=== PATIENT | female | born 1950 | race Caucasian/White ===

== ENCOUNTER 2022-05-21 11:57 | Outpatient (REF) | payer MEDICARE, SELFPAY | END 2022-05-21 11:58 | disposition home or self-care (01) | LOC: HO.LNP 11:57 | PROVIDERS: Visit Provider Internal Medicine | DX: S71.102A Unspecified open wound, left thigh, initial encounter (principal) | CPT/HCPCS: 87255 ==

== ENCOUNTER 2022-10-08 08:26 | Emergency (ER) | payer MEDICARE, SELFPAY ==
--- NOTE | ~2022-10-08 | XR_ITS ---
EXAMINATION: XR CHEST CLINICAL INFORMATION: Cough, shortness of breath. COMPARISON: None TECHNIQUE: 2 views of the chest were obtained. FINDINGS: No significant abnormality is noted involving the heart, lungs, mediastinum, bony thorax or soft tissues. XR/XR chest 2V IMPRESSION: No acute cardiopulmonary process.
[2022-10-08 08:30] VITALS: BP 146/82; PULSE 113; RESP 20; TEMP 37.3; O2SAT 93; BMI 29.5
[2022-10-08 09:15] LABS: MANUAL DIFF FLAG NO
[2022-10-08 09:16] LABS: Basophils Percent Auto 0.2 % (0-2); Eosinophils Percent Auto 0.1 % (0-4); Hematocrit 37.6 % (37.0-47.0); Hemoglobin 12.1 g/dl (12.0-16.0); Imm Gran Abs Auto 0.05 X10*3/uL (0.00-0.03); Imm Gran Pct Auto 0.4 % (0.0-0.4); Lymphocytes Absolute Auto 0.8 X10*3/uL (1.2-4.9); Lymphocytes Percent Auto 6.2 % (20-40); Mean Corpuscular HGB Conc 32.2 g/dl (31.0-35.0); Mean Corpuscular Hemoglobin 24.7 pg (27.0-33.0); Mean Corpuscular Volume 76.9 fL (80.0-98.0); Mean Platelet Volume 10.6 fL (9.4-12.3); Monocytes Percent Auto 8.3 % (2-11); Neutrophils Absolute Auto 10.3 x10*3/uL (2.0-8.3); Neutrophils Percent Auto 84.8 % (45-73); Platelet Count 267 X10*3/uL (160-400); Red Blood Count 4.89 X10*6/uL (4.20-5.50); Red Cell Distribution Width 14.6 % (11.0-16.0); White Blood Count 12.1 X10*3/uL (4.8-10.8)
--- NOTE | 2022-10-08 09:24 | ED_ITS ---
HPI - URI/Sore Throat General Chief Complaint: Upper Respiratory Symptoms Stated Complaint: Diff Breathing Cold Symptoms Time Seen by Provider: 10/08/22 08:57 Source: patient Mode of arrival: ambulatory Limitations: no limitations History of Present Illness HPI Narrative: 72-year-old female with a history of GERD and hypothyroidism presents to the ER for evaluation of 5 days of not feeling well. She states that started 5 days ago with a runny nose. It progressed dry cough, headaches, body aches and nasal congestion. She states the cough has caused her to have some chest wall pains. She has difficulty sleeping due to the cough. She is not bringing up any phlegm. She states when she has a coughing fit she gets short of breath. She denies any fevers but has some chills. She states she has had a pounding headache with no relief by taking Excedrin. She states she has a history of migraines. The headache has been causing her to have nausea and a couple episodes of vomiting. She denies any neck pain. No vision changes. Her daughter and grandchildren were sick last week with a upper respiratory infection. MD elicited complaint: cough, nasal congestion and other (Headache) Onset (ago): day(s) (5) Severity: severe Description of mucous: clear Able to tolerate fluids by mouth: Yes Exacerbating factors: supine positioning Relieving factors: rest Context: sick contacts Associated symptoms: chills, myalgias, headache, nasal congestion, cough, chest pain, shortness of breath, nausea and vomiting Treatments prior to arrival: none Related Data Home Medications Medication Instructions Recorded Confirmed levothyroxine 88 mcg tablet 88 mcg PO DAILY 02/19/22 omeprazole 20 mg capsule,delayed 20 mg PO DAILY 02/19/22 release Previous Rx's Medication Instructions Recorded diazepam 5 mg tablet (Valium) 5 mg PO BEDTIME PRN sleep #7 tabs 07/25/21 erythromycin 5 mg/gram (0.5 %) eye 0.5 inch ophthalmic (eye) BID #50 02/25/22 ointment grams prednisolone acetate 1 % eye 1 drp ophthalmic (eye) TID PRN 02/25/22 drops,suspension burning #10 mL sulfamethoxazole 800 1 tab PO BID 7 days #14 tabs 05/21/22 mg-trimethoprim 160 mg tablet (Bactrim DS) benzonatate 100 mg capsule 100 mg PO TID PRN cough #30 caps 10/08/22 cxgncechss-yqcfclumtgaaf-mnfgdnnt 1 cap PO Q8H PRN headache #14 caps 10/08/22 50 mg-300 mg-40 mg capsule (Fioricet) Allergies Allergy/AdvReac Type Severity Reaction Status Date / Time Penicillins Allergy Intermediate Unknown Verified 05/21/22 09:53 oxycodone [OXYCODONE] Allergy Unknown ALLERGIC Verified 05/21/22 09:53 TO CODIENE - FEARFUL TO TRY OXYCODONE codeine [CODEINE] AdvReac Unknown NAUSEA & Verified 05/21/22 09:53 VOMITING Review of Systems Review of Systems: Constitutional: No Fever, + Chills ENT/Mouth: No sore throat, No Rhinorrhea, No Swallowing Difficulty Eyes: No Eye Pain, No Swelling, No Redness Cardiovascular: + Chest Pain, + SOB, No Orthopnea, No Edema Respiratory: + Cough, No Sputum, No Wheezing, + dyspnea Gastrointestinal: No Nausea, No Vomiting, No Diarrhea, No abdominal Pain, No Hematochezia, No Melena Musculoskeletal: No joint pain, +Myalgias Skin: No Skin Lesions, No rash Neuro: No Weakness, No Dizziness, +Headache Heme/Lymph: No Bruising, No Lymphadenopathy PMFSH Social History Social History Patient Tobacco Use Status: Never used Tobacco Advance Directives: Yes Advance Directives Information Provided: Yes Advance Directives on File: No Physical Exam Vital Signs: Vital Signs: Last Vital Signs Temp 97.7 F 10/08/22 10:01 Pulse 93 10/08/22 10:01 Resp 14 10/08/22 10:01 BP 126/59 L 10/08/22 10:01 Pulse Ox 93 10/08/22 10:01 O2 Del Method 10/08/22 10:01 BMI result Body Mass Index 29.5 Appearance: Alert. Oriented X3. No acute distress. Eyes: Pupils equal, round and reactive to light. ENT: Pharynx normal. Clear nasal discharge bilaterally. Neck: Normal inspection. Neck supple. CVS: Normal heart rate and rhythm. Pulses normal. Respiratory: No respiratory distress. Breath sounds normal. Dry cough noted Abdomen: Soft and nontender. +BS x4 Skin: Skin warm and dry. Normal skin color. Normal skin turgor. No rashes. Extremities: No lower extremity edema. No calf swelling or tenderness Neuro: Oriented X 3. No motor deficit. No sensory deficit. Grossly normal, nonfocal Course Course Course Narrative: 72-year-old female with history of GERD, hypothyroidism, migraines presents to the ER for evaluation of cough associated with chest pains, nasal congestion, headaches associated with nausea and vomiting. She has had sick contacts from her family members who had similar symptoms but to a lesser degree last week. On arrival to the ER she is tachycardic to 113 with a low-grade fever. Saturating 93% on room air, no respiratory distress. On examination her lungs are clear. Signs and symptoms are most likely due to a viral URI with cough. Will plan to check chest x-ray, viral PCR and lab workup. Doubt cardiac etiology of her chest pain given is reproducible and occurs with coughing. Reevaluation(s) Reevaluation #1: Labs showed WBC 12.1. Chest x-ray without any evidence of bacterial pneumonia. Symptoms are most likely viral in etiology. She did not tolerate IV placement for IV fluids and is tolerating p.o. fluids at this time. Reevaluation #2: Patient tolerating PO. Headache improved w/ tylenol. Found to be positive for RSV. Sats remain stable 93-94%. Speaking in complete sentences and in no respiratory distress. Comfortable with d/c home w/ antitussive and fiorcet for headache. Return precautions were discussed. Medications Administered Discontinued Medications Generic Name Dose Route Start Last Admin Trade Name Freq PRN Reason Stop Dose Admin Acetaminophen 975 mg 10/08/22 09:17 10/08/22 09:34 Acetaminophen 325 Mg Tablet PO 10/08/22 09:18 975 mg ONCE ONE Administration Medical Decision Making Medical Decision Making Independent interpretation of EKG, rhythm strip, radiology study: Independent interp EKG,rhythm strip, radiology study I performed an independent interpretation of the: EKG and Plain X-Ray My interpretation is normal sinus rhythm, ventricular rate 96 beats per minute, normal MI interval, normal QRS, nonspecific ST and T-wave abnormality, no ST segment elevations or depressions. Reviewed chest x-ray, no infiltrate appreciated. Independent historian (e.g., spouse, EMS, friend): Independent historian (e.g., spouse, EMS, friend) Clinical information obtained from an independent histo jana. History obtained from or confirmed by: Other Additional Comments: Patient's daughter helps to provide history Discharge Plan Discharge Clinical Impression: Respiratory syncytial virus (RSV) Patient Disposition: Home, Self-Care Instructions: Respiratory Syncytial Virus (ED) Additional Instructions: Your labs today were unremarkable. Your chest x-ray was normal. You were found to be positive for RSV. This is a common and contageous respiratory virus. Treatment is supportive care. Rest, drink plenty of fluids. Take over the counter cold/flu medications as needed for your symptoms. Recommend mucinex DM 1200 mg every 12 hours Take the prescribed medications as directed for cough and headaches. Follow up with your doctor. If you develop new or worsening symptoms call 911 or come back to the ER for further evaluation. Prescriptions: New benzonatate 100 mg capsule 100 mg PO TID PRN (Reason: cough) Qty: 30 0RF qeamyiozmx-hxijuzwyvorux-vfyw [Fioricet] 50-300-40 mg capsule 1 cap PO Q8H PRN (Reason: headache) Qty: 14 0RF No Action diazepam [Valium] 5 mg tablet 5 mg PO BEDTIME PRN (Reason: sleep) Qty: 7 0RF omeprazole 20 mg capsule,delayed release(DR/EC) 20 mg PO DAILY levothyroxine 88 mcg tablet 88 mcg PO DAILY erythromycin 5 mg/gram (0.5 %) ointment 0.5 inch ophthalmic (eye) BID Qty: 50 0RF prednisolone acetate 1 % drops,suspension 1 drp ophthalmic (eye) TID PRN (Reason: burning ) Qty: 10 0RF sulfamethoxazole-trimethoprim [Bactrim DS] 800-160 mg tablet 1 tab PO BID 7 Days Qty: 14 0RF Referrals: Caitlin Hernandez MD [Primary Care Provider] -
[2022-10-08 09:30] LABS: Appearance Urine Clear; Color Urine Yellow; Glucose Urine UA Negative (Negative); Leukocyte Esterase Urine Negative (Negative); Nitrite Urine Negative (Negative); PH 5.5 (5.0-9.0); Specific Gravity - Urine 1.025 (1.005-1.025); UMIC TRIGGER UACC YES; Urine Blood Negative (Negative); Urine Ketones 15 mg/dL (Negative); Urine Protein 30 (1+) mg/dL (Neg-Trace)
[2022-10-08 09:33] LABS: Anion Gap 15 (12-20); Blood Urea Nitrogen 12 mg/dL (9-16); Calcium 9.1 mg/dL (8.4-10.2); Carbon Dioxide 23 mmol/L (22-29); Chloride 102 mmol/L (96-108); Creatinine Clr Calc Pharmacy 48.9; Estimated Glomerular Filt Rate > 60; Glucose Random 135 mg/dL (60-115); Potassium 3.5 mmol/L (3.3-5.1); Sodium 136 mmol/L (135-145)
[2022-10-08 09:34] LABS: Bacteria Urine None Seen (None Seen); Hyaline Casts Urine 0-2 /LPF (0-2); RBC Urine 0-2 /HPF (0-2); Squamous Epithelial Cell Urine 0-2 /HPF (0-2); WBC Urine 0-5 /HPF (0-5)
[2022-10-08] MEDS: Acetaminophen 325 MG TABLET 975 MG PO (09:34)
[2022-10-08 09:41] LABS: Troponin-I High Sensitivity 4.3 ng/L (<3.5-17.0)
[2022-10-08 10:01] VITALS: BP 126/59; PULSE 93; RESP 14; TEMP 36.5; O2SAT 93
[2022-10-08 10:05] LABS: Influenza A PCR NEGATIVE (Negative); Influenza B PCR NEGATIVE (Negative); Resp Syncy Virus RNA Qual PCR POSITIVE (Negative); SARS COV2 PCR INHOUSE NEGATIVE (Negative)
== END 2022-10-08 10:59 | disposition home or self-care (01) ==
PROVIDERS: Physician Assistant; Emergency Provider Emergency Medicine Emergency Medical Services; PCP Internal Medicine
DX: J06.9 Acute upper respiratory infection, unspecified (principal); B97.4 Respiratory syncytial virus as the cause of diseases classified elsewhere; R06.02 Shortness of breath; M79.10 Myalgia, unspecified site; R07.89 Other chest pain; Z20.822 Contact with and (suspected) exposure to COVID-19; Z79.899 Other long term (current) drug therapy
CPT/HCPCS: 0241U; 36415; 71046; 80048; 81001; 84484; 85025; 99283; 99284

== ENCOUNTER 2023-10-27 12:49 | Outpatient (AMB) | payer MEDICARE, SELFPAY ==
[2023-10-27 15:59] VITALS: BP 134/82; PULSE 78; O2SAT 98
--- NOTE | 2023-10-27 15:59 | MHC.OFFWIV ---
Intake Vital Signs 10/27/23 15:59 Height 4 ft 8 in BP 134/82 Blood Pressure Location Rt brachial Position Sitting Pulse 78 Pulse Source Pulse Oximeter Pulse Oximetry (%) 98 Oxygen Delivery Method Room Air Intake Visit Reasons: EP RT Knee Injury Intake Note: pt is here for c.o right knee pain Patient Tobacco Use Status: Never used Tobacco Allergies Penicillins Allergy (Intermediate, Verified 11/08/23 08:51) Unknown oxycodone [OXYCODONE] Allergy (Unknown, Verified 11/08/23 08:51) ALLERGIC TO CODIENE - FEARFUL TO TRY OXYCODONE codeine [CODEINE] Adverse Reaction (Unknown, Verified 11/08/23 08:51) NAUSEA & VOMITING HPI EP RT Knee Injury HPI Details [age] year old female presents to the office for a sick visit. Patient is complaining of pain in the right knee for the past 2 weeks. Does not recall any fall or injury prior to the onset of symptoms. Patient is experiencing difficulty climbing and coming down stairs. PFS Social History Patient Tobacco Use Status: Never used Tobacco Physical Exam Vital Signs: Last Vital Signs Pulse 78 10/27/23 15:59 BP 134/82 10/27/23 15:59 Pulse Ox 98 10/27/23 15:59 Oxygen Delivery Method Room Air 10/27/23 15:59 Extrem Other: Right knee: Joint line tenderness present. Pain on flexion of the knee. Complete range of motion possible with discomfort. Assessment & Plan Assessment & Plan (1) Right knee sprain: Code(s): S83.91XA - Sprain of unspecified site of right knee, initial encounter Plan: X-ray images were personally reviewed by me. Anti-inflammatory started. Knee splint provided. If symptoms do not improve to follow-up here. Medications: New meloxicam 15 mg PO DAILY 14 tabs 0RF Coding Level of Care Code Est Pt Level 4 (13856) Diagnoses Right knee sprain S83.91XA
== END 2023-10-27 16:31 | disposition home or self-care (01) ==
PROVIDERS: PCP Internal Medicine; Visit Provider Internal Medicine
DX: S83.91XA Sprain of unspecified site of right knee, initial encounter (principal)
CPT/HCPCS: 99214

== ENCOUNTER 2023-10-27 16:19 | Outpatient (REF) | payer MEDICARE, SELFPAY ==
--- NOTE | ~2023-10-27 | XR_ITS ---
EXAMINATION: XR KNEE, RIGHT CLINICAL INFORMATION: Sprain of unspecified site of right knee, initial encounter COMPARISON: None available. TECHNIQUE: Four views of the right knee. FINDINGS: No fracture. Small joint effusion. Alignment is anatomic. Question narrowing of the patellofemoral joint compartment in the absence of the sunrise view. Chondrocalcinosis is seen in the medial and lateral joint compartments. There is decreased density of the medial aspect of the femoral condyle without well-defined margins. Small ossific or calcific density seen adjacent to the medial femoral condyle could be related just Celia-Stieda disease. XR/XR knee RT 4V IMPRESSION: 1. No acute bony abnormality. 2. Chondrocalcinosis. 3. Decreased density of the medial aspect of the femoral condyle without well-defined margins. 4. Question of Celia-Stieda disease.
== END 2023-10-27 16:20 | disposition home or self-care (01) ==
LOC: HO.HMGCX 16:19
PROVIDERS: Visit Provider Internal Medicine
DX: S83.91XA Sprain of unspecified site of right knee, initial encounter (principal)
CPT/HCPCS: 73564

== ENCOUNTER 2023-12-20 10:00 | Emergency (ER) | payer MEDICARE, SELFPAY ==
--- NOTE | ~2023-12-20 | CT_ITS ---
EXAMINATION: CT ANGIOGRAM OF THE CHEST WITH AND WITHOUT CONTRAST (CT PULMONARY ANGIOGRAM FOR PE) CLINICAL INFORMATION: Reason for Exam abd pain COMPARISON: None available. TECHNIQUE: Prior to contrast administration, noncontrast localization images were obtained. Subsequently, multidetector volumetric imaging was performed from the thoracic inlet to below the diaphragms following the administration of 80 mL Omnipaque 350 intravenous contrast. No contrast reaction reported Sagittal, coronal, and MIP oblique sagittal reformatted images were obtained on the CT workstation, uploaded to PACS, and reviewed. This CT examination was performed using dose optimization techniques as appropriate, variously including the following: *Automated exposure control *Adjustment of mA and/or kV according to patient size (this includes techniques or standardized protocols for targeted exams where dose is matched to indication/reason for exam; i.e. extremities or head) *Use of iterative reconstruction technique Total exam dose-length product 99 mGy-cm FINDINGS: QUALITY OF STUDY/CONTRAST BOLUS: Satisfactory. PULMONARY ARTERIES: No pulmonary emboli. THORACIC AORTA: No aneurysm. LUNG: No focal consolidation, nodules or masses. Underlying moderate emphysema noted. PLEURA: No pleural effusion or pneumothorax. MEDIASTINUM: Normal heart size. No pericardial effusion. No hilar or mediastinal lymphadenopathy. No evidence of septal bowing or right heart strain. CORONARY ARTERY CALCIFICATION: Present CHEST WALL/AXILLA: No axillary or internal mammary lymphadenopathy. OSSEOUS STRUCTURES: No acute or suspicious osseous abnormality. CT/CT abdomen pelvis w IV con IMPRESSION: No evidence for acute or chronic pulmonary embolism. Emphysema. VTE: negative EXAMINATION: CT ABDOMEN AND PELVIS WITH CONTRAST CLINICAL INFORMATION: Reason for Exam abd pain COMPARISON: None. TECHNIQUE: Multidetector volumetric imaging was performed from the superior aspect of the liver through the pubic symphysis following administration of 100 mL Omnipaque 300 intravenous contrast. Sagittal and coronal reformatted images were obtained on the technologist workstation.. This CT examination was performed using dose optimization techniques as appropriate, variously including the following: *Automated exposure control *Adjustment of mA and/or kV according to patient size (this includes techniques or standardized protocols for targeted exams where dose is matched to indication/reason for exam; i.e. extremities or head) *Use of iterative reconstruction technique DLP: 386 mGy-cm FINDINGS: LUNG BASES: The visualized lung bases are unremarkable. LIVER, GALLBLADDER, AND BILIARY TREE: The liver is normal in size, shape, and attenuation. No focal hepatic lesion or biliary ductal dilatation is present. The gallbladder is unremarkable with no evidence of radiopaque gallstones, gallbladder wall thickening, or obvious pericholecystic inflammatory changes. PANCREAS: Unremarkable. SPLEEN: Unremarkable. ADRENAL GLANDS: Unremarkable. KIDNEYS AND URETERS: The kidneys are normal in size, shape, and attenuation. No hydronephrosis, hydroureter, or calculi seen. No perinephric stranding. Left renal cortical cyst lower pole exophytic Bosniak 1. No follow-up indicated. BLADDER: Unremarkable. GASTROINTESTINAL TRACT: Relatively pronounced diverticulosis especially sigmoid colon. No acute inflammatory changes. No small bowel pathology. Moderate size axial type hiatus hernia. ABDOMINAL WALL: No significant hernia is appreciated. LYMPHOVASCULAR STRUCTURES: No lymphadenopathy. The aorta is unremarkable. PELVIC VISCERA: Unremarkable. OSSEOUS STRUCTURES: Unremarkable. IMPRESSION: Severe diverticulosis without acute inflammatory changes. No discrete abnormality to explain patient's symptoms.
--- NOTE | 2023-12-20 10:04 | ECG_ITS ---
Test Reason : CP Blood Pressure : / mmHG Vent. Rate : 074 BPM Atrial Rate : 074 BPM P-R Int : 152 ms QRS Dur : 090 ms QT Int : 416 ms P-R-T Axes : 068 035 -21 degrees QTc Int : 461 ms Normal sinus rhythm Nonspecific ST and T wave abnormality Abnormal ECG When compared with ECG of 08-OCT-2022 08:51, Inverted T waves have replaced nonspecific T wave abnormality in Lateral leads Referred By: Anamaria Duque Electronically Signed By:KENYATTA BOUDREAUX MD
[2023-12-20 10:06] VITALS: BP 123/65; PULSE 78; RESP 24; TEMP 36.8; O2SAT 97; BMI 23.5
--- NOTE | 2023-12-20 10:15 | ED.ABDPAIN ---
HPI - Abdominal Pain General Chief Complaint: Abdominal Pain Stated Complaint: Abd pain, vomiting Time Seen by Provider: 12/20/23 10:04 Source: patient and other (Best friend at bedside) Mode of arrival: ambulatory Limitations: no limitations History of Present Illness HPI narrative: 73-year-old female history of IBD, constipation, GERD, hypothyroidism presenting with sudden onset severe abdominal and chest pain since last night. Patient tells me she has had multiple episodes of nausea and vomiting as well as diarrhea home since last night in today in the department she is vomited once. She tells me she does not feel well at all. Tells me chest discomfort is in the substernal region described as pressure and severe pain in her upper abdomen. She has not had pain like this in the past. It does not feel like her typical flare of IBD. Reports surgical history of tubal ligation. No recent antibiotic use. No associated fevers, chills, shortness of breath headache, vision changes, dizziness, weakness. Related Data Home Medications Medication Instructions Recorded Confirmed levothyroxine 88 mcg tablet 88 mcg PO DAILY 02/19/22 sertraline 25 mg tablet 25 mg PO DAILY 10/27/23 Previous Rx's Medication Instructions Recorded meloxicam 15 mg tablet 15 mg PO DAILY #14 tabs 10/27/23 Allergies Allergy/AdvReac Type Severity Reaction Status Date / Time Penicillins Allergy Intermediate Unknown Verified 11/08/23 08:51 oxycodone [OXYCODONE] Allergy Unknown ALLERGIC Verified 11/08/23 08:51 TO CODIENE - FEARFUL TO TRY OXYCODONE codeine [CODEINE] AdvReac Unknown NAUSEA & Verified 11/08/23 08:51 VOMITING Review of Systems Review of Systems Yes all other systems are reviewed and are negative [facility] Past Medical History Attestation statement: The following information was validated with the patient. Source: old records reviewed and nursing notes reviewed Social History Social History Alcohol intake: current Alcohol intake frequency: holidays/special occasions only Patient Tobacco Use Status: Never used Tobacco Smoked in Last 30 Days: No Use of substances other than those prescribed or required for medical reasons: No Advance Directives: Yes Advance Directives Information Provided: No Advance Directives on File: No Physical Exam ED Vital Signs: Vital Signs - 24 hr 12/20/23 10:06 12/20/23 12:45 12/20/23 12:55 Temperature 98.3 F Pulse Rate 78 87 88 Respiratory Rate 24 H 14 12 Blood Pressure 123/65 120/48 L 123/55 L Pulse Oximetry 97 96 94 Oxygen Delivery Method Room Air Nasal Cannula Room Air Oxygen Flow Rate 2 12/20/23 14:30 Temperature 97.7 F Pulse Rate 86 Respiratory Rate 12 Blood Pressure Pulse Oximetry 93 Oxygen Delivery Method Room Air Oxygen Flow Rate BMI result Body Mass Index 23.5 Patient tachypneic and anxious. Appearance: Alert.? Oriented X3.? Patient appears moderately uncomfortable. Head: Normocephalic, atraumatic, no step-offs or deformities Eyes: Pupils equal, round and reactive to light.? ENT: Pharynx normal.? Neck: Normal inspection.? Neck supple.? CVS: Normal heart rate and rhythm.? Pulses normal.? Respiratory: No respiratory distress.? Breath sounds normal.? Abdomen: Soft and diffuse abdominal discomfort with normoactive bowel sounds throughout.? Skin: Skin warm and dry.? Normal skin color.? Normal skin turgor.? Extremities: No lower extremity edema.? No calf ttp. 5/5 strength to bilateral upper and lower extremities Neuro: Oriented X 3.? No motor deficit.? No sensory deficit. CN 2-12 intact Course Reevaluation(s) Reevaluation #1: Patient's CBC pending. Chemistry with an elevated lactic acid 3.0. BNP slightly elevated 147 no complaints of shortness of breath at this time. COVID, influenza negative. UA, CBC, imaging pending. At this time sepsis alert paged overhead. Time: 11:10 Reevaluation #2: CBC did reveal leukocytosis with shift. CT abdomen pelvis severe diverticulosis without acute inflammatory changes. No discrete abnormality to explain patient's symptoms. CTA VT negative. No evidence of acute or chronic PE. Emphysema noted. UA, 2nd troponin pending. Sign out to Rony PAC Time: 16:05 Medical Decision Making Medical Decision Making [facility] Narrative: 1015 73-year-old female presents with abdominal pain and chest pain that started last night with associated nausea, vomiting, diarrhea. Physical exam significant for : Soft and diffuse abdominal discomfort with normoactive bowel sounds throughout.? Regular rate and rhythm. Breath sounds clear throughout Concerns for possible viral illness versus diverticulitis versus electrolyte abnormalities versus obstruction. Unlikely ACS, PE, dissection, acute respiratory distress. Will rule out acute abdomen. Plan labs, imaging, urine will give morphine for pain control with Zofran. Prior to giving these medications I did confirm that when patient gets codeine she just gets some nausea and sometimes she vomits however they have medicated her in the past with an anti emetic and given her medication has worked. Differential Diagnosis Differential Diagnoses: The differential diagnosis associated with the presentation includes Concerns for possible viral illness versus diverticulitis versus electrolyte abnormalities versus obstruction. Unlikely ACS, PE, dissection, acute respiratory distress. Will rule out acute abdomen. Admission/Observation Consideration of admission/observation: Escalation of care including admission/observation considered Likely Lab Data MDM Lab Attestation statement: I reviewed the patient's lab results. 12/20/23 10:42 12/20/23 10:42 Labs: Lab Results 12/20/23 12/20/23 12/20/23 Range/Units 10:27 10:42 14:53 WBC 14.3 H (4.8-10.8) X10*3/uL RBC 5.32 (4.20-5.50) X10*6/uL Hgb 13.5 (12.0-16.0) g/dl Hct 41.8 (37.0-47.0) % MCV 78.6 L (80.0-98.0) fL MCH 25.4 L (27.0-33.0) pg MCHC 32.3 (31.0-35.0) g/dl RDW 14.0 (11.0-16.0) % Plt Count 267 (160-400) X10*3/uL MPV 11.1 (9.4-12.3) fL Immature Gran % (Auto) 0.5 H (0.0-0.4) % Neut % (Auto) 94.6 H (45-73) % Lymph % (Auto) 2.0 L (20-40) % Scurry % (Auto) 2.7 (2-11) % Eos % (Auto) 0.0 (0-4) % Baso % (Auto) 0.2 (0-2) % Lymph # (Auto) 0.3 L (1.2-4.9) X10*3/uL Scurry # (Auto) 0.4 (0.1-1.2) X10*3/uL Eos # (Auto) 0.0 (0.0-0.4) X10*3/uL Baso # (Auto) 0.0 (0.0-0.2) X10*3/uL Abs Immat Gran (auto) 0.07 H (0.00-0.03) X10*3/uL Absolute Neuts (auto) 13.5 H (2.0-8.3) x10*3/uL Absolute Nucleated RBC 0.000 (0.0-0.012) X10*3/uL Nucleated RBC % (auto) 0.0 (0.0-0.2) /100WBC Smear Tech's Comments VERIFIED Sodium 139 (135-145) mmol/L Potassium 3.4 (3.3-5.1) mmol/L Chloride 104 (96-108) mmol/L Carbon Dioxide 19 L (22-29) mmol/L Anion Gap 19 (12-20) BUN 16 (9-16) mg/dL Creatinine 0.78 (0.5-1.4) mg/dL Estim Creat Clear Calc 46.1 Estimated GFR > 60 Random Glucose 164 H (60-115) mg/dL Lactic Acid 3.0 H* (0.5-2.0) mmol/L Lactic Acid F/U @ 2Hr 1.7 (0.5-2.0) mmol/L Calcium 9.9 D (8.4-10.2) mg/dL Magnesium 1.8 (1.6-2.6) mg/dL Total Bilirubin 0.6 (0.0-1.0) mg/dL AST 19 (5-31) U/L ALT 12 (0-31) U/L Alkaline Phosphatase 88 (39-117) U/L Troponin I High Sens < 2.7 (<3.5-17.0) ng/L B-Natriuretic Peptide 147 H (<100) pg/mL Total Protein 7.8 (6.5-8.0) g/dL Albumin 4.8 (3.5-5.0) g/dL Lipase 7 L (8-78) U/L COVID-19 (PINO) Negative (Negative) COVID-19 Clin Com See Note Influenza Type A (JAMEY) Negative (Negative) Influenza Type B (JAMEY) Negative (Negative) Influenza A & B Note See Note Medications Administered Discontinued Medications Generic Name Dose Route Start Last Admin Trade Name Vanessa PRN Reason Stop Dose Admin Sodium Chloride 1,638 mls @ 1,638 mls/hr 12/20/23 11:09 12/20/23 12:40 Ns 30 ml/kg infuse over 1 hr (1638 ml) 12/20/23 12:08 Infused IV Infusion .Q1H STA Ceftriaxone Sodium 1 gm/ 50 mls @ 100 mls/hr 12/20/23 11:09 12/20/23 11:59 Sodium Chloride IV 12/20/23 11:38 Infused ONCE ONE Infusion Iohexol 65 ml 12/20/23 13:20 12/20/23 13:21 Iohexol 350 Mg/Ml 100 Ml Infus..Btl IV 12/20/23 13:21 65 ml ONCE ONE Administration Morphine Sulfate 4 mg 12/20/23 10:05 12/20/23 10:58 Morphine Sulfate 4 Mg/Ml Cartridge IVPUSH 12/20/23 10:06 4 mg ONCE ONE Administration Protocol Ondansetron HCl 4 mg 12/20/23 10:04 12/20/23 10:58 Ondansetron Hcl 4 Mg/2 Ml Vial IVPUSH 12/20/23 10:05 4 mg ONCE ONE Administration Discharge Plan Discharge Clinical Impression: Abdominal pain Patient Disposition: Home, Self-Care Instructions: Abdominal Pain (ED) Additional Instructions: Take your medications as prescribed. If you were prescribed antibiotics today, it is important that you take your medication to their entirety, do not skip any doses, do not finish them early. Follow-up with your primary care provider this week. Return to the emergency department with new or worsening symptoms. Such as fevers, chills, chest pain, shortness of breath, nausea, vomiting, dizziness, headache, vision changes, lethargy In case of emergency call [address] ABDOMEN AND PELVIS WITH CONTRAST IMPRESSION: Severe diverticulosis without acute inflammatory changes. No discrete abnormality to explain patient's symptoms. Prescriptions: No Action sertraline 25 mg tablet 25 mg PO DAILY meloxicam 15 mg tablet 15 mg PO DAILY Qty: 14 0RF levothyroxine 88 mcg tablet 88 mcg PO DAILY Referrals: [facility] [Provider Group] - 1 day Caitlin Hernandez MD [Primary Care Provider] - 2 days Stand Alone Forms: Work/School Release
[2023-12-20 10:52] LABS: Basophils Percent Auto 0.2 % (0-2); Hematocrit 41.8 % (37.0-47.0); Hemoglobin 13.5 g/dl (12.0-16.0); Imm Gran Abs Auto 0.07 X10*3/uL (0.00-0.03); Imm Gran Pct Auto 0.5 % (0.0-0.4); Lymphocytes Absolute Auto 0.3 X10*3/uL (1.2-4.9); MANUAL DIFF FLAG SCAN; Mean Corpuscular HGB Conc 32.3 g/dl (31.0-35.0); Mean Corpuscular Hemoglobin 25.4 pg (27.0-33.0); Mean Corpuscular Volume 78.6 fL (80.0-98.0); Mean Platelet Volume 11.1 fL (9.4-12.3); Monocytes Absolute Auto 0.4 X10*3/uL (0.1-1.2); Monocytes Percent Auto 2.7 % (2-11); Neutrophils Absolute Auto 13.5 x10*3/uL (2.0-8.3); Neutrophils Percent Auto 94.6 % (45-73); Platelet Count 267 X10*3/uL (160-400); Red Blood Count 5.32 X10*6/uL (4.20-5.50); SCAN SMEAR FLAG 1; White Blood Count 14.3 X10*3/uL (4.8-10.8)
[2023-12-20 10:58] LABS: COVID-19 Test Negative (Negative); IDNOW Serial# 08D9AD1C
[2023-12-20] MEDS: ondansetron HCL 4 MG/2 ML VIAL IVPUSH (10:58)
[2023-12-20] MEDS: Morphine Sulfate 4 MG/ML CARTRIDGE IVPUSH (10:58)
[2023-12-20 10:59] LABS: IDNOW Serial# 152EDE1D; Influenza A Negative (Negative); Influenza B2 Negative (Negative)
[2023-12-20 11:06] LABS: Alanine Aminotransferase 12 U/L (0-31); Albumin Level 4.8 g/dL (3.5-5.0); Alkaline Phosphatase 88 U/L (39-117); Anion Gap 19 (12-20); Aspartate Amino Transferase 19 U/L (5-31); Bilirubin Total 0.6 mg/dL (0.0-1.0); Blood Urea Nitrogen 16 mg/dL (9-16); Calcium 9.9 mg/dL (8.4-10.2); Carbon Dioxide 19 mmol/L (22-29); Chloride 104 mmol/L (96-108); Creatinine Clr Calc Pharmacy 46.1; Estimated Glomerular Filt Rate > 60; Glucose Random 164 mg/dL (60-115); Lipase 7 U/L (8-78); Magnesium 1.8 mg/dL (1.6-2.6); Potassium 3.4 mmol/L (3.3-5.1); Sodium 139 mmol/L (135-145); Total Protein 7.8 g/dL (6.5-8.0)
[2023-12-20 11:09] LABS: B Type Natriuretic Peptide 147 pg/mL (<100)
[2023-12-20 11:14] LABS: Troponin-I High Sensitivity < 2.7 ng/L (<3.5-17.0)
[2023-12-20 11:15] LABS: SLIDE REVIEW VERIFIED
[2023-12-20] MEDS: cefTRIAXone sodium 1 GM in 0.9 % Sodium Chloride 50 ML IV (11:23)
[2023-12-20 12:45] VITALS: BP 120/48; PULSE 87; RESP 14; O2SAT 96
[2023-12-20 12:46] LABS: Reflex Lactate? Lactic Acid Added
[2023-12-20 12:55] VITALS: BP 123/55; PULSE 88; RESP 12; O2SAT 94
[2023-12-20] MEDS: iohexoL 350 MG/ML 100 ML INFUS..BTL 65 ML IV (13:21)
[2023-12-20 14:30] VITALS: PULSE 86; RESP 12; TEMP 36.5; O2SAT 93
[2023-12-20 15:18] LABS: ~Lactic Acid-LAB USE ONLY 1.7 mmol/L (0.5-2.0)
[2023-12-20 16:02] LABS: Troponin-I High Sensitivity < 2.7 ng/L (<3.5-17.0)
[2023-12-20] MEDS: Acetaminophen 325 MG TABLET 650 MG PO (16:26)
[2023-12-20 16:31] LABS: Appearance Urine Clear; Color Urine Yellow; Glucose Urine UA Negative (Negative); Leukocyte Esterase Urine Negative (Negative); Nitrite Urine Negative (Negative); Specific Gravity - Urine >= 1.030 (1.005-1.025); Urine Blood Negative (Negative); Urine Ketones 15 mg/dL (Negative); Urine Protein Negative (Neg-Trace)
[2023-12-20 17:03] VITALS: BP 139/59; PULSE 78; RESP 11; TEMP 36.7; O2SAT 94
== END 2023-12-20 17:05 | disposition home or self-care (01) ==
PROVIDERS: Physician Assistant; Emergency Provider Emergency Medicine; PCP Internal Medicine
DX: R10.9 Unspecified abdominal pain (principal); K57.30 Diverticulosis of large intestine without perforation or abscess without bleeding; F41.9 Anxiety disorder, unspecified; Z11.52 Encounter for screening for COVID-19; R06.02 Shortness of breath; Z79.899 Other long term (current) drug therapy
CPT/HCPCS: 36415; 71275; 74177; 80053; 81003; 83605; 83690; 83735; 83880; 84484; 85025; 87040; 87502; 87635; 93005; 96361; 96374; 96375; 99284; 99285; J0696; J2270; J2405; Q9967

== ENCOUNTER → 2023-12-20 10:04 | Outpatient (BNV) | payer MEDICARE, SELFPAY | PROVIDERS: Emergency Provider Emergency Medicine; PCP Internal Medicine; Visit Provider Internal Medicine Cardiovascular Disease | DX: R07.9 Chest pain, unspecified (principal) | CPT/HCPCS: 93010 ==

== ENCOUNTER 2024-03-31 10:04 | Outpatient (AMB) | payer MEDICARE, SELFPAY ==
[2024-03-31 10:08] VITALS: BP 140/78; PULSE 70; TEMP 36.2; O2SAT 96; BMI 27.0
--- NOTE | 2024-03-31 10:08 | MHC.OFFWIV ---
Intake Vital Signs 03/31/24 10:08 Height 4 ft 10 in Weight 129 lb BMI 27.0 BP 140/78 H Blood Pressure Location Lt brachial Position Sitting Pulse 70 Pulse Source Pulse Oximeter Temp 97.1 F Temp Source Temporal Artery Scan Pulse Oximetry (%) 96 Oxygen Delivery Method Room Air Intake Visit Reasons: EST/ blocked ears(lobby) Intake Note: pt is here today for blocked ears started 5 days Patient Tobacco Use Status: Never used Tobacco Allergies Penicillins Allergy (Intermediate, Verified 03/31/24 10:12) Unknown oxycodone [OXYCODONE] Allergy (Unknown, Verified 03/31/24 10:12) ALLERGIC TO CODIENE - FEARFUL TO TRY OXYCODONE codeine [CODEINE] Adverse Reaction (Unknown, Verified 03/31/24 10:12) NAUSEA & VOMITING Do you need a note to return to daycare/school/sports/work: No HPI HPI Comments History of Present Illness Details This is a 74-year-old female presenting for evaluation of decreased hearing in her right ear. Patient states she feels the ear is blocked. She denies having any pain, fevers, chills, discomfort in her left ear or sore throat. Patient used hydrogen peroxide yesterday without any relief. [facility] Social History Alcohol intake: current Alcohol intake frequency: holidays/special occasions only Patient Tobacco Use Status: Never used Tobacco Review of Systems Const All systems reviewed & are unremarkable except as noted in HPI and below Denies chills and Denies fever(s) Eyes Reports no additional complaints ENT Denies ear discharge, Denies otalgia, Denies facial pain, Reports hearing loss (right ear) and Denies sore throat Card Reports no additional complaints Resp Reports no additional complaints Skin/Breast Reports system reviewed and no additional complaints, except as documented Physical Exam Vital Signs: Last Vital Signs Temp 97.1 F 03/31/24 10:08 Pulse 70 03/31/24 10:08 BP 140/78 H 03/31/24 10:08 Pulse Ox 96 03/31/24 10:08 Oxygen Delivery Method Room Air 03/31/24 10:08 BMI result Body Mass Index 27.0 Const General: cooperative, healthy appearing, comfortable and no acute distress Nutritional Appearance: average body habitus Orientation/consciousness: patient oriented x3 Limitations: no limitations HEENT Head: Yes normal to inspection Ears: right TM abnormal (cerumen impaction; no evidence of a retained foreign body, TM notvisualized) and TM normal on the left General nose exam: Normal external nose present Face and sinus: Yes normal facial exam and Yes sinuses nontender Neuro General: patient oriented x3 Psych Appearance: grossly normal Mental Status: mental status grossly normal Insight: Good insight present (Psych) Judgement: Good judgement present (Psych) Assessment & Plan Assessment & Plan (1) Impacted cerumen of right ear: Comment: Unable to remove cerumen with curette in office. Code(s): H61.21 - Impacted cerumen, right ear Plan: OTC ear wax softening drops x 5-7 days. Patient to return for further evaluation as needed. Coding Level of Care Code Est Pt Level 3 (73469) Diagnoses Impacted cerumen of right ear H61.21 Time Spent (min) 20
== END 2024-03-31 11:03 | disposition home or self-care (01) ==
PROVIDERS: PCP Internal Medicine; Visit Provider Physician Assistant
DX: H61.21 Impacted cerumen, right ear (principal)
CPT/HCPCS: 99213

== ENCOUNTER 2024-04-08 09:58 | Outpatient (AMB) | payer MEDICARE, SELFPAY ==
[2024-04-08 10:28] VITALS: BP 110/72; PULSE 66; TEMP 36.2; O2SAT 97; BMI 26.5
--- NOTE | 2024-04-08 10:28 | AM.OFFWIN_ITS ---
Intake Vital Signs 04/08/24 10:28 Height 4 ft 10 in Weight 127 lb BMI 26.5 BP 110/72 Blood Pressure Location Lt brachial Position Sitting Pulse 66 Pulse Source Pulse Oximeter Temp 97.1 F Temp Source Temporal Artery Scan Pulse Oximetry (%) 97 Oxygen Delivery Method Room Air Intake Visit Reasons: EP Rt ear blockage Intake Note: pt is here today for rt ear blockage started 1 week ago Patient Tobacco Use Status: Never used Tobacco Allergies Penicillins Allergy (Intermediate, Verified 04/08/24 11:09) Unknown oxycodone [OXYCODONE] Allergy (Unknown, Verified 04/08/24 11:09) ALLERGIC TO CODIENE - FEARFUL TO TRY OXYCODONE codeine [CODEINE] Adverse Reaction (Unknown, Verified 04/08/24 11:09) NAUSEA & VOMITING Medication List - Last Reconciled 04/08/24 by Rand Goodwin CNP levothyroxine 88 mcg PO DAILY meloxicam 15 mg PO DAILY sertraline 25 mg PO DAILY Do you need a note to return to daycare/school/sports/work: No HPI HPI Comments History of Present Illness Details This is a 74-year-old female presenting for evaluation of decreased hearing in her right ear x 3 days. Patient states she feels the ear is blocked. She denies having any pain, fevers, chills, discomfort in her left ear or sore throat. Patient used hydrogen peroxide yesterday without any relief. [facility] Social History Alcohol intake: current Alcohol intake frequency: holidays/special occasions only Patient Tobacco Use Status: Never used Tobacco Review of Systems Const All systems reviewed & are unremarkable except as noted in HPI and below Physical Exam Vital Signs: Last Vital Signs Temp 97.1 F 04/08/24 10:28 Pulse 66 04/08/24 10:28 BP 110/72 04/08/24 10:28 Pulse Ox 97 04/08/24 10:28 Oxygen Delivery Method Room Air 04/08/24 10:28 BMI result Body Mass Index 26.5 Const General: cooperative, healthy appearing, comfortable and no acute distress Nutritional Appearance: average body habitus Orientation/consciousness: patient oriented x3 Limitations: no limitations HEENT Head: Yes normal to inspection Ears: right TM abnormal (cerumen impaction; no evidence of a retained foreign body, TM notvisualized) and TM normal on the left General nose exam: Normal external nose present Face and sinus: Yes normal facial exam and Yes sinuses nontender Neuro General: patient oriented x3 Psych Appearance: grossly normal Mental Status: mental status grossly normal Insight: Good insight present (Psych) Judgement: Good judgement present (Psych) Assessment & Plan Assessment & Plan (1) Impacted cerumen of right ear: Comment: Large Cerumen removed with curette and irrigation Code(s): H61.21 - Impacted cerumen, right ear Plan: Liang VARELA was able to remove 2 Large Cerumen with curette and irrigation from right ear. After cerumen removed by BRIQUETTING MACHINE OPERATOR, provider verified right ear canal clear, no further cerumen remains. Patient is very pleased she can hear again. Coding Level of Care Code Est Pt Level 2 (09468) Diagnoses Impacted cerumen of right ear H61.21
== END 2024-04-08 11:41 | disposition home or self-care (01) ==
PROVIDERS: PCP Internal Medicine; Visit Provider Nurse Practitioner Acute Care
DX: H61.21 Impacted cerumen, right ear (principal)
CPT/HCPCS: 99212

== ENCOUNTER 2024-07-25 10:39 | Outpatient (AMB) | payer MEDICARE, SELFPAY ==
--- NOTE | 2024-07-25 11:11 | AM.OFFWIN_ITS ---
Intake Vital Signs 07/25/24 11:12 Height 4 ft 10 in Weight 123 lb BMI 25.7 BP 134/90 H Blood Pressure Location Lt brachial Position Sitting Pulse 70 Pulse Source Pulse Oximeter Temp 98.2 F Temp Source Oral Pulse Oximetry (%) 95 Oxygen Delivery Method Room Air Intake Visit Reasons: EP Rt wrist pain Intake Note: pt c/o RT wrist/shoulder pain. Ongoing for a couple months. Primary did Shoulder Xray a couple months ago and normal Xray. Saw primary again last week. Normal Shoulder Xray. RT wrist pain is extreme and no Xray done thus far of wrist. Has wrist brace at home, some relief when wearing overnight. Patient Tobacco Use Status: Former Tobacco user Allergies Penicillins Allergy (Intermediate, Verified 07/25/24 11:17) Unknown oxycodone [OXYCODONE] Allergy (Unknown, Verified 07/25/24 11:17) ALLERGIC TO CODIENE - FEARFUL TO TRY OXYCODONE codeine [CODEINE] Adverse Reaction (Unknown, Verified 07/25/24 11:17) NAUSEA & VOMITING Do you need a note to return to daycare/school/sports/work: No HPI HPI Comments History of Present Illness Details Patient is a right-handed 74-year-old female complaining of right wrist pain. She denies any trauma or injury but states she has been using it repetitively a little bit more than normal lately as she is packing up her apartment to move to assisted living, she has also been helping her daughter fold her kids laundry. She has been using ibuprofen and ice and a wrist wrap without much relief. She states she is a and lives alone and it is difficult for her to rest it. She denies any previous injury to the wrist but states she has had multiple injuries on her right shoulder as well as a remote history of a broken humerus. She states the pain is like a sharp shooting pain that goes up her arm but also exquisitely throbbing and painful. She denies any fevers, bug bites or rashes on/around the area. [facility] Social History Alcohol intake: current Alcohol intake frequency: holidays/special occasions only Patient Tobacco Use Status: Former Tobacco user Review of Systems Const All systems reviewed & are unremarkable except as noted in HPI and below Physical Exam Vital Signs: Last Vital Signs Temp 98.2 F 07/25/24 11:12 Pulse 70 07/25/24 11:12 BP 134/90 H 07/25/24 11:12 Pulse Ox 95 07/25/24 11:12 Oxygen Delivery Method Room Air 07/25/24 11:12 BMI result Body Mass Index 25.7 Const General: cooperative, healthy appearing, comfortable, no acute distress and well developed Orientation/consciousness: patient oriented x3 Limitations: no limitations HEENT Head: Yes normal to inspection Ears: hearing grossly normal bilaterally General nose exam: Normal external nose present Face and sinus: Yes normal facial exam Eyes General: appearance normal, both eyes and all related structures Neck Neck: Yes normal visual inspection and Yes full ROM Resp Effort & Inspection: normal respiratory effort and able to speak in complete sentences Skin General skin exam: no rashes or lesions noted Neuro General: patient oriented x3 Extrem Right upper extremity: elbow/forearm Details: normal to inspection, normal ROM and distal pulses intact; no tenderness, no swelling, no unusual warmth, no abrasions, no lacerations, no ecchymosis and no deformity, wrist Details: tenderness Location: of the dorsal wrist and of the volar wrist; not of the anatomic snuffbox, swelling Location: of the dorsal wrist and of the volar wrist, normal ROM, normal vascular exam, radial pulse present, ulnar pulse present and Tinel's negative; no unusual warmth, no abrasions, no lacerations, no ecchymosis, no deformity and Phalen's positive (Patient unable to perform) and Extremity exam: right hand (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 Advised she can use ibuprofen around the clock as well as the prednisone, sent the remainder of the burst to her pharmacy, gave patient a wrist brace in the office which immediately brought her relief. Recommended using it as much as she can over the next 7-10 days. If no improvement in her pain, she should follow up with her PCP. Plan See above Orders: Orders AMB Prednisone Adult Dose Today M25.431 - Effusion, right wrist Medications: New prednisone 20 mg PO DAILY 4 tabs 0RF prednisone 20 mg PO ONCE 1 tab 0RF swelling M25.431 - Effusion, right wrist Coding Level of Care Code New Pt Level 4 (86722) Diagnoses Swelling of joint, wrist, right M25.431
[2024-07-25 11:12] VITALS: BP 134/90; PULSE 70; TEMP 36.8; O2SAT 95; BMI 25.7
== END 2024-07-25 11:59 | disposition home or self-care (01) ==
PROVIDERS: PCP Internal Medicine; Visit Provider Physician Assistant
DX: M25.431 Effusion, right wrist (principal)

== ENCOUNTER → 2024-07-25 10:39 | Outpatient (BNVA) | payer MEDICARE, SELFPAY | PROVIDERS: PCP Internal Medicine | DX: S63.501A Unspecified sprain of right wrist, initial encounter (principal); M25.431 Effusion, right wrist | CPT/HCPCS: 99202 ==

== ENCOUNTER → 2024-11-07 10:20 | Outpatient (BNV) | payer MEDICARE, SELFPAY | PROVIDERS: Emergency Provider Emergency Medicine Emergency Medical Services; PCP Internal Medicine; Visit Provider Radiology Diagnostic Radiology | DX: M54.50 Low back pain, unspecified (principal) | CPT/HCPCS: 72100; 72131 ==

== ENCOUNTER → 2024-11-07 11:17 | Outpatient (BNV) | payer MEDICARE, SELFPAY | PROVIDERS: Emergency Provider Emergency Medicine Emergency Medical Services; PCP Internal Medicine; Visit Provider Internal Medicine | DX: M54.50 Low back pain, unspecified (principal) | CPT/HCPCS: 93010 ==

== ENCOUNTER 2024-11-14 10:49 | Outpatient (AMB) | payer MEDICARE, SELFPAY ==
--- NOTE | 2024-11-14 10:00 | HO.SPINEOV ---
Intake Visit Reasons: ED f/u Intake Note: Ms. Parks is her today to F/u after being seen at the ED for back pain. Supervisor Files Required: No Allergies Penicillins Allergy (Intermediate, Verified 11/07/24 10:10) Unknown oxycodone [OXYCODONE] Allergy (Unknown, Verified 11/07/24 10:10) ALLERGIC TO CODIENE - FEARFUL TO TRY OXYCODONE codeine [CODEINE] Adverse Reaction (Unknown, Verified 11/07/24 10:10) NAUSEA & VOMITING Assessment & Plan Assessment & Plan (1) Degenerative scoliosis: Code(s): M41.50 - Other secondary scoliosis, site unspecified Category: Medical Plan Dear HUMBERTO Pardo, Thank you for referring Sadia to our office today. She is a pleasant 74 year old female who comes in today with a primary complaint of right-sided low back pain. She reports this has been ongoing for years, and was previously successfully treated by Dr. Jacobson at [facility] with L4-5 epidural laminar injections. She used to be able to get an injection and get about 3 months of complete relief from this pain that she presents with today. She has had 4 total of these injections, and brought her paperwork from their office for us to review. Her last injection was about 2 years ago per her report. She reports that her pain used to be largely dependent on positional changes and weight-bearing, but it is now fairly constant. She reports a exacerbating incident of being forced to move out of her home, which has taken her many weeks to accomplish. She states she has essentially been packing and moving boxes for months on end. As a result of this she has severe right lower back pain with no shooting radicular pain that is nearly constant throughout the day. She is only able to obtain relief if she lays down in a certain position on her left side. She denies any numbness or tingling associated with the pain. She has been to physical therapy for this pain did not find helpful. She has been attempting to use Tylenol, Excedrin, and meloxicam in an effort to mitigate the pain with only modest relief. She was most recently seen in the emergency department for the severity of her pain. PMH: Hypothyroidism, GERD, migraines, osteoarthritis. Hyperlipidemia, anxiety. History of tubal ligation in 1980. Social hx: The patient does not smoke, reports no substance use. Medications: Levothyroxine, omeprazole, vitamin-C, vitamin D3, multivitamin, prednisone Dosepak, sertraline, atorvastatin. Allergies: Codeine, penicillin. Physical exam: The patient has 5/5 strength in her upper and lower extremities. She ambulates well and rises from a seated position without much difficulty. Her left patellar reflexes 1+ hypoactive. The rest of her reflexes are 2+ intact. She has no significant sensational deficits on exam. (-) bilateral straight leg raise, (-) Yecenia's, (-) clonus, (-) Marquis's. Imaging review: CT scan of the lumbar spine shows degenerative levoscoliosis with the apex at L2-3. There is no auto fusion shown but there is severe disc degeneration seen diffusely throughout the lumbar spine. Difficult to assess for any nerve impingement with this imaging. Impression: Sadia is a pleasant 74-year-old female who comes in today with a chief complaint of right-sided low back pain that is very well localized to the right side of her low back. She denies any shooting pains down the hip or into the buttocks. She does identify an exacerbating incident of moving homes recently. She has suffered from this right-sided low back pain for multiple years, and had it successfully treated via injections in the past. Unfortunately the pain is now very severe and constant. I believe she is likely symptomatic from severe degenerative disc disease and her degenerative scoliosis, causing impingement of the central canal at L4-5 alongside the exiting nerve roots. I would like to obtain an MRI of the lumbar spine to evaluate for nerve root compression. I will review this with the attending neurosurgeon Dr. Rosales once it is complete. I think that this overall sounds a bit different than a classic SI joint dysfunction or sacroiliitis, and is much more likely being caused by her degenerative scoliosis and severe degenerative disc disease as previously mentioned. Thank you for allowing us to care for your patient. The total time spent with this visit with this patient was 45 minutes reviewing history, physical exam, MRI imaging review, and implementation of treatment plan or further diagnostic testing Eagle Rosales MD,PhD [facility] Orders: Orders MR lumbar spine wo con Today M41.50 - Other secondary scoliosis, site unspecified Medications: New gabapentin 100 mg PO TID PRN 30 caps 0RF NERVE PAIN Coding Level of Care Code New Pt Level 4 (60910) Diagnoses Degenerative scoliosis M41.50
== END 2024-11-14 11:57 | disposition home or self-care (01) ==
PROVIDERS: PCP Internal Medicine; Visit Provider Physician Assistant
DX: M54.50 Low back pain, unspecified (principal)
CPT/HCPCS: 99204

== ENCOUNTER → 2024-11-14 10:49 | Outpatient (BNVA) | payer MEDICARE, SELFPAY | PROVIDERS: PCP Internal Medicine; Visit Provider Physician Assistant | DX: M54.50 Low back pain, unspecified (principal); M41.50 Other secondary scoliosis, site unspecified | CPT/HCPCS: 99202 ==

== ENCOUNTER → 2024-11-27 08:54 | Outpatient (BNV) | payer MEDICARE, SELFPAY | PROVIDERS: PCP Internal Medicine; Visit Provider Radiology Diagnostic Radiology | DX: M41.86 Other forms of scoliosis, lumbar region (principal); M48.061 Spinal stenosis, lumbar region without neurogenic claudication | CPT/HCPCS: 72148 ==

== ENCOUNTER 2024-11-27 08:56 | Outpatient (REF) | payer MEDICARE, SELFPAY ==
--- NOTE | ~2024-11-27 | MR_ITS ---
EXAMINATION: MR LUMBAR SPINE WITHOUT CONTRAST CLINICAL INFORMATION: Severe low back pain. COMPARISON: CT lumbar spine 11/07/2024 TECHNIQUE: MRI of the lumbar spine was obtained using routine sequences without contrast. FINDINGS: There is maintained lumbar lordosis with S-shaped scoliosis. There is loss of disc height at every disc level with disc desiccation changes. The vertebral heights are normal. There is grade 1 retrolisthesis L2-L3 and L3 over L4. At L1-2 disc level there is posterior spondylosis/bulge complex with a superimposed left lateral disc herniation resulting in severe narrowing of left neural foramina. There is moderate to severe narrowing of right neural foramina as well. At L2-3 disc level there is a broad-based disc bulge/osteophyte complex without spinal canal stenosis. The neural foramina are moderately narrowed bilaterally slightly worse on the right. At L3-4 disc level there is a broad-based diffuse bulge/osteophyte complex without spinal canal stenosis. The neural foramina are moderately narrowed bilaterally. There is bilateral mild facet joint and ligament flavum hypertrophy. At L4-5 disc level there is a broad-based diffuse bulge with transverse spinal canal stenosis.. There is bilateral moderate narrowing of neural foramina secondary to underlying moderate bilateral facet joint and ligament flavum hypertrophy.. At L5-S1 disc level. A broad-based diffuse bulge without spinal canal stenosis. The neural foramina are moderately narrowed bilaterally. There are endplate changes at L2-3, L3-4 and L4-5 disc levels. Conus medullaris terminates at T12-L1 disc level and appears normal in morphology. The paravertebral soft tissues are normal. Incidental finding of an exophytic left renal cyst is noted MR/MR lumbar spine wo con IMPRESSION: Levoscoliosis with multilevel degenerative disc bulge/osteophyte complex. There is transverse spinal canal stenosis at the L4-5 disc level secondary to facet joint and ligament flavum hypertrophy. Eccentric left lateral disc herniation at L1-2 disc level resulting in severe left neural from narrowing. There is bilateral moderate narrowing of neural foramina from the L1-2 through L5-S1 disc levels Electronically signed by: Ernesto Garduno MD 11/28/2024 09:46 AM EST
--- OUTSIDE RECORDS SUMMARY | 2024-11-27 09:00 | XMS_ITS | Clinical Summary ---
Author Organization [address] Address [address] [place] [phone] Phone Care Team Providers Care Potato Picker Name Role Phone Caitlin Hernandez MD Primary Care Provider [phone] Allergies Active Allergy Reactions Criticality Noted Date Comments Codeine 07/22/2006 Penicillins Diarrhea Low 01/10/2019 Medications Medication Sig Dispensed Refills Start Date End Date Status calcium carbonate-vitami n D3 500 mg-3.125 mcg (125 unit) tablet per tabelt Take 2 Tabs by mouth daily. 11/18/2019 Active MULTIVITAMIN ORAL Take by mouth daily. Active Bifidobacterium infantis (ALIGN ORAL) Probiotic Product (Align) Chew Tab Sig - Route: Take ??by mouth daily. Active sertraline (ZOLOFT) 100 mg tablet Take 1 Tablet by mouth daily. 03/14/2024 Active WHEAT DEXTRIN ORAL 11/18/2019 Active triamcinolone (KENALOG) 0.1 % ointment APPLY A THIN LAYER DAILY 30 g 09/11/2024 Active meclizine (ANTIVERT) 12.5 mg tablet Take 1 tablet (12.5 mg total) by mouth 3 (three) times a day if needed for dizziness. 90 tablet 09/14/2024 Active Additional Information Patient not taking.Reported on 10/11/2024 meloxicam (MOBIC) 15 mg tablet Take 1 tablet (15 mg total) by mouth 1 (one) time each day. 10/27/2023 Active omeprazole (PriLOSEC) [address] capsule Take 1 capsule (20 mg total) by mouth 1 (one) time each day. 90 capsule 1 11/18/2024 Active levothyroxine (SYNTHROID, LEVOTHROID) 88 mcg tablet TAKE 1 TABLET BY MOUTH DAILY. ON SATURDAYS AND SUNDAYS TAKE A HALF TABLET DAILY. 84 tablet 1 11/24/2024 Active levothyroxine (SYNTHROID, LEVOTHROID) 88 mcg tablet TAKE 1 TABLET BY MOUTH DAILY. ON SATURDAYS AND SUNDAYS TAKE A HALF TABLET DAILY. 06/06/2024 5 Discontinued omeprazole (PriLOSEC) [address] capsule TAKE 1 CAPSULE BY MOUTH EVERY DAY 05/17/2024 5 Discontinued Active Problems Problem Noted Date Diagnosed Date Vertigo, benign paroxysmal, unspecified laterali ty 09/23/2024 Chronic right shoulder pain 09/07/2024 Hiatal hernia 12/28/2023 Overview (09/05/2024): Incidental finding on ER visit for gastroenteritis 12/26 Pre-hypertension 10/19/2019 Hypercholesterolemia 05/16/2019 Other chest pain 05/12/2019 Overview (09/05/2024): Last Assessment & Plan: No evidence of breast abnormality on exam. Could be chest wall, could be anxiety. Recommended she see adult medicine today to be evaluated for cardiovascular causes. She has historically refused mammography, but agrees to do this in light of her pain. 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 Situational depression 01/10/2019 Overview (09/05/2024): Last Assessment & Plan: I encouraged her to get established with a new therapist and she is open to doing this. Grieving 10/13/2018 Overview (09/05/2024): Last Assessment & Plan: Reviewed with Sadia that while grieving is normal following sudden loss of a loved one, she may very much benefit from counseling. She declines currently, but was ok with me putting community resources in her AVS. I also recommended walking or light exercise, or meditation/prayer in whatever way she feels comfortable. She notes she will consider these things. She will contact myself or Dr. Akbar if she needs further assistance with referral to mental health services. I will forward a message to Dr. Akbar. Lichen sclerosus 06/21/2018 Overview (09/05/2024): Last Assessment & Plan: Reviewed findings with patient. Well controllrf. Continue current regimen. I reviewed the importance of regular maintenance topical steroid use to prevent symptoms, further scarring, and squamous cell cancer of the vulva. I also explained the importance of at least yearly follow up to ensure she has no evidence of precancerous or cancerous changes and that she is not having side effects from her medication. I reviewed areas of application and amount of medication to use. Assessment & Plan (10/17/2024 12:20 PM EST): Reviewed findings with patient. Well controlled. I reviewed the importance of regular maintenance topical steroid use to prevent symptoms, further scarring, and squamous cell cancer of the vulva. I also explained the importance of regular follow up to ensure she has no evidence of precancerous or cancerous changes and that she is not having side effects from her medication. I reviewed areas of application and amount of medication to use. Continue triamcinolone ointment nightly. Obesity (BMI 30-39.9) 01/25/2018 Gastroesophageal reflux disease 10/19/2017 Osteopenia 04/21/2017 Overview (09/05/2024): 04/18 T score spine -0.9 hip -2.1 FRAX score 17% 10 year fracture risk Stable 11/2018 Last Assessment & Plan: Encouraged weight bearing exercise 3 times per week, continue Ca and Vit D. Irritable bowel syndrome with diarrhea 6 Lactose intolerance 12/17/2015 Depression 02/23/2014 Overview (09/05/2024): Last Assessment & Plan: I strongly counseled Sadia, as at other visits, to resume her counseling. I encouraged her to call the department and see if she can get a visit. She has not yet processed this. She denies SI, HI. 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 2010 MRI Scoliosis with advanced asymmetric multilevel degenerative changes, as described. Encounters Date Type Department Care Team Description 11/22/2024 Telephone Adult Medicine [address] [phone] Tova Rdz, CLERICAL ADJUDICATOR follow up 10/17/2024 10:30 AM EST Office Visit Obstetrics and Gynecology [address] [phone] Collette Morin MD Lichen sclerosus (Primary Dx) 10/11/2024 9:30 AM EST Office Visit Adult Medicine [address] [phone] Caitlin Hernandez MD Grieving (Primary Dx); Pre-hypertension; Depression, unspecified depression type; Hypothyroidism, unspecified type; Hypercholesterolem ia; Right shoulder pain, unspecified chronicity 10/07/2024 10:00 AM EST Treatment Outpatient Rehabilitation [address] [phone] Allen Huffman, PT Chronic right shoulder pain (Primary Dx) 09/30/2024 10:30 AM EST Treatment Outpatient [address] [phone] Allen Huffman, PT Chronic right shoulder pain (Primary Dx); Vertigo, benign paroxysmal, unspecified laterality 09/27/2024 10:00 AM EST Treatment Outpatient [address] [phone] Anne Marie Quiroz, SALES ASSISTANT Chronic right shoulder pain (Primary Dx) 09/23/2024 1:30 PM EST Treatment Outpatient Rehabilitation [address] [phone] Allen Huffman, PT Vertigo, benign paroxysmal, unspecified laterality (Primary Dx); Chronic right shoulder pain 09/19/2024 10:00 AM EST Treatment Outpatient Rehabilitation [address] [phone] Anne Marie Quiroz, SALES ASSISTANT 09/15/2024 10:00 AM EST Treatment Outpatient Rehabilitation [address] [phone] Anne Marie Quiroz, SALES ASSISTANT 09/14/2024 9:15 AM EST Office Visit Adult Medicine [address] [phone] Christiano Flor PA Dizziness (Primary Dx); Vertigo 09/12/2024 11:00 AM EST Treatment Outpatient [address] [phone] Allen Huffman, PT Chronic right shoulder pain (Primary Dx); Shoulder pain 09/07/2024 11:00 AM EST Evaluation Outpatient [address] [phone] Allen Huffman, PT Chronic right shoulder pain (Primary Dx) 09/07/2024 Plan of Care Documentation Outpatient [address] [phone] from Last 3 Months Immunizations Name Administration Dates Next Due Influenza trivalent, 0.5mL ( Fluad) 65yo and older 07/25/2024,07/05/2023,08/13/2022,08/08,08/23/2020,07/25/2019,07/28/2018 ,10/19/2017,08/20/2016 Influenza, Unspecified 08/01/2023,08/23/2020 Pneumococcal conjugate 13 va lent (Prevnar 13, PCV13) 2mo and older 04/13/2017 Pneumococcal conjugate 20 va lent (Prevnar 20, PCV 20) 2mo and older 10/03/2024 Pneumococcal polysaccharide 23 valent (Pneumovax 23) 2yo and older 10/03/2024 Respiratory syncytial virus (RSV), unspecified 02/16/2024 Tdap Tetanus diptheria acell ular pertussis (Boostrix; Adacel) 7yo and older 03/29/2009 Zoster Live 06/02/2021 Zoster recombinant (Shingrix ) 19yo and older 10/23/2021,06/02/2021 Surgical History Surgery Date Site/Laterality Comments OTHER SURGICAL HISTORY PROCEDURE: MI LIG/TRNSXJ FLP TUBE ABDL/VAG APPR UNI/BI COLONOSCOPY 08/04/11 PROCEDURE: HISTORICAL COLONOSCOPY; COMMENT: tics; repeat in ten yrs BREAST BIOPSY 2012ish Left PROCEDURE: BX BREAST; PERC NEEDLE CORE W/IMAG GUID; COMMENT: calcs Medical History Medical History Date Comments Hypothyroidism 06/30/2013 DX:Hypothyroidis m Lactose intolerance 12/17/2015 DX:Lactose i ntolerance Irritable bowel syndrome with diarrhea 04/16/2016 DX:Irritable bowel syndrome with diarrhea Gastroesophageal reflux disease 10/19/2017 DX:Gastroesophageal reflux disease History of migraine headaches 11/26/2017 DX :History of migraine headaches Depression 02/23/2014 DX:Depression DJD (degenerative joint dise ase) of thoracic spine 05/21/2011 DX:DJD (degenerative joint disease) of thoracic spine; COMMENT: Injury 1994. 2010 MRI Scoliosis with advanced asymmetric multilevel degenerative changes, as described. Former tobacco use 01/25/2018 DX:Former tob acco use; COMMENT: Quit 2008 Obesity (BMI 30-39.9) 01/25/2018 DX:Obesity (BMI 30-39.9) Mammogram declined 01/25/2018 DX:Mammogram declined; COMMENT: Patient refused mammogram see office note from 01/25/2018 Lichen sclerosus 06/2018 DX:Lichen scler osus; COMMENT: clinical diagnosis Osteopenia 04/21/2017 DX:Osteopenia; C OMMENT: 04/18 T score spine -0.9 hip -2.1 FRAX score 17% 10 year fracture risk Stable 11/2018 Hypercholesterolemia 05/16/2019 DX:Hypercho lesterolemia Elevated BP without diagnosi s of hypertension 07/12/2019 DX:Elevated BP without diagn osis of hypertension Family History Medical History Relation Name Comments Hypertension Brother Hypertension Father Hypertension Mother [place], dialysis Hypertension Sister Other cancer Sister Breast cancer Neg Hx Colon cancer Neg Hx Ovarian cancer Neg Hx Pancreatic cancer Neg Hx Prostate cancer Neg Hx Uterine cancer Neg Hx Relation Name Status Comments Brother Alive 2,one has cerbr al palsy Father Alive Mother arthritis,on di alysis Sister Alive 3, multiple mye mary Social History Tobacco Use Types Packs/Day Years Used Date Smoking Tobacco: Former Cigarettes Q uit: 02/14/2009 Smokeless Tobacco: Former Tobacco Cessation:Counseling Given: Not Answered Alcohol Use Standard Drinks/Week Comments Yes 0 (1 standard drink = 0.6 oz pur e alcohol) Sex and Gender Information Value Date Recorded Sex Assigned at Not on file Gender Identity Not on file Sexual Orientation Not on file Job Start Date Occupation Industry Not on file Not on file Not on file Obstetrics History Para Term AB IAB SAB Ectopic Multiple Livin g Live Births 3 2 2 1 1 Date Outcome GA Total Labor Labor/2nd/3rd Weight Sex Type Anes PTL Nahomy A1 A5 Name Clin Term Term IAB Last Filed Vital Signs Vital Sign Reading Time Taken Comments Blood Pressure 130/74 10/17/2024 10:36 AM EST Pulse 68 10/17/2024 10:36 AM EST Temperature 36.1 ??C (96.9 ??F) 10/11/2024 10:[address] Respiratory Rate 16 10/17/2024 10:36 AM EST Oxygen Saturation 95% 09/14/2024 9:03 AM EST Inhaled Oxygen Concentration - - Weight 57.2 kg (126 lb) 10/17/2024 10:36 AM EST Height 144.8 cm (4' 9 ) 10/17/2024 10:36 AM EST Body Mass Index 27.27 10/17/2024 10:36 AM EST Plan of Treatment Upcoming Encounters Date Type Department Care Team (Late st Contact Info) Description 12/16/2024 11:30 AM EST Consult Orthopedics - [place] [address] [place] [phone] Silvio Mccoy PA [address] [place] [address] 01/03/2025 11:20 AM EST Office Visit Gastroenterology - [place] [address] [facility] [address] [place] [phone] April Andersen PA [address] [facility] [address] [place] [address] 03/22/2025 11:00 AM EDT Office Visit Adult Medicine [facility] [address] [place] [phone] Caitlin Hernandez MD [address] [place] [address] Health Maintenance Due Date Last Done Comments DTaP,Tdap,and Td Vaccines (2 - Td or Tdap) 03/29/2019 03/29/2009 Cervical Cancer Screening: HPV 05/19/2019 05/19/2014 Falls Risk Assessment 10/11/2022 Social Influencers of Health Screening 10/11/2022 Breast Cancer Screening 05/13/2023 05/13/2021, 05/20 COVID-19 Vaccine ( season) 2024 10/25/2021, 02/18/2021, 01/28/2021 RSV Immunization Patients 60+ Years Old (1 - 1-dose 75+ series) 2025 02/16/2024 Depression Screening 03/14/2025 03/14/2024 Medicare Annual Wellness Visit 03/14/2025 03/14/2024 Colorectal Cancer Screening: Stool Based Tests (FOBT/FIT) 03/15/2025 03/15/2024 Cholesterol Screening (Lipid Panel) 07/18/2029 07/18/2024, 07/18/2024, 03/15/2024, Additional history exists Osteoporosis Screening (Bone Density Screening) 11/15/2031 11/15/2021, 11/11/2018, 04/21/2017 Hepatitis C Screening Completed 06/28/2013 Zoster Vaccines Completed 10/23/2021, 08/0 11/2020, 06/02/2021 RSV Immunization Patients Under 20 months Aged Out 02/16/2024 No longer eligible based on patient's age to complete this topic Colorectal Cancer Screening: Colonoscopy Discontinued 03/15/2024 Influenza Vaccine Completed 07/25/2024, , 07/05/2023, Additional history exists Pneumococcal Vaccine: 65+ Years Completed 10/03/2024, 10/03/2024, 04/13/2017 HIB Vaccines Aged Out No longer eligi ble based on patient's age to complete this topic HPV Vaccines Aged Out No longer eligi ble based on patient's age to complete this topic Hepatitis A Vaccines Aged Out No long er eligible based on patient's age to complete this topic Hepatitis B Vaccines Aged Out No long er eligible based on patient's age to complete this topic IPV Vaccines Aged Out No longer eligi ble based on patient's age to complete this topic MMR Vaccines Aged Out No longer eligi ble based on patient's age to complete this topic Meningococcal ACWY Vaccine Aged Out N o longer eligible based on patient's age to complete this topic Varicella Vaccines Aged Out No longer eligible based on patient's age to complete this topic Goals Goal Patient Goal Type Associated Problems Recent Progress Patient-Stated? Author STG's 6 visits General Yes Allen Huffman, PT Note: Pt will report a 50% or better decrease in R shoulder pain during ADL's and IADL's. Pt will demonstrate Apley's R shoulder IR to L3 or better for dressing/scratching low back. Pt will demonstrate active R shoulder flexion to 130 degrees or better for overhead IADL's. Pt will be I with initial HEP of shoulder stretching. Added 09/23/2024: Up to 4 visits Pt will report a 90% decrease in BPPV sx's during functional mobility. Pt will be independent in Self-Yanet maneuver to manage dizziness at home. LTG's 12 visits General Yes Allen Huffman, PT Note: Pt will report a 75% or better decrease in R shoulder pain during ADL's and IADL's. Pt will demonstrate Apley's R shoulder IR to L1 or better for dressing/scratching low back. Pt will demonstrate active R shoulder flexion to 145 degrees or better for overhead IADL's. Pt will be I with initial HEP of RTC strengthening and scap stab program.. Procedures Procedure Name Priority Date/Time Associated Diagnosis Comments LIPID PANEL Routine 07/18/2024 COLONOSCOPY Routine 03/15/2024 DEPRESSION SCREENING Routine 03/14/2024 DXA BONE DENSITY STUDY 1+ SITS AXIAL SKEL Routine 11/15/2021 11:37 AM EST Other specified disorders of bone density and structure, unspecified site SCREENING MAMMOGRAPHY BI 2-VIEW BREAST INC CAD Routine 05/13/2021 9:02 AM EDT Encounter for screening mammogram for malignant neoplasm of breast HPV Routine 05/19/2014 HEPATITIS C SCREENING Routine 06/28/2013 from Last 3 Months or Most Recently Relevant to Health Maintenance Results * Lipid panel (07/18/2024) LDL/HDL Ratio 3 0 - 4 Triglycerides 123 0 - 150 mg/dL Cholesterol 163 0 - 200 mg/dL HDL 56 40 mg/dL LDL Cholesterol 83 0 - 100 mg/dL Blood Venous blood specimen / Unknown Historical Provider LAB BLOOD ORDERAB LES * Colonoscopy (03/15/2024) Colonoscopy no interpretation , abstracted Anatomical Region Laterality Modality Other [facility] * Depression Screening (03/14/2024) Depression Screening abstracted Historical [facility] * DXA BONE DENSITY STUDY 1+ SITS AXIAL SKEL (11/15/2021 11:37 AM EST) Anatomical Region Laterality Modality Bone Densitometr y 06/17/2021 9:52 AM EDT Narrative 11/15/2021 4:03 PM EST BONE DENSITY ? Lumbar Spine T-score is -0.5 ?? (SD relative to 20-29 y/o adult) Z-score is +1.6 ??(SD relative to age matched peers) This is normal by criteria defined by the WHO. Left Hip T-score is -2.3 Z-score is -0.4 This is consistent with osteopenia by criteria defined by the WHO. Comparison exam(s): significant decrease in bone density of ??hip when compared to most recent bone density examination ?? Confidence level is +/-95%. Impression: Based on the World Health Organization criteria, Sadia Parks should be classified as having osteopenia. This patient has a 20% risk of major osteoporotic fracture and a 4.5% risk of hip fracture over the next 10 years. (World Health Organization Fracture Risk Assessment) [facility] Department of Internal Medicine recommends using National Osteoporosis Foundation (NOF) guidelines in treatment decisions related to osteoporosis. NOF guidelines suggest considering treatment for postmenopausal women and men aged 50 or older presenting with the following: History of hip or vertebral fracture. T-score less than or equal to -2.5 (DXA) at the femoral neck, total hip, or spine, after appropriate evaluation to exclude secondary causes. Low bone mass (T-score between -1.0 and -2.5 at the femoral neck or spine) AND a 10-year probability of a hip fracture greater than or equal to 3% OR a 10-year probability of a major osteoporosis-related fracture greater than or equal to 20% based on the [place]-adapted WHO algorithm Please note that all treatment decisions require clinical judgment and consideration of individual patient factors, including patient preferences, co-morbidities, previous drug use, risk factors not captured in the FRAX model (e.g., frailty, falls, vitamin D deficiency, increased bone turnover, interval significant decline in bone density) and possible under- or over-estimation of fracture risk by FRAX. Procedure Note Dominik Cobian MD - 10/21/2022 BONE DENSITY Lumbar Spine T-score is -0.5 (SD relative to 20-29 y/o adult) Z-score is +1.6 (SD relative to age matched peers) This is normal by criteria defined by the WHO. Left Hip T-score is -2.3 Z-score is -0.4 This is consistent with osteopenia by criteria defined by the WHO. Comparison exam(s): significant decrease in bone density of hip whencompared to most recent bone density examination Confidence level is +/-95%. Impression: Based on the World Health Organization criteria, Sadia Parks should beclassified as having osteopenia. This patient has a 20% risk of majorosteoporotic fracture and a 4.5% risk of hip fracture over the next 10years. (World Health Organization Fracture Risk Assessment) [facility] Department of Internal Medicine recommendsusing National Osteoporosis Foundation (NOF) guidelines in treatmentdecisions related to osteoporosis. NOF guidelines suggest consideringtreatment for postmenopausal women and men aged 50 or older presentingwith the following: History of hip or vertebral fracture. T-score less than or equal to -2.5 (DXA) at the femoral neck, total hip,or spine, after appropriate evaluation to exclude secondary causes. Low bone mass (T-score between -1.0 and -2.5 at the femoral neck or spine)AND a 10-year probability of a hip fracture greater than or equal to 3% ORa 10-year probability of a major osteoporosis-related fracture greaterthan or equal to 20% based on the [place]-adapted WHO algorithm Please note that all treatment decisions require clinical judgment andconsideration of individual patient factors, including patientpreferences, co-morbidities, previous drug use, risk factors not capturedin the FRAX model (e.g., frailty, falls, vitamin D deficiency, increasedbone turnover, interval significant decline in bone density) and possibleunder- or over-estimation of fracture risk by FRAX. Sia Fitzgerald MD IMG DXA PROCEDURES * SCREENING MAMMOGRAPHY BI 2-VIEW BREAST INC CAD (05/13/2021 9:02 AM EDT) Anatomical Region Laterality Modality Radiographic Tia ging 05/20/2019 9:08 AM EDT Narrative 05/13/2021 4:57 PM EDT This is a summary report. The complete report is available in the patient's medical record. If you cannot access the medical record, please contact the sending organization for a detailed fax or copy. Exam: Screening mammogram Findings: Digital bilateral full-field screening mammography is performed with tomosynthesis and interpreted with the aid of computer-aided detection. ??Comparison is made with 05/20/2019. Breast parenchyma is composed of scattered fibroglandular densities. ??Stable biopsy markers in the retroareolar left breast from previous benign biopsies, the more anterior marker is associated with a stable subcentimeter circumscribed lesion. No new suspicious mass, architectural distortion, or suspicious calcifications. Impression: No mammographic evidence of malignancy. BI-RADS 2-benign Procedure Note Kandis Arce MD - 10/21/2022 This is a summary report. The complete report is available in thepatient's medical record. If you cannot access the medical record, pleasecontact the sending organization for a detailed fax or copy. Exam: Screening mammogram Findings: Digital bilateral full-field screening mammography is performedwith tomosynthesis and interpreted with the aid of computer-aideddetection. Comparison is made with 05/20/2019. Breast parenchyma is composed of scattered fibroglandular densities.Stable biopsy markers in the retroareolar left breast from previous benignbiopsies, the more anterior marker is associated with a stablesubcentimeter circumscribed lesion. No new suspicious mass, architecturaldistortion, or suspicious calcifications. Impression: No mammographic evidence of malignancy. BI-RADS 2-benign Collette Morin MD IMG XR PROCEDURES * Cervical Cancer Screening: HPV (05/19/2014) [facility] Cervical Cancer Screening: HPV normal, abstracted Historical Provider MD VONDA Banks * Hepatitis C Screening (06/28/2013) [facility] Hepatitis C Screening abstracted Historical Provider MD VONDA Banks from Last 3 Months or Most Recently Relevant to Health Maintenance Care Teams Potato Picker Relationship Specialty Start Date End Date Caitlin Hernandez MD [address] [place] [address] PCP - General Internal Medicine 09/03/21
--- OUTSIDE RECORDS SUMMARY | 2024-11-27 09:01 | XMS_ITS | Encounter Summary ---
Author Organization [facility] Address [address] [place] [address] Care Team Providers Care Senior Drupal Developer Name Role Phone Caitlin Hernandez MD Primary Care Provider [phone] Reason for Visit * Reason Onset Date Comments ER follow up 11/22/2024 Encounter Details Date Type Department Care Team (Late Contact Info) Description 11/22/2024 Telephone Adult Medicine [address] [phone] Tova Rdz RN ER follow up Social History Tobacco Use Types Packs/Day Years Used Date Smoking Tobacco: Former Cigarettes Q uit: 02/14/2009 Smokeless Tobacco: Former Alcohol Use Standard Drinks/Week Comments Yes 0 (1 standard drink = 0.6 oz pur e alcohol) Sex and Gender Information Value Date Recorded Sex Assigned at Not on file Gender Identity Not on file Sexual Orientation Not on file Job Start Date Occupation Industry Not on file Not on file Not on file documented as of this encounter Progress Notes * Tova Rdz RN - 11/22/2024 8:09 AM EST Seen 11/07 at [facility] for back pain Left vm for pt to return my call. documented in this encounter Plan of Treatment Upcoming Encounters Date Type Department Care Team (Late Contact Info) Description 12/16/2024 11:30 AM EST Consult Orthopedics [address] [phone] Silvio Mccoy PA [address] [place], [place] 01/03/2025 11:20 AM EST Office Visit Gastroenterology - [place] [address] [place] [phone] April Andersen PA [address] [place] [address] 03/22/2025 11:00 AM EDT Office Visit Adult Medicine [facility] [address] [place], [place] [phone] Caitlin Hernandez MD [address] [place], [place] documented as of this encounter Goals Goal Patient Goal Type Associated Problems [...] of RTC strengthening and scap stab program.. documented as of this encounter Visit Diagnoses Not on filedocumented in this encounter Care Teams Senior Drupal Developer Relationship Specialty Start Date End Date Caitlin Hernandez MD [address] [place] [address] PCP - General Internal Medicine 09/03/21 documented as of this encounter
--- OUTSIDE RECORDS SUMMARY | 2024-11-27 09:01 | XMS_ITS ---
Author Organization [address] Address [address] [place] [phone] Phone Care Team Providers Care Hot Dog Vender Name Role Phone Caitlin Hernandez MD Primary Care Provider [phone] Journeyman Machinist Care Management Status:Ongoing (Active) Start date:10/06/2024 Enrollment date:10/13/2024 Enrollment reason:Identified using claims or encounter data Overview Assignment - BH depression Case Team Name Relationship Phone Phyllis Blount [facility] Detonator Maker(Responsible St aff) [phone] Continued Care and Services Coordination
== END 2024-11-27 08:57 | disposition home or self-care (01) ==
LOC: HO.MRI 08:56
PROVIDERS: PCP Internal Medicine; Visit Provider Physician Assistant
DX: M51.369 Other intervertebral disc degeneration, lumbar region without mention of lumbar back pain or lower extremity pain (principal); M41.50 Other secondary scoliosis, site unspecified
CPT/HCPCS: 72148

== ENCOUNTER 2024-12-22 09:56 | Outpatient (AMB) | payer MEDICARE, SELFPAY ==
--- NOTE | 2024-12-22 09:55 | HO.SPINEOV ---
Intake Visit Reasons: f/up discuss MRI Intake Note: Ms. Parks is here today to F/u on the MRI Results. Auto Tech Required: No Allergies Penicillins Allergy (Intermediate, Verified 12/22/24 10:09) Unknown oxycodone [OXYCODONE] Allergy (Unknown, Verified 12/22/24 10:09) ALLERGIC TO CODIENE - FEARFUL TO TRY OXYCODONE codeine [CODEINE] Adverse Reaction (Unknown, Verified 12/22/24 10:09) NAUSEA & VOMITING Assessment & Plan Assessment & Plan (1) Degenerative scoliosis: Code(s): M41.50 - Other secondary scoliosis, site unspecified Category: Medical Plan HPI: Sadia comes in today for a follow up visit to discuss her MRI results. To recap she was initially evaluated in clinic for severe axial low back pain, primarily right sided. She denied any radicular component to her pain. Today, we reviewed her symptoms which continued to plague her daily. She continues to report axial low back pain, but is today stating in his more her mid back versus her right side. She states that the pain worsens with activity, and is only partially mitigated with naproxen. She also discussed how she has some issues with her right shoulder, and had a very poor experience with the orthopedic team at [facility]. We discussed her MRI results, which do show some foraminal nerve compression, however her scan is largely devoid of central canal stenosis. We discussed the potential treatment options, including conservative measures such as spinal cord stimulator or nerve ablation. Medications: No changes per patient report. Imaging review: MRI of the lumbar spine completed at [facility] [place] shows previously discussed levoscoliosis. She has a lateral disc herniation at L1-2 causing severe left sided formainal stenosis. There is a disc bulge at L2-3 causing moderate - severe foraminal stenosis at this level. There is moderate bilateral foraminal stenosis at L3-4. There is facet hypertrophy and moderate right sided foraminal stenosis at L4-5. No singificant central canal stenosis seen throughout the lumbar spine. Plan: Her CT imaging was previously reviewed by Dr. Rosales who believes the patient would need degenerative scoliosis correction via lumbar fusion in order to treat her back pain. Unfortunately she is not a candidate for lumbar fusion given her poor bone quality, as assessed by Dr. Rosales when reviewing her CT scan. There is nothing on the Lumbar MRI that appears treatable that would (with any degree of certainty) address her back pain, as she has minimal central canal stenosis, and no radicular leg pain. Thus, I encouraged the patient to 1) Follow up with Dr. Jacobson to discuss other therapies such as possible consideration of SCS, 2) begin addressing her bone quality with her PCP via medication or injection treatment such as Prolia, 3) I will order her a DEXA scan to be done here per the patients request. I initially encouraged her to see her PCP for this, but she would like it done here. I will place the order and encouraged her to follow up with Dr. Hernandez as soon as possible with the results to discuss treatment options. She reports that she has an upcoming appointment in March, but we will be attempting to contact the office to have an earlier appointment made after her DEXA scan. Lastly I will also refer her to our colleague Dr. Barragan to discuss her right shoulder concerns, per the patients request. Eagle Rosales MD,PhD [facility] Orders: Orders XR DEXA axial skeleton Today M41.50 - Other secondary scoliosis, site unspecified Referrals Orthopedics Referral M25.511 - Pain in right shoulder Coding Level of Care Code Est Pt Level 3 (67840) Diagnoses Degenerative scoliosis M41.50
--- OUTSIDE RECORDS SUMMARY | 2024-12-22 10:50 | XMS_ITS | Encounter Summary ---
Author Organization [email or web address] [facility] Address [address] [place] [address] Care Team Providers Care Oil Refiner Name Role Phone Caitlin Hernandez MD Primary Care Provider [phone] Encounter Details Date Type Department Care Team Description 02/16/2023 Candy Roller Report Medical Records [address] [place] [address] Ion Jacobson DO Social History Tobacco Use Types Packs/Day Years Used Date Smoking Tobacco: Former Cigarettes 0.5 40 Q uit: 02/14/2009 Smokeless Tobacco: Former Alcohol Use Standard Drinks/Week Comments Yes 0 (1 standard drink = 0.6 oz pur e alcohol) 2-3/year Sex Assigned at Date Recorded Not on file Job Start Date Occupation Industry Not on file Not on file Not on file COVID-19 Exposure Response Date Recorded In the last 10 days, have yo u been in contact with someone who was confirmed or suspected to have Coronavirus/COVID-19? No / Unsure 02/10/2023 10:22 AM EDT documented as of this encounter Plan of Treatment Not on file documented as of this encounter Visit Diagnoses Not on filedocumented in this encounter Care Teams Oil Refiner Relationship Specialty Start Date End Date Caitlin Hernandez MD [address] [place] [address] PCP - General Internal Medicine 09/03/21 documented as of this encounter
--- OUTSIDE RECORDS SUMMARY | 2024-12-22 10:50 | XMS_ITS | Encounter Summary ---
Author Organization [facility] Address [address] [place] [address] Care Team Providers Care District Customs Director Name Role Phone Sia Fitzgerald MD Primary Care Provider Unavail able Caitlin Hernandez MD Primary Care Provider [phone] Encounter Details Date Type Department Care Team Description 06/21/2019 Orders Only Medical Records [address] [place] [address] Sia Fitzgerald MD Social History Tobacco Use Types Packs/Day Years [...] on file documented as of this encounter Plan of Treatment Not on file documented as of this encounter Procedures Procedure Name Priority Date/Time Associated Diagnosis Comments OUTSIDE STRESS TEST Routine 06/16/2019 documented in this encounter Results * OUTSIDE STRESS TEST (06/16/2019) Sia Fitzgerald MD CARDIOLOGY documented in this encounter Visit Diagnoses Not on filedocumented in this encounter Care Teams District Customs Director Relationship Specialty Start Date End Date Sia Fitzgerald MD PCP - General Internal Medicine 11/13/17 09/02/21 Caitlin Hernandez MD [address] [place] [address] PCP - General Internal Medicine 09/03/21 documented as of this encounter
--- OUTSIDE RECORDS SUMMARY | 2024-12-22 10:50 | XMS_ITS | Encounter Summary ---
Author Organization [facility] Address [address] [place] [address] Care Team Providers Care Machine Tool Builder Name Role Phone Caitlin Hernandez MD Primary Care Provider [phone] Reason for Visit * Reason Comments E-prescribe Rx Request sertraline (ZOLOF T) 25 MG tablet Encounter Details Date Type Department Care Team Description 12/12/2022 Refill Adult Medicine [address] [address] Christiano Flor, PAMicheletC [address] [place] [address] E-prescribe Rx Request (sertraline (ZOLOFT) 25 MG tablet) Social History Tobacco Use Types Packs/Day Years [...] suspected to have Coronavirus/COVID-19? No / Unsure 12/04/2022 10:07 AM EST documented as of this encounter Miscellaneous Notes * Telephone Encounter - Cortney Mcclendon M.A. - 12/12/2022 11:18 AM EST Last office visit 12/04/22 Next office visit 02/02/23 Lab Results Component Value Date ALB 4.7 12/18/2014 SGOT 17 12/18/2014 SGPT 12 12/18/2014 TBILI 0.2 12/18/2014 ALKPHOS 91 12/18/2014 TP 7.1 12/18/2014 * Telephone Encounter - Guerita Veloz - 12/12/2022 11:10 AM EST Patient would like script to be: E-PRESCRIBED/FAXED TO PHARMACY WHEN WAS THE PATIENT'S LAST APPOINTMENT IN ADULT MEDICINE? 12-04-22 WHEN WAS THE LAST TIME THE PATIENT SAW THEIR PCP? 03-11-22 Does patient have an upcoming appointment? Yes 02-02-23 (THE MEDICATION REQUESTED IS ON THE MED LIST ABOVE) All of the medications requested were on the CURRENT MEDS list Did you check the Pharmacy information above?: YES Patient wants: 90 -day supply with 1 refill Is this a mail order prescription request ? NO If the refill is from a FAXED refill request what is the RX # listed on the fax? N/A Patients current insurance [place] is: [place] / [place] / Product Type: [place]ICARE [id number] documented in this encounter Plan of Treatment Not on file documented as of this encounter Visit Diagnoses Not on filedocumented in this encounter Care Teams Machine Tool Builder Relationship Specialty Start Date End Date Caitlin Hernandez MD [address] [place] [address] [phone] PCP - General Internal Medicine 09/03/21 documented as of this encounter
--- OUTSIDE RECORDS SUMMARY | 2024-12-22 10:50 | XMS_ITS | Encounter Summary ---
Author Organization [facility] Address [address] [place] [address] Care Team Providers Care An/Ssn 2 4 Operator Name Role Phone Caitlin Hernandez MD Primary Care Provider Reason for Visit * Reason Onset Date Comments Pre-op Needed 05/28/2023 Encounter Details Date Type Department Care Team Description 05/28/2023 Telephone Adult Medicine [facility] [place] [address] [place] [address] [phone] Caitlin Hernandez MD [address] [place] [address] [phone] Pre-op Needed Social History Tobacco Use Types Packs/Day Years [...] on file documented as of this encounter Miscellaneous Notes * Telephone Encounter - DeboraFabiovy Michael - 05/28/2023 2:43 PM EDT Date of surgery:08/11/23 What surgery is patient having (gall bladder, cataract, appendix, etc...)?: Cataract Surgeon's name: Dr. Mallory Office phone number of surgeon: [phone] Fax # for surgeons office: n/a (Required) Where is surgery being performed? [address] [facility] [address] Diagnosis/problem for surgery: Cataract in both eyes Is an EKG required for the pre-op workup? YES PCP: Caitlin Hernandez Did you verify that the insurance below is correct? YES Patients insurance: [place] / [place] / Product Type: [place]ARE [id number] documented in this encounter Plan of Treatment Not on file documented as of this encounter Visit Diagnoses Not on filedocumented in this encounter Care Teams An/Ssn 2 4 Operator Relationship Specialty Start Date End Date Caitlin Hernandez MD [address] [place] [address] PCP - General Internal Medicine 09/03/21 documented as of this encounter
--- OUTSIDE RECORDS SUMMARY | 2024-12-22 10:50 | XMS_ITS | Encounter Summary ---
Author Organization [facility] [employer] Address [address] [place] [address] Care Team Providers Care Professor Of Floriculture Name Role Phone Caitlin Hernandez MD Primary Care Provider [phone] Encounter Details Date Type Department Care Team Description 11/05/2022 Telephone Gastroenterology - [address] [place] [address] April Andersen, Coral Social History Tobacco Use Types Packs/Day Years [...] suspected to have Coronavirus/COVID-19? No / Unsure 11/05/2022 9:10 AM EST documented as of this encounter Plan of Treatment Not on file documented as of this encounter Visit Diagnoses Not on filedocumented in this encounter Care Teams Professor Of Floriculture Relationship Specialty Start Date End Date Caitlin Hernandez MD [address] [place] [address] PCP - General Internal Medicine 09/03/21 documented as of this encounter
--- OUTSIDE RECORDS SUMMARY | 2024-12-22 10:50 | XMS_ITS | Encounter Summary ---
Author Organization [facility] Address [address] [place] [address] Care Team Providers Care Cold Roll Operator Name Role Phone Love Ford MD Primary Care Provider Unavail able Jes Chapman MD Primary Care Provider Sia Fitzgerald MD Primary Care Provider Unavail able Caitlin Hernandez MD Primary Care Provider [phone] Encounter Details Date Type Department Care Team Description 11/24/2011 Lead Python Developer Report Medical Records [address] [place] [address] Agatha Mark [address] [facility] [address] [place] [address] Social History Tobacco Use Types Packs/Day Years Used Date Smoking Tobacco: Former Cigarettes 0.5 40 Q uit: 02/14/2009 Smokeless Tobacco: Never Alcohol Use Standard Drinks/Week Comments Yes 0 [...] on filedocumented in this encounter Care Teams Cold Roll Operator Relationship Specialty Start Date End Date Love Ford MD PCP - General 03/16/01 10/03/15 Jes Chapman MD [address] [place] [address] [phone] PCP - General Internal Medicine 10/04/15 11/12/17 Sia Fitzgerald MD [address] [place] [address] PCP - General Internal Medicine 11/13/17 09/02/21 Caitlin Hernandez MD [address] [place] [address] PCP - General Internal Medicine 09/03/21 documented as of this encounter
--- OUTSIDE RECORDS SUMMARY | 2024-12-22 10:50 | XMS_ITS | Encounter Summary ---
Author Organization [facility] Address [address] [place] [address] Care Team Providers Care Mice Raiser Name Role Phone Love Ford MD Primary Care Provider Unavail able Jes Chapman MD Primary Care Provider [phone] Sia Fitzgerald MD Primary Care Provider Unavail able Caitlin Hernandez MD Primary Care Provider [phone] Encounter Details Date Type Department Care Team Description 11/14/2011 [facility] Medical Records [address] [place] [address] Marlee Douglas Social History Tobacco Use Types Packs/Day Years [...] on filedocumented in this encounter Care Teams Mice Raiser Relationship Specialty Start Date End Date Love Ford MD PCP - General 03/16/01 10/03/15 Jes Chapman MD [address] [place] [address] [phone] PCP - General Internal Medicine 10/04/15 11/12/17 Sia Fitzgerald MD [address] [place] [address] PCP - General Internal Medicine 11/13/17 09/02/21 Caitlin Hernandez MD [address] [place] [phone] PCP - General Internal Medicine 09/03/21 documented as of this encounter
--- OUTSIDE RECORDS SUMMARY | 2024-12-22 10:50 | XMS_ITS | Encounter Summary ---
Author Organization [facility] Address [address] [place] [address] Care Team Providers Care Law Writer Name Role Phone Caitlin Hernandez MD Primary Care Provider [phone] Reason for Visit * Reason Comments E-prescribe Rx Request Encounter Details Date Type Department Care Team Description 06/08/2023 Refill Adult Medicine [address] [phone] Caitlin Hernandez MD [address] [place] [address] [phone] E-prescribe Rx Request Social History Tobacco Use Types Packs/Day Years [...] Telephone Encounter - Cortney Mcclendon M.A. - 06/08/2023 12:38 PM EDT Last office visit 03/26/23 Next office visit 09/10/23 Requesting this be for 90 days Lab Results Component Value Date ALB 4.7 12/18/2014 SGOT 17 12/18/2014 SGPT 12 12/18/2014 TBILI 0.2 12/18/2014 ALKPHOS 91 12/18/2014 TP 7.1 12/18/2014 * Telephone Encounter - Yanni Ndiaye - 06/08/2023 10:53 AM EDT Patient would like script to be: E-PRESCRIBED/FAXED TO PHARMACY WHEN WAS THE PATIENT'S LAST APPOINTMENT IN ADULT MEDICINE? 03/26/23 WHEN WAS THE LAST TIME THE PATIENT SAW THEIR PCP? Same as above Does patient have an upcoming appointment? Yes 09/10/23 (THE MEDICATION REQUESTED IS ON THE MED LIST ABOVE) All of the medications requested were on the CURRENT MEDS list Did you check the Pharmacy information above?: YES Patient wants: 90 -day supply Is this a mail order prescription request ? NO If the refill is from a FAXED refill request what is the RX # listed on the fax? N/A Patients current insurance carrier is: [place] / Product Type: MEDICARE [id number] documented in this encounter Plan of Treatment Not on file documented as of this encounter Visit Diagnoses Not on filedocumented in this encounter Care Teams Law Writer Relationship Specialty Start Date End Date Caitlin Hernandez MD [address] [place] [address] PCP - General Internal Medicine 09/03/21 documented as of this encounter
--- OUTSIDE RECORDS SUMMARY | 2024-12-22 10:50 | XMS_ITS | Encounter Summary ---
Author Organization [employer] Address [address] [place] [address] Care Team Providers Care Doll Wig Hackler Name Role Phone Sia Fitzgerald MD Primary Care Provider Unavail able Caitlin Hernandez MD Primary Care Provider [phone] Encounter Details Date Type Department Care Team Description 06/14/2019 Orders Only Medical Records [address] [place] [address] Sia Fitzgerald MD Social History Tobacco Use [...] Name Priority Date/Time Associated Diagnosis Comments OUTSIDE ECHO Routine 06/08/2019 documented in this encounter Results * OUTSIDE ECHO (06/08/2019) Sia Fitzgerald MD CARDIOLOGY documented in this encounter Visit Diagnoses Not on filedocumented in this encounter Care Teams Doll Wig Hackler Relationship Specialty Start Date End Date Sia Fitzgerald MD PCP - General Internal Medicine 11/13/17 09/02/21 Caitlin Hernandez MD [address] [place] [address] PCP - General Internal Medicine 09/03/21 documented as of this encounter
--- OUTSIDE RECORDS SUMMARY | 2024-12-22 10:50 | XMS_ITS | Encounter Summary ---
Author Organization [facility] Address [address] [place] [address] Care Team Providers Care Ultrasound Coordinator Name Role Phone Love Ford MD Primary Care Provider Unavail able Jes Chapman MD Primary Care Provider [phone] Sia Fitzgerald MD Primary Care Provider Unavail able Caitlin Hernandez MD Primary Care Provider [phone] Encounter Details Date Type Department Care Team Description 11/17/2011 [facility] Medical Records [address] [place] [address] You Hand MD Social History Tobacco Use Types Packs/Day [...] on filedocumented in this encounter Care Teams Ultrasound Coordinator Relationship Specialty Start Date End Date Love Ford MD PCP - General 03/16/01 10/03/15 Jes Chapman MD [address] [place] [address] PCP - General Internal Medicine 10/04/15 11/12/17 Sia Fitzgerald MD [address] [place] [address] PCP - General Internal Medicine 11/13/17 09/02/21 Caitlin Hernandez MD [address] [place] [address] PCP - General Internal Medicine 09/03/21 documented as of this encounter
--- OUTSIDE RECORDS SUMMARY | 2024-12-22 10:50 | XMS_ITS | Encounter Summary ---
Author Organization [facility] [place] [address] Care Team Providers Care Bowling Floor Manager Name Role Phone Caitlin Hernandez MD Primary Care Provider [phone] Reason for Visit * Reason Onset Date Comments ER follow up 11/22/2024 Encounter Details Date Type Department Care Team (Late Contact Info) Description 11/22/2024 Telephone Adult Medicine [address] [phone] Tova Rdz RN ER follow up Social History Tobacco Use Types Packs/Day Years Used Date Smoking Tobacco: Former Cigarettes Q uit: 02/14/2009 Smokeless Tobacco: Former Alcohol Use Standard Drinks/Week Comments Yes 0 (1 standard drink = 0.6 oz pur e alcohol) Comments No Sex and Gender Information Value Date Recorded Sex Assigned at Not on file Legal Sex Female 5:55 PM EST Gender Identity Not on file Sexual Orientation Not on file documented as of this encounter Progress Notes * Tova Rdz RN - 11/22/2024 8:09 AM EST Seen 11/07 at [facility] ER for back pain Left vm for pt to return my call. documented in this encounter Plan of Treatment Upcoming Encounters Date Type Department Care Team (Late Contact Info) Description 01/03/2025 11:30 AM EST Office Visit Gastroenterology - [place] [address] [place] [address] April Andersen PA [address] [place] [address] 03/22/2025 11:00 AM EDT Office [place] [facility] [place] [address] [place] [address] Caitlin Hernandez MD [address] [place] [address] documented as of this encounter Goals Goal [...] on filedocumented in this encounter Care Teams Bowling Floor Manager Relationship Specialty Start Date End Date Caitlin Hernandez MD [address] [place] [id number] PCP - General Internal Medicine 09/03/21 documented as of this encounter
--- OUTSIDE RECORDS SUMMARY | 2024-12-22 10:50 | XMS_ITS | Encounter Summary ---
Author Organization [facility] Address [address] [place] [address] Care Team Providers Care Lumite Injector Name Role Phone Sia Fitzgerald MD Primary Care Provider Unavail Caitlin Guaman MD Primary Care Provider [phone] Encounter Details Date Type Department Care Team Description 08/16/2021 Telephone Adult Medicine [address] [address] Sia Fitzgerald MD Social History Tobacco Use [...] Exposure Response Date Recorded In the last month, have you been in contact with someone who was confirmed or suspected to have Coronavirus / COVID-19? No / Unsure 08/08/2021 9:13 AM EDT documented as of this encounter Miscellaneous Notes * Telephone Encounter - Sia Fitzgerald MD - 08/16/2021 1:41 PM EDT Patient's blood pressure was elevated down in physical therapy she upstairs to the triage unit repeat blood pressure was 150/98. She admits she was very nervous and she always gets nervous for appointments she is also dealing with cervical myofascial pain. Blood pressure readings on previous office visits were within normal range encouraged her to stop at the front to schedule a follow-up in approximately 8 weeks for blood pressure as well as the cervical pain. Patient has been having headaches on and off since the cervical myofascial pain started. She has normal neurologic examination today no numbness tingling or weakness. documented in this encounter Plan of Treatment Not on file documented as of this encounter Visit Diagnoses Not on filedocumented in this encounter Care Teams Lumite Injector Relationship Specialty Start Date End Date Sia Fitzgerald MD PCP - General Internal Medicine 11/13/17 09/02/21 Caitlin Hernandez MD [address] [place] [address] PCP - General Internal Medicine 09/03/21 documented as of this encounter
--- OUTSIDE RECORDS SUMMARY | 2024-12-22 10:50 | XMS_ITS | Clinical Summary ---
Author Organization [facility] Address [address] [place] [address] Care Team Providers Care Buttermaker Name Role Phone Caitlin Hernandez MD Primary Care Provider [phone] Allergies Active Allergy Reactions Severity Noted Date Comments Codeine 07/22/2006 Penicillins Diarrhea Low 01/10/2019 Medications Medication Sig Dispensed Refills Start Date End Date Status Calcium 500-125 MG-UNIT Tab Take 2 Tabs by mouth daily. 120 Tab 1 11/18/2019 Active Wheat Dextrin (BENEFIBER) Tab Take 3 Tabs by mouth daily. 120 Tab 2 11/18/2019 Active Probiotic Product (Align) Chew Tab Take by mouth daily. 0 Active triamcinolone (KENALOG) 0.1 % ointment APPLY A THIN LAYER DAILY 30 g 1 04/20/2023 Active Multiple Vitamins-Minerals (MULTIVITAMIN OR) Take by mouth daily. 0 Active sertraline (ZOLOFT) 100 MG tablet Take 1 Tablet by mouth daily. 90 Tablet 1 03/14/2024 Active atorvastatin (LIPITOR) 10 MG tablet Take 1 Tablet by mouth daily for 360 days. 30 Tablet 11 03/14/2024 03/09/2025 Active omeprazole (PRILOSEC) 20 MG capsule TAKE 1 CAPSULE BY MOUTH EVERY DAY 90 Capsule 1 05/17/2024 Active levothyroxine (SYNTHROID, LEVOTHROID) 88 MCG tablet TAKE 1 TABLET BY MOUTH DAILY. ON SATURDAYS AND SUNDAYS TAKE A HALF TABLET DAILY. 84 Tablet 1 06/06/2024 Active Active Problems Problem Noted Date Hiatal hernia 12/28/2023 Overview: Incidental finding on ER visit for gastroenteritis 12/26 Pre-hypertension 10/19/2019 Hypercholesterolemia 05/16/2019 Other chest pain 05/12/2019 Last Assessment & Plan: No evidence of breast abnormality on exam. Could be chest wall, could be anxiety. Recommended she see adult medicine today to be evaluated for cardiovascular causes. She has historically refused mammography, but agrees to do this in light of her pain. Vaginal atrophy 03/09/2019 Vulvar atrophy 03/09/2019 Last Assessment & Plan: Asymptomatic, no treatment. Situational depression 01/10/2019 Last Assessment & Plan: I encouraged her to get established with a new therapist and she is open to doing this. Grieving 10/13/2018 Last Assessment & Plan: Reviewed with Joon that while grieving is normal following sudden [...] message to Dr. Akbar. Lichen sclerosus 06/21/2018 Last Assessment & Plan: Reviewed findings with [...] application and amount of medication to use. Former tobacco use 01/25/2018 Overview: Quit 2009 Obesity (BMI 30-39.9) 01/25/2018 History of migraine headaches 11/26/2017 Gastroesophageal reflux disease 10/19/20 Osteopenia 04/21/2017 Overview: 04/18 T score spine -0.9 hip -2.1 FRAX score 17% 10 year fracture risk Stable 11/2018 Last Assessment & Plan: Encouraged weight bearing exercise 3 times per week, continue Ca and Vit D. Irritable bowel syndrome 04/16/2016 Lactose intolerance 12/17/2015 Depression 02/23/2014 Last Assessment & Plan: I strongly counseled Joon, as at other visits, to resume her counseling. I encouraged her to call the department and see if she can get a visit. She has not yet processed this. She denies SI, HI. 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 2010 MRI Scoliosis with advanced asymmetric multilevel degenerative changes, as described. Resolved Problems Problem Noted Date Resolved Date Elevated BP without diagnosis of hypertension 10/19/2019 Last Assessment & Plan: Referred to PCP. Mammogram declined 01/25/2018 03/01/2021 Overview: Patient refused mammogram see office note from 01/25/2018 Last Assessment & Plan: Pt was in agreement to have mammogram, but will do so on her own time. Order placed. She was encouraged to do so TOMASZ. She will likely desire referral to [facility] if any follow up is needed such as a biopsy. Heartburn 12/17/2015 11/26/2017 Abnormal mammogram 09/22/2011 04/13/2017 CLASSICAL MIGRAINE 07/22/2006 11/26/2017 Overview: IMO update HERPES SIMPLEX 07/22/2006 11/26/2017 Overview: On thigh for years Immunizations Name Administration Dates Next Due Arexvy (RSV) PT reported 02/16/2024 COVID-19 (Pfizer) 10/25/2021,02/18/2021,01/29/20 21 COVID-19 (Pfizer) Pt Reported 02/18/2021, 021 Influenza Flu (PT Reported) 08/01/2023, 0 Influenza vaccine high dose age 65 and over 07/25/2024,07/05/2023,08/13/2022,2020,08/23/2020,07/25/2019,07/28/2018,1 12/20/2016,08/20/2016 Pneumococcal Conjugate PCV-13 04/13/2017 Shingrix (Patient reported) 10/23/2021, 1 Tdap 03/29/2009 Zostavax (Patient Reported) 06/02/2021 Family History Medical History Relation Name Comments Hypertension Brother Hypertension Father Hypertension Mother [place], dialysis Cancer, Other Sister Hypertension Sister CA Breast Negative Hx CA Colon Negative Hx CA Ovarian Negative Hx Cancer of the Pancreas Negative Hx Cancer of the Prostate Negative Hx Uterine Cancer Negative Hx Relation Name Status Comments Brother Alive 2,one has cerbr al palsy Father Alive Mother arthritis,on di alysis Sister Alive 3, multiple mye mary Social History Tobacco Use Types Packs/Day Years Used Date Smoking Tobacco: Former Cigarettes 0.5 40 Q uit: 02/14/2009 Smokeless Tobacco: Former Tobacco Cessation:Counseling Given: Not Answered Alcohol Use Standard Drinks/Week Comments Yes 0 (1 standard drink = 0.6 oz pur e alcohol) 2-3/year Sex Assigned at Date Recorded Not on file Job Start Date Occupation Industry Not on file Not on file Not on file Last Filed Vital Signs Vital Sign Reading Time Taken Comments Blood Pressure 130/62 07/21/2024 2:57 PM EDT Pulse 68 07/21/2024 2:57 PM EDT Temperature 36.3 ??C (97.4 ??F) 07/21/2024 2:57 PM ED T Respiratory Rate 16 07/21/2024 2:57 PM EDT Oxygen Saturation 95% 07/21/2024 2:57 PM EDT Inhaled Oxygen Concentration - - Weight 55.8 kg (123 lb) 07/21/2024 2:57 PM EDT Height 144.8 cm (4' 9 ) 07/21/2024 2:57 PM EDT Body Mass Index 26.62 07/21/2024 2:57 PM EDT Plan of Treatment Health Maintenance Due Date Last Done Comments DTAP/TDAP/TD (2 - Td or Tdap) 03/29/2019 03/29/2009 MAMMOGRAM 05/13/2022 05/13/2021, 05/02, 01/25/2018 (Refused), Additional history exists BONE DENSITY SCREENING 11/15/2023 , 11/11/2018, 04/21/2017, Additional history exists FALL RISK ASSESSMENT 03/26/2024 03/26/2023, 03/26/2023, 03/11/2022, Additional history exists Covid-19 Vaccine ( season) 2024 10/25/2021, 02/18/2021, 02/18/2021, Additional history exists BMI CHECK/ADVISE 11/02/2024 02/18/2024, , 12/24/2023, Additional history exists DEPRESSION SCREEN 03/14/2025 03/14/2024, , 03/11/2022, Additional history exists COLON CANCER SCREEN WITH STOOL CARD 03/15/2025 03/15/2024, 07/29/2013, 08/04/2011 CHOLESTEROL SCREENING 07/18/2029 07/18/2024 , 03/15/2024, 03/07/2024, Additional history exists HEPATITIS C SCREENING Completed 06/28/2013 PNEUMOCOCCAL VACCINE Addressed 04/13/2017, 10/04/2015 (Refused) Overridden with the intention of not completing the topic SHINGLES VACCINE Completed 10/23/2021, 11/2020, 06/02/2021 (External Completion) INFLUENZA Completed 07/25/2024, 07/05, 07/05/2023, Additional history exists Care Teams Buttermaker Relationship Specialty Start Date End Date Caitlin Hernandez MD [address] [place] [id number] PCP - General Internal Medicine 09/03/21
--- OUTSIDE RECORDS SUMMARY | 2024-12-22 10:50 | XMS_ITS | Encounter Summary ---
Author Organization [facility] Address [address] [place] [address] Care Team Providers Care Dovetailer Name Role Phone Love Ford MD Primary Care Provider Unavail able Jes Chapman MD Primary Care Provider [phone] Sia Fitzgerald MD Primary Care Provider Unavail able Caitlin Hernandez MD Primary Care Provider [phone] Reason for Referral * Specialist (Routine) - Authorized/Booked Specialty Diagnoses / Procedures Referred By Sixto waggoner Referred To Contact General Surgery Diagnoses Abnormal mammogram with microcalcification Abnormal mammogram Procedures REFERRAL TO GENERAL SURGERY Love Ford MD [address] [place] [address] Jamarcus Nicholas MD [address] [place] [id number] Referral ID Status Reason Start Date Expiration Date V isits Requested Visits Authorized NOT REQUIRED Authorized/ Booked 08/27/2011 08/26/2012 1 1 Encounter Details Date Type Department Care Team Description 08/27/2011 Orders Only Adult Medicine - [place] [address] [place] [address] Love Ford MD Abnormal mammogram with microcalcification; Abnormal mammogram Social History Tobacco Use Types Packs/Day Years [...] documented as of this encounter Visit Diagnoses Diagnosis Abnormal mammogram with microcalcification Mammographic microcalcification Abnormal mammogram Abnormal mammogram, unspecified documented in this encounter Care Teams Dovetailer Relationship Specialty Start Date End Date Love Ford MD PCP - General 03/16/01 10/03/15 Jes Chapman MD [address] [place] [id number] PCP - General Internal Medicine 10/04/15 11/12/17 Sia Fitzgerald MD [address] [place] [phone] PCP - General Internal Medicine 11/13/17 09/02/21 Caitlin Hernandez MD [address] [place] [phone] PCP - General Internal Medicine 09/03/21 documented as of this encounter
--- OUTSIDE RECORDS SUMMARY | 2024-12-22 10:50 | XMS_ITS | Encounter Summary ---
Author Organization [facility] Address [address] [place] [address] Care Team Providers Care Quality Assurance Advisor Name Role Phone Caitlin Hernandez MD Primary Care Provider [phone] Reason for Visit * Reason Comments Pain Consult * Consultation (Routine) - Closed Specialty Diagnoses / Procedures Referred By Contac t Referred To Contact Orthopaedics / Orthopaedic Surgery Diagnoses Right shoulder pain, unspecified chronicity Caitlin Hernandez MD [address] [place] [address] Phone: tel: fax: Silvio Mccoy PA [address] [place] [address] Phone: tel: fax: Referral ID Status Reason Start Date Expiration Date V isits Requested Visits Authorized [id number] Closed Specialty Services Required 10/11/2024 10/11/2025 1 1 Encounter Details Date Type Department Care Team (Late st Contact Info) Description 12/16/2024 11:30 AM EST Consult Orthopedics - [address] [address] Silvio Mccoy PA [address] [place] [address] Right shoulder pain, unspecified chronicity (Primary Dx) Social History Tobacco Use Types Packs/Day Years [...] on file documented as of this encounter Last Filed Vital Signs Vital Sign Reading Time Taken Comments Blood Pressure - - Pulse - - Temperature - - Respiratory Rate 14 12/16/2024 11:08 AM EST Oxygen Saturation - - Inhaled Oxygen Concentration - - Weight 57.2 kg (126 lb) 12/16/2024 11:08 AM EST Height 144.8 cm (4' 9 ) 12/16/2024 11:08 AM EST Body Mass Index 27.27 12/16/2024 11:08 AM EST documented in this encounter Progress Notes * HUMBERTO Myers - 12/16/2024 11:30 AM EST CHIEF COMPLAINT: Pain and Consult of the Right Shoulder had concerns including Pain and Consult of the Right Shoulder. IDENTIFIER: Sadia Parks is a 74 y.o. old female. HPI: Sadia Parks is here for evaluation of right shoulder pain. This has become prominent over the last few months. Patient describes a history about 10 or so years ago of a humeral fracture. I do nothave notes from that. Current symptoms are isolated to the shoulder raising the arm lying on that side etc. She has been through a few rounds of therapy without improvement. ROS: GENERAL: No malaise, significant weight loss or fever HEENT: No changes in hearing or vision, nose bleeds or other nasal problems NECK: No lumps, goiter, pain or significant neck swelling RESPIRATORY: No cough, wheezing or shortness of breath CARDIOVASCULAR: No chest pain, leg swelling or palpitations GI: No abdominal discomfort, blood in stools or black stools : No dysuria, frequency or incontinence MUSCULOSKELETAL: See HPI. SKIN: No lesions, rash or itching NEURO: No persistent headache, syncope, seizures, weakness or numbness Remainder of systems noncontributory. PHYSICAL EXAM: Vitals: 12/16/24 1108 Resp: 14 Weight: 57.2 kg (126 lb) Height: 1.448 m (57 ) Shoulder Right shoulder AROM: Comfortable flexion to about 120 degrees. Abduction to about 100 degrees. Internal rotation to the lumbar RROM 5/5 abduction, external, internal rotation. Pain with abduction and external rotation Palpation notable posterior tenderness Positive Piotr, LABS/IMAGING: Xrays reviewed: X-rays of the right shoulder performed today. Reading is pending. There is some slight deformity of the proximal humeral shaft possible site of fracture but unclear based on lack of prior films. Some very mild degenerative changes. Otherwise unremarkable appearing x-rays IMPRESSION: 1. Right shoulder pain, unspecified chronicity PLAN: 1. Right shoulder pain, unspecified chronicity (Primary) She is already participating physical therapy. I think I would avoid chronic use of NSAIDs at this point. I discussed the cortisone injection with her. She is hesitant because of a fear of injectionsas well as negative experience with prior lumbar injections. This is understandable. I explained toher the role of cortisone as well as walked her through shoulder injection. She would like to thinkabout this and can call if she would like to pursue this. - Ambulatory referral to Orthopedic No orders of the defined types were placed in this encounter. The details of the visit were reviewed with the patient. Pertinent history, and objective findings were reviewed, along with the diagnoses: Sadia Parks acknowledges understanding of the above plan and agrees to follow recommendations and/or take medications as prescribed. No follow-ups on file. 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 Situational depression 01/10/2019 Grieving 10/13/2018 Lichen sclerosus 06/21/2018 Obesity (BMI 30-39.9) 01/25/2018 Gastroesophageal reflux disease 10/19/2017 Osteopenia 04/21/2017 Irritable bowel syndrome with diarrhea 04/16/2016 Lactose intolerance 12/17/2015 Depression 02/23/2014 Hypothyroidism 06/30/2013 DJD (degenerative joint disease) of thoracic spine 05/21/2011 Past Surgical History: Procedure Laterality Date BREAST BIOPSY Left 2011ish PROCEDURE: BX BREAST; PERC NEEDLE CORE W/IMAG GUID; COMMENT: calcs COLONOSCOPY 08/04/11 PROCEDURE: HISTORICAL COLONOSCOPY; COMMENT: tics; repeat in ten yrs OTHER SURGICAL HISTORY PROCEDURE: VA LIG/TRNSXJ FLP TUBE ABDL/VAG APPR UNI/BI SOCIAL HISTORY: Social History Tobacco Use Smoking status: Former Current packs/day: 0.00 Types: Cigarettes Quit date: 02/14/2009 Years since quittin.8 Smokeless tobacco: Former Substance Use Topics Alcohol use: Yes FAMILY HISTORY: Family History Problem Relation Name Age of Onset Hypertension Father Hypertension Mother [place], dialysis Hypertension Brother Hypertension Sister Other cancer Sister Ovarian cancer Neg Hx Breast cancer Neg Hx Uterine cancer Neg Hx Pancreatic cancer Neg Hx Prostate cancer Neg Hx Colon cancer Neg Hx MEDICATIONS DISCONTINUED/REORDERED: There are no discontinued medications. ACTIVE MEDICATIONS: Outpatient Medications Marked as Taking for the 12/16/24 encounter (Consult) with HUMBERTO Myers Medication Sig Dispense Refill Bifidobacterium infantis (ALIGN ORAL) Probiotic Product (Align) Chew Tab Sig - Route: Take by mouth daily. calcium carbonate-vitamin D3 500 mg-3.125 mcg (125 unit) tablet per tabelt Take 2 Tabs by mouth daily. levothyroxine (SYNTHROID, LEVOTHROID) 88 mcg tablet TAKE 1 TABLET BY MOUTH DAILY. ON SATURDAYS AND SUNDAYS TAKE A HALF TABLET DAILY. 84 tablet 1 meclizine (ANTIVERT) 12.5 mg tablet Take 1 tablet (12.5 mg total) by mouth 3 (three) times a day ifneeded for dizziness. 90 tablet 0 meloxicam (MOBIC) 15 mg tablet Take 1 tablet (15 mg total) by mouth 1 (one) time each day. (Patienttaking differently: Take 1 tablet (15 mg total) by mouth if needed for mild pain.) MULTIVITAMIN ORAL Take by mouth daily. omeprazole (PriLOSEC) [address] capsule Take 1 capsule (20 mg total) by mouth 1 (one) time each day.90 capsule 1 sertraline (ZOLOFT) 100 mg tablet Take 1 Tablet by mouth daily. triamcinolone (KENALOG) 0.1 % ointment APPLY A THIN LAYER DAILY 30 g 0 WHEAT DEXTRIN ORAL ALLERGIES: Allergies Allergen Reactions Codeine Penicillins Diarrhea HUMBERTO Myers Cosigned by Tigre Briseno MD at 12/18/2024 5:32 PM EST documented in this encounter Plan of Treatment Upcoming Encounters Date Type Department Care Team (Late st Contact Info) Description 01/03/2025 11:30 AM EST Office Visit Gastroenterology - [place] [address] [place] [address] April Andersen PA [address] [place] [address] 03/22/2025 11:00 AM EDT Office Visit [place] [facility] [place] [address] [place] [address] Caitlin Hernandez MD [address] [place] [address] documented as of this encounter Goals Goal [...] as of this encounter Visit Diagnoses Diagnosis Right shoulder pain, unspecified chronicity- Primary documented in this encounter Historical Medications * This list may reflect changes made after this encounter. gabapentin (NEURONTIN) 100 mg capsule TAKE 1 CAPSULE ORALLY 3 TIMES A DAY NEEDED FOR NERVE PAIN 11/14/2024 atorvastatin (LIPITOR) 10 mg tablet Take 1 tablet (10 mg total) by mouth 1 (one) time each day. 12/07/2024 added in this encounter Orders Outpatient Referral Count Last Ordered Date Fir st Ordered Date AMB REFERRAL TO ORTHOPEDIC 1 12/16/2024 documented in this encounter Care Teams Quality Assurance Advisor Relationship Specialty Start Date End Date Caitlin Hernandez MD [address] [place] [address] PCP - General Internal Medicine 09/03/21 documented as of this encounter
--- OUTSIDE RECORDS SUMMARY | 2024-12-22 10:50 | XMS_ITS | Encounter Summary ---
Author Organization [facility] Address [address] [place] [address] Care Team Providers Care Wood Products Manufacturer Name Role Phone Jes Chapman MD Primary Care Provider [phone] Sia Fitzgerald MD Primary Care Provider Unavail able Caitlin Hernandez MD Primary Care Provider Reason for Visit * Reason Comments E-prescribe Rx Request Encounter Details Date Type Department Care Team Description 09/08/2017 Refill Gastroenterology [address] [address] Ilia Moody PA-C E-prescribe Rx Request Social History Tobacco Use [...] encounter Miscellaneous Notes * Telephone Encounter - Ilia Moody PA-C - 09/08/2017 5:03 PM EST Will refill but pt was due for her f/u appt with Alex lucas in April. documented in this encounter Plan of Treatment Not on file documented as of this encounter Visit Diagnoses Not on filedocumented in this encounter Care Teams Wood Products Manufacturer Relationship Specialty Start Date End Date Jes Chapman MD [address] [place] [address] PCP - General Internal Medicine 10/04/15 11/12/17 Sia Fitzgerald MD [address] [place] [address] PCP - General Internal Medicine 11/13/17 09/02/21 Caitlin Hernandez MD [address] [place] [id number] PCP - General Internal Medicine 09/03/21 documented as of this encounter
--- OUTSIDE RECORDS SUMMARY | 2024-12-22 10:50 | XMS_ITS | Encounter Summary ---
Author Organization [employer] [facility] Address [address] [place] [address] Care Team Providers Care Technology Specialist Name Role Phone Caitlin Hernandez MD Primary Care Provider [phone] Encounter Details Date Type Department Care Team Description 09/30/2021 [employer] Developer Report Medical Records [address] [place] [id number] Abstract, Provider Social History Tobacco Use Types Packs/Day Years [...] have Coronavirus / COVID-19? No / Unsure 09/03/2021 10:05 AM EDT documented as of this encounter Plan of Treatment Not on file documented as of this encounter Visit Diagnoses Not on filedocumented in this encounter Care Teams Technology Specialist Relationship Specialty Start Date End Date Caitlin Hernandez MD [address] [place] [address] PCP - General Internal Medicine 09/03/21 documented as of this encounter
--- OUTSIDE RECORDS SUMMARY | 2024-12-22 10:50 | XMS_ITS | Encounter Summary ---
Author Organization [facility] Address [address] [place] [address] Care Team Providers Care Fire Pot Operator Name Role Phone Love Ford MD Primary Care Provider Unavail able Jes Chapman MD Primary Care Provider [phone] Sia Fitzgerald MD Primary Care Provider Unavail able Caitlin Hernandez MD Primary Care Provider [phone] Encounter Details Date Type Department Care Team Description 11/14/2011 [facility] Medical Records [address] [place] [address] Ion Smith Social History Tobacco Use Types Packs/Day Years [...] on filedocumented in this encounter Care Teams Fire Pot Operator Relationship Specialty Start Date End Date Love Ford MD PCP - General 03/16/01 10/03/15 Jes Chapman MD [address] [place] [address] [id number] PCP - General Internal Medicine 10/04/15 11/12/17 Sia Fitzgerald MD [address] [place] [address] PCP - General Internal Medicine 11/13/17 09/02/21 Caitlin Hernandez MD [address] [place] [address] PCP - General Internal Medicine 09/03/21 documented as of this encounter
--- OUTSIDE RECORDS SUMMARY | 2024-12-22 10:50 | XMS_ITS | Encounter Summary ---
Author Organization [facility] Address [address] [place] [address] Care Team Providers Care Manufacturing Software Engineer Name Role Phone Jes Chapman MD Primary Care Provider [phone] Sia Fitzgerald MD Primary Care Provider Unavail able Caitlin Hernandez MD Primary Care Provider [phone] Encounter Details Date Type Department Care Team Description 04/21/2017 [facility] Medical Records [address] [place] [address] 48[address] Abstract, Provider Social History Tobacco Use Types [...] on filedocumented in this encounter Care Teams Manufacturing Software Engineer Relationship Specialty Start Date End Date Jes Chapman MD [address] [place] [address] [phone] PCP - General Internal Medicine 10/04/15 11/12/17 Sia Fitzgerald MD [address] [place] [address] PCP - General Internal Medicine 11/13/17 09/02/21 Caitlin Hernandez MD [address] [place] [address] [phone] PCP - General Internal Medicine 09/03/21 documented as of this encounter
--- OUTSIDE RECORDS SUMMARY | 2024-12-22 10:51 | XMS_ITS | Encounter Summary ---
Author Organization [employer] [facility] Address [address] [place] [address] Care Team Providers Care Arcade Technician Name Role Phone Sia Fitzgerald MD Primary Care Provider Unavail able Caitlin Hernandez MD Primary Care Provider [phone] Encounter Details Date Type Department Care Team Description 05/15/2021 [facility] Medical Records [address] [place] [address] Abstract, Provider Social History Tobacco Use Types [...] have Coronavirus / COVID-19? No / Unsure 05/13/2021 8:52 AM EDT documented as of this encounter Plan of Treatment Not on file documented as of this encounter Visit Diagnoses Not on filedocumented in this encounter Care Teams Arcade Technician Relationship Specialty Start Date End Date iSa Fitzgerald MD PCP - General Internal Medicine 11/13/17 09/02/21 Caitlin Hernandez MD [address] [place] [address] PCP - General Internal Medicine 09/03/21 documented as of this encounter
--- OUTSIDE RECORDS SUMMARY | 2024-12-22 10:51 | XMS_ITS ---
Author Organization [facility] [address] [place] [address] [place] [phone] Phone Care Team Providers Care Towel Cabinet Repairer Name Role Phone Caitlin Hernandez MD Primary Care Provider [phone] Technology Coach Care Management Status:Ongoing (Active) Start date:10/06/2024 Enrollment date:10/13/2024 Enrollment reason:Identified using claims or encounter data Overview Assignment - BH depression Case Team Name Relationship Phone Phyllis Blount [facility] Administrative Director(Responsible St aff) [phone] Continued Care and Services Coordination
--- OUTSIDE RECORDS SUMMARY | 2024-12-22 10:51 | XMS_ITS | Encounter Summary ---
Author Organization [facility] Address [address] [place] [address] Care Team Providers Care Doll Wig Maker Rooted Hair Name Role Phone Jes Chapman MD Primary Care Provider [phone] Sia Fitzgerald MD Primary Care Provider Unavail able Caitlin Hernandez MD Primary Care Provider [phone] Encounter Details Date Type Department Care Team Description 12/07/2015 [facility] Medical Records [address] [place] [address] Abstract, Provider Social History Tobacco Use Types [...] in this encounter Care Teams Doll Wig Maker Rooted Hair Relationship Specialty Start Date End Date Jes Chapman MD [address] [place] [address] [id number] PCP - General Internal Medicine 10/04/15 11/12/17 Sia Fitzgerald MD [address] [place] [id number] PCP - General Internal Medicine 11/13/17 09/02/21 Caitlin Hernandez MD [address] [place] [address] [phone] PCP - General Internal Medicine 09/03/21 documented as of this encounter
--- OUTSIDE RECORDS SUMMARY | 2024-12-22 10:51 | XMS_ITS | Encounter Summary ---
Author Organization [facility] Address [address] [place] [address] Care Team Providers Care Manager Interventional Name Role Phone Sia Fitzgerald MD Primary Care Provider Unavail able Caitlin Hernandez MD Primary Care Provider [phone] Encounter Details Date Type Department Care Team Description 01/25/2021 Orders Only Radiology - [address] [phone] Collette Morin MD [address] [place] [address] Social History Tobacco Use Types Packs/Day Years [...] on filedocumented in this encounter Care Teams Manager Interventional Relationship Specialty Start Date End Date Sia Fitzgerald MD PCP - General Internal Medicine 11/13/17 09/02/21 Caitlin Hernandez MD [address] [place] [address] [id number] PCP - General Internal Medicine 09/03/21 documented as of this encounter
--- OUTSIDE RECORDS SUMMARY | 2024-12-22 10:51 | XMS_ITS | Clinical Summary ---
Author Organization [facility] [address] [facility] Address [address] [place] [phone] Phone Care Team Providers Care Adjusto Writer Operator Name Role Phone Caitlin Hernandez MD Primary Care Provider [phone] Allergies Active Allergy Reactions Criticality Noted Date Comments Codeine 07/22/2006 Penicillins Diarrhea Low 01/10/2019 Medications calcium carbonate-venkatesh min D3 500 mg-3.125 mcg (125 unit) tablet per tabelt Take 2 Tabs by mouth daily. 11/18/19 20 Active MULTIVITAMIN ORAL Take by mouth daily. Active Bifidobacteriu m infantis (ALIGN ORAL) Probiotic Product (Align) Chew Tab Sig - Route: Take ??by mouth daily. Active sertraline (ZOLOFT) 100 mg tablet Take 1 Tablet by mouth daily. 03/14/20 24 Active WHEAT DEXTRIN ORAL 11/18/19 20 Active triamcinolone (KENALOG) 0.1 % ointment APPLY A THIN LAYER DAILY 30 g 09/11/20 24 Active meclizine (ANTIVERT) 12.5 mg tablet Take 1 tablet (12.5 mg total) by mouth 3 (three) times a day if needed for dizziness. 90 tablet 09/14/20 24 025 Active meloxicam (MOBIC) 15 mg tablet Take 1 tablet (15 mg total) by mouth 1 (one) time each day. 10/27/20 23 Active omeprazole (PriLOSEC) [address] capsule Take 1 capsule (20 mg total) by mouth 1 (one) time each day. 90 capsule 1 11/18/19 25 Active levothyroxine (SYNTHROID, LEVOTHROID) 88 mcg tablet TAKE 1 TABLET BY MOUTH DAILY. ON SATURDAYS AND SUNDAYS TAKE A HALF TABLET DAILY. 84 tablet 1 11/24/19 25 Active atorvastatin (LIPITOR) 10 mg tablet Take 1 tablet (10 mg total) by mouth 1 (one) time each day. 12/07/19 25 Active gabapentin (NEURONTIN) 100 mg capsule TAKE 1 CAPSULE ORALLY 3 TIMES A DAY NEEDED FOR NERVE PAIN 11/14/19 25 Active levothyroxine (SYNTHROID, LEVOTHROID) 88 mcg tablet TAKE 1 TABLET BY MOUTH DAILY. ON SATURDAYS AND SUNDAYS TAKE A HALF TABLET DAILY. 06/06/20 025 Discontinued Active Problems Problem Noted Date Diagnosed [...] Encounters Date Type Department Care Team Description 12/16/2024 11:30 AM EST Consult Orthopedics - [address] [phone] Silvio Mccoy PA Right shoulder pain, unspecified chronicity (Primary Dx) 12/16/2024 10:46 AM EST - 12/16/2024 11:59 PM EST Hospital Encounter XRAY - [address] [phone] Chronic right shoulder pain Discharge Disposition: Home or Self Care 11/22/2024 Telephone Adult Medicine [address] [phone] Tova Rdz, ARTIST'S MODEL follow up 10/17/2024 10:30 AM EST Office Visit Obstetrics and Gynecology [address] [phone] Collette Morin MD Lichen sclerosus (Primary Dx) 10/11/2024 9:30 AM EST Office Visit Adult Medicine [address] [phone] Caitlin Hernandez MD Grieving (Primary Dx); Pre-hypertension; Depression, unspecified depression type; Hypothyroidism, unspecified type; Hypercholesterolemi a; Right shoulder pain, unspecified chronicity 10/07/2024 10:00 AM EST Treatment Outpatient Rehabilitation - [address] [phone] Allen Huffman, PT Chronic right shoulder pain (Primary Dx) 09/30/2024 10:30 AM EST Treatment Outpatient Rehabilitation - [address] [phone] Allen Huffman, PT Chronic right shoulder pain (Primary Dx); Vertigo, benign paroxysmal, unspecified laterality 09/27/2024 10:00 AM EST Treatment Outpatient [address] [phone] Anne Marie Quiroz, GAS PIPE LAYER Chronic right shoulder pain (Primary Dx) 09/23/2024 1:30 PM EST Treatment Outpatient [address] [phone] Allen Huffman, PT Vertigo, benign paroxysmal, unspecified laterality (Primary Dx); Chronic right shoulder pain from Last 3 Months Immunizations Name Administration [...] Date Site/Laterality Comments OTHER SURGICAL HISTORY PROCEDURE: UT LIG/TRNSXJ FLP TUBE ABDL/VAG APPR UNI/BI COLONOSCOPY [...] Comments Hypertension Brother Hypertension Father Hypertension Mother CT, dialysis Hypertension Sister Other cancer Sister Breast [...] on file Sexual Orientation Not on file Obstetrics History Para Term [...] 10/11/2024 10:[address] Respiratory Rate 14 12/16/2024 11:08 AM EST Oxygen Saturation 95% 09/14/2024 9:03 AM EST Inhaled Oxygen Concentration - - Weight 57.2 kg (126 lb) 12/16/2024 11:08 AM EST Height 144.8 cm (4' 9 ) 12/16/2024 11:08 AM EST Body Mass Index 27.27 12/16/2024 11:08 AM EST Plan of Treatment Upcoming Encounters Date Type Department Care Team (Late st Contact Info) Description 01/03/2025 11:30 AM EST Office Visit Gastroenterology - [place] [facility] 175 [facility] [address] [place] [address] April Andersen PA [address] [place] [address] 03/22/2025 11:00 AM EDT Office Visit Adult Medicine [facility] [address] [place] [address] Caitlin Hernandez MD [address] [place] [address] Health Maintenance Due Date Last Done Comments [...] Screening Completed 06/28/2013 Zoster Vaccines Completed 10/23/2021, 11/2020, 06/02/2021 RSV Immunization Patients Under 20 months Aged Out 02/16/2024 No longer eligible based on patient's age to complete this topic Colorectal Cancer Screening: Colonoscopy Discontinued 03/15/2024 Influenza Vaccine Completed 07/25/2024, , 07/05/2023, Additional history exists Pneumococcal Vaccine: 50+ Years Completed 10/03/2024, 10/03/2024, 04/13/2017 HIB Vaccines [...] patient's age to complete this topic Meningococcal B Vacine Aged Out No lo nger eligible based on patient's age to complete [...] Procedure Name Priority Date/Time Associated Diagnosis Comments XR SHOULDER 2+ VIEWS RIGHT Routine 12/16/2024 11:03 AM EST Chronic right shoulder pain LIPID PANEL Routine 07/18/2024 COLONOSCOPY Routine 03/15/2024 [...] Recently Relevant to Health Maintenance Results * XR Shoulder 2+ Views Right (12/16/2024 11:03 AM EST) Anatomical Region Laterality Modality Upper Extremities, Shoulder Right Radi ographic Imaging 12/16/2024 3:31 PM EST Impressions 12/16/2024 3:33 PM EST Inferior subluxation of the humeral head which may be chronic. ??Correlate with point tenderness -------- FINAL REPORT -------- Dictated By: Silvana Hobbs Dictated Date: 12/16/2024 15:31 ET Assigned Physician: Silvana Hobbs Reviewed and Electronically Signed By: Silvana Hobbs Signed Date: 12/16/2024 15:33 ET Workstation ID: [id number] Transcribed By: Self Edit Transcribed Date: 12/16/2024 15:31 ET Narrative 12/16/2024 3:33 PM EST HISTORY: shoulder pain TECHNIQUE: 4 views of the right shoulder COMPARISON: None FINDINGS: No acute fracture is identified. ??There is inferior subluxation of the humeral head from the glenoid. ??Mild glenohumeral joint space narrowing. ??A round calcification is present superior to the humeral head. ??Deformity of the humeral neck. Procedure Note Silvana Hobbs MD - 12/16/2024 HISTORY: shoulder pain TECHNIQUE: 4 views of the right shoulder COMPARISON: None FINDINGS: No acute fracture is identified. There is inferior subluxation of thehumeral head from the glenoid. Mild glenohumeral joint space narrowing.A round calcification is present superior to the humeral head. Deformityof the humeral neck. IMPRESSION: Inferior subluxation of the humeral head which may be chronic. Correlatewith point tenderness -------- FINAL REPORT -------- Dictated By: Silvana Hobbs Dictated Date: 12/16/2024 15:31 ET Assigned Physician: Silvana Hobbs Reviewed and Electronically Signed By: Silvana Hobbs Signed Date: 12/16/2024 15:33 ET Workstation ID: [id number] Transcribed By: Self Edit Transcribed Date: 12/16/2024 15:31 ET Silvio PAUL IMG XR PROCEDURES Final Result * Lipid panel (07/18/2024) [facility] LDL/HDL Ratio 3 0 - 4 Triglycerides 123 0 - 150 mg/dL Cholesterol 163 0 - 200 mg/dL HDL 56 >=40 mg/dL LDL Cholesterol 83 0 - 100 mg/dL Blood Venous blood specimen / Unknown [facility] Provider MD LAB BLOOD ORDERABLES Tanvi l Result * Colonoscopy (03/15/2024) [facility] Colonoscopy no interpretation , abstracted Anatomical Region Laterality Modality Other [facility] Provider MD HEALTH MAINTENANCE Final Result * Depression Screening (03/14/2024) [facility] Depression Screening abstracted [facility] Provider MD HEALTH MAINTENANCE Final Result * DXA BONE DENSITY STUDY 1+ SITS [...] (World Health Organization Fracture Risk Assessment) [facility] Department of Internal Medicine recommends using National [...] (World Health Organization Fracture Risk Assessment) [facility] Department of Internal Medicine recommendsusing National Osteoporosis [...] or over-estimation of fracture risk by FRAX. us Sia Fitzgerald MD IMG DXA PROCEDURES Final Res ult * SCREENING MAMMOGRAPHY BI 2-VIEW BREAST INC [...] 2-benign Collette Morin MD IMG XR PROCEDURES Final Res ult * Cervical Cancer Screening: HPV (05/19/2014) [facility] Cervical Cancer Screening: HPV normal, abstracted Historical Provider HEALTH MAINTENANCE Final Result * Hepatitis C Screening (06/28/2013) [facility] Hepatitis C Screening abstracted Historical Provider HEALTH MAINTENANCE Final Result from Last 3 Months or Most Recently Relevant to Health Maintenance Insurance MEDICARE [facility] Care Teams Adjusto Writer Operator Relationship Specialty Start Date End Date Caitlin Hernandez MD [address] [place] [address] PCP - General Internal Medicine 09/03/21
--- OUTSIDE RECORDS SUMMARY | 2024-12-22 10:51 | XMS_ITS | Encounter Summary ---
Author Organization [facility] Address [address] [place] [address] Care Team Providers Care Home Economics Extension Worker Name Role Phone Love Ford MD Primary Care Provider Unavail able Jes Chapman MD Primary Care Provider [phone] Sia Fitzgerald MD Primary Care Provider Unavail able Caitlin Hernandez MD Primary Care Provider Encounter Details Date Type Department Care Team Description 08/08/2013 Release of Information Medical Records [address] [place] [address] Abstract, Provider Social History Tobacco Use Types [...] on filedocumented in this encounter Care Teams Home Economics Extension Worker Relationship Specialty Start Date End Date Love Ford MD PCP - General 03/16/01 10/03/15 Jes Chapman MD [address] [place] [address] PCP - General Internal Medicine 10/04/15 11/12/17 Sia Fitzgerald MD [address] [place] [address] PCP - General Internal Medicine 11/13/17 09/02/21 Caitlin Hernandez MD [address] [place] [address] PCP - General Internal Medicine 09/03/21 documented as of this encounter
--- OUTSIDE RECORDS SUMMARY | 2024-12-22 10:51 | XMS_ITS | Encounter Summary ---
Author Organization [employer] Address [address] [place] [address] Care Team Providers Care Language Specialist Name Role Phone Caitlin Hernandez MD Primary Care Provider [phone] Encounter Details Date Type Department Care Team (Latest Contact Info) Description 12/16/2024 10:46 AM EST - 12/16/2024 11:59 PM [facility] Hospital Encounter XRAY - [place] [address] [place] [address] Chronic right shoulder pain Discharge Disposition: Home or Self Care Social History Tobacco Use Types Packs/Day Years [...] on file documented as of this encounter Medications at Time of Discharge atorvastatin (LIPITOR) 10 mg tablet Take 1 tablet (10 mg total) by mouth 1 (one) time each day. 12/07/2024 Bifidobacterium infantis (ALIGN ORAL) Probiotic Product (Align) Chew Tab Sig - Route: Take ??by mouth daily. calcium carbonate-vitami n D3 500 mg-3.125 mcg (125 unit) tablet per tabelt Take 2 Tabs by mouth daily. 11/18/2019 gabapentin (NEURONTIN) 100 mg capsule TAKE 1 CAPSULE ORALLY 3 TIMES A DAY NEEDED FOR NERVE PAIN 11/14/2024 levothyroxine (SYNTHROID, LEVOTHROID) 88 mcg tablet TAKE 1 TABLET BY MOUTH DAILY. ON SATURDAYS AND SUNDAYS TAKE A HALF TABLET DAILY. 84 tablet 1 11/24/2024 meclizine (ANTIVERT) 12.5 mg tablet Take 1 tablet (12.5 mg total) by mouth 3 (three) times a day if needed for dizziness. 90 tablet 09/14/2024 meloxicam (MOBIC) 15 mg tablet Take 1 tablet (15 mg total) by mouth 1 (one) time each day. 10/27/2023 MULTIVITAMIN ORAL Take by mouth daily. omeprazole (PriLOSEC) [address] capsule Take 1 capsule (20 mg total) by mouth 1 (one) time each day. 90 capsule 1 11/18/2024 sertraline (ZOLOFT) 100 mg tablet Take 1 Tablet by mouth daily. 03/14/2024 triamcinolone (KENALOG) 0.1 % ointment APPLY A THIN LAYER DAILY 30 g 09/11/2024 WHEAT DEXTRIN ORAL 11/18/2019 documented as of this encounter Discharge Disposition Disposition Code Departure Means Destination Home or Self Care documented in this encounter Plan of Treatment Upcoming Encounters Date Type Department Care Team (Late st Contact Info) Description 01/03/2025 11:30 AM EST Office Visit Gastroenterology - [place] [facility] 175 [facility] [address] [place] [address] April Andersen PA 175 [facility] 200 [place] [address] 03/22/2025 11:00 AM EDT Office Visit Adult Medicine [address] [phone] Caitlin Hernandez MD [address] [place] [address] documented as of this encounter Goals Goal [...] stab program.. documented as of this encounter Procedures Procedure Name Priority Date/Time Associated Diagnosis Comments XR SHOULDER 2+ VIEWS RIGHT Routine 12/16/2024 11:03 AM EST Chronic right shoulder pain documented in this encounter Results * XR Shoulder 2+ Views Right [...] Signed Date: 12/16/2024 15:33 ET Workstation ID: [id number] Transcribed By: Self Edit Transcribed Date: 12/16/2024 [...] Signed Date: 12/16/2024 15:33 ET Workstation ID: [id number] Transcribed By: Self Edit Transcribed Date: 12/16/2024 15:31 ET Silvio PAUL IMG XR PROCEDURES Final Result documented in this encounter Visit Diagnoses Diagnosis Chronic right shoulder pain Pain in joint, shoulder region documented in this encounter Care Teams Language Specialist Relationship Specialty Start Date End Date Caitlin Hernandez MD [address] [place] [phone] PCP - General Internal Medicine 09/03/21 documented as of this encounter
--- OUTSIDE RECORDS SUMMARY | 2024-12-22 10:51 | XMS_ITS | Encounter Summary ---
Author Organization [facility] Address [address] [place] [address] Care Team Providers Care User Support Analyst Supervisor Name Role Phone Jes Chapman MD Primary Care Provider [phone] Sia Fitzgerald MD Primary Care Provider Unavail able Caitlin Hernandez MD Primary Care Provider [phone] Reason for Visit * Reason Onset Date Comments Medication 03/26/2017 Encounter Details Date Type Department Care Team Description 03/26/2017 Refill Gastroenterology - [address] [phone] Manny Alvarado PA-C Medication Social History Tobacco Use Types Packs/Day Years [...] encounter Miscellaneous Notes * Telephone Encounter - Arlette Walsh - 03/26/2017 10:29 AM EDT Patient needs refill. Can you sign order in Manny Alvarado's absence? documented in this encounter Plan of Treatment Not on file documented as of this encounter Visit Diagnoses Not on filedocumented in this encounter Care Teams User Support Analyst Supervisor Relationship Specialty Start Date End Date Jes Chapman MD [address] [place] [address] PCP - General Internal Medicine 10/04/15 11/12/17 Sia Fitzgerald MD [address] [place] [address] PCP - General Internal Medicine 11/13/17 09/02/21 Caitlin Hernandez MD [address] [place] [address] PCP - General Internal Medicine 09/03/21 documented as of this encounter
--- OUTSIDE RECORDS SUMMARY | 2024-12-22 10:51 | XMS_ITS | Encounter Summary ---
Author Organization [facility] Address [address] [place] [address] Care Team Providers Care Junior Systems Administrator Name Role Phone Sia Fitzgerald MD Primary Care Provider Unavail Caitlin Guaman MD Primary Care Provider Encounter Details Date Type Department Care Team Description 07/19/2020 Refill Gastroenterology - [address] [place] [address] Manny Alvarado PA-C Social History Tobacco Use Types Packs/Day Years [...] have Coronavirus / COVID-19? No / Unsure 07/17/2020 9:17 AM EDT documented as of this encounter Miscellaneous Notes * Telephone Encounter - Manny Alvarado PA-C - 07/23/2020 11:03 AM EDT Patient has follow-up visit scheduled for 07/25/20. * Telephone Encounter - Mony Urban - 07/23/2020 9:41 AM EDT Patient calling again today and requests 3 month supply for omeprazole - states she called before for her continued hearburn * Telephone Encounter - Cece Muñoz - 07/19/2020 10:19 AM EDT Patient completely is having heartburn flare Patient would like script to be: E-PRESCRIBED/FAXED TO PHARMACY WHEN WAS THE PATIENT'S LAST APPOINTMENT WITH THE PRESCRIBING PROVIDER? 07.25.2019 Does patient have an upcoming appointment? Yes 07.25.2020 (THE MEDICATION REQUESTED IS ON THE MED LIST ABOVE) All of the medications requested were on the CURRENT MEDS list Did you check the Pharmacy information above?: YES Patient wants: 30 -day supply Is this a mail order prescription request ? NO Patients current insurance carrier is: [place] / [place] / Product Type: MEDICARE [id number] documented in this encounter Plan of Treatment Not on file documented as of this encounter Visit Diagnoses Not on filedocumented in this encounter Care Teams Junior Systems Administrator Relationship Specialty Start Date End Date Sia Fitzgerald MD PCP - General Internal Medicine 11/13/17 09/02/21 Caitlin Hernandez MD [address] [place] [address] PCP - General Internal Medicine 09/03/21 documented as of this encounter
--- OUTSIDE RECORDS SUMMARY | 2024-12-22 10:51 | XMS_ITS | Encounter Summary ---
Author Organization [facility] Address [address] [place] [address] Care Team Providers Care Coat Operator Name Role Phone Sia Fitzgerald MD Primary Care Provider Unavail able Caitlin Hernandez MD Primary Care Provider Encounter Details Date Type Department Care Team Description 08/16/2019 Refill Adult Medicine [address] [phone] Sia Fitzgerald MD Social History Tobacco Use [...] on filedocumented in this encounter Care Teams Coat Operator Relationship Specialty Start Date End Date Sia Fitzgerald MD PCP - General Internal Medicine 11/13/17 09/02/21 Caitlin Hernandez MD [address] [place] [address] PCP - General Internal Medicine 09/03/21 documented as of this encounter
--- OUTSIDE RECORDS SUMMARY | 2024-12-22 10:51 | XMS_ITS | Encounter Summary ---
Author Organization [facility] Address [address] [place] [address] Care Team Providers Care Coke Worker Name Role Phone Jes [place] MD Primary Care Provider [phone] Sia Fitzgerald MD Primary Care Provider Unavail able Caitlin Hernandez MD Primary Care Provider [phone] Encounter Details Date Type Department Care Team Description 06/25/2016 Wellness Visit Medical Records [address] [place] [address] Jes [place] MD [address] [place] [address] Social History Tobacco Use Types Packs/Day Years [...] on filedocumented in this encounter Care Teams Coke Worker Relationship Specialty Start Date End Date Jes [place] MD [address] [place] [address] PCP - General Internal Medicine 10/04/15 11/12/17 Sia Fitzgerald MD [address] [place] [address] PCP - General Internal Medicine 11/13/17 09/02/21 Caitlin Hernandez MD [address] [place] [address] PCP - General Internal Medicine 09/03/21 documented as of this encounter
--- OUTSIDE RECORDS SUMMARY | 2024-12-22 10:51 | XMS_ITS | Encounter Summary ---
Author Organization [facility] Address [address] [place] [address] Care Team Providers Care Souvenir And Novelty Maker Name Role Phone Sia Fitzgerald MD Primary Care Provider Unavail able Caitlin Hernandez MD Primary Care Provider [phone] Reason for Visit * Reason Onset Date Comments Faxed Refill 01/11/2021 Encounter Details Date Type Department Care Team Description 01/11/2021 Refill Gastroenterology - [address] [place] [phone] Manny Alvarado PA-C Faxed Refill Social History Tobacco Use Types Packs/Day Years [...] encounter Miscellaneous Notes * Telephone Encounter - Marley Conley - 01/11/2021 9:34 AM EST LENNY 07/25/2020 No future appt. 30 day supply. documented in this encounter Plan of Treatment Not on file documented as of this encounter Visit Diagnoses Not on filedocumented in this encounter Care Teams Souvenir And Novelty Maker Relationship Specialty Start Date End Date Sia Fitzgerald MD PCP - General Internal Medicine 11/13/17 09/02/21 Caitlin Hernandez MD [address] [place] [address] PCP - General Internal Medicine 09/03/21 documented as of this encounter
--- OUTSIDE RECORDS SUMMARY | 2024-12-22 10:51 | XMS_ITS | Encounter Summary ---
Author Organization [facility] Address [address] [place] [address] Care Team Providers Care Emergency Dept Tech Name Role Phone Love Ford MD Primary Care Provider Unavail able Jes Chapman MD Primary Care Provider [phone] Sia Fitzgerald MD Primary Care Provider Unavail able Caitlin Hernandez MD Primary Care Provider [phone] Encounter Details Date Type Department Care Team Description 02/14/2014 Telephone Adult Medicine [facility] [address] [place] [address] Love Ford MD Social History Tobacco Use Types Packs/Day [...] on filedocumented in this encounter Care Teams Emergency Dept Tech Relationship Specialty Start Date End Date Love Ford MD PCP - General 03/16/01 10/03/15 Jes [place] MD [address] [place] [address] PCP - General Internal Medicine 10/04/15 11/12/17 Sia Fitzgerald MD [address] [place] [address] PCP - General Internal Medicine 11/13/17 09/02/21 Caitlin Hernandez MD [address] [place] [address] PCP - General Internal Medicine 09/03/21 documented as of this encounter
--- OUTSIDE RECORDS SUMMARY | 2024-12-22 10:51 | XMS_ITS | Encounter Summary ---
Author Organization [facility] Address [address] [place] [address] Care Team Providers Care Manager Heavy Duty Name Role Phone Luke Fitzgerald MD Primary Care Provider Unavail Caitlin Guaman MD Primary Care Provider Reason for Visit * Reason Onset Date Comments Orders Call 07/14/2019 Encounter Details Date Type Department Care Team Description 07/14/2019 Telephone Adult Medicine [address] [address] Luke Fitzgerald MD Orders Call Social History Tobacco Use Types Packs/Day Years [...] encounter Miscellaneous Notes * Telephone Encounter - Rosey Ogden - 07/14/2019 3:16 PM EDT PLEASE SCHEDULE A FOLLOW FOR HTN 3-4 WEEKS OUT. * Telephone Encounter - Rosey Ogden - 07/14/2019 3:15 PM EDT Patient Name: JOON MONTOYA([id number]) ?? Sex: Female ?? : 1950 ?PCP: LUKE FITZGERALD ?Center: [facility] ? Types of orders made on 07/12/2019: Procedures ? Order Date:07/12/2019 ?? Ordering User:COLLETTE LUA [[id number]] ?? Encounter Provider:Collette Lua MD [[id number]] ?? Authorizing Provider: Collette Lua MD [[id number]] ?? Department:[facility][90] ? Order Specific Information ?? Order: REFER TO PCP [CPT(R): [id number]] ??Order #: [id number]: 1 FUTURE ?Priority: Routine ?Future Order Information ?Expires on:07/11/2020 ?Expected by:07/12/2019 ?Comment:I request an evaluation in Adult Medicine ? Reason for evaluation: hypertension ? Priority: the patient should be seen within 3-4 weeks ?Associated Diagnoses ?R03.0 Elevated BP without diagnosis of hypertension ? Disposition: Return in about 6 months (around 01/10/2020) for AG . ?Priority: Routine ??Class: Normal ?Future Order Information ?Expires on:07/11/2020 ?Expected by:07/12/2019 ?Comment:I request an evaluation in Adult Medicine ? Reason for evaluation: hypertension ? Priority: the patient should be seen within 3-4 weeks ?Associated Diagnoses ?R03.0 Elevated BP without diagnosis of hypertension documented in this encounter Plan of Treatment Not on file documented as of this encounter Visit Diagnoses Not on filedocumented in this encounter Care Teams Manager Heavy Duty Relationship Specialty Start Date End Date Luke Fitzgerald MD PCP - General Internal Medicine 11/13/17 09/02/21 Caitlin Hernandez MD [address] [place] [address] PCP - General Internal Medicine 09/03/21 documented as of this encounter
== END 2024-12-22 10:47 | disposition home or self-care (01) ==
PROVIDERS: PCP Internal Medicine; Visit Provider Physician Assistant
DX: M51.26 Other intervertebral disc displacement, lumbar region (principal); M41.50 Other secondary scoliosis, site unspecified
CPT/HCPCS: 99213

== ENCOUNTER → 2024-12-22 09:56 | Outpatient (BNVA) | payer MEDICARE, SELFPAY | PROVIDERS: PCP Internal Medicine; Visit Provider Physician Assistant | DX: M51.26 Other intervertebral disc displacement, lumbar region (principal); M51.369 Other intervertebral disc degeneration, lumbar region without mention of lumbar back pain or lower extremity pain; M48.061 Spinal stenosis, lumbar region without neurogenic claudication; M41.50 Other secondary scoliosis, site unspecified; M25.511 Pain in right shoulder | CPT/HCPCS: 99212 ==

== ENCOUNTER 2025-01-16 08:18 | Outpatient (REF) | payer MEDICARE, SELFPAY ==
--- NOTE | ~2025-01-16 | XR_ITS ---
EXAMINATION: XR SHOULDER 2 OR MORE VIEWS RIGHT HISTORY: M25.519 - Pain in unspecified shoulder COMPARISON: There are no prior studies available for comparison. FINDINGS: Three views of the right shoulder are submitted. Osseous mineralization is normal. There is no fracture or dislocation. There is mild degenerative change of the glenohumeral and acromioclavicular joints with osteophyte formation. There is a soft tissue calcification adjacent to the anterior glenoid. XR/XR shoulder RT min 2V IMPRESSION: Mild degenerative changes. Electronically signed by: Srinivas Aguilar MD 01/16/2025 02:41 PM EDT
== END 2025-01-16 08:19 | disposition home or self-care (01) ==
LOC: HO.HOSX 08:18
PROVIDERS: Visit Provider Physician Assistant
DX: M25.511 Pain in right shoulder (principal); M19.011 Primary osteoarthritis, right shoulder
CPT/HCPCS: 73030; 99202

== ENCOUNTER 2025-01-16 10:25 | Outpatient (AMB) | payer MEDICARE, SELFPAY ==
--- NOTE | 2025-01-16 10:43 | MHC.OFFVIS ---
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 Hx of injury back in 2011. Patient reports ongoing pain for a couple of years. She mentions that she had PT a couple times with no relief. Patient reports she would like to differ on going to PT again. Her pain is through out her whole shoulder. She notices that her pain is worse when she is lifting her arm up and laying on her side, she also hears a popping sound in her shoulder with lifting. 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 Parks is a [id number] 74-year-old female who presents to the office today for evaluation of right shoulder pain. She has had ongoing shoulder pain for the past few years. She has attended physical therapy a few times in the past with no relief. She does not wish to attend any more rounds of physical therapy at this time. She did see an orthopedist affiliated with [facility] and was offered a cortisone injection. However, the patient reports that she did not develop a good report with the physician and wished to seek treatment elsewhere. [facility] Social History (Updated 01/16/25 @ 10:55 by Jean Paul Klein) Alcohol intake: current Alcohol intake frequency: holidays/special occasions only Patient Tobacco Use Status: Former Tobacco user Current occupational status: retired Current occupation: right hand dominant Review of Systems Const All systems reviewed & are unremarkable except as noted in HPI and below Physical Exam Const General: cooperative, healthy appearing and no acute distress Resp Effort & Inspection: normal respiratory effort and able to speak in complete sentences Cardio Rate: regular rate Peripheral pulses: Peripheral pulses 2+ throughout Skin Lesions: no lesions Rashes: no rashes Extrem Other: Right shoulder: Forward flexion to 90 degrees. Abduction to 45 degrees. Able to reach the back pocket. Pain with cross-body reach. 3/5 strength with empty can. Negative drop arm. NVI. Assessment & Plan Assessment & Plan (1) Osteoarthritis of right shoulder: Code(s): M19.011 - Primary osteoarthritis, right shoulder Category: Medical Plan Ms. Parks is a [id number] 74-year-old female who presents to the office today for evaluation of right shoulder pain. She has had ongoing shoulder pain for the past few years. She has attended physical therapy a few times in the past with no relief. She does not wish to attend any more rounds of physical therapy at this time. She did see an orthopedist affiliated with [facility] and was offered a cortisone injection. However, the patient reports that she did not develop a good report with the physician and wished to seek treatment elsewhere. While the office today, I discussed the role of cortisone injection with the patient however she is reluctant to move forward with this at this time. I did provide her with my business card should she wish to move forward with this I am happy to accommodate her. She will follow up p.r.n., sooner if needed. X-rays of the right shoulder which were obtained while in the office today and were reviewed by me, Miladys Salas PA-C, revealed degenerative changes. Orders: Orders XR shoulder RT min 2V Today M25.519 - Pain in unspecified shoulder Coding Level of Care Code New Pt Level 3 (73004) Diagnoses Osteoarthritis of right shoulder M19.011
== END 2025-01-16 11:11 | disposition home or self-care (01) ==
LOC: HO.HOS 10:25
PROVIDERS: PCP Internal Medicine; Visit Provider Physician Assistant
DX: M19.011 Primary osteoarthritis, right shoulder (principal)
CPT/HCPCS: 99203

== ENCOUNTER → 2025-01-16 10:31 | Outpatient (BNV) | payer MEDICARE, SELFPAY | PROVIDERS: Visit Provider Radiology Diagnostic Radiology | DX: M25.511 Pain in right shoulder (principal) | CPT/HCPCS: 73030 ==

== ENCOUNTER 2025-01-27 09:35 | Outpatient (REF) | payer MEDICARE, SELFPAY ==
--- NOTE | ~2025-01-27 | MM_ITS ---
EXAMINATION: DXA BONE DENSITY AXIAL HISTORY: Estrogen deficiency TECHNIQUE: [employer] Dual energy absorptiometry (DEXA) of the lumbar spine, total left hip, and femoral neck was performed. COMPARISON: There are no prior studies for comparison. FINDINGS: The bone mineral density of the lumbar spine is 1.072 with a T-score of -0.9, and a Z-score of 1.1. This is indicative of normal bone mineral density. The bone mineral density of the left total hip is 0.765 with a T-score of -1.9, and a Z-score of 0.0. This is indicative of osteopenia. The bone mineral density of the left femoral neck is 0.669 with a T-score of -2.7, and a Z-score of -0.6. This is indicative of osteoporosis. FRACTURE RISK: The FRAX index suggests a risk of major osteoporotic fracture of 26.3%, and of hip fracture 8.6%. MM/XR DEXA axial skeleton IMPRESSION: Based on bone mineral density, and according to World Health Organization (WHO) criteria, the diagnosis is consistent with osteoporosis. All bone density values are in grams per centimeter squared (g/cm2). Statistically, 68% of repeat scans fall within 1 SD (+/- 0.010 g/cm2 for AP spine L1-L4) and 1 SD (+/- 0.012 g/cm2 for femur total) FRAX is a trademark of the [employer] [facility] Metabolic Bone Disease, a World Health Organization (WHO) Collaborating Center. Electronically signed by: Srinivas Aguilar MD 01/27/2025 11:22 AM EDT
== END 2025-01-27 09:36 | disposition home or self-care (01) ==
LOC: HO.MAMMO 09:35
PROVIDERS: PCP Internal Medicine; Visit Provider Physician Assistant
DX: Z13.820 Encounter for screening for osteoporosis (principal); M85.80 Other specified disorders of bone density and structure, unspecified site; M41.50 Other secondary scoliosis, site unspecified; E28.39 Other primary ovarian failure
CPT/HCPCS: 77080

== ENCOUNTER → 2025-01-27 10:00 | Outpatient (BNV) | payer MEDICARE, SELFPAY | PROVIDERS: PCP Internal Medicine; Visit Provider Radiology Diagnostic Radiology | DX: E28.39 Other primary ovarian failure (principal) | CPT/HCPCS: 77080 ==

== ENCOUNTER 2025-02-06 09:12 | Outpatient (AMB) | payer MEDICARE, SELFPAY ==
--- NOTE | 2025-02-06 09:13 | A.SPINEOV_ITS ---
Intake Visit Reasons: follow up Intake Note: Ms. Parks is here today for a F/u. Cabinet And Trim Installer Required: No Allergies Penicillins Allergy (Intermediate, Verified 02/06/25 09:27) Unknown oxycodone [OXYCODONE] Allergy (Unknown, Verified 02/06/25 09:27) ALLERGIC TO CODIENE - FEARFUL TO TRY OXYCODONE codeine [CODEINE] Adverse Reaction (Unknown, Verified 02/06/25 09:27) NAUSEA & VOMITING Assessment & Plan Assessment & Plan (1) Degenerative scoliosis: Code(s): M41.50 - Other secondary scoliosis, site unspecified Category: Medical Plan Sadia is a pleasant 74-year-old female who comes in today for a subsequent follow-up visit to discuss her DEXA scan results. To recap she was previously evaluated in the office for severe low back pain in the setting of a degenerative scoliosis. See my previous office note for specifics regarding this. She requested a follow up appointment as her DEXA scan shows she does have osteoporosis in the femoral head and osteopenia in her hips, however it states she has normal bone quality in the lumbar spine. For this reason she wished to discuss lumbar fusion once more. After reviewing her imaging with Dr. Rosales he is willing to offer her a L2-5 OLIF with possible L1-2 transkambin lumbar fusion. We extensively discussed this procedure using the spine models in office. I answered all of her questions to the best of my ability. She understands that there is risk of pseudoarthrosis given her current bone quality, which will increase if her bone quality were to deteriorate further. She asked many questions regarding the postoperative healing course in the surgery all of which I answered to the best of my ability. She would like to book the surgery for May 10 due to some life factors that are conflicting right now. The patient was given risk and benefits of surgery including but not limited to infection, hematoma, nerve injury, durotomy, weakness, bowel/bladder injury, persistent pain, and pseudoarthosis or instrumentation failure if they are undergoing lumbar fusion. We also discussed the option to continue with conservative treatment and patient wishes to proceed with surgery. They are aware they should stop NSAIDs 7 days prior to surgery. All questions were answered to the best of our ability. If there is anything about this patients medical history that we have overlooked or concerns you have about us proceeding with surgery we would appreciate any input you can offer. Eagle Rosales MD,PhD [facility] Coding Level of Care Code Est Pt Level 3 (93221) Diagnoses Degenerative scoliosis M41.50
--- OUTSIDE RECORDS SUMMARY | 2025-02-06 10:14 | XMS_ITS | Encounter Summary ---
Author Organization [facility] Address [address] [place] [address] Care Team Providers Care Deboning Team Leader Name Role Phone Sia Fitzgerald MD Primary Care Provider Unavail Caitlin Guaman MD Primary Care Provider [phone] Encounter Details Date Type Department Care Team Description 08/16/2021 Telephone Adult Medicine [address] [address] Sia Fitzgerald MD Social History Tobacco Use [...] on filedocumented in this encounter Care Teams Deboning Team Leader Relationship Specialty Start Date End Date Sia Fitzgerald MD PCP - General Internal Medicine 11/13/17 09/02/21 Caitlin Hernandez MD [address] [place] [address] PCP - General Internal Medicine 09/03/21 documented as of this encounter
--- OUTSIDE RECORDS SUMMARY | 2025-02-06 10:14 | XMS_ITS | Encounter Summary ---
Author Organization [facility] Address [address] [place] [address] Care Team Providers Care Manager Corporate Marketing Name Role Phone Caitlin Hernandez MD Primary Care Provider [phone] Encounter Details Date Type Department Care Team Description 09/30/2021 Environmental Restoration Planner Report Medical Records [address] [place] [id number] Abstract, Provider Social History Tobacco Use Types [...] filedocumented in this encounter Care Teams Manager Corporate Marketing Relationship Specialty Start Date End Date Caitlin Hernandez MD [address] [place] [address] PCP - General Internal Medicine 09/03/21 documented as of this encounter
--- OUTSIDE RECORDS SUMMARY | 2025-02-06 10:14 | XMS_ITS | Encounter Summary ---
Author Organization [facility] Address [address] [place] [address] Care Team Providers Care Educational Technologist Name Role Phone Sia Fitzgerald MD Primary Care Provider Unavail Caitlin Guaman MD Primary Care Provider [phone] Reason for Visit * Reason Onset Date Comments refill request 06/29/2018 Omeprazole Encounter Details Date Type Department Care Team Description 06/29/2018 Refill Gastroenterology - [address] [address] Ilia Moody PA-C refill request (Omeprazole) Social History Tobacco Use Types Packs/Day Years [...] encounter Miscellaneous Notes * Telephone Encounter - Maira Meza M.A. - 06/29/2018 9:20 AM EDT Left message for pt to call script is already at the pharmacy. Will be filled/map * Telephone Encounter - Cece Lyon - 06/29/2018 8:42 AM EDT Please refill documented in this encounter Plan of Treatment Not on file documented as of this encounter Visit Diagnoses Not on filedocumented in this encounter Care Teams Educational Technologist Relationship Specialty Start Date End Date Sia Fitzgerald MD PCP - General Internal Medicine 11/13/17 09/02/21 Caitlin Hernandez MD [address] [place] [address] PCP - General Internal Medicine 09/03/21 documented as of this encounter
--- OUTSIDE RECORDS SUMMARY | 2025-02-06 10:14 | XMS_ITS | Encounter Summary ---
Author Organization [facility] Address [address] [place] [address] Care Team Providers Care Silicator Name Role Phone Sia Fitzgerald MD Primary Care Provider Unavail able Caitlin Hernandez MD Primary Care Provider [phone] Encounter Details Date Type Department Care Team Description 11/15/2018 Business Doc Medical Records [address] [place] [phone] Abstract, Provider Social History Tobacco Use Types [...] on filedocumented in this encounter Care Teams Silicator Relationship Specialty Start Date End Date Sia Fitzgerald MD PCP - General Internal Medicine 11/13/17 09/02/21 Caitlin Hernandez MD [address] [place] [address] [id number] PCP - General Internal Medicine 09/03/21 documented as of this encounter
--- OUTSIDE RECORDS SUMMARY | 2025-02-06 10:14 | XMS_ITS | Encounter Summary ---
Author Organization [facility] Address [address] [place] [address] Care Team Providers Care Small Electric Engine Technician Name Role Phone Jes Chapman MD Primary Care Provider [phone] Sia Fitzgerald MD Primary Care Provider Unavail able Caitlin Hernandez MD Primary Care Provider [phone] Encounter Details Date Type Department Care Team Description 04/21/2017 Business Doc Medical Records [address] [place] [address] Abstract, Provider Social History Tobacco Use Types [...] on filedocumented in this encounter Care Teams Small Electric Engine Technician Relationship Specialty Start Date End Date Jes [place] MD [address] [place] [address] [phone] PCP - General Internal Medicine 10/04/15 11/12/17 Sia Fitzgerald MD [address] [place] [address] PCP - General Internal Medicine 11/13/17 09/02/21 Caitlin Hernandez MD [address] [place] [address] [id number] PCP - General Internal Medicine 09/03/21 documented as of this encounter
--- OUTSIDE RECORDS SUMMARY | 2025-02-06 10:15 | XMS_ITS | Encounter Summary ---
Author Organization [facility] Address [address] [place] [address] Care Team Providers Care Mixing Tank Operator Name Role Phone Jes [place] MD Primary Care Provider [phone] Sia Fitzgerald MD Primary Care Provider Unavail able Caitlin Hernandez MD Primary Care Provider [phone] Encounter Details Date Type Department Care Team Description 06/25/2016 Wellness Visit Medical Records [address] [place] [phone] Jes [place] MD [address] [place] [address] Social History Tobacco Use Types Packs/Day [...] on filedocumented in this encounter Care Teams Mixing Tank Operator Relationship Specialty Start Date End Date Jes [place] MD [address] [place] [address] PCP - General Internal Medicine 10/04/15 11/12/17 Sia Fitzgerald MD [address] [place] [address] PCP - General Internal Medicine 11/13/17 09/02/21 Caitlin Hernandez MD [address] [place] [address] PCP - General Internal Medicine 09/03/21 documented as of this encounter
--- OUTSIDE RECORDS SUMMARY | 2025-02-06 10:15 | XMS_ITS | Clinical Summary ---
Author Organization [address] Address [address] [place] [phone] Phone Care Team Providers Care Engineering Specialist Name Role Phone Caitlin Hernandez MD Primary Care Provider [phone] Allergies Active Allergy Reactions Criticality Noted Date Comments Codeine 07/22/2006 Penicillins Diarrhea Low 01/10/2019 Medications calcium carbonate-vitam in D3 500 mg-3.125 mcg (125 unit) tablet per tabelt Take 2 Tabs by mouth daily. 0 Active MULTIVITAMIN ORAL Take by mouth daily. Active Bifidobacterium infantis (ALIGN ORAL) Probiotic Product (Align) Chew Tab Sig - Route: Take ??by mouth daily. Active sertraline (ZOLOFT) 100 mg tablet Take 1 Tablet by mouth daily. 4 Active WHEAT DEXTRIN ORAL 0 Active triamcinolone (KENALOG) 0.1 % ointment APPLY A THIN LAYER DAILY 30 g 4 Active meclizine (ANTIVERT) 12.5 mg tablet Take 1 tablet (12.5 mg total) by mouth 3 (three) times a day if needed for dizziness. 90 tablet 4 09/14/20 25 Active meloxicam (MOBIC) 15 mg tablet Take 1 tablet (15 mg total) by mouth 1 (one) time each day. 3 Active omeprazole (PriLOSEC) [address] capsule Take 1 capsule (20 mg total) by mouth 1 (one) time each day. 90 capsule 1 5 Active levothyroxine (SYNTHROID, LEVOTHROID) 88 mcg tablet TAKE 1 TABLET BY MOUTH DAILY. ON SATURDAYS AND SUNDAYS TAKE A HALF TABLET DAILY. 84 tablet 1 5 Active atorvastatin (LIPITOR) 10 mg tablet Take 1 tablet (10 mg total) by mouth 1 (one) time each day. 5 Active gabapentin (NEURONTIN) 100 mg capsule TAKE 1 CAPSULE ORALLY 3 TIMES A DAY NEEDED FOR NERVE PAIN 5 Active Active Problems Problem Noted Date Diagnosed Date [...] Encounters Date Type Department Care Team Description 01/03/2025 11:30 AM EST Office Visit Gastroenterology - [address] [place] [address] April Andersen PA Irritable bowel syndrome with diarrhea (Primary Dx) 12/16/2024 11:30 AM EST Consult Orthopedics - [address] [address] Silvio Mccoy PA Right shoulder pain, unspecified chronicity (Primary Dx) 12/16/2024 10:46 AM EST - 12/16/2024 11:59 PM EST Hospital Encounter XRAY - [address] [address] Chronic right shoulder pain Discharge Disposition: Home or Self Care 11/22/2024 Telephone Adult Medicine East - [address] [address] Tova Rdz, HAND EDGE BANDER follow up from Last 3 Months Immunizations Name Administration [...] Date Site/Laterality Comments OTHER SURGICAL HISTORY PROCEDURE: [place] LIG/TRNSXJ FLP TUBE ABDL/VAG APPR UNI/BI COLONOSCOPY [...] Comments Hypertension Brother Hypertension Father Hypertension Mother [place], dialysis Hypertension Sister Other cancer Sister Breast [...] drink = 0.6 oz pur e alcohol) 1-2 yearly Comments No Sex and Gender Information Value [...] Sign Reading Time Taken Comments Blood Pressure 132/80 01/03/2025 11:23 AM EST Pulse 68 10/17/2024 10:36 AM EST Temperature 36.1 ??C (96.9 ??F) 10/11/2024 10:[address] Respiratory Rate 14 12/16/2024 11:08 AM EST Oxygen Saturation 95% 09/14/2024 9:03 AM EST Inhaled Oxygen Concentration - - Weight 57.7 kg (127 lb 3.2 oz) 01/03/2025 11:23 AM EST Height 144.8 cm (4' 9 ) 01/03/2025 11:23 AM EST Body Mass Index 27.53 01/03/2025 11:23 AM EST Plan of Treatment Upcoming Encounters Date Type Department Care Team (Late st Contact Info) Description 03/22/2025 11:00 AM EDT Office Visit Adult Medicine [facility] [address] [place] [phone] Caitlin Hernandez MD [address] [place] [address] Health Maintenance Due Date Last Done Comments DTaP,Tdap,and Td Vaccines (2 - Td or Tdap) 03/29/2019 03/29/2009 Cervical Cancer Screening: HPV 05/19/2019 05/19/2014 Falls Risk Assessment 10/11/2022 Social Influencers of Health Screening 10/11/2022 Breast Cancer Screening 05/13/2023 05/13/2021, 05/20 COVID-19 Vaccine ( season) 2024 10/25/2021, 02/18/2021, 01/28/2021 RSV Immunization Adult Patients (1 - 1-dose 75+ series) 2025 02/16/2024 Depression Screening 03/14/2025 03/14/2024 Medicare Annual Wellness Visit 03/14/2025 03/14/2024 Colorectal Cancer Screening: Stool Based Tests (FOBT/FIT) 03/15/2025 03/15/2024 Cholesterol Screening (Lipid Panel) 07/18/2029 07/18/2024, 07/18/2024, 03/15/2024, Additional history exists Osteoporosis Screening (Bone Density Screening) 01/27/2035 01/27/2025, 01/27/2025, 11/15/2021, Additional history exists Hepatitis C Screening Completed 06/28/2013 Zoster Vaccines [...] Procedure Name Priority Date/Time Associated Diagnosis Comments EXTERNAL DEXA REPORT 01/27/2025 EXTERNAL DEXA REPORT 01/27/2025 XR SHOULDER 2+ VIEWS RIGHT Routine 12/16/2024 11:03 AM EST Chronic right shoulder pain LIPID PANEL Routine 07/18/2024 COLONOSCOPY Routine 03/15/2024 DEPRESSION SCREENING Routine 03/14/2024 SCREENING MAMMOGRAPHY BI 2-VIEW BREAST INC CAD Routine 05/13/2021 9:02 AM EDT Encounter for screening mammogram for malignant neoplasm of breast HPV Routine 05/19/2014 HEPATITIS C SCREENING Routine 06/28/2013 from Last 3 Months or Most Recently Relevant to Health Maintenance Results * External Dexa Report (01/27/2025) Only the most recent of2 resultswithin the time period is included. Anatomical Region Laterality Modality Bone Densitometr y Provider [facility] DXA PROCEDURES Final Result * XR Shoulder 2+ Views Right (12/16/2024 11:03 AM EST) Anatomical Region Laterality Modality Upper Extremities, Shoulder Right Radi ographic Imaging 12/16/2024 3:3 1 PM EST Impressions 12/16/2024 3:33 PM EST Inferior subluxation of the humeral head which may be chronic. ??Correlate with point tenderness -------- FINAL REPORT -------- Dictated By: Silvana Hobbs Dictated Date: 12/16/2024 15:31 ET Assigned Physician: Silvana Hobbs Reviewed and Electronically Signed By: Silvana Hobbs Signed Date: 12/16/2024 15:33 ET Workstation ID: [id number] Transcribed By: Self Edit Transcribed Date: 12/16/2024 [...] Signed Date: 12/16/2024 15:33 ET Workstation ID: [id number] Transcribed By: Self Edit Transcribed Date: 12/16/2024 15:31 ET Silvio PAUL IMG XR PROCEDURES Final Result * Lipid panel (07/18/2024) LDL/HDL Ratio 3 0 - 4 Triglycerides 123 0 - 150 mg/dL Cholesterol 163 0 - 200 mg/dL HDL 56 >=40 mg/dL LDL Cholesterol 83 0 - 100 mg/dL Blood Venous blood specimen / Unknown Result [facility] Historical Provider LAB BLOOD ORDERABLES Tanvi l Result * Colonoscopy (03/15/2024) Colonoscopy no interpretation , abstracted Anatomical Region Laterality Modality Other Historical Provider MD HEALTH MAINTENANCE Final Result * Depression Screening (03/14/2024) Depression Screening abstracted Historical Provider MD HEALTH MAINTENANCE Final Result * SCREENING MAMMOGRAPHY BI 2-VIEW BREAST INC [...] ult * Cervical Cancer Screening: HPV (05/19/2014) Pathologist [facility] Cervical Cancer Screening: HPV normal, abstracted Historical Provider HEALTH MAINTENANCE Final Result * Hepatitis C Screening (06/28/2013) [facility] Hepatitis C Screening abstracted Historical Provider HEALTH MAINTENANCE Final Result from Last 3 Months or Most Recently Relevant to Health Maintenance Insurance MEDICARE BLUE CROSS - [place] Care Teams Engineering Specialist Relationship Specialty Start Date End Date Caitlin Hernandez MD [address] [place] [address] PCP - General Internal Medicine 09/03/21
--- OUTSIDE RECORDS SUMMARY | 2025-02-06 10:15 | XMS_ITS | Encounter Summary ---
Author Organization [facility] Address [address] [place] [address] Care Team Providers Care Automobile Assembler Name Role Phone Sia Fitzgerald MD Primary Care Provider Unavail Caitlin Guaman MD Primary Care Provider [phone] Encounter Details Date Type Department Care Team Description 07/19/2020 Refill Gastroenterology - [address] [place] [address] Manny Alvarado PA-C Social History [...] / Plan[place] / Product Type: MEDICARE [id number] documented in this encounter Plan of Treatment Not on file documented as of this encounter Visit Diagnoses Not on filedocumented in this encounter Care Teams Automobile Assembler Relationship Specialty Start Date End Date Sia Fitzgerald MD PCP - General Internal Medicine 11/13/17 09/02/21 Caitlin Hernandez MD [address] [place] [address] PCP - General Internal Medicine 09/03/21 documented as of this encounter
--- OUTSIDE RECORDS SUMMARY | 2025-02-06 10:15 | XMS_ITS | Encounter Summary ---
Author Organization [facility] Address [address] [place] [address] Care Team Providers Care Facilities Planner Name Role Phone Love Ford MD Primary Care Provider Unavail able Jes Chapman MD Primary Care Provider [phone] Sia Fitzgerald MD Primary Care Provider Unavail able Caitlin Hernandez MD Primary Care Provider [phone] Encounter Details Date Type Department Care Team Description 11/14/2011 [facility] Medical Records [address] [place] [phone] Ion Smith Social History Tobacco Use Types [...] on filedocumented in this encounter Care Teams Facilities Planner Relationship Specialty Start Date End Date Love Ford MD PCP - General 03/16/01 10/03/15 Jes Chapman MD [address] [place] [address] [phone] PCP - General Internal Medicine 10/04/15 11/12/17 Sia Fitzgerald MD [address] [place] [address] PCP - General Internal Medicine 11/13/17 09/02/21 Caitlin Hernandez MD [address] [place] [phone] PCP - General Internal Medicine 09/03/21 documented as of this encounter
--- OUTSIDE RECORDS SUMMARY | 2025-02-06 10:15 | XMS_ITS | Encounter Summary ---
Author Organization [facility] Address [address] [place] [address] Care Team Providers Care Globe Cleaner Name Role Phone Caitlin Hernandez MD Primary Care Provider [phone] Reason for Visit * Reason Onset Date Comments Pre-op Needed 05/28/2023 Encounter Details Date Type Department Care Team Description 05/28/2023 Telephone Adult Medicine [facility] [address] [place] [phone] Caitlin Hernandez MD [address] [place] [address] [phone] Pre-op Needed Social History Tobacco Use Types [...] Dr. Mallory Office phone number of surgeon: [phone] Fax # for surgeons office: n/a (Required) Where is surgery being performed? [address] [facility] [address] Diagnosis/problem for surgery: Cataract in both eyes Is an EKG required for the pre-op workup? YES PCP: Caitlin Hernandez Did you verify that the insurance below is correct? YES Patients insurance: [place] / Plan[place] / Product Type: MEDICARE [id number] documented in this encounter Plan of Treatment Not on file documented as of this encounter Visit Diagnoses Not on filedocumented in this encounter Care Teams Globe Cleaner Relationship Specialty Start Date End Date Caitlin Hernandez MD [address] [place] [phone] PCP - General Internal Medicine 09/03/21 documented as of this encounter
--- OUTSIDE RECORDS SUMMARY | 2025-02-06 10:15 | XMS_ITS | Encounter Summary ---
Author Organization [facility] Address [address] [place] [address] Care Team Providers Care Receiving Checker Name Role Phone Caitlin Hernandez MD Primary Care Provider [phone] Reason for Visit * Reason Comments E-prescribe Rx Request Encounter Details Date Type Department Care Team Description 06/08/2023 Refill Adult Medicine [address] [phone] Caitlin Hernandez MD [address] [place] [address] [phone] E-prescribe Rx Request Social History Tobacco Use [...] / Plan: [place] / Product Type: MEDICARE [id number] documented in this encounter Plan of Treatment Not on file documented as of this encounter Visit Diagnoses Not on filedocumented in this encounter Care Teams Receiving Checker Relationship Specialty Start Date End Date Caitlin Hernandez MD [address] [place] [address] PCP - General Internal Medicine 09/03/21 documented as of this encounter
--- OUTSIDE RECORDS SUMMARY | 2025-02-06 10:15 | XMS_ITS | Encounter Summary ---
Author Organization [facility] Address [address] [place] [address] Care Team Providers Care Counselor Education Professor Name Role Phone Caitlin Hernandez MD Primary Care Provider [phone] Encounter Details Date Type Department Care Team Description 04/07/2023 Auto Body Repairer Fiberglass Report Medical Records [address] [place] [address] Ion Jacobson DO Social History Tobacco Use [...] suspected to have Coronavirus/COVID-19? No / Unsure 03/26/2023 11:00 AM EDT documented as of this encounter Plan of Treatment Not on file documented as of this encounter Visit Diagnoses Not on filedocumented in this encounter Care Teams Counselor Education Professor Relationship Specialty Start Date End Date Caitlin Hernandez MD [address] [place] [address] PCP - General Internal Medicine 09/03/21 documented as of this encounter
--- OUTSIDE RECORDS SUMMARY | 2025-02-06 10:15 | XMS_ITS | Encounter Summary ---
Author Organization [facility] Address [address] [place] [address] Care Team Providers Care Tourist Cabin Keeper Name Role Phone Caitlin Hernandez MD Primary Care Provider [phone] Reason for Visit * Reason Comments E-prescribe Rx Request sertraline (ZOLOF T) 25 MG tablet Encounter Details Date Type Department Care Team Description 12/12/2022 Refill Adult Medicine [address] [address] Christiano Flor, PAMicheletC [address] [place] [address] E-prescribe Rx Request (sertraline (ZOLOFT) 25 MG [...] / Plan[place] / Product Type: MEDICARE [id number] documented in this encounter Plan of Treatment Not on file documented as of this encounter Visit Diagnoses Not on filedocumented in this encounter Care Teams Tourist Cabin Keeper Relationship Specialty Start Date End Date Caitlin Hernandez MD [address] [place] [address] [phone] PCP - General Internal Medicine 09/03/21 documented as of this encounter
--- OUTSIDE RECORDS SUMMARY | 2025-02-06 10:15 | XMS_ITS | Encounter Summary ---
Author Organization [facility] Address [address] [place] [address] Care Team Providers Care Tie Man Name Role Phone Sia Fitzgerald MD Primary Care Provider Unavail able Caitlin Hernandez MD Primary Care Provider [phone] Reason for Visit * Reason Onset Date Comments Faxed Refill 01/11/2021 Encounter Details Date Type Department Care Team Description 01/11/2021 Refill Gastroenterology - [address] [place] [phone] Manny Alvarado PA-C Faxed Refill Social [...] on filedocumented in this encounter Care Teams Tie Man Relationship Specialty Start Date End Date Sia Fitzgerald MD PCP - General Internal Medicine 11/13/17 09/02/21 Caitlin Hernandez MD [address] [place] [phone] PCP - General Internal Medicine 09/03/21 documented as of this encounter
--- OUTSIDE RECORDS SUMMARY | 2025-02-06 10:15 | XMS_ITS | Encounter Summary ---
Author Organization [facility] Address [address] [place] [address] Care Team Providers Care Artillery Maintenance Supervisor Name Role Phone Jes Chapman MD Primary Care Provider [phone] Sia Fitzgerald MD Primary Care Provider Unavail able Caitlin Hernandez MD Primary Care Provider [phone] Reason for Visit * Reason Onset Date Comments medication problems 12/03/2015 Encounter Details Date Type Department Care Team Description 12/03/2015 Telephone Adult Medicine [address] [phone] Jes Chapman MD [address] [place] [address] [phone] medication problems Social History Tobacco Use Types Packs/Day Years [...] encounter Miscellaneous Notes * Telephone Encounter - Lupe Zavaleta L.P.N. - 12/03/2015 1:56 PM EST Script was sent in October for 11 refills. Left message for the patient to call [phone] Thanks * Telephone Encounter - Ashley Reyes - 12/03/2015 10:18 AM EST Who is calling? The patient Name of the medication Levothyroxine 75 mcg What is the specific problem or interaction? Patient just got this filled @ [facility], threw away wrong pills needs new script sent to [facility] If the patient is having a problem with taking the med - how long has the problem been going on? N/A documented in this encounter Plan of Treatment Not on file documented as of this encounter Visit Diagnoses Not on filedocumented in this encounter Care Teams Artillery Maintenance Supervisor Relationship Specialty Start Date End Date Jes Chapman MD [address] [place] [phone] PCP - General Internal Medicine 10/04/15 11/12/17 Sia Fitzgerald MD [address] [place] [phone] PCP - General Internal Medicine 11/13/17 09/02/21 Caitlin Hernandez MD [address] [place] [phone] PCP - General Internal Medicine 09/03/21 documented as of this encounter
--- OUTSIDE RECORDS SUMMARY | 2025-02-06 10:15 | XMS_ITS | Encounter Summary ---
Author Organization [facility] Address [address] [place] [address] Care Team Providers Care Manager Film Name Role Phone Sia Fitzgerald MD Primary Care Provider Unavail able Caitlin Hernandez MD Primary Care Provider [phone] Encounter Details Date Type Department Care Team Description 06/14/2019 Orders Only Medical Records [address] [place] [address] Sia Fitzgerald MD Social History Tobacco Use [...] filedocumented in this encounter Care Teams Manager Film Relationship Specialty Start Date End Date Sia Fitzgerald MD PCP - General Internal Medicine 11/13/17 09/02/21 Caitlin Hernandez MD [address] [place] [phone] PCP - General Internal Medicine 09/03/21 documented as of this encounter
--- OUTSIDE RECORDS SUMMARY | 2025-02-06 10:15 | XMS_ITS | Encounter Summary ---
Author Organization [facility] Address [address] [place] [address] Care Team Providers Care Electronic Publications Specialist Name Role Phone Jes Chapman MD Primary Care Provider [phone] Sia Fitzgerald MD Primary Care Provider Unavail able Caitlin Hernandez MD Primary Care Provider [phone] Reason for Visit * Reason Onset Date Comments Medication 03/26/2017 Encounter Details Date Type Department Care Team Description 03/26/2017 Refill Gastroenterology - [address] [phone] Manny Alvarado PA-C Medication Social History Tobacco [...] on filedocumented in this encounter Care Teams Electronic Publications Specialist Relationship Specialty Start Date End Date Jes Chapman MD [address] [place] [phone] PCP - General Internal Medicine 10/04/15 11/12/17 Sia Fitzgerald MD [address] [place] [address] PCP - General Internal Medicine 11/13/17 09/02/21 Caitlin Hernandez MD [address] [place] [phone] PCP - General Internal Medicine 09/03/21 documented as of this encounter
--- OUTSIDE RECORDS SUMMARY | 2025-02-06 10:15 | XMS_ITS | Encounter Summary ---
Author Organization [facility] Address [address] [place] [address] Care Team Providers Care Etcher Enameling Name Role Phone Sia Fitzgerald MD Primary Care Provider Unavail able Caitlin Hernandez MD Primary Care Provider [phone] Encounter Details Date Type Department Care Team Description 05/24/2019 Business Doc Medical Records [address] [place] [address] Abstract, Provider Social History Tobacco Use Types [...] on filedocumented in this encounter Care Teams Etcher Enameling Relationship Specialty Start Date End Date Sia Fitzgerald MD PCP - General Internal Medicine 11/13/17 09/02/21 Caitlin Hernandez MD [address] [place] [address] [phone] PCP - General Internal Medicine 09/03/21 documented as of this encounter
--- OUTSIDE RECORDS SUMMARY | 2025-02-06 10:15 | XMS_ITS | Encounter Summary ---
Author Organization [facility] Address [address] [place] [address] Care Team Providers Care Student Affairs Vice President Name Role Phone Caitlin Hernandez MD Primary Care Provider [phone] Encounter Details Date Type Department Care Team Description 02/23/2023 Cad Design Engineer Report Medical Records [address] [place] [address] Abstract, Provider Social History Tobacco Use Types [...] on filedocumented in this encounter Care Teams Student Affairs Vice President Relationship Specialty Start Date End Date Caitlin Hernandez MD [address] [place] [address] PCP - General Internal Medicine 09/03/21 documented as of this encounter
--- OUTSIDE RECORDS SUMMARY | 2025-02-06 10:15 | XMS_ITS | Encounter Summary ---
Author Organization [facility] Address [address] [place] [address] Care Team Providers Care Quick Mixer Operator Name Role Phone Love Ford MD Primary Care Provider Unavail able Jes Chapman MD Primary Care Provider [phone] Sia Fitzgerald MD Primary Care Provider Unavail able Caitlin Hernandez MD Primary Care Provider [phone] Reason for Visit * Reason Comments E-prescribe Rx Request Encounter Details Date Type Department Care Team Description 04/25/2014 Refill Adult Medicine [facility] [address] [place] [address] Love Ford MD E-prescribe Rx Request Social History Tobacco Use [...] on filedocumented in this encounter Care Teams Quick Mixer Operator Relationship Specialty Start Date End Date Love Ford MD PCP - General 03/16/01 10/03/15 Jes Chapman MD [address] [place] [address] [phone] PCP - General Internal Medicine 10/04/15 11/12/17 Sia Fitzgerald MD [address] [place] [address] PCP - General Internal Medicine 11/13/17 09/02/21 Caitlin Hernandez MD [address] [place] [phone] PCP - General Internal Medicine 09/03/21 documented as of this encounter
--- OUTSIDE RECORDS SUMMARY | 2025-02-06 10:15 | XMS_ITS | Encounter Summary ---
Author Organization [facility] Address [address] [place] [address] Care Team Providers Care Brown Stock Washer Name Role Phone Sia Fitzgerald MD Primary Care Provider Unavail Caitlin Guaman MD Primary Care Provider [phone] Reason for Visit * Reason Comments E-prescribe Rx Request OMEPRAZOLE DR 20 MG CAPSULE Encounter Details Date Type Department Care Team Description 12/21/2018 Refill Gastroenterology - [address] [address] Ilia Moody PA-C E-prescribe Rx Request (OMEPRAZOLE DR 20 MG CAPSULE) Social History Tobacco Use Types Packs/Day Years [...] Telephone Encounter - Maira Meza M.A. - 12/21/2018 7:37 AM EST Last refill 05/2018, last seen 07/2018/map documented in this encounter Plan of Treatment Not on file documented as of this encounter Visit Diagnoses Not on filedocumented in this encounter Care Teams Brown Stock Washer Relationship Specialty Start Date End Date Sia Fitzgerald MD PCP - General Internal Medicine 11/13/17 09/02/21 Caitlin Hernandez MD [address] [place] [address] PCP - General Internal Medicine 09/03/21 documented as of this encounter
--- OUTSIDE RECORDS SUMMARY | 2025-02-06 10:15 | XMS_ITS | Encounter Summary ---
Author Organization [facility] Address [address] [place] [address] Care Team Providers Care School Cafeteria Cook Head Name Role Phone Love Ford MD Primary Care Provider Unavail able Jes Chapman MD Primary Care Provider [phone] Sia Fitzgerald MD Primary Care Provider Unavail able Caitlin Hernandez MD Primary Care Provider [phone] Encounter Details Date Type Department Care Team Description 08/08/2013 Release of Information Medical Records [address] [place] [id number] Abstract, Provider Social History Tobacco Use Types [...] on filedocumented in this encounter Care Teams School Cafeteria Cook Head Relationship Specialty Start Date End Date Love Ford MD PCP - General 03/16/01 10/03/15 Jes Chapman MD [address] [place] [phone] PCP - General Internal Medicine 10/04/15 11/12/17 Sia Fitzgerald MD [address] [place] [phone] PCP - General Internal Medicine 11/13/17 09/02/21 Caitlin Hernandez MD [address] [place] [phone] PCP - General Internal Medicine 09/03/21 documented as of this encounter
--- OUTSIDE RECORDS SUMMARY | 2025-02-06 10:15 | XMS_ITS | Encounter Summary ---
Author Organization [facility] Address [address] [place] [address] Care Team Providers Care Marine Meteorologist Name Role Phone Sia Fitzgerald MD Primary Care Provider Unavail Caitlin Guaman MD Primary Care Provider [phone] Reason for Visit * Reason Comments E-prescribe Rx Request Encounter Details Date Type Department Care Team Description 01/04/2020 Refill Adult Medicine [address] [address] Vinita Cyr PA-C E-prescribe Rx Request Social History Tobacco [...] encounter Miscellaneous Notes * Telephone Encounter - Sixto Myles C.M.A. - 01/04/2020 11:35 AM EST LENNY 11/18/19 * Telephone Encounter - Sarah Orozco - 01/04/2020 8:17 AM EST Patient would like script to be: E-PRESCRIBED/FAXED TO PHARMACY WHEN WAS THE PATIENT'S LAST APPOINTMENT IN ADULT MEDICINE? WHEN WAS THE LAST TIME THE PATIENT SAW THEIR PCP? Same as above Does patient have an upcoming appointment? No-no answer, no voicemail documented x2 (Please verify telephone contact #'s at next phone call) (THE MEDICATION REQUESTED IS ON THE MED [...] insurance carrier is: [place] / Plan: MEDICARE-[employer]API / Product Type: MEDICARE [id number] documented in this encounter Plan of Treatment Not on file documented as of this encounter Visit Diagnoses Not on filedocumented in this encounter Care Teams Marine Meteorologist Relationship Specialty Start Date End Date Sia Fitzgerald MD PCP - General Internal Medicine 11/13/17 09/02/21 Caitlin Hernandez MD [address] [place] [address] [phone] PCP - General Internal Medicine 09/03/21 documented as of this encounter
== END 2025-02-06 10:17 | disposition home or self-care (01) ==
LOC: HO.HNS 09:12
PROVIDERS: PCP Internal Medicine; Visit Provider Physician Assistant
DX: M85.80 Other specified disorders of bone density and structure, unspecified site (principal); M41.50 Other secondary scoliosis, site unspecified
CPT/HCPCS: 99213

== ENCOUNTER → 2025-02-06 09:12 | Outpatient (BNVA) | payer MEDICARE, SELFPAY | PROVIDERS: PCP Internal Medicine; Visit Provider Physician Assistant | DX: M54.50 Low back pain, unspecified (principal); M41.50 Other secondary scoliosis, site unspecified | CPT/HCPCS: 99212 ==

== ENCOUNTER 2025-04-18 14:15 | Outpatient (AMB) | payer MEDICARE, SELFPAY ==
--- NOTE | 2025-04-18 14:43 | A.SPINEOV_ITS ---
Intake Visit Reasons: Surgical questions Intake Note: Ms. Parks is here today to discuss surgical questions. Fitter And Turner Required: No Allergies Penicillins Allergy (Intermediate, Verified 02/06/25 09:27) Unknown oxycodone [OXYCODONE] Allergy (Unknown, Verified 02/06/25 09:27) ALLERGIC TO CODIENE - FEARFUL TO TRY OXYCODONE codeine [CODEINE] Adverse Reaction (Unknown, Verified 02/06/25 09:27) NAUSEA & VOMITING Assessment & Plan Assessment & Plan (1) Degenerative scoliosis: Code(s): M41.50 - Other secondary scoliosis, site unspecified Category: Medical Plan Sadia is a pleasant 75 year old female who comes in today for follow up to ask some questions regarding her surgery and discuss her continued pain. She states that her low back pain has severely intensified in the last few weeks. She is now to the point where she has essentially been lying flat in bed (this provides relief of symptoms) and only getting up to ambulate when she absolutely has to. She has been trying to take alleve for the pain but finds this is only modestly helpful. She denies any new shooting pains down her legs. We again discussed her surgical procedure. She consents to have the L1-2 segment done via [facility] if Dr. Rosales does feel that this should be addressed as well, but is tentatively scheduled for L2-5 OLIF. I encouraged her to make one more follow up appointment to meet Dr. Rosales prior to her surgery. I will send in an Rx for Gabapentin 300mg to take before bed as she reports she is essentially not sleeping at night due to the pain. Eagle Rosales MD,PhD [facility] Medications: New gabapentin 300 mg PO BEDTIME 30 caps 0RF Discontinued gabapentin Discontinued Reason: Doctor's Order 100 mg PO TID PRN 30 caps 0RF NERVE PAIN Coding Level of Care Code Est Pt Level 2 (94913) Diagnoses Degenerative scoliosis M41.50
--- OUTSIDE RECORDS SUMMARY | 2025-04-18 16:27 | XMS_ITS | Clinical Summary ---
Author Organization [facility] [address] [place] [address] [place] [phone] Phone Care Team Providers Care Pipe Organ Mechanic Name Role Phone Caitlin Hernandez MD Primary Care Provider Allergies Active Allergy Reactions Criticality Noted Date Comments Codeine 07/22/2006 Penicillins Diarrhea Low 01/10/2019 Medications calcium carbonate-venkatesh min D3 500 mg-3.125 mcg (125 unit) tablet per tabelt Take 2 Tabs by mouth daily. 11/18/19 Active MULTIVITAMIN ORAL Take by mouth daily. Active Bifidobacteriu m infantis (ALIGN ORAL) Probiotic Product (Align) Chew Tab Sig - Route: Take ??by mouth daily. Active triamcinolone (KENALOG) 0.1 % ointment APPLY A THIN LAYER DAILY 30 g 09/11/20 24 Active meclizine (ANTIVERT) 12.5 mg tablet Take 1 tablet (12.5 mg total) by mouth 3 (three) times a day if needed for dizziness. 90 tablet 09/14/20 24 025 Active omeprazole (PriLOSEC) [address] capsule Take 1 capsule (20 mg total) by mouth 1 (one) time each day. 90 capsule 1 11/18/19 25 Active levothyroxine (SYNTHROID, LEVOTHROID) 88 mcg tablet TAKE 1 TABLET BY MOUTH DAILY. ON SATURDAYS AND SUNDAYS TAKE A HALF TABLET DAILY. 84 tablet 1 11/24/19 25 Active WHEAT DEXTRIN ORAL 11/18/19 20 025 Discontinued meloxicam (MOBIC) 15 mg tablet Take 1 tablet (15 mg total) by mouth 1 (one) time each day. 10/27/20 23 025 Discontinued gabapentin (NEURONTIN) 100 mg capsule TAKE 1 CAPSULE ORALLY 3 TIMES A DAY NEEDED FOR NERVE PAIN 11/14/19 25 025 Discontinued atorvastatin (LIPITOR) 10 mg tablet TAKE 1 TABLET BY MOUTH EVERY DAY 90 tablet 1 03/06/20 025 Discontinued sertraline (ZOLOFT) 100 mg tablet TAKE 1 TABLET BY MOUTH EVERY DAY 90 tablet 1 03/06/20 025 Discontinued Active Problems Problem Noted Date Diagnosed Date Other osteoporosis without current pathological fracture 02/06/2025 Overview (02/06/2025): Per outside bone density scan December 2024 Vertigo, benign paroxysmal, unspecified laterali ty 09/23/2024 [...] (09/05/2024): Last Assessment & Plan: Reviewed with Joon [...] Encounters Date Type Department Care Team Description 03/22/2025 11:00 AM EDT Office Visit Adult Medicine [address] [phone] Caitlin Hernandez MD Menjivar angioma (Primary Dx); Anxiety; Chronic pain of toe of right foot; Hypercholesterolemia; Hypothyroidism, unspecified type; Depression, unspecified depression type 03/20/2025 1:00 PM EDT Office Visit [address] [phone] Christiano Flor PA Other specified hypothyroidism (Primary Dx); Other osteoporosis without current pathological fracture; Chronic low back pain with sciatica, sciatica laterality unspecified, unspecified back pain laterality 03/07/2025 Telephone Adult [address] [phone] Dorene Luciano MA Forms/questionnaires from Last 3 Months Immunizations Name Administration [...] Date Site/Laterality Comments OTHER SURGICAL HISTORY PROCEDURE: VA LIG/TRNSXJ FLP TUBE ABDL/VAG APPR UNI/BI COLONOSCOPY [...] Comments Hypertension Brother Hypertension Father Hypertension Mother [place], dialysis Hypertension Sister Other cancer Sister Breast [...] Sign Reading Time Taken Comments Blood Pressure 110/80 03/22/2025 10:41 AM EDT Pulse 68 03/22/2025 10:41 AM EDT Temperature 36.1 ??C (96.9 ??F) 03/22/2025 10:41 AM E DT Respiratory Rate 16 03/22/2025 10:41 AM EDT Oxygen Saturation 98% 03/20/2025 1:05 PM EDT Inhaled Oxygen Concentration - - Weight 56.7 kg (125 lb) 03/22/2025 10:41 AM EDT Height 144.8 cm (4' 9 ) 03/22/2025 10:41 AM EDT Body Mass Index 27.05 03/22/2025 10:41 AM EDT Plan of Treatment Upcoming Encounters Date Type Department Care Team (Late st Contact Info) Description 06/14/2025 9:45 AM EDT Consult Orthopedic Surgery - [place] [phone] [phone] [place] DPM [address] [address] 06/22/2025 9:30 AM EDT Office Visit Adult Medicine [address] [phone] Tammi Tejeda NP [address] [place] [phone] Health Maintenance Due Date Last Done Comments DTaP,Tdap,and Td Vaccines (2 - Td or Tdap) 03/29/2019 03/29/2009 Cervical Cancer Screening: HPV 05/19/2019 05/19/2014 Falls Risk Assessment 10/11/2022 Social Influencers of Health Screening 10/11/2022 COVID-19 Vaccine ( season) 2024 10/25/2021, 02/18/2021, 01/28/2021 RSV Immunization Adult Patients (1 - 1-dose 75+ series) 2025 02/16/2024 Depression Screening 03/14/2025 03/14/2024 Medicare Annual Wellness Visit 03/14/2025 03/14/2024 Colorectal Cancer Screening: Stool Based Tests (FOBT/FIT) 03/15/2025 03/15/2024 Cholesterol Screening (Lipid Panel) 03/20/2030 03/20/2025, 07/18/2024, 07/18/2024, Additional history exists Osteoporosis Screening (Bone Density Screening) 01/27/2035 01/27/2025, 01/27/2025, 11/15/2021, Additional history exists Hepatitis C Screening Completed 06/28/2013 Breast Cancer Screening Discontinued 05/13/2021, 05/20 Zoster Vaccines Completed 10/23/2021, 08/0 11/2020, 06/02/2021 [...] age to complete this topic Meningococcal B Vaccine Aged Out No l onger eligible based on patient's age to complete [...] Procedure Name Priority Date/Time Associated Diagnosis Comments CBC WITH AUTO DIFFERENTIAL Routine 03/20/2025 1:56 PM EDT Other specified hypothyroidism Other osteoporosis without current pathological fracture Chronic low back pain with sciatica, sciatica laterality unspecified, unspecified back pain laterality CBC AND DIFFERENTIAL Routine 03/20/2025 1:56 PM EDT Other specified hypothyroidism Other osteoporosis without current pathological fracture Chronic low back pain with sciatica, sciatica laterality unspecified, unspecified back pain laterality COMPREHENSIVE METABOLIC PANEL Routine 03/20/2025 1:56 PM EDT Other specified hypothyroidism Other osteoporosis without current pathological fracture Chronic low back pain with sciatica, sciatica laterality unspecified, unspecified back pain laterality THYROID STIMULATING HORMONE Routine 03/20/2025 1:56 PM EDT Other specified hypothyroidism Other osteoporosis without current pathological fracture Chronic low back pain with sciatica, sciatica laterality unspecified, unspecified back pain laterality LIPID PANEL WITH REFLEX TO DIRECT LDL Routine 03/20/2025 1:56 PM EDT Other specified hypothyroidism Other osteoporosis without current pathological fracture Chronic low back pain with sciatica, sciatica laterality unspecified, unspecified back pain laterality VITAMIN D 25 HYDROXY Routine 03/20/2025 1:56 PM EDT Other specified hypothyroidism Other osteoporosis without current pathological fracture Chronic low back pain with sciatica, sciatica laterality unspecified, unspecified back pain laterality EXTERNAL DEXA REPORT 01/27/2025 EXTERNAL DEXA REPORT 01/27/2025 COLONOSCOPY Routine 03/15/2024 DEPRESSION SCREENING Routine 03/14/2024 SCREENING MAMMOGRAPHY BI 2-VIEW BREAST INC CAD Routine 05/13/2021 9:02 AM EDT Encounter for screening mammogram for malignant neoplasm of breast HPV Routine 05/19/2014 HEPATITIS C SCREENING Routine 06/28/2013 from Last 3 Months or Most Recently Relevant to Health Maintenance Results * (ABNORMAL) Lipid panel with reflex to direct LDL (03/20/2025 1:56 PM EDT) Cholesterol 244(H) 0 - 200 mg/dL LAB CHEMISTRY METHOD 03/20/2025 5:39 PM EDT [facility] Triglycerides 185(H) 0 - 150 mg/dL LAB CHEMISTRY METHOD 03/20/2025 5:39 PM EDT [facility] HDL 54 >=40 mg/dL LAB CHEMISTRY METHOD 03/20/2025 5:39 PM EDT [facility] LDL Calculated 153(H) 0 - 100 mg/dL LAB CHEMISTRY METHOD 03/20/2025 5:39 PM EDT [facility] VLDL Cholesterol Aly 37 mg/dL LAB CHEMISTRY METHOD 03/20/2025 5:39 PM EDT [facility] Non HDL Chol. (LDL+VLDL) 190(H) <145 mg/dL LAB CHEMISTRY METHOD 03/20/2025 5:39 PM EDT [facility] Chol/HDL Ratio 4.5(H) 0.0 - 4.4 LAB CHEMISTRY METHOD 03/20/2025 5:39 PM EDT [facility] Blood Venous blood specimen / Unknown Venipuncture / Unknown 03/20/2025 1:56 PM EDT 03/20/2025 1:56 PM EDT us Christiano PAUL LAB BLOOD ORDERABLES Fin al Result [facility] [address] [place] [address], * (ABNORMAL) CBC auto differential (03/20/2025 1:56 PM EDT) WBC 7.8 4.8 - 10.8 K/[facility] LAB HEMETOLOGY METHOD 03/20/2025 5:01 PM EDT [facility] RBC 5.10(H) 3.80 - 4.80 M/mcL LAB HEMETOLOGY METHOD 03/20/2025 5:01 PM EDT [facility] Hemoglobin 13.1 11.5 - 16.0 g/dL LAB HEMETOLOGY METHOD 03/20/2025 5:01 PM EDT [facility] Hematocrit 41.4 35.0 - 47.0 % LAB HEMETOLOGY METHOD 03/20/2025 5:01 PM EDT [facility] MCV 81.5 79.0 - 98.0 FL LAB HEMETOLOGY METHOD 03/20/2025 5:[facility] MCH 25.8(L) 27.0 - 32.0 pcg LAB HEMETOLOGY METHOD 03/20/2025 5:01 [facility] MCHC 31.6(L) 32.0 - 37.0 g/dL LAB HEMETOLOGY METHOD 03/20/2025 5:01 PM [facility] RDW 13.2 11.0 - 15.0 % LAB HEMETOLOGY METHOD 03/20/2025 5:01 PM [facility] Platelets 304 130 - 400 K/mcL LAB HEMETOLOGY METHOD 03/20/2025 5:01 PM [facility] MPV 11.8(H) 7.0 - 11.0 FL LAB HEMETOLOGY METHOD 03/20/2025 5:01 PM [facility] NRBC 0.0 <1.0 % LAB HEMETOLOGY METHOD 03/20/2025 5:01 PM [facility] NRBC Absolute 0.00 <0.10 K/mcL LAB HEMETOLOGY METHOD 03/20/2025 5:01 PM [facility] Neutrophils Relative 56.3 % LAB HEMETOLOGY METHOD 03/20/2025 5:01 PM [facility] Lymphocytes Relative 30.2 % LAB HEMETOLOGY METHOD 03/20/2025 5:01 PM [facility] Monocytes Relative 9.8 % LAB HEMETOLOGY METHOD 03/20/2025 5:01 PM [facility] Eosinophils Relative 2.9 % LAB HEMETOLOGY METHOD 03/20/2025 5:01 PM [facility] Basophils Relative 0.5 % LAB HEMETOLOGY METHOD 03/20/2025 5:01 PM EDT [facility] Immature Granulocytes Relative 0.3 % LAB HEMETOLOGY METHOD 03/20/2025 5:01 PM EDT [facility] Neutrophils Absolute 4.40 1.50 - 7.00 K/mcL LAB HEMETOLOGY METHOD 03/20/2025 5:01 PM EDT [facility] Lymphocytes Absolute 2.36 1.00 - 5.00 K/mcL LAB HEMETOLOGY METHOD 03/20/2025 5:01 PM EDT [facility] Monocytes Absolute 0.77 0.20 - 1.00 K/mcL LAB HEMETOLOGY METHOD 03/20/2025 5:01 PM EDT [facility] Eosinophils Absolute 0.23 0.00 - 0.50 K/mcL LAB HEMETOLOGY METHOD 03/20/2025 5:01 PM EDT [facility] Basophils Absolute 0.04 0.00 - 0.20 K/mcL LAB HEMETOLOGY METHOD 03/20/2025 5:01 PM EDT [facility] Immature Granulocytes Absolute 0.02 0.00 - 0.03 K/mcL LAB HEMETOLOGY METHOD 03/20/2025 5:01 PM EDT [facility] Blood Venous blood specimen / Unknown Venipuncture / Unknown 03/20/2025 1:56 PM EDT 03/20/2025 1:56 PM EDT us Christiano PAUL LAB BLOOD ORDERABLES Fin al Result [facility] [address] [place] [address], * Vitamin D 25 hydroxy (03/20/2025 1:56 PM EDT) Vit D, 25-Hydroxy 73.3 30.0 - 80.0 ng/mL LAB CHEMISTRY METHOD 03/20/2025 6:17 PM EDT [facility] Blood Venous blood specimen / Unknown Venipuncture / Unknown 03/20/2025 1:56 PM EDT 03/20/2025 1:56 PM EDT Christiano PAUL LAB BLOOD ORDERABLES Fin al Result Performing Organization Address [facility]/ZIP Co de Phone Number [facility] [address] [place] [address], [place] [phone] * Thyroid stimulating hormone (03/20/2025 1:56 PM EDT) [facility] TSH 0.67 0.40 - 4.00 mcIU/mL LAB CHEMISTRY METHOD 03/20/2025 6:17 PM EDT [facility] Blood Venous blood specimen / Unknown Venipuncture / Unknown 03/20/2025 1:56 PM EDT 03/20/2025 1:56 PM EDT Christiano PAUL LAB BLOOD ORDERABLES Fin al Result Performing Organization Address [facility] Co de Phone Number [facility] [address] [place] [address], [place] [phone] * Comprehensive metabolic panel (03/20/2025 1:56 PM EDT) [facility] Sodium 145 133 - 145 mmol/L LAB CHEMISTRY METHOD 03/20/2025 5:39 PM EDT [facility] Potassium 3.8 3.5 - 5.5 mmol/L LAB CHEMISTRY METHOD 03/20/2025 5:39 PM EDT [facility] Chloride 109 96 - 110 mmol/L LAB CHEMISTRY METHOD 03/20/2025 5:39 PM EDT [facility] CO2 25 21 - 32 mmol/L LAB CHEMISTRY METHOD 03/20/2025 5:39 PM EDT [facility] Anion Gap 11 3 - 11 LAB CHEMISTRY METHOD 03/20/2025 5:39 PM [facility] Glucose 95 70 - 100 mg/dL LAB CHEMISTRY METHOD 03/20/2025 5:39 PM [facility] BUN 12 5 - 25 mg/dL LAB CHEMISTRY METHOD 03/20/2025 5:39 PM [facility] Creatinine 0.81 0.50 - 1.10 mg/dL LAB CHEMISTRY METHOD 03/20/2025 5:39 PM [facility] eGFR 76 >=60 mL/min/1. 73m2 LAB CHEMISTRY METHOD 03/20/2025 5:39 PM [facility] Comment:Calculation based on the Chronic Kidney Disease Epidemiology Collaboration (CKD-EPI) equation refit without adjustment for race. BUN/Creatinine Ratio 14.8 LAB CHEMISTRY METHOD 03/20/2025 5:39 PM [facility] Calcium 9.5 8.5 - 10.5 mg/dL LAB CHEMISTRY METHOD 03/20/2025 5:39 PM [facility] AST (SGOT) 17 10 - 42 unit/L LAB CHEMISTRY METHOD 03/20/2025 5:39 PM [facility] ALT (SGPT) 19 10 - 60 unit/L LAB CHEMISTRY METHOD 03/20/2025 5:39 PM [facility] Alkaline Phosphatase 87 42 - 121 unit/L LAB CHEMISTRY METHOD 03/20/2025 5:39 PM [facility] Total Protein 7.4 6.0 - 8.0 g/dL LAB CHEMISTRY METHOD 03/20/2025 5:39 PM [facility] Albumin 4.3 3.2 - 5.0 g/dL LAB CHEMISTRY METHOD 03/20/2025 5:39 PM [facility] Total Bilirubin 0.3 0.0 - 1.4 mg/dL LAB CHEMISTRY METHOD 03/20/2025 5:39 PM EDT [facility] Blood Venous blood specimen / Unknown Venipuncture / Unknown 03/20/2025 1:56 PM EDT 03/20/2025 1:56 PM EDT Christiano PAUL LAB BLOOD ORDERABLES Fin al Result [facility] [address] [place] [address], [place] [phone] * External Dexa Report (01/27/2025) Only the most recent of2 resultswithin the time period is included. Anatomical Region Laterality Modality Bone Densitometr y Provider [facility] DXA PROCEDURES Final Result * Colonoscopy (03/15/2024) Colonoscopy no interpretation [...] * Cervical Cancer Screening: HPV (05/19/2014) Pathologist [facility] Cervical Cancer Screening: HPV normal, abstracted Historical Provider HEALTH MAINTENANCE Final Result * Hepatitis C Screening (06/28/2013) [facility] Hepatitis C Screening abstracted Historical Provider HEALTH MAINTENANCE Final Result from Last 3 Months or Most Recently Relevant to Health Maintenance Insurance MEDICARE [facility] Care Teams Pipe Organ Mechanic Relationship Specialty Start Date End Date Caitlin Hernandez MD [address] [place] [address] PCP - General Internal Medicine 09/03/21
== END 2025-04-18 15:19 | disposition home or self-care (01) ==
LOC: HO.HNS 14:16
PROVIDERS: PCP Internal Medicine; Visit Provider Physician Assistant
DX: M54.50 Low back pain, unspecified (principal); M41.50 Other secondary scoliosis, site unspecified
CPT/HCPCS: 99213

== ENCOUNTER → 2025-04-18 14:15 | Outpatient (BNVA) | payer MEDICARE, SELFPAY | PROVIDERS: PCP Internal Medicine; Visit Provider Physician Assistant | DX: M54.50 Low back pain, unspecified (principal); M41.50 Other secondary scoliosis, site unspecified | CPT/HCPCS: 99212 ==

== ENCOUNTER 2025-05-03 15:19 | Outpatient (AMB) | payer MEDICARE, SELFPAY ==
--- OUTSIDE RECORDS SUMMARY | 2025-05-03 15:35 | XMS_ITS | Clinical Summary ---
Author Organization [facility] Address [address] [place] [address] Care Team Providers Care Records Analysis Manager Name Role Phone Caitlin Hernandez MD Primary Care Provider [phone] Allergies Active Allergy Reactions Severity Noted Date [...] for 360 days. 30 Tablet 11 03/14/2024 Active omeprazole (PRILOSEC) 20 MG capsule TAKE [...] migraine headaches 11/26/2017 Gastroesophageal reflux disease 10/19/20 17 Osteopenia 04/21/2017 Overview: 04/18 T score spine [...] Hypothyroidism 06/30/2013 DJD (degenerative joint disease) of [facility] spine 05/21/2011 Overview: Injury 1994. 2010 MRI [...] TOMASZ. She will likely desire referral to [place] if any follow up is needed such [...] Comments Hypertension Brother Hypertension Father Hypertension Mother [place], dialysis Cancer, Other Sister Hypertension Sister CA [...] 68 07/21/2024 2:57 PM EDT Temperature 36.3 C (97.4 F) 07/21/2024 2:57 PM EDT Respiratory Rate 16 07/21/2024 2:57 PM EDT [...] WITH STOOL CARD 03/15/2025 03/15/2024, 07/29/2013, 08/04/2011 INFLUENZA (#1) 2025 07/25/2024, 07/05, 07/05/2023, Additional history exists CHOLESTEROL SCREENING 07/18/2029 07/18/2024 , 03/15/2024, 03/07/2024, Additional history exists HEPATITIS C SCREENING Completed 06/28/2013 PNEUMOCOCCAL VACCINE Addressed 04/13/2017, 10/04/2015 (Refused) Overridden with the intention of not completing the topic SHINGLES VACCINE Completed 10/23/2021, 11/2020, 06/02/2021 (External Completion) Care Teams Records Analysis Manager Relationship Specialty Start Date End Date Caitlin Hernandez MD [address] [place] [address] [phone] PCP - General Internal Medicine 09/03/21
--- OUTSIDE RECORDS SUMMARY | 2025-05-03 15:36 | XMS_ITS | Clinical Summary ---
Author Organization [facility] [address] [place] [address] [place] [phone] Phone Care Team Providers Care Accounts Receivable Collector Name Role Phone Caitlin Hernandez MD Primary Care Provider [phone] Allergies Active Allergy Reactions Criticality Noted Date Comments Codeine 07/22/2006 Penicillins Diarrhea Low 01/10/2019 Medications calcium carbonate-vitam in D3 500 mg-3.125 mcg (125 unit) tablet per tabelt Take 2 Tabs by mouth daily. 0 Active MULTIVITAMIN ORAL Take by mouth daily. Active Bifidobacterium infantis (ALIGN ORAL) Probiotic Product (Align) Chew Tab Sig - Route: Take by mouth daily. Active triamcinolone (KENALOG) 0.1 % ointment APPLY A THIN LAYER DAILY 30 g 4 Active meclizine (ANTIVERT) 12.5 mg tablet Take 1 tablet (12.5 mg total) by mouth 3 (three) times a day if needed for dizziness. 90 tablet 4 09/14/20 25 Active omeprazole (PriLOSEC) [address] capsule Take 1 capsule (20 mg total) by mouth 1 (one) time each day. 90 capsule 1 5 Active levothyroxine (SYNTHROID, LEVOTHROID) 88 mcg tablet TAKE 1 TABLET BY MOUTH DAILY. ON SATURDAYS AND SUNDAYS TAKE A HALF TABLET DAILY. 84 tablet 1 5 Active Active Problems Problem Noted Date [...] 03/22/2025 11:00 AM EDT Office Visit Adult [address] [phone] Caitlin Hernandez MD Menjivar angioma (Primary Dx); Anxiety; Chronic pain of toe of right foot; Hypercholesterolemia; Hypothyroidism, unspecified type; Depression, unspecified depression type 03/20/2025 1:00 PM EDT Office Visit Adult [address] [phone] Christiano Flor PA Other specified hypothyroidism (Primary Dx); Other osteoporosis without current pathological fracture; Chronic low back pain with sciatica, sciatica laterality unspecified, unspecified back pain laterality 03/07/2025 Telephone Adult [address] [phone] Dorene Luciano MA Forms/questionnaires from Last 3 [...] Date Site/Laterality Comments OTHER SURGICAL HISTORY PROCEDURE: IN LIG/TRNSXJ FLP TUBE ABDL/VAG APPR UNI/BI COLONOSCOPY [...] joint disease) of thoracic spine; COMMENT: Injury 2010 MRI Scoliosis with advanced asymmetric multilevel [...] Comments Hypertension Brother Hypertension Father Hypertension Mother MS, dialysis Hypertension Sister Other cancer Sister Breast [...] 68 03/22/2025 10:41 AM EDT Temperature 36.1 C (96.9 F) 03/22/2025 10:41 AM EDT Respiratory Rate 16 03/22/2025 10:41 AM EDT [...] 9:45 AM EDT Consult Orthopedic Surgery - [place] [id number] [phone] [place], DPM [address] [address] 06/22/2025 9:30 AM EDT Office Visit Adult Medicine [facility] [address] [place], [place] [phone] Tammi Tejeda, ANNIE [address] [place], [place] Health Maintenance Due Date Last Done Comments [...] Discontinued 05/13/2021, 05/20 Zoster Vaccines Completed 10/23/2021, 11/2020, 06/02/2021 RSV [...] back pain laterality EXTERNAL DEXA REPORT 01/27/2025 COLONOSCOPY Routine 03/15/2024 [...] LAB CHEMISTRY METHOD 03/20/2025 5:39 PM EDT [facility] Triglycerides 185(H) 0 - 150 mg/dL LAB CHEMISTRY METHOD 03/20/2025 5:39 PM EDT [facility] HDL 54 >=40 mg/dL LAB CHEMISTRY METHOD 03/20/2025 5:39 PM EDT [facility] LDL Calculated 153(H) 0 - 100 mg/dL LAB CHEMISTRY METHOD 03/20/2025 5:39 PM EDT [facility] VLDL Cholesterol Aly 37 mg/dL LAB CHE[facility]STR[facility] Non HDL Chol. (LDL+VLDL) 190(H) <145 mg/dL LAB CHEMISTRY METHOD 03/20/2025 5:39 PM EDT [facility] Chol/HDL Ratio 4.5(H) 0.0 - 4.4 LAB CHEMISTRY METHOD 03/20/2025 5:39 PM EDT [facility] Blood Venous blood specimen / Unknown Venipuncture / Unknown 03/20/2025 1:56 PM EDT 03/20/2025 1:56 PM EDT us Christiano PAUL LAB BLOOD ORDERABLES Fin al Result [facility] [address] [place] [address], [place] [phone] * (ABNORMAL) CBC auto differential (03/20/2025 1:56 PM EDT) WBC 7.8 4.8 - 10.8 K/mcL LAB HEMETOLOGY METHOD 03/20/2025 5:01 PM EDT [facility] RBC 5.10(H) 3.80 - 4.80 M/mcL LAB HEMETOLOGY METHOD 03/20/2025 5:01 PM EDT [facility] Hemoglobin 13.1 11.5 - 16.0 g/dL LAB HEMETOLOGY METHOD 03/20/2025 5:01 PM EDT [facility] Hematocrit 41.4 35.0 - 47.0 % LAB HEMETOLOGY METHOD 03/20/2025 5:[facility] MCV 81.5 79.0 - 98.0 FL LAB HEMETOLOGY METHOD 03/20/2025 5:01 PM EDT [facility] MCH 25.8(L) 27.0 - 32.0 pcg LAB HEMETOLOGY METHOD 03/20/2025 5:01 [facility] MCHC 31.6(L) 32.0 - 37.0 g/dL LAB HEMETOLOGY METHOD 03/20/2025 5:01 [facility] RDW 13.2 11.0 - 15.0 % LAB HEMETOLOGY METHOD 03/20/2025 5:01 PM [facility] Platelets 304 130 - 400 K/mcL LAB HEMETOLOGY METHOD 03/20/2025 5:01 PM [facility] MPV 11.8(H) 7.0 - 11.0 FL LAB HEMETOLOGY METHOD 03/20/2025 5:01 PM [facility] NRBC 0.0 <1.0 % LAB HEMETOLOGY METHOD 03/20/2025 5:01 PM [facility] NRBC Absolute 0.00 <0.10 K/mcL LAB HEMETOLOGY METHOD 03/20/2025 5:01 PM [facility] Neutrophils Relative 56.3 % LAB HEMETOLOGY METHOD 03/20/2025 5:01 PM [facility] Lymphocytes Relative 30.2 % LAB HEMETOLOGY METHOD 03/20/2025 5:01 PM [facility] Monocytes Relative 9.8 % LAB HEMETOLOGY METHOD 03/20/2025 5:01 PM [facility] Eosinophils Relative 2.9 % LAB HEMETOLOGY METHOD 03/20/2025 5:01 PM [facility] Basophils Relative 0.5 % LAB HEMETOLOGY METHOD 03/20/2025 5:01 PM [facility] Immature Granulocytes Relative 0.3 % LAB HEMETOLOGY METHOD 03/20/2025 5:01 PM [facility] Neutrophils Absolute 4.40 1.50 - 7.00 K/mcL LAB HEMETOLOGY METHOD 03/20/2025 5:01 PM [facility] Lymphocytes Absolute 2.36 1.00 - 5.00 K/mcL LAB HEMETOLOGY METHOD 03/20/2025 5:01 PM [facility] Monocytes Absolute 0.77 0.20 - 1.00 K/mcL LAB HEMETOLOGY METHOD 03/20/2025 5:01 PM EDT [facility] Eosinophils Absolute 0.23 0.00 - 0.50 K/mcL LAB HEMETOLOGY METHOD 03/20/2025 5:01 PM EDT [facility] Basophils Absolute 0.04 0.00 - 0.20 K/mcL LAB HEMETOLOGY METHOD 03/20/2025 5:01 PM EDT [facility] Immature Granulocytes Absolute 0.02 0.00 - 0.03 K/[facility] LAB HEMETOLOGY METHOD 03/20/2025 5:01 PM EDT [facility] Blood Venous blood specimen / Unknown Venipuncture / Unknown 03/20/2025 1:56 PM EDT 03/20/2025 1:56 PM EDT Christiano PAUL LAB BLOOD ORDERABLES Fin al Result Performing Organization Address City/[facility]/ZIP Co de Phone Number [facility] [address] [place] [address], [place] [phone] * Vitamin D 25 hydroxy (03/20/2025 1:56 PM EDT) [facility] Vit D, 25-Hydroxy 73.3 30.0 - 80.0 ng/mL LAB CHEMISTRY METHOD 03/20/2025 6:17 PM EDT [facility] Blood Venous blood specimen / Unknown Venipuncture / Unknown 03/20/2025 1:56 PM EDT 03/20/2025 1:56 PM EDT Christiano PAUL LAB BLOOD ORDERABLES Fin al Result Performing Organization Address City/[facility]/ZIP Co de Phone Number [facility] [address] [place] [address], [place] [phone] * Thyroid stimulating hormone (03/20/2025 1:56 PM EDT) [facility] TSH 0.67 0.40 - 4.00 mcIU/mL LAB CHEMISTRY METHOD 03/20/2025 6:17 PM EDT [facility] Blood Venous blood specimen / Unknown Venipuncture / Unknown 03/20/2025 1:56 PM EDT 03/20/2025 1:56 PM EDT us Christiano PAUL LAB BLOOD ORDERABLES Fin al Result [facility] [address] [place] [address], * Comprehensive metabolic panel (03/20/2025 1:56 PM EDT) [facility] Sodium 145 133 - 145 mmol/L LAB CHEMISTRY METHOD 03/20/2025 5:39 PM [facility] Potassium 3.8 3.5 - 5.5 mmol/L LAB CHEMISTRY METHOD 03/20/2025 5:39 PM [facility] Chloride 109 96 - 110 mmol/L LAB CHEMISTRY METHOD 03/20/2025 5:39 PM [facility] CO2 25 21 - 32 mmol/L LAB CHEMISTRY METHOD 03/20/2025 5:39 PM [facility] Anion Gap 11 3 - 11 LAB CHEMISTRY METHOD 03/20/2025 5:39 PM [facility] Glucose 95 70 - 100 mg/dL LAB CHEMISTRY METHOD 03/20/2025 5:39 PM [facility] BUN 12 5 - 25 mg/dL LAB CHEMISTRY METHOD 03/20/2025 5:39 PM [facility] Creatinine 0.81 0.50 - 1.10 mg/dL LAB CHEMISTRY METHOD 03/20/2025 5:39 PM [facility] eGFR 76 >=60 mL/min/1. 73m2 LAB CHEMISTRY METHOD 03/20/2025 5:39 PM [facility] Comment:Calculation based on the Chronic Kidney Disease Epidemiology Collaboration (CKD-EPI) equation refit without adjustment for race. BUN/Creatinine Ratio 14.8 LAB CHEMISTRY METHOD 03/20/2025 5:39 PM EDT [facility] Calcium 9.5 8.5 - 10.5 mg/dL LAB CHEMISTRY METHOD 03/20/2025 5:39 PM EDT [facility] AST (SGOT) 17 10 - 42 unit/L LAB CHEMISTRY METHOD 03/20/2025 5:39 PM EDT [facility] ALT (SGPT) 19 10 - 60 unit/L LAB CHEMISTRY METHOD 03/20/2025 5:39 PM EDT [facility] Alkaline Phosphatase 87 42 - 121 unit/L LAB CHEMISTRY METHOD 03/20/2025 5:39 PM [facility] Total Protein 7.4 6.0 - 8.0 g/dL LAB CHEMISTRY METHOD 03/20/2025 5:39 PM EDT [facility] Albumin 4.3 3.2 - 5.0 g/dL LAB CHEMISTRY METHOD 03/20/2025 5:39 PM T [facility] Total Bilirubin 0.3 0.0 - 1.4 mg/dL LAB CHEMISTRY METHOD 03/20/2025 5:39 PM EDT [facility] Blood Venous blood specimen / Unknown Venipuncture / Unknown 03/20/2025 1:56 PM EDT 03/20/2025 1:56 PM EDT us Christiano PAUL LAB BLOOD ORDERABLES Fin al Result [facility] [address] [place] [address], * External Dexa Report (01/27/2025) Anatomical Region Laterality Modality Bone Densitometr y us Provider [facility] IMG DXA PROCEDURES Final Result * Hm Colonoscopy (03/15/2024) Colonoscopy no interpretation , abstracted Anatomical Region Laterality Modality Other us Historical Provider HEALTH MAINTENANCE Final Result * Depression Screening (03/14/2024) Depression Screening abstracted us Historical Provider HEALTH MAINTENANCE Final Result * SCREENING MAMMOGRAPHY [...] interpreted with the aid of computer-aided detection. Comparison is made with 05/20/2019. Breast parenchyma is composed of scattered fibroglandular densities. Stable biopsy markers in the retroareolar left breast [...] * Cervical Cancer Screening: HPV (05/19/2014) Pathologist [facility] Cervical Cancer Screening: HPV normal, abstracted Historical Provider HEALTH MAINTENANCE Final Result * Hepatitis C Screening (06/28/2013) Pathologist [facility] Hepatitis C Screening abstracted Historical Provider HEALTH MAINTENANCE Final Result from Last 3 Months or Most Recently Relevant to Health Maintenance Insurance MEDICARE [facility] Care Teams Accounts Receivable Collector Relationship Specialty Start Date End Date Caitlin Hernandez MD [address] [place] [id number] PCP - General Internal Medicine 09/03/21
--- OUTSIDE RECORDS SUMMARY | 2025-05-03 15:36 | XMS_ITS | Patient Health Record ---
Author Organization [facility] Fidelina reema CalderonMarquez Address [address] [place] [address] Care Team Providers Care Fishing Vessel Mate Name Role Phone Love Ford MD Primary Care Provider Omid Perrin Unavailable [phone] Allergies Allergen (clinical drug ingredient) Drug/Non Drug Allergy documented on EMR Reaction Allergy Type Onset Date Status codeine Codeine vomiting Drug Allergy Active adhesive tape rash Drug Allergy Act musa Reason For Referral No Information Medications Medication SIG (Take, Route, Frequency, Duration) Notes Start Date End Date Status Levothyroxine Sodium 50 MCG TAKE 1 TABLET BY MOUTH DAILY THURSDAY THROUGH THURSDAY THEN 1 AND 1/2 TABLETS ON THURSDAY AND THURSDAY Oral; Duration: 30 Active Physical Therapy . 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 2-3x/week; Duration: 3-4 weeks 05/15/2014 Active Acyclovir 5 % APPLY TOPICALLY 5 TI MES DAILY OR APPROXIMATELY EVERY 3 HOURS WHILE AWAKE. External; Duration: 30 Active Sertraline HCl 25 MG TAKE 1 TABLET BY MO UT EVERY DAY Oral; Duration: 30 Active Social History Tobacco Use: Social History Observation Description Date Details (start date - stop date) Former Smoker NA - NA Tobacco Use/Smoking Question Answer Notes Are you a: former smoker Additional Findings: Tobacco Non-User Ex-cigaret te smoker Alcohol Screen Question Answer Notes Did you have a drink containing alcohol in the p ast year? Yes Points 0 Interpretation Negative Tobacco use other than smoking: Question Answer Notes Are you an other tobacco user? No Problems Problem Type SNOMED Code ICD Code Onset Dates Problem Status W/U Status Risk Notes Problem Onychomycosis (746918547) Onychomycosis (110.1) Active confirmed Problem Disorder of joint of ankle and/or foot (582965576) Arthritis - Degenerative (719.97) Active confirmed Problem Pain in limb (76265341) Pain in Limb (729.5) Active confirmed Problem Plantar fasciitis (542199056) Plantar Fasciitis (728.71) Active confirmed Problem Congenital pes planus (63100519) Flat Foot, 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 Problem Tinea pedis (8706669) Tinea Pedis (110.4) Active confirmed Problem Ingrowing nail (685494614) Ingrowing Nail (703.0) Active confirmed Problem Exostosis (17231700) Exostosis (726.91) Active confirmed Plan Of Treatment Pending Test Test Name Order Date X ray : Foot, right 3V 10/06/2011 X ray : Foot, right 3V 05/15/2014 Insurance Providers Payer Name Payer Address Payer Phone Subscriber Number Group Number Insured Name Patient Relationship to Insured Coverage Start Date Coverage End Date [facility] [address] [facility] [place] [id number] Sadia Parks Self - patient is the insured Medical (General) History Medical History History ICD Code Arthritis back, hip, knee pain poor circulation measles chicken pox Thyroid disorder Surgical History Surgery Date(Month/Year) tubal ligation 03/1981
--- NOTE | 2025-05-03 16:03 | HO.SPINEOV ---
Intake Visit Reasons: meet Dr.P mathews on 05/10/25 Intake Note: Ms. Parks is here today to meet Dr. rosales her surgery is on 05/10/2025. Medical Accounting Clerk Required: No Allergies Penicillins Allergy (Intermediate, Verified 02/06/25 09:27) Unknown oxycodone (OXYCODONE) Allergy (Unknown, Verified 02/06/25 09:27) ALLERGIC TO CODIENE - FEARFUL TO TRY OXYCODONE gabapentin Allergy (Verified 04/26/25 10:42) Headache codeine (CODEINE) Adverse Reaction (Unknown, Verified 02/06/25 09:27) NAUSEA & VOMITING Assessment & Plan Assessment & Plan (1) Scoliosis of lumbar region due to degenerative disease of spine in adult: Code(s): M41.56 - Other secondary scoliosis, lumbar region Category: Medical Plan On 05/03/2025, I saw for preoperative visit Sadia Parks. She is 75-year-old female scheduled for correction of the lumbar degenerative scoliosis through an oblique lumbar interbody fusion L2-3, L3-4 and L4-5 and a possible trans Kambin approach for L1-L2 on 05/10/2025. She states that she is suffering from intractable low back pain. Minor stuff will set off severe back pain. It is affecting her quality of life. I made sure to to press the patient on her back pain to make sure that surgery is indicated. We went over the procedure, expected hospital stay and expected postoperative course. She lives with a friend which will take care of her. I spent in his consult describing the procedure and answering questions. Daniel Rosales MD, PhD Spine Fellowship Trained Neurosurgeon Director, [facility] Coding Level of Care Code Est Pt Level 5 (54502) Diagnoses Scoliosis of lumbar region due to degenerative disease of spine in adult M41.56
== END 2025-05-03 16:57 | disposition home or self-care (01) ==
LOC: HO.HNS 15:20
PROVIDERS: PCP Internal Medicine; Visit Provider Neurological Surgery
DX: M41.56 Other secondary scoliosis, lumbar region (principal)
CPT/HCPCS: 99215

== ENCOUNTER → 2025-05-03 15:19 | Outpatient (BNVA) | payer MEDICARE, SELFPAY | PROVIDERS: PCP Internal Medicine; Visit Provider Neurological Surgery | DX: Z01.818 Encounter for other preprocedural examination (principal); M41.56 Other secondary scoliosis, lumbar region; M54.59 Other low back pain | CPT/HCPCS: 99212 ==

== ENCOUNTER 2025-05-10 07:18 | Inpatient (IN) | payer MEDICARE, SELFPAY ==
[2025-04-26 10:47] VITALS: BP 130/63; PULSE 57; RESP 17; O2SAT 95; BMI 27.0
--- NOTE | 2025-04-26 10:56 | HO.ANESPROP2 ---
Documented by User: Keshia Jeff NP 05/09/25 09:39 HPI - Anesthesia Eval Consult details Narrative: 75yo F for L2-3,L3-4,L4-4 Oblique Lumbar Interbody Fusion with possible L1-2 TKLIF, 05/10/25 No recent illness No CP/SOB with stairs multiple times daily GERD: ppi controls Vertigo: Meclizine prn - rarely needs PMFSH Active Problems Active Problems: All Active Problems Osteoarthritis of right shoulder (Acute) Osteopenia determined by x-ray (Acute) Right shoulder pain (Acute) Degenerative scoliosis (Acute) Swelling of joint, wrist, right (Acute) Right wrist sprain (Acute) Impacted cerumen of right ear (Acute) Open wound of left thigh (Acute) Blepharitis of both eyes (Acute) Conjunctivitis (Acute) Blepharitis, left eye (Acute) Dizziness (Acute) Somatic dysfunction of right sacroiliac joint (Acute) Past Medical History Medical History (Updated 05/10/25 @ 06:24 by Michelle Sutton RN) Bilateral cataracts History of headache Arthritis Back pain DJD (degenerative joint disease) Thyroid disease Lactose intolerance IBS (irritable bowel syndrome) Osteopenia GERD (gastroesophageal reflux disease) Lichen sclerosus Grieving Depression Vulvar atrophy Vaginal atrophy Chest pain Pre-hypertension Hypercholesteremia Hiatal hernia Chronic right shoulder pain Vertigo Family History Family history of problems with anesthesia: No Surgical History Surgical History (Updated 04/26/25 @ 10:41 by Yajaira King RN) Hx of tonsillectomy H/O colonoscopy History of tubal ligation History of Problems with Anesthesia: No Social History Social History (Updated 01/16/25 @ 10:55 by Jean Paul Klein) Are you a primary child caregiver private home to a significant other at home: No Do you presently have visiting nurse or other home services: No Alcohol intake: current Alcohol intake frequency: holidays/special occasions only Patient Tobacco Use Status: Former Tobacco user Use of substances other than those prescribed or required for medical reasons: No Have you been hit, kicked, punched, or otherwise hurt by someone within the past year? If so, by whom?: No Are you DNR?: No Advance Directives: No Advance Directives Information Provided: No Advance Directives on File: No Patient : No : No Poor oral hygiene: Yes Current occupational status: retired Current occupation: right hand dominant Meds Allergies Allergy/AdvReac Type Severity Reaction Status Date / Time Penicillins Allergy Intermediate Unknown Verified 02/06/25 09:27 gabapentin Allergy Headache Verified 04/26/25 10:42 codeine (CODEINE) AdvReac Unknown NAUSEA & Verified 02/06/25 09:27 VOMITING oxycodone (OXYCODONE) AdvReac Unknown ALLERGIC Verified 05/10/25 06:25 TO CODIENE - FEARFUL TO TRY OXYCODONE Home Medications ?Medication ?Instructions ?Recorded ?Confirmed ?Last Taken ?Type levothyroxine 88 mcg tablet 88 mcg PO DAILY 02/19/22 04/25/25 05/10/25 History atorvastatin 10 mg tablet 10 mg PO DAILY 07/25/24 04/26/25 05/10/25 History omeprazole 20 mg capsule,delayed 20 mg PO DAILY 07/25/24 04/25/25 Unknown History release sertraline 100 mg tablet 100 mg PO DAILY 07/25/24 04/26/25 Unknown History Bifidobacterium infantis 4 mg 4 mg PO DAILY 04/25/25 04/25/25 Unknown History capsule (Align (B.infantis)) calcium 500 mg (as 2 tab PO DAILY 04/25/25 04/25/25 Unknown History carbonate)-vitamin D3 3.125 mcg (125 unit) tablet multivitamin 1 tab PO DAILY 04/25/25 04/25/25 Unknown History meclizine 12.5 mg tablet 12.5 mg PO TID PRN dizziness 04/26/25 04/26/25 Unknown History Exam Height,Weight and Vital Signs: Height 4 ft 9 in Weight 56.699 kg Last Vital Signs Pulse 57 04/26/25 10:47 Resp 17 04/26/25 10:47 BP 130/63 04/26/25 10:47 Pulse Ox 95 04/26/25 10:47 O2 Del Method Room Air 04/26/25 10:47 Pertinent Lab Results Pertinent Lab Results: Lab Results 04/26/25 04/26/25 Range/Units 11:25 11:40 WBC 7.8 (4.8-10.8) X10*3/uL RBC 5.04 (4.20-5.50) X10*6/uL Hgb 12.7 (12.0-16.0) g/dl Hct 39.2 (37.0-47.0) % MCV 77.8 L (80.0-98.0) fL MCH 25.2 L (27.0-33.0) pg MCHC 32.4 (31.0-35.0) g/dl RDW 13.6 (11.0-16.0) % Plt Count 279 (160-400) X10*3/uL MPV 11.1 (9.4-12.3) fL Absolute Nucleated RBC 0.000 (0.0-0.012) X10*3/uL Nucleated RBC % (auto) 0.0 (0.0-0.2) /100WBC Sodium 143 (135-145) mmol/L Potassium 3.8 (3.3-5.1) mmol/L Chloride 110 H (96-108) mmol/L Carbon Dioxide 23 (22-29) mmol/L Anion Gap 14 (12-20) BUN 19 H (9-16) mg/dL Creatinine 0.69 (0.5-1.4) mg/dL Estim Creat Clear Calc 50.9 Estimated GFR > 60 Random Glucose 88 (60-115) mg/dL Calcium 9.5 (8.4-10.2) mg/dL Blood Type O Positive Antibody Screen NEGATIVE Narrative Narrative: EKG 11/2024 Vent. Rate : 062 BPM Atrial Rate : 062 BPM P-R Int : 172 ms QRS Dur : 090 ms QT Int : 418 ms P-R-T Axes : 075 036 041 degrees QTc Int : 424 ms Normal sinus rhythm Normal ECG When compared with ECG of 20-DEC-2023 10:11, Nonspecific T wave abnormality, improved in Inferior leads T wave inversion no longer evident in Lateral leads Airway Mallampati Class: II TM Dist: >3cm Neck ROM: Full Loose/Missing/Broken Teeth: Yes (missing molars, cracked right side molar) Heart: RRR Lungs: CTAB Assessment and Plan Assessment Anesthesia Assessment: Anesthesia Plan Discussed and PAT Visit Final Anesthetic Review Family History of Problems with Anesthesia: No History of Problems with Anesthesia: No Documented by User: Radha Wright MD 05/10/25 07:04 [facility] Past Medical History Medical History (Updated 05/10/25 @ 06:24 by Michelle Sutton RN) Bilateral cataracts History of headache Arthritis Back pain DJD (degenerative joint disease) Thyroid disease Lactose intolerance IBS (irritable bowel syndrome) Osteopenia GERD (gastroesophageal reflux disease) Lichen sclerosus Grieving Depression Vulvar atrophy Vaginal atrophy Chest pain Pre-hypertension Hypercholesteremia Hiatal hernia Chronic right shoulder pain Vertigo Surgical History Surgical History (Updated 04/26/25 @ 10:41 by Yajaira King RN) Hx of tonsillectomy H/O colonoscopy History of tubal ligation Social History Social History (Updated 01/16/25 @ 10:55 by Jean Paul Klein) Are you a primary child caregiver private home to a significant other at home: No Do you presently have visiting nurse or other home services: No Alcohol intake: current Alcohol intake frequency: holidays/special occasions only Patient Tobacco Use Status: Former Tobacco user Use of substances other than those prescribed or required for medical reasons: No Have you been hit, kicked, punched, or otherwise hurt by someone within the past year? If so, by whom?: No Are you DNR?: No Advance Directives: No Advance Directives Information Provided: No Advance Directives on File: No Patient : No : No Poor oral hygiene: Yes Current occupational status: retired Current occupation: right hand dominant Meds Allergies Allergy/AdvReac Type Severity Reaction Status Date / Time Penicillins Allergy Intermediate Unknown Verified 02/06/25 09:27 gabapentin Allergy Headache Verified 04/26/25 10:42 codeine (CODEINE) AdvReac Unknown NAUSEA & Verified 02/06/25 09:27 VOMITING oxycodone (OXYCODONE) AdvReac Unknown ALLERGIC Verified 05/10/25 06:25 TO CODIENE - FEARFUL TO TRY OXYCODONE Home Medications ?Medication ?Instructions ?Recorded ?Confirmed ?Last Taken ?Type levothyroxine 88 mcg tablet 88 mcg PO DAILY 02/19/22 04/25/25 05/10/25 History atorvastatin 10 mg tablet 10 mg PO DAILY 07/25/24 04/26/25 05/10/25 History omeprazole 20 mg capsule,delayed 20 mg PO DAILY 07/25/24 04/25/25 Unknown History release sertraline 100 mg tablet 100 mg PO DAILY 07/25/24 04/26/25 Unknown History Bifidobacterium infantis 4 mg 4 mg PO DAILY 04/25/25 04/25/25 Unknown History capsule (Align (B.infantis)) calcium 500 mg (as 2 tab PO DAILY 04/25/25 04/25/25 Unknown History carbonate)-vitamin D3 3.125 mcg (125 unit) tablet multivitamin 1 tab PO DAILY 04/25/25 04/25/25 Unknown History meclizine 12.5 mg tablet 12.5 mg PO TID PRN dizziness 04/26/25 04/26/25 Unknown History Exam Airway Mallampati Class: II ( issing a. oupke teeth, denies [place] loose) Assessment and Plan Final Anesthetic Review NPO: Yes ASA Class: III Final Preanesthetic Review: No Changes in Pt Med Stat, Meds/Allgs Chart Reviewed and Consent Obtained/Reviewed Patient Risk: Intermediate Procedure Risk: Intermediate Anesthetic Plan Anesthetic Plan: GA Disposition: Standard PACU
[2025-04-26 11:48] LABS: Hematocrit 39.2 % (37.0-47.0); Hemoglobin 12.7 g/dl (12.0-16.0); Mean Corpuscular HGB Conc 32.4 g/dl (31.0-35.0); Mean Corpuscular Hemoglobin 25.2 pg (27.0-33.0); Mean Corpuscular Volume 77.8 fL (80.0-98.0); NRBC Abs Auto 0.000 X10*3/uL (0.0-0.012); NRBC Pct Auto 0.0 /100WBC (0.0-0.2); Platelet Count 279 X10*3/uL (160-400); Red Blood Count 5.04 X10*6/uL (4.20-5.50); White Blood Count 7.8 X10*3/uL (4.8-10.8)
[2025-04-26 12:19] LABS: Anion Gap 14 (12-20); Blood Urea Nitrogen 19 mg/dL (9-16); Calcium 9.5 mg/dL (8.4-10.2); Carbon Dioxide 23 mmol/L (22-29); Chloride 110 mmol/L (96-108); Creatinine Clr Calc Pharmacy 50.9; Estimated Glomerular Filt Rate > 60; Potassium 3.8 mmol/L (3.3-5.1); Sodium 143 mmol/L (135-145)
[2025-05-10] VITALS (13 sets, daily range): BP systolic 91–160; BP diastolic 32–63; PULSE 63–89; RESP 12–20; TEMP 36.2–37.2; O2SAT 84–100; BMI 28.0
--- NOTE | ~2025-05-10 | FL_ITS ---
EXAMINATION: FL GUIDANCE ONLY HISTORY: L2-5 OLIF COMPARISON: Correlation is made to plain films of the lumbar spine dated 11/07/2024. TECHNIQUE: Fluoroscopy time: 3 minutes, 6 seconds. Cumulative Dose: 101.5 mGy. DAP: 69.42 mGym2 Images: 4. FINDINGS: Images demonstrate posterior fusion of L2-L5 with pedicle screws, spinal stabilization rods, and intervertebral spacers. FL/FL guidance in OR IMPRESSION: Fluoroscopy during procedure. Please see procedure report for additional information. Electronically signed by: Srinivas Aguilar MD 05/10/2025 12:27 PM EDT
--- OUTSIDE RECORDS SUMMARY | 2025-05-10 06:23 | XMS_ITS | Clinical Summary ---
Author Organization [facility] Address [address] [place] [address] Care Team Providers Care Steam Train Driver Name Role Phone Caitlin Hernandez MD Primary Care Provider [phone] Allergies Active Allergy Reactions Severity Noted Date [...] Hypothyroidism 06/30/2013 [facility] (degenerative [facility] disease[facility] spine 05/21/2011 Overview: Injury 1994. 2010 [...] TOMASZ. She will likely desire referral to [place] if any follow up is needed such [...] Brother Hypertension Father Hypertension Mother CT, dialysis Cancer, Other Sister Hypertension Sister CA [...] 10/23/2021, 11/2020, 06/02/2021 (External Completion) Care Teams Steam Train Driver Relationship Specialty Start Date End Date Caitlin Hernandez MD [address] [place] [address] [phone] PCP - General Internal Medicine 09/03/21
--- OUTSIDE RECORDS SUMMARY | 2025-05-10 06:23 | XMS_ITS | Clinical Summary ---
Author Organization [facility] [address] [place] [address] [place] [phone] Phone Care Team Providers Care Manager Council Name Role Phone Caitlin Hernandez MD Primary Care Provider [phone] Allergies Active Allergy Reactions Criticality Noted Date [...] 03/22/2025 11:00 AM EDT Office Visit Adult [address] [phone] Caitlin Hernandez MD Menjivar angioma (Primary Dx); Anxiety; Chronic pain of toe of right foot; Hypercholesterolemia; Hypothyroidism, unspecified type; Depression, unspecified depression type 03/20/2025 1:00 PM EDT Office Visit Adult [address] [phone] Christiano Flor PA Other specified hypothyroidism (Primary Dx); Other osteoporosis without current pathological fracture; Chronic low back pain with sciatica, sciatica laterality unspecified, unspecified back pain laterality 03/07/2025 Telephone Adult [address] [phone] Dorene Luciano [place] Forms/questionnaires from Last 3 [...] Date Site/Laterality Comments OTHER SURGICAL HISTORY PROCEDURE: NC LIG/TRNSXJ FLP TUBE ABDL/VAG APPR UNI/BI COLONOSCOPY [...] Comments Hypertension Brother Hypertension Father Hypertension Mother [place], dialysis Hypertension Sister Other cancer Sister Breast [...] 9:45 AM EDT Consult Orthopedic Surgery - [place] [address] [phone] [place], DPM [address] [address] 06/22/2025 9:30 AM EDT Office Visit Adult Medicine [facility] [address], [place] [phone] Tammi Tejeda, ANNIE [address], [place] Health Maintenance Due Date Last Done [...] Screening: Stool Based Tests (FOBT/FIT) 03/15/2025 03/15/2024 Influenza Vaccine (#1) 2025 , 08/01/2023, 07/05/2023, Additional history exists Cholesterol Screening (Lipid Panel) 03/20/2030 03/20/2025, 07/18/2024, [...] topic Colorectal Cancer Screening: Colonoscopy Discontinued 03/15/2024 Pneumococcal Vaccine: 50+ Years Completed 10/03/2024, 10/03/2024, [...] mg/dL LAB CHEMISTR[facility] 5[facility] Triglycerides 185(H) 0 - 150 mg/dL LAB CHEMISTRY METHOD 03/20/2025 5:39 PM [facility] HDL 54 >=40 mg/dL LAB CHEMISTRY METHOD 03/20/2025 5:39 PM EDT [facility] LDL Calculated 153(H) 0 - 100 mg/dL LAB CHEMISTRY METHOD 03/20/2025 5:39 PM [facility] VLDL Cholesterol Aly 37 mg/dL LAB CHEMISTRY METHOD 03/20/2025 5:39 PM [facility] Non HDL Chol. (LDL+VLDL) 190(H) <145 mg/dL LAB CHEMISTRY METHOD 03/20/2025 5:39 PM EDT [facility] Chol/HDL Ratio 4.5(H) 0.0 - 4.4 LAB CHEMISTRY METHOD 03/20/2025 5:39 PM EDT [facility] Blood Venous blood specimen / Unknown Venipuncture / Unknown 03/20/2025 1:56 PM EDT 03/20/2025 1:56 PM EDT us Christiano PAUL LAB BLOOD ORDERABLES Fin al Result [facility] [address] [place] [address], * (ABNORMAL) CBC auto differential (03/20/2025 1:56 PM EDT) WBC 7.8 4.8 - 10.8 K/mcL LAB HEMETOLOGY METHOD 03/20/2025 5:01 PM [facility] RBC 5.10(H) 3.80 - 4.80 M/mcL LAB HEMETOLOGY METHOD 03/20/2025 5:01 PM [facility] Hemoglobin 13.1 11.5 - 16.0 g/dL LAB HEMETOLOGY METHOD 03/20/2025 5:01 PM EDT [facility] Hematocrit 41.4 35.0 - 47.0 % LAB HEMETOLOGY METHOD 03/20/2025 5:01 PM [facility] MCV 81.5 79.0 - 98.0 FL LAB HEMETOLOGY METHOD 03/20/2025 5:01 PM [facility] MCH 25.8(L) 27.0 - 32.0 pcg LAB HEMETOLOGY METHOD 03/20/2025 5:01 PM [facility] MCHC 31.6(L) 32.0 - 37.0 g/dL LAB HEMETOLOGY METHOD 03/20/2025 5:01 PM [facility] RDW 13.2 11.0 - 15.0 % LAB HEMETOLOGY METHOD 03/20/2025 5:01 PM [facility] Platelets 304 130 - 400 K/mcL LAB HEMETOLOGY METHOD 03/20/2025 5:01 PM [facility] MPV 11.8(H) 7.0 - 11.0 FL LAB HEMETOLOGY METHOD 03/20/2025 5:01 PM [facility] NRBC 0.0 <1.0 % LAB HEMETOLOGY METHOD 03/20/2025 5:01 PM [facility] NRBC Absolute 0.00 <0.10 K/mcL LAB HEMETOLOGY METHOD 03/20/2025 5:01 PM [facility] Neutrophils Relative 56.3 % LAB HEMETOLOGY METHOD 03/20/2025 5:01 PM [facility] Lymphocytes Relative 30.2 % LAB HEMETOLOGY METHOD 03/20/2025 5:01 PM [facility] Monocytes Relative 9.8 % LAB HEMETOLOGY METHOD 03/20/2025 5:01 PM [facility] Eosinophils Relative 2.9 % LAB HEMETOLOGY METHOD 03/20/2025 5:01 PM [facility] Basophils Relative 0.5 % LAB HEMETOLOGY METHOD 03/20/2025 5:01 PM [facility] Immature Granulocytes Relative 0.3 % LAB HEMETOLOGY METHOD 03/20/2025 5:01 PM [facility] Neutrophils Absolute 4.40 1.50 - 7.00 K/mcL LAB HEMETOLOGY METHOD 03/20/2025 5:01 PM [facility] Lymphocytes Absolute 2.36 1.00 - 5.00 K/mcL LAB HEMETOLOGY METHOD 03/20/2025 5:01 PM [facility] Monocytes Absolute 0.77 0.20 - 1.00 K/mcL LAB HEMETOLOGY METHOD 03/20/2025 5:01 PM EDT [facility] Eosinophils Absolute 0.23 0.00 - 0.50 K/[facility] LAB HEMETOLOGY METHOD 03/20/2025 5:01 PM EDT [facility] Basophils Absolute 0.04 0.00 - 0.20 K/[facility] LAB HEMETOLOGY METHOD 03/20/2025 5:01 PM EDT [facility] Immature Granulocytes Absolute 0.02 0.00 - 0.03 K/[facility] LAB HEMETOLOGY METHOD 03/20/2025 5:01 PM EDT [facility] Blood Venous blood specimen / Unknown Venipuncture / Unknown 03/20/2025 1:56 PM EDT 03/20/2025 1:56 PM EDT Christiano PAUL LAB BLOOD ORDERABLES Fin al Result Performing Organization Address City/[facility] [address]/ZIP Co de Phone Number [facility] [address] [place] [address], [place] [phone] * Vitamin D 25 hydroxy (03/20/2025 1:56 PM EDT) Vit D, 25-Hydroxy 73.3 30.0 - 80.0 ng/mL LAB CHEMISTRY METHOD 03/20/2025 6:17 PM EDT [facility] Blood Venous blood specimen / Unknown Venipuncture / Unknown 03/20/2025 1:56 PM EDT 03/20/2025 1:56 PM EDT us Christiano PAUL LAB BLOOD ORDERABLES Fin al Result [facility] [address] [place] [address], [place] [phone] * Thyroid stimulating hormone (03/20/2025 1:56 PM EDT) [facility] TSH 0.67 0.40 - 4.00 mcIU/mL LAB CHEMISTRY METHOD 03/20/2025 6:17 PM EDT [facility] Blood Venous blood specimen / Unknown Venipuncture / Unknown 03/20/2025 1:56 PM EDT 03/20/2025 1:56 PM EDT us Christiano PAUL LAB BLOOD ORDERABLES Fin al Result [facility] [address] [place] [address], * Comprehensive metabolic panel (03/20/2025 1:56 PM EDT) [facility] Sodium 145 133 - 145 mmol/L LAB CHEMISTRY METHOD 03/20/2025 5:39 PM [facility] Potassium 3.8 3.5 - 5.5 mmol/L LAB CHEMISTRY METHOD 03/20/2025 5:39 PM [facility] Chloride 109 96 - 110 mmol/L LAB CHEMISTRY METHOD 03/20/2025 5:39 PM [facility] CO2 25 21 - 32 mmol/L LAB CHEMISTRY METHOD 03/20/2025 5:39 PM [facility] Anion Gap 11 3 - 11 LAB CHEMISTRY METHOD 03/20/2025 5:39 PM [facility] Glucose 95 70 - 100 mg/dL LAB CHEMISTRY METHOD 03/20/2025 5:39 PM [facility] BUN 12 5 - 25 mg/dL LAB CHEMISTRY METHOD 03/20/2025 5:39 PM [facility] Creatinine 0.81 0.50 - 1.10 mg/dL LAB CHEMISTRY METHOD 03/20/2025 5:39 PM [facility] eGFR 76 >=60 mL/min/1. 73m2 LAB CHEMISTRY METHOD 03/20/2025 5:39 PM EDT [facility] Comment:Calculation based on the Chronic Kidney Disease Epidemiology Collaboration (CKD-EPI) equation refit without adjustment for race. BUN/Creatinine Ratio 14.8 LAB CHEMISTRY METHOD 03/20/2025 5:39 PM [facility] Calcium 9.5 8.5 - 10.5 mg/dL LAB CHEMISTRY METHOD 03/20/2025 5:39 PM [facility] AST (SGOT) 17 10 - 42 unit/L LAB CHEMISTRY METHOD 03/20/2025 5:39 PM [facility] ALT (SGPT) 19 10 - 60 unit/L LAB CHEMISTRY METHOD 03/20/2025 5:39 PM [facility] Alkaline Phosphatase 87 42 - 121 unit/L LAB CHEMISTRY METHOD 03/20/2025 5:39 PM [facility] Total Protein 7.4 6.0 - 8.0 g/dL LAB CHEMISTRY METHOD 03/20/2025 5:39 PM [facility] Albumin 4.3 3.2 - 5.0 g/dL LAB CHEMISTRY METHOD 03/20/2025 5:39 PM [facility] Total Bilirubin 0.3 0.0 - 1.4 mg/dL LAB CHEMISTRY METHOD 03/20/2025 5:39 PM [facility] Blood Venous blood specimen / Unknown Venipuncture / Unknown 03/20/2025 1:56 PM EDT 03/20/2025 1:56 PM EDT us Christiano PAUL LAB BLOOD ORDERABLES Fin al Result [facility] [address] [place] [address], [place] [phone] * External Dexa Report (01/27/2025) Anatomical Region Laterality Modality Bone Densitometr y us Provider [facility] IMG DXA PROCEDURES Final Result * Colonoscopy (03/15/2024) Colonoscopy no interpretation , abstracted Anatomical Region Laterality Modality Other Historical Provider HEALTH MAINTENANCE Final Result * Depression Screening (03/14/2024) Depression Screening abstracted Historical Provider HEALTH MAINTENANCE Final [...] Cervical Cancer Screening: HPV (05/19/2014) Pathologist [facility] Cervical Cancer Screening: HPV normal, abstracted Historical Provider HEALTH MAINTENANCE Final Result * Hepatitis C Screening (06/28/2013) Pathologist [facility] Hepatitis C Screening abstracted Historical Provider HEALTH MAINTENANCE Final Result from Last 3 Months or Most Recently Relevant to Health Maintenance Insurance MEDICARE [facility] Care Teams Manager Council Relationship Specialty Start Date End Date Caitlin Hernandez MD [address] [place] [phone] PCP - General Internal Medicine 09/03/21
--- OUTSIDE RECORDS SUMMARY | 2025-05-10 06:23 | XMS_ITS | Patient Health Record ---
Author Organization [facility] Fidelina reema CalderonMarquez Address [address] [place] [address] Care Team Providers Care Director Digital Analytics Name Role Phone Love Ford MD Primary Care Provider Omid Perrin Unavailable [phone] Allergies Allergen (clinical drug ingredient) Drug/Non Drug [...] Status W/U Status Risk Notes Problem Onychomycosis (085501450) Onychomycosis (110.1) Active confirmed Problem Disorder of joint of ankle and/or foot (104806711) Arthritis - Degenerative (719.97) Active confirmed Problem Pain in limb (67539837) Pain in Limb (729.5) Active confirmed Problem Plantar fasciitis (750280255) Plantar Fasciitis (728.71) Active confirmed Problem Congenital pes planus (30383682) Flat Foot, 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 Problem Tinea pedis (1460560) Tinea Pedis (110.4) Active confirmed Problem Ingrowing nail (054326878) Ingrowing Nail (703.0) Active confirmed Problem Exostosis (92678803) Exostosis (726.91) Active confirmed Plan Of Treatment Pending Test Test Name Order Date X ray : Foot, right 3V 10/06/2011 X ray : Foot, right 3V 05/15/2014 Insurance Providers Payer Name Payer Address Payer Phone Subscriber Number Group Number Insured Name Patient Relationship to Insured Coverage Start Date Coverage End Date [facility] [address] [facility] [place] [phone] [id number] Sadia Parks Self - patient is the insured Medical (General) History Medical History History ICD Code Arthritis back, hip, knee pain poor circulation measles chicken pox Thyroid disorder Surgical History Surgery Date(Month/Year) tubal ligation 03/1981
--- NOTE | 2025-05-10 07:06 | MHC.SHP ---
Pre-Procedural Eval Section A - 24 Hr Update-Section A only Date of Service: 05/10/25 Section B - Complete if H&P > 30 days Chief Complaint: s/p L2-5 OLIF Allergies: Allergies Allergy/AdvReac Type Severity Reaction Status Date / Time Penicillins Allergy Intermediate Unknown Verified 02/06/25 09:27 gabapentin Allergy Headache Verified 04/26/25 10:42 codeine (CODEINE) AdvReac Unknown NAUSEA & Verified 02/06/25 09:27 VOMITING oxycodone (OXYCODONE) AdvReac Unknown ALLERGIC Verified 05/10/25 06:25 TO CODIENE - FEARFUL TO TRY OXYCODONE Review of Systems Sugical H&P ROS: Negative: Constitution, Cardiovascular, Respiratory, Neurological, Psychiatric, Hem-Onc, Allergic/Immunologic, Gastrointestinal, Genitourinary, Musculoskeletal, Integumentary, Endocrine and Eyes/Ears/Nose/Throat Exam Surgical H&P Exam: Not Evaluated: HEENT, Not Evaluated: Heart, Not Evaluated: Lungs, Not Evaluated: Extremities, Not Evaluated: Abdomen, Not Evaluated: Skin and Not Evaluated: Neurological Exam Comment: The patient is awake, alert, no acute distress. Proposed surgical incision site is clean, dry, with no signs of recent trauma. Plan Diagnosis/Plan: Unchanged I have reviewed the history and physical and performed a pertinent physical examination on my patient. No changes have occurred unless specified. Plan remains the same, L2-5 OLIF with possible L1-2 TKLIF. Time Spent With Patient Time: Total time managing care of this patient today __12__ minutes.
[2025-05-10] MEDS: Lactated Ringers 1,000 ML 100 ML IVCONT (07:21)
--- NOTE | 2025-05-10 07:32 | PC.NURSE ---
IV INFILTRATED. REMOVED IV TO LEFT FOREARM, NEW IV INSERTION.
--- NOTE | 2025-05-10 08:10 | PC.NURSE ---
MD KATHLEEN WAS IN A TRAFFIC JAM
--- NOTE | 2025-05-10 11:42 | P.OP_ITS ---
Operative Note Operative Note Date of Service: 05/10/25 Narrative: Preop Diagnosis: 1.) Degenerative scoliosis 2.) Back pain Procedure: 1) L2-3, L3-4 and L4-5 discectomy, arthrodesis and implantation cage through an anterolateral, retroperitoneal approach 2) L2-L5 posterior instrumented fusion 3) Allograft 4) Injection of 10 cc of Exparel at the transverse process for a muscular erector spinae block and additional Exparel in paravertebral tissue for postop management Consent Informed Consent was obtained for this operation. I have explained the nature, purpose and benefits of the operation. I have discussed the risks and benefit of the operation including possible complications or adverse events with patient/family. Alternative(s) were discussed with the patient with their relative benefits and risks as well as the consequences of not accepting the operation were included in obtaining consent. Surgeon: MEGAN KATHLEEN MD, PHD Procedure Assisted By: HUMBERTO Steen Description of Procedure This 75-year-old female is suffering from intractable low back pain. Imaging shows a lumbar degenerative scoliosis. The patient was offered an oblique lumbar interbody fusion L2-3, L 3 4 and L4-5. The procedure and complications were explained. The patient was consented. The patient was brought to the operating room and endotracheally intubated. The patient was turned in a lateral position with the left side up. Prep and drape was done followed by timeout. A small inc ision was made in the left lower abdominal quadrant. The muscle fascia was opened after which the 3 muscle layer was split to enter the retroperitoneal space. Dilators were docked in the anterior one third of the L4-5 disc space followed by a retractor. The retractor was opened. The L4-5 disc space was exposed. An annulotomy was done after which an elevator Pearl was used to release the disc material from its endplates and to perforate the contralateral side. A partial discectomy was done. An 8 mm height trial implant was inserted. The discectomy was completed. The endplates were prepared. An 8 mm x 45 mm with 0 degree lordosis 4 web cage filled with allograft was inserted into the disc space under fluoroscopic guidance. Then attention was turned to the L3-4 disc space. Again a collapsed disc space was encountered. Similar steps were repeated. An 8 mm trial implant was inserted after diskectomy was done. Then again an 8 mm x 45 mm with 0 degree lordosis 4 web cage filled with allograft was inserted into the disc space. Finally we addressed the L2-3 level by placing the retractor over the L2-3 disc level. An annulotomy was done. Partial diskectomy was done. An 8 mm high trial was inserted. Maybe a small compression fracture occurred maybe a small endplate fracture during placement of the trial. The diskectomy was completed. The endplates were prepared after which an 8 mm x 45 mm with 0 degree lordosis 4 web cage was inserted under fluoroscopic guidance. This resulted in correction of the degenerative scoliosis. The retractor was removed. Hemostasis was done. The incision was closed in 2 layers. Steri-Strips used to approximate incision. An OpSite with Tegaderm was used to cover the incision. This marked first part of the procedure. The patient was turned prone on the Denzel spine table. 2C arms were installed for fluoroscopy. Prep and drape was done followed by a second timeout. Injection of 10 cc of Exparel at the bilateral L3 transverse processi for a muscular erector spinae block. Paramedian incisions were made lateral from the L2, L3, L4 and L5 pedicles. The muscle fascia was opened after which the muscle layer was split bluntly to expose the posterolateral gutter. The following steps were taken. A pediguard tap was used to create a transpedicular trajectory into the vertebral body. A K wire was placed. A specially designed instrument was a dvanced over the K wire to decorticate the posterolateral gutter in preparation for the posterolateral fusion. A pedicle screw was advanced over the K wire and the K wire was removed. The steps were done for the bilateral L2-L5 pedicles. A total of 8 screws were placed with a diameter of 6.5 x 45 mm. Pedicle screws were connected with 90 mm alejandra bilaterally and locked down with locking caps. The extension towers were removed. The posterolateral gutter was filled with allograft to complete the posterolateral L2-L5 fusion Hemostasis was done and the incision was closed in 2 layers. Steri-Strips were used to approximate the incision. An OpSite with tegaderm was used to cover the incision. All sponge and needle counts were correct. Patient was extubated and transferred in stable is to recovery room. Overall, the bone quality in his patient was for despite the DEXA scan stating that she has normal bone quality. Anesthesia: General Estimated Blood Loss (ml): 50 Duration of Surgery: 3 hours Complications: None Postoperative Plan: Admit to inpatient for clinical observation
--- NOTE | 2025-05-10 12:06 | PHA.MEDREC ---
Pharmacy Consult ? Medication Reconciliation Pharmacy has completed the medication reconciliation.
[2025-05-11] VITALS (7 sets, daily range): BP systolic 109–142; BP diastolic 52–67; PULSE 75–97; RESP 18; TEMP 36.5–37.5; O2SAT 92–98
--- NOTE | 2025-05-11 07:40 | HO.POSTANES ---
Post Anesthesia Evaluation Post Anesthesia Evaluation Date of Service: 05/11/25 Vital Signs: Vital Signs Temp Pulse Resp BP Pulse Ox O2 Del Method O2 Flow Rate 05/11/25 07:34 97.8 F 77 18 114/55 L 98 Room Air 05/11/25 04:00 97.7 F 75 18 110/56 L 96 Nasal Cannula 1 05/10/25 23:19 98.2 F 80 20 132/58 L 96 Nasal Cannula 1 05/10/25 21:17 99.0 F 85 18 117/62 97 Nasal Cannula 1 Anesthesia: General Endotracheal-GETA Mental Status: Awake Pain Control: Satisfactory Nausea/Vomiting: None Hydration: Adequate Anesthesia-Related Issues: No Anes. Related Issues
[2025-05-11] MEDS: Calcium + Vitamin D 250 MG TABLET PO (09:05)
--- NOTE | 2025-05-11 09:31 | MHC.CM.PN ---
IMM delivered. Patient lives in a home w/ a friend. Ambulates independently most times, uses cane PRN for back pain. Otherwise independent. PCP Caitlin Hernandez MD Reports she has an HCP naming her daughter, Tracy, as HCA. DP: PT rec STR. Discussed recommendation and what to expect at STR. Patient declined STR at this time, prefers home w/ [facility] services. Reports her friend can assist and she will stay in a first floor bedroom while recovering. PA aware. Friend will transport. CM will continue to follow.
--- NOTE | 2025-05-11 11:27 | HO.NEURO.PN ---
Neurosurgery Operative Note Date of Service: 05/11/25 Narrative: POD: 1 Procedure: L2-5 OLIF Sadia is a pleasant 75 year old female who underwent L2-[address] Rosales. She was seen sitting upright in the bedside chair this morning on [address] [place] [address]. She reports she has been up OOB a few times since her surgery. She still reports fairly significant low back pain, with good relief with pain medication. She was evaluated by PT who are recommending STR, but the patient would prefer to return back home with health services at the time of discharge. She lives with a friend who can help her with mobility and feeding. Her prieto was discontinued this morning and nursing staff are going to be completing a voiding trial shortly. Afebrile, vital signs stable. Full strength 5/5 in bilateral LE's. Back dressings have no staining / signs of hematoma. No active sanguineous drainage. Area is dry. Plan: Pleasant 75 year old female who underwent L2-[address] Rosales. She will remain admitted to [address] [place] [address] for recovery, pain management, and further evaluation. We are tentatively planning to discharge her tomorrow morning back home. She has a ride already set up that can pick her up tomorrow AM. I will see her again in the morning to ensure she is doing well, and dischage her if appropriate. I will DC her IV NS and Tylneol and transition her to PO. Eagle Rosales MD,PhD [facility]
--- NOTE | 2025-05-11 17:20 | PC.NURSE ---
Oxycodone listed as an allergy. Patient reports having never taken oxycodone. Reports being fearful due to previous reaction to codeine. Patient educated on oxycodone, verbalized understanding. Agreeable to try oxycodone. Patient encouraged to take medication with food.
[2025-05-11] MEDS: oxyCODONE HCl Immed Release 5 MG TABLET 10 MG PO (17:42)
[2025-05-12 04:00] VITALS: BP 116/76; PULSE 90; RESP 18; TEMP 37.2; O2SAT 99
[2025-05-12] MEDS: oxyCODONE HCl Immed Release 5 MG TABLET 10 MG PO ×3 (05:47→13:55)
[2025-05-12] MEDS: Calcium + Vitamin D 250 MG TABLET PO (08:03)
[2025-05-12 08:22] VITALS: BP 135/65; PULSE 82; RESP 18; TEMP 36.8; O2SAT 93
--- NOTE | 2025-05-12 09:20 | HO.NEURO.PN ---
Neurosurgery Operative Note Date of Service: 05/12/25 Narrative: POD 2 L2-5 OLIF Patient reports getting up and walking to the bathroom today, voiding okay but is slow going. Physical therapy recommended she go to rehab, the patient did not want to do it yesterday, but is now reconsidering. She is tolerating a diet but limited by some vomiting. Her pain is reasonably well controlled on the current regimen we have her on. Afebrile, vital signs stable Physical exam: The patient is awake alert oriented lying in bed, having some pain with movement and rolling over but no acute distress. Strength is limited somewhat in the left leg by hip flexor weakness but rest of her bilateral lower extremities is full strength. Abdomen is flat nondistended nontender, left lower quadrant incision clean and dry. Outer dressing removed, Steri-Strips with some dried blood but otherwise looks okay. No rebound tenderness or guarding. Back dressings similarly were removed, shows some dried blood along stab incisions but Steri-Strips are in place. No signs of swelling or infection. Impression: 75-year-old female status post L2-5 oblique lumbar interbody fusion, she is dealing with pain and discomfort with standing and getting around. She was initially planning on just going home today, but is now reconsidering. Physical therapy wanted her to go to rehab yesterday. I spoke with the patient, we had a discussion at length about the fact that she might be better served going to a place where she can get more dedicated therapy in a more intensive way. She is agreeable. She has otherwise met criteria for discharge and we will begin looking for rehab places this morning. She can be discharged today if a bed is available. Case management suspect she needs 3 nights because of her insurance so if need be we will discharge her to rehab in the morning. I will update Dr. Rosales on the patient's status.
--- NOTE | 2025-05-12 09:25 | PM.DS ---
DS: Providers Provider Date of Service: 05/10/25 Date of admission: 05/10/25 07:18 Date of discharge: 05/13/25 Primary care physician: Caitlin Hernandez MD Admitting clinician: Daniel Rosales DS: Diagnosis Discharge Diagnosis (1) Scoliosis of lumbar region due to degenerative disease of spine in adult: Status: Acute DS: Summary Hospital Course Hospital Course: 75-year-old female admitted for elective L2-5 oblique lumbar interbody fusion by Dr. Rosales. Patient underwent a procedure without complications. She was transferred to the PACU and then subsequently up to the 3rd floor where she began her recovery. Her diet was advanced, she did have some nausea, and vomiting, this seemed to pass. Suspected due to narcotics. Pate was removed, no trouble voiding. She was slow to get up and move around, on postoperative day 1. Physical therapy was recommending rehab but the patient deferred. By the 2nd postoperative day, she was still slow just getting up to go to the bathroom so she relented and agreed to go to rehab. Her stay was otherwise unremarkable. The patient at this point is just waiting for a 3rd overnight to qualify to go out to rehab. There were no complications during her hospitalization. Physical exam she is awake alert oriented x3, she has some mild weakness of her left hip flexion which is normal after the surgical approach by the psoas muscle but otherwise distal lower extremity strength is full. Abdomen is soft nondistended nontender. She has a left lower quadrant incision which is clean and dry with Steri-Strips in place. The outer dressing was removed by me today on postoperative day 2. Her back dressings were also removed, there are Steri-Strips in place with some dried blood. There is some ecchymosis around the wound as expected his, but no signs of significant swelling or infection. The patient does not need a brace. She can be out of bed as tolerated. She can be discharged home at the discretion of the rehab. Time Attestation Discharge Coordination Time (in mins): 6 Quality: Safe Use of Opioids Does Pt have an Active Cancer Diagnosis on the Problem List?: No Quality: Stroke Does the patient have a stroke diagnosis?: No Physical Exam Vital Signs: Vital Signs: Last Vital Signs Temp 98.2 F 05/12/25 08:22 Pulse 82 05/12/25 08:22 Resp 18 05/12/25 08:22 BP 135/65 05/12/25 08:22 Pulse Ox 93 05/12/25 08:22 O2 Del Method Room Air 05/12/25 08:22 O2 Flow Rate 1 05/12/25 04:00 BMI result Body Mass Index 28.0 Discharge Plan Discharge Anticipated Discharge Date/Time: 05/13/25 09:34 Patient Disposition: Xfer Inpatient Rehab Fac Discharge Diagnosis: Lumbar scoliosis, status post L2-5 oblique lumbar interbody fusion Referrals: Caitlin Hernandez MD [Primary Care Provider, Medical] - 1 Week Discharge Medications: New oxycodone 5 mg tablet See Rx Instructions .ROUTE .COMPLEX PRN (Reason: pain) Qty: 20 0RF Rx Instructions: 1-2 tabs po q4 hours prn pain; Partial Fill upon patient request. Continued multivitamin Tablet 1 tab PO DAILY calcium carbonate-vitamin D3 500 mg-3.125 mcg (125 unit) Tablet 2 tab PO DAILY Align (B.infantis) 4 mg Capsule 4 mg PO DAILY meclizine 12.5 mg tablet 12.5 mg PO TID PRN (Reason: dizziness) levothyroxine 88 mcg tablet 88 mcg PO DAILY sertraline 100 mg tablet 100 mg PO DAILY omeprazole 20 mg capsule,delayed release(DR/EC) 20 mg PO DAILY atorvastatin 10 mg tablet 10 mg PO DAILY Discharge Orders: Discharge Order (Routine); Ordered 05/13/25 Ordered By: Manny Garcia Diet: Advance to usual diet Activity on Discharge: As tolerated Stand Alone Forms: Patient Portal Discharge page Print Language: Icelandic Activity Restrictions/Additional Instructions: After your spinal surgery we ask you to observe the following restrictions/guidelines: Activity: It is normal to feel some discomfort as you increase your activity, but that will improve with time. We ask you avoid heavy lifting or acitivities that cause pain. As a general rule, 8lbs is a safe limit for lifting right after surgery. Walk as much as you feel comfortable but not to exhaustion. You will feel extra tired the first few days after surgery. Stay well hydrated. It is OK to walk up and down stairs You may return to driving when you are off narcotics (such as vicodin, oxycodone, dilaudid, etc), and you are back to normal functional capacity. If you have any concerns please check with office before driving. Return to work is specific to each patient and each surgery, so please speak with your doctor/PA at first follow up. Please bring paperwork such as FMLA at that time if you need it filled out. Medications: For optimum pain control, it is best to start with a combination of 500 mg of Tylenol every 4 hours with 600 mg of Motrin every 8 hours, and use narcotics as needed in between for breakthrough pain. We will give you a short supply of narcotics after surgery (usually one weeks worth). If you need more please call the office but do not use more than prescribed. You will need to give our office 48 hours notice if you need narcotics refilled and we do not fill narcotics on weekends or evenings. If you are on a narcotic, it is a good idea to take a stool softener such as colace or senna to avoid constipation If you take blood thinner such as aspirin, Plavix, Coumadin, Effient, Eliquis etc for conditions such as Afib, DVT, Pulmonary embolus, coronary disease, stents etc please speak with your surgeon about specific details as to when you can resume these medications. You can resume NSAIDs on post op day 1 (eg: Motrin, Naproxen, etc). Follow up: Please call the office, , after surgery to arrange a 3 week follow up for wound check. Wound Care: You may remove your dressing on the first day after surgery. ?You may ?leave open to air. Please do not remove the steri strips underneath. they will fall off on their own in one week. IT IS NORMAL FOR THE WOUND TO OOZE OR BE BLOODY FOR A FEW DAYS AFTER SURGERY. ?IF THIS HAPPENS JUST PLACE NEW DRESSING OVER IT TO AVOID STAINING CLOTHES. You may shower on post op day # 1 We ask that you do not let the water soak the wound. If it does get wet, just towel dry lightly. Please do not scrub your incision or place any type of chemical/ointment on the wound. No tub baths, pools or jacuzzis for one month. If you have any leaking or redness from your wound, or fevers, please call office Care Plan Goals: Discharge to rehab Health Concerns: Discharge to rehab Plan of Treatment: Discharge to rehab Assessment: Stable
--- NOTE | 2025-05-12 09:47 | PC.NURSE ---
Narc Script on patients chart for tomorrow d/c, [place].
--- NOTE | 2025-05-12 11:35 | MHC.CM.PN ---
A PT evaluation is recommending STR @ Discharge. The patient is agreeable to STR at discharge. Per surgeon patient will be ready for discharge tomorrow. She has accepted a bed offered by [facility]. She will dc tomorrow to [facility] via BLS transport.
[2025-05-12 14:00] VITALS: BP 126/76; PULSE 83; RESP 16; TEMP 36.4; O2SAT 94
[2025-05-12 16:14] LABS: Glucose, Whole Blood 115 mg/dL (60-115)
[2025-05-12 17:09] VITALS: BP 148/69; PULSE 89; RESP 18; TEMP 37.4; O2SAT 93
[2025-05-12 19:47] VITALS: BP 166/70; PULSE 95; RESP 20; TEMP 36.9; O2SAT 96
[2025-05-13] MEDS: oxyCODONE HCl Immed Release 5 MG TABLET 10 MG PO ×2 (01:48→10:56)
[2025-05-13 06:00] VITALS: BP 165/71; PULSE 94; RESP 16; TEMP 36.6; O2SAT 95
[2025-05-13] MEDS: Calcium + Vitamin D 250 MG TABLET PO (08:27)
--- NOTE | 2025-05-13 08:59 | MHC.CM.PN ---
PT TO DC TO [facility] TODAY FOR STR BLS TRANSPORT BOOKED FOR 1100 HOURS VIA [facility]
[2025-05-13 11:14] VITALS: PULSE 82; RESP 20; TEMP 36.1; O2SAT 96
[2025-05-13 11:15] VITALS: BP 158/68
== END 2025-05-13 11:44 | DRG 458 ==
LOC: HO.SSSA 07:21 → HO.S3 13:40
PROVIDERS: Neurological Surgery; Nurse Practitioner; Admitting Provider Physician Assistant; PCP Internal Medicine; Visit Provider Physician Assistant
PROC: 0SG10A0 Fusion of 2 or more Lumbar Vertebral Joints with Interbody Fusion Device, Anterior Approach, Anterior Column, Open Approach (ICD-10-PCS; principal; 2025-05-10 07:30)
DX: M51.360 Other intervertebral disc degeneration, lumbar region with discogenic back pain only (principal); M41.56 Other secondary scoliosis, lumbar region; Z87.891 Personal history of nicotine dependence; Z79.890 Hormone replacement therapy; Z79.899 Other long term (current) drug therapy
CPT/HCPCS: 36415; 80048; 82947; 85027; 86850; 86900; 86901; 97116; 97161; 97162; 97530; C1713; C1889; J0131; J0665; J0666; J1100; J1171; J1630; J1885; J2003; J2250; J2405; J2704; J2765; J3010; J3374; L8699

== ENCOUNTER → 2025-05-10 07:18 | Outpatient (BNV) | payer MEDICARE, SELFPAY | PROVIDERS: Admitting Provider Physician Assistant; PCP Internal Medicine; Visit Provider Neurological Surgery | DX: M51.360 Other intervertebral disc degeneration, lumbar region with discogenic back pain only (principal); M41.56 Other secondary scoliosis, lumbar region | CPT/HCPCS: 20930; 22558; 22585; 22612; 22614; 22840; 22853; 99024 ==

== ENCOUNTER 2025-05-31 13:44 | Outpatient (AMB) | payer MEDICARE, SELFPAY ==
--- OUTSIDE RECORDS SUMMARY | 2025-05-31 14:24 | XMS_ITS | Patient Health Record ---
Author Organization [facility] Fidelina reema CalderonMarquez Address [address] [place] [address] Care Team Providers Care Instruction Librarian Name Role Phone Love oFrd MD Primary Care Provider Omid Perrin Unavailable [phone] Allergies Allergen (clinical drug ingredient) Drug/Non Drug [...] Status W/U Status Risk Notes Problem Onychomycosis (291301432) Onychomycosis (110.1) Active confirmed Problem Disorder of joint of ankle and/or foot (600562634) Arthritis - Degenerative (719.97) Active confirmed Problem Pain in limb (69488096) Pain in Limb (729.5) Active confirmed Problem Plantar fasciitis (508275216) Plantar Fasciitis (728.71) Active confirmed Problem 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) Flat Foot, 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 Problem Tinea pedis (8055009) Tinea Pedis (110.4) Active confirmed Problem Ingrowing nail (559076043) Ingrowing Nail (703.0) Active confirmed Problem Exostosis (57812885) Exostosis (726.91) Active confirmed Plan Of Treatment Pending Test Test Name Order Date X ray : Foot, right 3V 10/06/2011 X ray : Foot, right 3V 05/15/2014 Insurance Providers Payer Name Payer Address Payer Phone Subscriber Number Group Number Insured Name Patient Relationship to Insured Coverage Start Date Coverage End Date [facility] [address] [facility] [place] [phone] [id number] Sadia Parks Self - patient is the insured Medical (General) History Medical History History ICD Code Arthritis back, hip, knee pain poor circulation measles chicken pox Thyroid disorder Surgical History Surgery Date(Month/Year) tubal ligation 03/1981
--- OUTSIDE RECORDS SUMMARY | 2025-05-31 14:24 | XMS_ITS | Clinical Summary ---
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 2010 [...] TOMASZ. She will likely desire referral to [place] if any follow up is needed such [...] Comments Hypertension Brother Hypertension Father Hypertension Mother [place], dialysis Cancer, Other Sister Hypertension Sister [place] [...] 10/23/2021, 11/2020, 06/02/2021 (External Completion) Care Teams Consumer Insights Specialist Relationship Specialty Start Date End Date Caitlin Hernandez MD [address] [place] [address] [phone] PCP - General Internal Medicine 09/03/21
--- OUTSIDE RECORDS SUMMARY | 2025-05-31 14:24 | XMS_ITS | Encounter Summary ---
Author Organization [facility] Address [address] [place] [address] Care Team Providers Care Activated Sludge Operator Name Role Phone Caitlin Hernandez MD Primary Care Provider [phone] Encounter Details Date Type Department Care Team (Late st Contact Info) Description 05/29/2025 Lab Requisition [facility] [address] [facility] [place] [address] Malka Enrique MD [address] [address] Fusion of spine, lumbar region Social History Tobacco Use Types Packs/Day Years [...] as of this encounter Plan of Treatment Upcoming Encounters Date Type Department Care Team (Late st Contact Info) Description 06/08/2025 10:30 AM EDT Office Visit Adult Medicine [address] [address] Caitlin Hernandez MD [address] [place] [id number] 06/14/2025 9:45 AM EDT Consult Orthopedic Surgery - [place] [address] [facility] [address] [place] [address] [place], DPGurvinder 175 [facility] 250 [place] [address] 06/22/2025 9:30 AM EDT Office Visit Adult Medicine [facility] [address] [place], [place] [phone] Tammi Tejeda NP [address] [place], [place] documented as of this encounter Goals [...] Procedure Name Priority Date/Time Associated Diagnosis Comments COMPLETE BLOOD COUNT Routine 05/29/2025 7:52 AM EDT Fusion of spine, lumbar region BASIC METABOLIC PANEL Routine 05/29/2025 7:52 AM EDT Fusion of spine, lumbar region documented in this encounter Results * Basic metabolic panel (05/29/2025 7:52 AM EDT) Sodium 134 133 - 145 mmol/L LAB CHEMISTRY METHOD 05/29/2025 2:30 PM [facility] Potassium 4.6 3.5 - 5.5 mmol/L LAB CHEMISTRY METHOD 05/29/2025 2:30 PM [facility] Chloride 101 96 - 110 mmol/L LAB CHEMISTRY METHOD 05/29/2025 2:30 PM [facility] CO2 24 21 - 32 mmol/L LAB CHEMISTRY METHOD 05/29/2025 2:30 PM [facility] Anion Gap 9 3 - 11 LAB CHEMISTRY METHOD 05/29/2025 2:30 PM [facility] Glucose 74 70 - 100 mg/dL LAB CHEMISTRY METHOD 05/29/2025 2:30 PM [facility] BUN 9 5 - 25 mg/dL LAB CHEMISTRY METHOD 05/29/2025 2:30 PM [facility] Creatinine 0.64 0.50 - 1.10 mg/dL LAB CHEMISTRY METHOD 05/29/2025 2:30 PM [facility] eGFR 92 >=60 mL/min/1. 73m2 LAB CHEMISTRY METHOD 05/29/2025 2:30 PM [facility] Comment:Calculation based on the Chronic Kidney Disease Epidemiology Collaboration (CKD-EPI) equation refit without adjustment for race. BUN/Creatinine Ratio 14.1 LAB CHEMISTRY METHOD 05/29/2025 2:30 PM [facility] Calcium 9.6 8.5 - 10.5 mg/dL LAB CHEMISTRY METHOD 05/29/2025 2:30 PM [facility] Blood Venous blood specimen / Unknown Venipuncture / Unknown 05/29/2025 7:52 AM EDT 05/29/2025 11:42 AM EDT us Malka Enrique MD LAB BLOOD ORDERABLES Fin al Result [facility] [address] [place] [address], * (ABNORMAL) Complete blood count (05/29/2025 7:52 AM EDT) Pathologist [facility] WBC 9.3 4.8 - 10.8 K/mcL LAB HEMETOLOGY METHOD 05/29/2025 12:57 PM EDT [facility] RBC 4.50 3.80 - 4.80 M/mcL LAB HEMETOLOGY METHOD 05/29/2025 12:57 PM EDT [facility] Hemoglobin 11.7 11.5 - 16.0 g/dL LAB HEMETOLOGY METHOD 05/29/2025 12:57 PM EDT [facility] Hematocrit 36.7 35.0 - 47.0 % LAB HEMETOLOGY METHOD 05/29/2025 12:57 PM EDT [facility] MCV 81.2 79.0 - 98.0 FL LAB HEMETOLOGY METHOD 05/29/2025 12:57 PM EDT [facility] MCH 25.9(L) 27.0 - 32.0 pcg LAB HEMETOLOGY METHOD 05/29/2025 12:57 PM EDT [facility] MCHC 31.9(L) 32.0 - 37.0 g/dL LAB HEMETOLOGY METHOD 05/29/2025 12:57 PM EDT [facility] RDW 15.9(H) 11.0 - 15.0 % LAB HEMETOLOGY METHOD 05/29/2025 12:57 PM EDT [facility] Platelets 659(H) 130 - 400 K/mcL LAB HEMETOLOGY METHOD 05/29/2025 12:57 PM EDT [facility] MPV 9.7 7.0 - 11.0 FL LAB HEMETOLOGY METHOD 05/29/2025 12:57 PM EDT [facility] NRBC 0.0 <1.0 % LAB [facility] METHOD 05/29/2025 12:57 PM EDT [facility] NRBC Absolute 0.00 <0.10 K/mcL LAB HEMETOLOG METHOD 05/29/2025 12:57 PM EDT [facility] Blood Venous blood specimen / Unknown Venipuncture / Unknown 05/29/2025 7:52 AM EDT 05/29/2025 11:42 AM EDT us Malka Enrique MD LAB BLOOD ORDERABLES Fin al Result Performing Organization Address City/State/[facility] Co de Phone Number [facility] [address] [place] [address], documented in this encounter Visit Diagnoses Diagnosis Fusion of spine, lumbar region documented in this encounter Care Teams Activated Sludge Operator Relationship Specialty Start Date End Date Caitlin Hernandez MD [address] [place] [address] PCP - General Internal Medicine 09/03/21 documented as of this encounter
--- OUTSIDE RECORDS SUMMARY | 2025-05-31 14:24 | XMS_ITS ---
Author Name [facility] Organization Unknown Care Team Organization Name Specialty Phone Email Start Date End Da te [facility] Christiano Flor Primary Care 07/09/202306/20 [facility] Mary Primary Care 04/10/2023 06/20/2024 [facility] Gonsalo Pablo Primary Care 09/09/2022 024
--- NOTE | 2025-05-31 14:49 | A.SPINEOV_ITS ---
Intake Visit Reasons: 1st post op Intake Note: Ms. Parks is here today for her 1st post op. Explosive Ordnance Manager Required: No Allergies Penicillins Allergy (Intermediate, Verified 05/31/25 14:49) Unknown gabapentin Allergy (Verified 05/31/25 14:49) Headache codeine (CODEINE) Adverse Reaction (Unknown, Verified 05/31/25 14:49) NAUSEA & VOMITING oxycodone (OXYCODONE) Adverse Reaction (Unknown, Verified 05/31/25 14:49) ALLERGIC TO CODIENE - FEARFUL TO TRY OXYCODONE Assessment & Plan Assessment & Plan (1) Neck pain: Code(s): M54.2 - Cervicalgia Category: Medical (2) Scoliosis of lumbar region due to degenerative disease of spine in adult: Code(s): M41.56 - Other secondary scoliosis, lumbar region Category: Medical Plan Mrs Parks is 3 weeks out from her L2-5 fusion. She is doing well from the standpoint of her lumbar issues. She is due to get out of rehab in 2 days. Currently she is dealing with neck pain and spasms which have been giving her quite the issue. On exam she is doing well she is able to stand up out of her wheelchair on her own with some assistance she can walk around the room. Strength grossly normal. Wounds have all healed up well on the left lower quadrant in the back. I will send her for a set of x-rays of her neck just to double check on the cervical spine but it sounds like spasm. I recommended she try a leave and a heating pad. She is due to get out to rehab in 2 days. We can call her with the results of the x-rays. She can follow up with us in 6 weeks. Manny Rosales MD, PhD [facility] Orders: Orders XR lumbar spine 4V min Today M41.56 - Other secondary scoliosis, lumbar region XR cervical spine 4V Today M54.2 - Cervicalgia Coding Level of Care Code Global (75080) Diagnoses Neck pain M54.2 Scoliosis of lumbar region due to degenerative disease of spine in adult M41.56
== END 2025-05-31 15:34 | disposition home or self-care (01) ==
LOC: HO.HNS 13:45
PROVIDERS: PCP Internal Medicine; Visit Provider Physician Assistant
DX: M54.2 Cervicalgia (principal); M41.56 Other secondary scoliosis, lumbar region
CPT/HCPCS: 99024

== ENCOUNTER 2025-05-31 13:44 | Outpatient (REF) | payer MEDICARE, SELFPAY ==
--- NOTE | ~2025-05-31 | XR_ITS ---
EXAMINATION: XR LUMBAR SPINE 4 OR MORE VIEWS HISTORY: M41.56 - Other secondary scoliosis, lumbar region COMPARISON: Comparison is made with the prior examination dated 11/07/2024. FINDINGS: AP and lateral views of the lumbar spine are submitted. In the interval since the prior study, the patient is status post posterior fusion of L2-L5 with pedicle screws, spinal stabilization rods, and intervertebral spacers. The fusion hardware is intact. The vertebral bodies maintain normal height. There is been improvement in previously seen levoscoliosis of the lumbar spine. There is moderate degenerative disc disease with disc space narrowing and osteophyte formation. There is calcification of the abdominal aorta. XR/XR lumbar spine 4V min IMPRESSION: Status post posterior fusion of L2-L5. Electronically signed by: Srinivas Aguilar MD 05/31/2025 03:54 PM EDT
--- NOTE | ~2025-05-31 | XR_ITS ---
EXAMINATION: XR CERVICAL SPINE CLINICAL INFORMATION: M54.2 - Cervicalgia COMPARISON: None available. TECHNIQUE: 3 views of the cervical spine were obtained. FINDINGS: There is straightening of the cervical lordosis. There is no prevertebral soft tissue swelling. C3-4 shows mild disc space narrowing and mild facet joint space narrowing. C4-5 demonstrates mild disc space narrowing and endplate osteophytes. There is mild facet disease. C5-6 demonstrates moderate disc space narrowing with endplate irregularity and osteophytes. C6-7 demonstrates moderate disc space narrowing and osteophytes. There is mild facet arthropathy. C7-T1 is obscured by overlapping bony and soft tissues. XR/XR cervical spine 4V IMPRESSION: There is straightening of the expected cervical lordosis. This can be idiopathic, but can also be related to degenerative change, muscle spasm, or posterior soft tissue injury. Multilevel degenerative change most advanced at C4-5 through C6-7. Electronically signed by: Armando Nuno MD 05/31/2025 03:55 PM EDT
== END 2025-05-31 13:45 | disposition home or self-care (01) ==
LOC: HO.HOSX 13:44
PROVIDERS: PCP Internal Medicine; Visit Provider Physician Assistant
DX: Z47.89 Encounter for other orthopedic aftercare (principal); M54.2 Cervicalgia; M51.369 Other intervertebral disc degeneration, lumbar region without mention of lumbar back pain or lower extremity pain; M41.56 Other secondary scoliosis, lumbar region; Z98.1 Arthrodesis status
CPT/HCPCS: 72050; 72110; 99212

== ENCOUNTER → 2025-05-31 15:35 | Outpatient (BNV) | payer MEDICARE, SELFPAY | PROVIDERS: PCP Internal Medicine; Visit Provider Radiology Diagnostic Radiology | DX: M51.369 Other intervertebral disc degeneration, lumbar region without mention of lumbar back pain or lower extremity pain (principal) | CPT/HCPCS: 72110 ==

== ENCOUNTER 2025-06-12 14:51 | Outpatient (REF) | payer MEDICARE, SELFPAY | END 2025-06-12 14:52 | disposition home or self-care (01) | LOC: HO.HOSX 14:51 | PROVIDERS: PCP Internal Medicine; Visit Provider Physician Assistant | DX: Z47.89 Encounter for other orthopedic aftercare (principal); M41.56 Other secondary scoliosis, lumbar region; M51.360 Other intervertebral disc degeneration, lumbar region with discogenic back pain only; Z98.1 Arthrodesis status | CPT/HCPCS: 99212 ==

== ENCOUNTER 2025-06-12 14:51 | Outpatient (AMB) | payer MEDICARE, SELFPAY ==
--- OUTSIDE RECORDS SUMMARY | 2025-06-08 10:30 | XMS_ITS | Encounter Summary ---
Author Organization [facility] [place] [address] Care Team Providers Care Web Software Engineer Name Role Phone Caitlin Hernandez MD Primary Care Provider [phone] Reason for Visit * Reason Comments Hospital Follow-up Encounter Details Date Type Department Care Team ([facility] st Contact Info) Description 06/08/2025 10:30 AM EDT Office Visit [place] [facility] [address] [place] [phone] Caitlin Hernandez MD [address] [place] [address] Back pain, unspecified back location, unspecified back pain laterality, unspecified chronicity (Primary Dx); Situational depression; Pre-hypertension; Thrombocytosis; Hypothyroidism, unspecified type; Gastroesophageal reflux disease with esophagitis, unspecified whether hemorrhage Social History Tobacco Use Types Packs/Day Years [...] Sign Reading Time Taken Comments Blood Pressure 120/68 06/08/2025 10:28 AM EDT Pulse 80 06/08/2025 10:28 AM EDT Temperature 36.2 C (97.2 F) 06/08/2025 10:28 AM EDT Respiratory Rate 17 06/08/2025 10:28 AM EDT Oxygen Saturation - - Inhaled Oxygen Concentration - - Weight - - Height - - Body Mass Index - - documented in this encounter Progress Notes * Caitlin Hernandez MD - 06/08/2025 10:30 AM EDTAssociated Problem(s): Situational depression * Caitlin Hernandez MD - 06/08/2025 10:30 AM EDTAssociated Problem(s): Pre-hypertension * Caitlin Hernandez MD - 06/08/2025 10:30 AM EDTAssociated Problem(s): Hypothyroidism * Caitlin Hernandez MD - 06/08/2025 10:30 AM EDTAssociated Problem(s): Gastroesophageal reflux disease * Caitlin Hernandez MD - 06/08/2025 10:30 AM EDT Images from the original note were not included. TRANSITIONAL CARE MANAGEMENT NOTE Sadia Parks is a 75 y.o. (: 1950) female presents today for a transitional care appointment. Subjective History Of Present Illness: The patient was discharged with a diagnosis of: Back pain s/p back surgery Admit Date: May 13, 2025 Discharge Date: June 02, 2025 Date of Service: 06/08/2025 Facility: [facility] Date patient was contacted/or attempted to be contacted: May 05, 2025 Principal medical issues; Fusion of spine, lumbar region Other intervertebral disc degeneration, lumbar region with discogenic back pain only Other low back pain The discharge summary and/or Transitional Care Management documentation was reviewed. HPI Patient had back surgery by Dr. Rosales neurosurgeon and I obtained and reviewed hospital information from [facility], patient apparently was discharged for extensive rehab and was discharged from rehab hospital 1 week ago. Patient told me that back pain is overall better although she still feels pressure sensation on theback. She has many questions. She tells me she does not have a good experience during rehab, she has increased anxiety although it is better after discharge. She told me she will be moving to first-floor senior apartment this would be a huge help from her current house with bedroom on the second floor. Patient has many questions. She is taking medications instructed. She knew there are some blood test needs to be done. She has questions. Comprehensive Medical and Social History: Patient Active Problem List Diagnosis Depression DJD (degenerative joint disease) of thoracic spine Gastroesophageal reflux disease Grieving Hiatal hernia Hypercholesterolemia Hypothyroidism Irritable bowel syndrome with diarrhea Lactose intolerance Lichen sclerosus Obesity (BMI 30-39.9) Osteopenia Other chest pain Pre-hypertension Situational depression Vaginal atrophy Vulvar atrophy Chronic right shoulder pain Vertigo, benign paroxysmal, unspecified laterality Other osteoporosis without current pathological fracture Allergies Allergen Reactions Codeine Penicillins Diarrhea Current Outpatient Medications Medication Instructions Bifidobacterium infantis (ALIGN ORAL) Probiotic Product (Align) Chew Tab Sig - Route: Take by mouth daily. calcium carbonate-vitamin D3 500 mg-3.125 mcg (125 unit) tablet per tabelt Take 2 Tabs by mouth daily. cyclobenzaprine (FLEXERIL) 5 mg, 3 times daily PRN levothyroxine (SYNTHROID, LEVOTHROID) 88 mcg tablet TAKE 1 TABLET BY MOUTH DAILY. ON SATURDAYS AND SUNDAYS TAKE A HALF TABLET DAILY. meclizine (ANTIVERT) 12.5 mg, oral, 3 times daily PRN MULTIVITAMIN ORAL Take by mouth daily. omeprazole (PRILOSEC) 20 mg, oral, Daily triamcinolone (KENALOG) 0.1 % ointment APPLY A THIN LAYER DAILY Past Medical History: Diagnosis Date Depression 02/23/2014 DX:Depression DJD (degenerative joint disease) of thoracic spine 05/21/2011 DX:DJD (degenerative joint disease) of thoracic spine; COMMENT: Injury 1994. 2010 MRI Scoliosis with advanced asymmetric multilevel degenerative changes, as described. Elevated BP without diagnosis of hypertension 07/12/2019 DX:Elevated BP without diagnosis of hypertension Former tobacco use 01/25/2018 DX:Former tobacco use; COMMENT: Quit 2009 Gastroesophageal reflux disease 10/19/2017 DX:Gastroesophageal reflux disease History of migraine headaches 11/26/2017 DX:History of migraine headaches Hypercholesterolemia 05/16/2019 DX:Hypercholesterolemia Hypothyroidism 06/30/2013 DX:Hypothyroidism Irritable bowel syndrome with diarrhea 04/16/2016 DX:Irritable bowel syndrome with diarrhea Lactose intolerance 12/17/2015 DX:Lactose intolerance Lichen sclerosus 06/2018 DX:Lichen sclerosus; COMMENT: clinical diagnosis Mammogram declined 01/25/2018 DX:Mammogram declined; COMMENT: Patient refused mammogram see office note from 01/25/2018 Obesity (BMI 30-39.9) 01/25/2018 DX:Obesity (BMI 30-39.9) Osteopenia 04/21/2017 DX:Osteopenia; COMMENT: 04/18 T score spine -0.9 hip -2.1 FRAX score 17% 10 year fracture risk Stable 11/2018 Past Surgical History: Procedure Laterality Date BREAST BIOPSY Left 2012ish PROCEDURE: BX BREAST; PERC NEEDLE CORE W/IMAG GUID; COMMENT: calcs COLONOSCOPY 08/04/11 PROCEDURE: HISTORICAL COLONOSCOPY; COMMENT: tics; repeat in ten yrs OTHER SURGICAL HISTORY PROCEDURE: HI LIG/TRNSXJ FLP TUBE ABDL/VAG APPR UNI/BI Social History Socioeconomic History Marital status: Spouse name: None Number of children: None Years of education: None Highest education level: None Occupational History None Tobacco Use Smoking status: Former Current packs/day: 0.00 Types: Cigarettes Quit date: 02/14/2009 Years since quittin.3 Smokeless tobacco: Former Vaping Use Vaping status: None Substance and Sexual Activity Alcohol use: Yes Comment: 1-2 yearly Drug use: No Sexual activity: Not Currently Comment: passed Other Topics Concern None Social History Narrative lives with .works in [place] in [place] Family History Problem Relation Name Age of Onset Hypertension Father Hypertension Mother [place], dialysis Hypertension Brother Hypertension Sister Other cancer Sister Ovarian cancer Neg Hx Breast cancer Neg Hx Uterine cancer Neg Hx Pancreatic cancer Neg Hx Prostate cancer Neg Hx Colon cancer Neg Hx Immunization History Administered Date(s) Administered Influenza trivalent, 0.5mL (Fluad) 65yo and older 08/20/2016, 10/19/2017, 07/28/2018, 07/25/2019, 08/23/2020, 08/08/2021, 08/13/2022, 07/05/2023, 07/25/2024 Influenza, Unspecified 08/23/2020, 08/01/2023 [email or web address] SARS-CoV-2 COVID-19, mRNA, LNP-S, preservative free 01/28/2021, 02/18/2021, 10/25/2021 Pneumococcal conjugate 13 valent (Prevnar 13, PCV13) 2mo and older 04/13/2017 Pneumococcal conjugate 20 valent (Prevnar 20, PCV 20) 2mo and older 10/03/2024 Pneumococcal polysaccharide 23 valent (Pneumovax 23) 2yo and older 10/03/2024 Respiratory syncytial virus (RSV), unspecified 02/16/2024 Tdap Tetanus diptheria acellular pertussis (Boostrix; Adacel) 7yo and older 03/29/2009 Zoster Live 06/02/2021 Zoster recombinant (Shingrix) 19yo and older 06/02/2021, 10/23/2021 Health Maintenance Due Topic Date Due DTaP,Tdap,and Td Vaccines (2 - Td or Tdap) 03/29/2019 Cervical Cancer Screening: HPV 05/19/2019 Falls Risk Assessment Never done Social Influencers of Health Screening Never done COVID-19 Vaccine (2023- season) 2024 Depression Screening 11/02/2024 RSV Immunization Adult Patients (1 - 1-dose 75+ series) 2025 Medicare Annual Wellness Visit 03/14/2025 Colorectal Cancer Screening: Stool Based Tests (FOBT/FIT) 03/15/2025 Depression Screening (PHQ2/9): Social Influencer of Health (SIOH): Review of Systems: Review of Systems Objective BP 120/68 Pulse 80 Temp 36.2 ??C (97.2 ??F) Resp 17 Physical Exam Patient appears to be anxious, almost shaking, upon me entering room and a long discussion patient tells me she feels better. She actually warmly had me after completion of this evaluation. Heart is with regular rate and rhythm Lung is clear to auscultation bilaterally Back surgery site is clean, well-healed, no obvious focal tenderness/spine tenderness, no pocketing Grossly nonfocal examination other than shakiness/tremor from anxiety as above Patient ambulates with a cane Lab Results Component Value Date WBC 9.3 05/29/2025 HGB 11.7 05/29/2025 HCT 36.7 05/29/2025 MCV 81.2 05/29/2025 PLT 659 (H) 05/29/2025 Lab Results Component Value Date GLUCOSE 74 05/29/2025 CALCIUM 9.6 05/29/2025 NA 134 05/29/2025 K 4.6 05/29/2025 CO2 24 05/29/2025 CL 101 05/29/2025 BUN 9 05/29/2025 CREATININE 0.64 05/29/2025 Lab Results Component Value Date CHOL 244 (H) 03/20/2025 TRIG 185 (H) 03/20/2025 HDL 54 03/20/2025 LDLCALC 153 (H) 03/20/2025 VLDL 37 03/20/2025 NONHDLC 190 (H) 03/20/2025 CHOLHDL 4.5 (H) 03/20/2025 Lab Results Component Value Date TSH 0.67 03/20/2025 Wt Readings from Last 6 Encounters: 03/22/25 56.7 kg (125 lb) 03/20/25 56.3 kg (124 lb 3.2 oz) 01/03/25 57.7 kg (127 lb 3.2 oz) 12/16/24 57.2 kg (126 lb) 10/17/24 57.2 kg (126 lb) 10/11/24 57.6 kg (127 lb) BP Readings from Last 5 Encounters: 06/08/25 120/68 03/22/25 110/80 03/20/25 122/58 01/03/25 132/80 10/17/24 130/74 Assessment/Plan Assessment & Plan Situational depression Back pain, unspecified back location, unspecified back pain laterality, unspecified chronicity Pre-hypertension Thrombocytosis Orders: CBC and differential; Future Hypothyroidism, unspecified type Gastroesophageal reflux disease with esophagitis, unspecified whether hemorrhage The complexity of medical decision making for this patient's transitional care is moderate. As part of the TCM, I have: Reviewed discharge information, I.e.: discharge summary or [id number] documents, Reviewed the patient's need for, or follow-up on, diagnostic tests and treatments, Interacted with other health career coach who may assume or reassume care of the patient's system-specific problems, Educated the patient, family, guardian, or caregiver, Established or re-establish referrals and arrange needed community resources, and Helped schedule required community providers and services follow-up With specially discussed the patient's chronic medical condition and I reminded patient that his blood test ordered for her. I reviewed most recent blood test with thrombocytosis which hopefully is related with reactive disease with acute illness surgery, I will repeat a CBC We clarified patient's medication and I will arrange early follow-up visit. I reviewed the patient's extensive discharge information including searching patient's follow-up cards, patient has appointment to follow-up with neurosurgeon July 12.. In the future we will further address patient's anxiety issues Caitlin Hernandez MD ADULT MEDICINE [address] Dept: [phone] Dept Date of Service: 06/08/2025 documented in this encounter Plan of Treatment Upcoming Encounters Date Type Department Care Team (Late st Contact Info) Description 06/14/2025 9:45 AM EDT Consult Orthopedic Surgery - [place] [id number] [phone] [place], DPGurvinder [address] [address] 08/08/2025 10:00 AM EDT Office Visit [address] [phone] Tammi Tejeda NP [address] [place], [place] Scheduled Orders Name Type Priority Associated Diagnoses Orde r Schedule CBC and differential Lab Routine Thrombocytosis 1 Occurrences starting 06/08/2025 until 06/08/2026 documented as of this encounter Goals Goal [...] as of this encounter Visit Diagnoses Diagnosis Back pain, unspecified back location, unspecified back pain laterality, unspecified chronicity- Primary Situational depression Pre-hypertension Elevated blood pressure reading without diagnosis of hypertension Thrombocytosis Essential thrombocythemia Hypothyroidism, unspecified type Gastroesophageal reflux disease with esophagitis, unspecified whether hemorrhage documented in this encounter Historical Medications * This list may reflect changes made after this encounter. cyclobenzaprine (FLEXERIL) 5 mg tablet Take 1 tablet (5 mg total) by mouth 3 (three) times a day if needed for muscle spasms. 06/01/2025 added in this encounter Care Teams Web Software Engineer Relationship Specialty Start Date End Date Caitlin Hernandez MD [address] [place] [address] PCP - General Internal Medicine 09/03/21 documented as of this encounter
--- OUTSIDE RECORDS SUMMARY | 2025-06-12 15:15 | XMS_ITS | Clinical Summary ---
Author Organization [facility] Address [address] [place] [address] Care Team Providers Care High Risk Case Manager Name Role Phone Caitlin Hernandez MD Primary Care Provider [phone] Allergies Active Allergy Reactions Severity Noted Date [...] Hypothyroidism 06/30/2013 DJD (degenerative joint disease) of [facility] spine 05/21/2011 Overview: Injury 1994. 2010 MRI [...] TOMASZ. She will likely desire referral to [place] if any follow up is needed such [...] Comments Hypertension Brother Hypertension Father Hypertension Mother [place], dialysis Cancer, Other Sister Hypertension Sister [place] [...] 10/23/2021, 11/2020, 06/02/2021 (External Completion) Care Teams High Risk Case Manager Relationship Specialty Start Date End Date Caitlin Hernandez MD [address] [place] [phone] PCP - General Internal Medicine 09/03/21
--- NOTE | 2025-06-12 15:18 | A.SPINEOV_ITS ---
Intake Visit Reasons: questions post sx Intake Note: Ms. Parks is here today w/questions post-operatively. Go Cart Mechanic Required: No Allergies Penicillins Allergy (Intermediate, Verified 05/31/25 14:49) Unknown gabapentin Allergy (Verified 05/31/25 14:49) Headache codeine (CODEINE) Adverse Reaction (Unknown, Verified 05/31/25 14:49) NAUSEA & VOMITING oxycodone (OXYCODONE) Adverse Reaction (Unknown, Verified 05/31/25 14:49) ALLERGIC TO CODIENE - FEARFUL TO TRY OXYCODONE Assessment & Plan Assessment & Plan (1) Scoliosis of lumbar region due to degenerative disease of spine in adult: Code(s): M41.56 - Other secondary scoliosis, lumbar region Category: Medical Plan Mrs Parks came back in follow up today. She was having some questions about recovery, activity guidelines and some pain she was feeling in her back so she came in today. Everything she is describing sounds like just typical healing. She has been out getting around in her car driving herself, she is out of rehab and living with her friend. Overall she seems to be doing wonderful. She is on minimal pain medications at this point. I think overall she is ahead of schedule. We discussed activity guidelines, restrictions and expectations after lumbar fusion. She has an already scheduled appointment to see Dr. Rosales sometime in July. She will get x-rays before that visit. Manny Rosales MD, PhD [facility] [place] [facility] Coding Level of Care Code Global (18531) Diagnoses Scoliosis of lumbar region due to degenerative disease of spine in adult M41.56
== END 2025-06-12 15:41 | disposition home or self-care (01) ==
LOC: HO.HNS 14:52
PROVIDERS: PCP Internal Medicine; Visit Provider Physician Assistant
DX: M41.56 Other secondary scoliosis, lumbar region (principal)
CPT/HCPCS: 99024

== ENCOUNTER 2025-07-12 10:21 | Outpatient (REF) | payer MEDICARE, SELFPAY ==
--- NOTE | ~2025-07-12 | XR_ITS ---
EXAMINATION: XR LUMBAR SPINE 4 OR MORE VIEWS HISTORY: M41.56 - Other secondary scoliosis, lumbar region COMPARISON: Comparison is made with the prior examination dated 05/31/2025. FINDINGS: AP and lateral views of the lumbar spine are submitted. The patient is again noted to be status post posterior fusion of L2-L5 with pedicle screws, spinal stabilization rods, and intervertebral spacers. The fusion hardware is intact. Five nonrib-bearing lumbar vertebral bodies are identified, maintaining normal height and alignment without evidence of fracture or spondylolisthesis. There is moderate disc space narrowing at L1-2 and L5-S1. There is calcification of the abdominal aorta. XR/XR lumbar spine 4V min IMPRESSION: Status post posterior fusion of L2-L5 without change. Electronically signed by: Srinivas Aguilar MD 07/12/2025 01:47 PM EDT
--- OUTSIDE RECORDS SUMMARY | 2025-07-13 13:07 | XMS_ITS | Encounter Summary ---
Author Organization [facility] [address] Address [address] [place] [address] Care Team Providers Care Quebracho Tanner Name Role Phone Caitlin Hernandez MD Primary Care Provider [phone] Encounter Details Date Type Department Care Team (Late Contact Info) Description 05/15/2025 Lab Requisition [facility] - Main Lab [address] [facility] [place] [address] Malka Enrique MD [address] [address] Scoliosis, unspecified; Hypothyroidism, unspecified Social History Tobacco [...] 10:00 AM EDT Office Visit Adult Medicine [facility] [address] [place] [address] Tammi Tejeda NP [address] [place], [place] 08/16/2025 10:45 AM EDT Consult Orthopedic Surgery - [place] [address] [facility] [address] [place] [address] [place], DPM [address] [facility] [address] [place] [address] documented as of this encounter Goals Goal [...] mmol/L LAB CHEMISTRY METHOD 05/15/2025 3:04 PM [facility] Potassium 3.3(L) 3.5 - 5.5 mmol/L LAB CHEMISTRY METHOD 05/15/2025 3:04 PM [facility] Chloride 96 96 - 110 mmol/L LAB CHEMISTRY METHOD 05/15/2025 3:04 PM [facility] CO2 29 21 - 32 mmol/L LAB CHEMISTRY METHOD 05/15/2025 3:04 PM [facility] Anion Gap 8 3 - 11 LAB CHEMISTRY METHOD 05/15/2025 3:04 PM [facility] Glucose 80 70 - 100 mg/dL LAB CHEMISTRY METHOD 05/15/2025 3:04 PM [facility] BUN 15 5 - 25 mg/dL LAB CHEMISTRY METHOD 05/15/2025 3:04 PM [facility] Creatinine 0.52 0.50 - 1.10 mg/dL LAB CHEMISTRY METHOD 05/15/2025 3:04 PM [facility] eGFR 97 >=60 mL/min/1. 73m2 LAB CHEMISTRY METHOD 05/15/2025 3:04 PM [facility] Comment:Calculation based on the Chronic Kidney Disease Epidemiology Collaboration (CKD-EPI) equation refit without adjustment for race. BUN/Creatinine Ratio 28.8 LAB CHEMISTRY METHOD 05/15/2025 3:04 PM [facility] Calcium 9.7 8.5 - 10.5 mg/dL LAB CHEMISTRY METHOD 05/15/2025 3:04 PM [facility] Blood Venous blood specimen / Unknown Venipuncture / Unknown 05/15/2025 7:20 AM EDT 05/15/2025 11:06 AM EDT us Malka Enrique MD LAB BLOOD ORDERABLES Fin al Result [facility] [address] [place] [address], * (ABNORMAL) Complete blood count (05/15/2025 7:20 AM EDT) [facility] Signature WBC 11.6(H) 4.8 - 10.8 K/mcL LAB HEMETOLOGY METHOD 05/15/2025 12:43 PM EDT [facility] RBC 4.20 3.80 - 4.80 M/mcL LAB HEMETOLOGY METHOD 05/15/2025 12:43 PM EDT [facility] Hemoglobin 10.6(L) 11.5 - 16.0 g/dL LAB HEMETOLOGY METHOD 05/15/2025 12:43 [facility] Hematocrit 32.7(L) 35.0 - 47.0 % LAB HEMETOLOGY METHOD 05/15/2025 12:43 [facility] MCV 78.2(L) 79.0 - 98.0 FL LAB HEMETOLOGY METHOD 05/15/2025 12:43 PM [facility] MCH 25.4(L) 27.0 - 32.0 pcg LAB HEMETOLOGY METHOD 05/15/2025 12:43 PM [facility] MCHC 32.4 32.0 - 37.0 g/dL LAB HEMETOLOGY METHOD 05/15/2025 12:43 PM [facility] RDW 13.6 11.0 - 15.0 % LAB HEMETOLOGY METHOD 05/15/2025 12:43 PM [facility] Platelets 330 130 - 400 K/mcL LAB HEMETOLOGY METHOD 05/15/2025 12:43 PM [facility] MPV 10.9 7.0 - 11.0 FL LAB HEMETOLOGY METHOD 05/15/2025 12:43 PM [facility] NRBC 0.0 <1.0 % LAB [...] al Result [facility] [address] [place] [address], documented in this encounter Visit Diagnoses Diagnosis Scoliosis, unspecified Hypothyroidism, unspecified documented in this encounter Care Teams Quebracho Tanner Relationship Specialty Start Date End Date Caitlin Hernandez MD [address] [place] [id number] PCP - General Internal Medicine 09/03/21 documented as of this encounter
--- OUTSIDE RECORDS SUMMARY | 2025-07-13 13:07 | XMS_ITS | Encounter Summary ---
Author Organization [facility] Address [address] [place] [address] Care Team Providers Care Technical Sales Specialist Name Role Phone Caitlin Hernandez MD Primary Care Provider [phone] Encounter Details Date Type Department Care Team (Late Contact Info) Description 05/17/2025 Lab Requisition [facility] - Main Lab [address] [facility] [place] [address] Malka Enrique MD [address] [address] Hypokalemia Social History Tobacco Use Types Packs/Day [...] Adult Medicine [facility] [address] [place], [place] [phone] Tammi Tejeda NP [address] [place], [place] 08/16/2025 10:45 AM EDT Consult Orthopedic Surgery - [place] [address] 175 [facility] [address] [place] [phone] [place], DPM [address] [facility] [address] [place] [address] documented as of this encounter Goals Goal [...] LAB CHEMISTRY METHOD 05/17/2025 2:18 PM EDT [facility] ([facility] Blood Venous blood specimen / Unknown Venipuncture / Unknown 05/17/2025 6:11 AM EDT 05/17/2025 11:47 AM EDT us Malka Enrique MD LAB BLOOD ORDERABLES Fin al Result [facility] [address] [place] [address], documented in this encounter Visit Diagnoses Diagnosis Hypokalemia Hypopotassemia documented in this encounter Care Teams Technical Sales Specialist Relationship Specialty Start Date End Date Caitlin Hernandez MD [address] [place] [address] PCP - General Internal Medicine 09/03/21 documented as of this encounter
--- OUTSIDE RECORDS SUMMARY | 2025-07-13 13:07 | XMS_ITS | Encounter Summary ---
Author Organization [facility] Address [address] [place] [address] Care Team Providers Care Mixing Operator Name Role Phone Caitlin Hernandez MD Primary Care Provider [phone] Encounter Details Date Type Department Care Team (Late Contact Info) Description 05/16/[address] [facility] - Main Lab [address] [facility] [place] [address] Malka Enrique MD [address] [address] Hypokalemia Social History Tobacco Use Types Packs/Day [...] 10:00 AM EDT Office Visit Adult Medicine [facility] [address] [place], [place] [phone] Tammi Tejeda NP [address] [place], [place] 08/16/2025 10:45 AM EDT Consult Orthopedic Surgery - [place] [address] [facility] [address] [place] [phone] Urbano a[place], DPM [address] [facility] [address] [place] [address] documented as of this encounter Goals Goal [...] LAB CHEMISTRY METHOD 05/16/2025 1:[address] [facility] ([facility] Blood Venous blood specimen / Unknown Venipuncture / Unknown 05/16/2025 6:48 AM EDT 05/16/2025 11:24 AM EDT us Malka Enrique MD LAB BLOOD ORDERABLES Fin al Result [facility] ([facility]) [facility] [address] [place] [address], documented in this encounter Visit Diagnoses Diagnosis Hypokalemia Hypopotassemia documented in this encounter Care Teams Mixing Operator Relationship Specialty Start Date End Date Caitlin Hernandez MD [address] [place] [address] PCP - General Internal Medicine 09/03/21 documented as of this encounter
--- OUTSIDE RECORDS SUMMARY | 2025-07-13 13:07 | XMS_ITS | Encounter Summary ---
Author Organization [facility] Address [address] [place] [address] Care Team Providers Care Mixer Crane Operator Name Role Phone Caitlin Hernandez MD Primary Care Provider [phone] Encounter Details Date Type Department Care Team (Late Contact Info) Description 05/29/2025 Lab Requisition [facility] - Main Lab [address] [facility] [place] [address] Malka Enrique MD [address] [address] Fusion of spine, lumbar region Social History [...] 10:00 AM EDT Office Visit Adult Medicine [facility] [address] [place], [place] [phone] Tammi Tejeda NP [address] [place], [place] 08/16/2025 10:45 AM EDT Consult Orthopedic Surgery - [place] [address] [place] [phone] [place], DPGurvinder [address] [facility] [address] [place] [address] documented as of this encounter Goals Goal [...] LAB CHEMISTRY METHOD 05/29/2025 2:30 PM EDT [facility] Potassium 4.6 3.5 - 5.5 mmol/L LAB CHEMISTRY METHOD 05/29/2025 2:30 PM EDT [facility] Chloride 101 96 - 110 mmol/L LAB CHEMISTRY METHOD 05/29/2025 2:30 PM [facility] CO2 24 21 - 32 mmol/L LAB CHEMISTRY METHOD 05/29/2025 2:30 PM EDT [facility] Anion Gap 9 3 - 11 LAB CHEMISTRY METHOD 05/29/2025 2:30 PM T [facility] Glucose 74 70 - 100 mg/dL LAB CHEMISTRY METHOD 05/29/2025 2:30 PM [facility] BUN 9 5 - 25 mg/dL LAB CHEMISTRY METHOD 05/29/2025 2:30 PM [facility] Creatinine 0.64 0.50 - 1.10 mg/dL LAB CHEMISTRY METHOD 05/29/2025 2:30 PM T [facility] eGFR 92 >=60 mL/min/1. 73m2 LAB CHEMISTRY METHOD 05/29/2025 2:30 PM T [facility] Comment:Calculation based on the Chronic Kidney Disease Epidemiology Collaboration (CKD-EPI) equation refit without adjustment for race. BUN/Creatinine Ratio 14.1 LAB CHEMISTRY METHOD 05/29/2025 2:30 PM EDT [facility] Calcium 9.6 8.5 - 10.5 mg/dL LAB CHEMISTRY METHOD 05/29/2025 2:30 PM [facility] Blood Venous blood specimen / Unknown Venipuncture / Unknown 05/29/2025 7:52 AM EDT 05/29/2025 11:42 AM EDT us Malka Enrique MD LAB BLOOD ORDERABLES Fin al Result [facility] [address] [place] [address], * (ABNORMAL) Complete blood count (05/29/2025 7:52 AM EDT) [facility] WBC 9.3 4.8 - 10.8 K/mcL LAB HEMETOLOGY METHOD 05/29/2025 12:57 PM EDT [facility] RBC 4.50 3.80 - 4.80 M/mcL LAB HEMETOLOGY METHOD 05/29/2025 12:57 PM EDT [facility] Hemoglobin 11.7 11.5 - 16.0 g/dL LAB HEMETOLOGY METHOD 05/29/2025 12:57 PM EDT [facility] Hematocrit 36.7 35.0 - 47.0 % LAB HEMETOLOGY METHOD 05/29/2025 12:[facility] MCV 81.2 79.0 - 98.0 FL LAB HEMETOLOGY METHOD 05/29/2025 12:57 PM EDT [facility] MCH 25.9(L) 27.0 - 32.0 pcg LAB HEMETOLOGY METHOD 05/29/2025 12:57 PM [facility] MCHC 31.9(L) 32.0 - 37.0 g/dL LAB HEMETOLOGY METHOD 05/29/2025 12:57 PM [facility] RDW 15.9(H) 11.0 - 15.0 % LAB HEMETOLOGY METHOD 05/29/2025 12:57 PM EDT [facility] Platelets 659(H) 130 - 400 K/mcL LAB HEMETOLOGY METHOD 05/29/2025 12:57 PM EDT [facility] MPV 9.7 7.0 - 11.0 FL LAB HEMETOLOGY METHOD 05/29/2025 12:57 PM [facility] NRBC 0.0 <1.0 % LAB HEMETOLOGY METHOD 05/29/2025 12:57 PM EDT [facility] NRBC Absolute 0.00 <0.10 K/mcL LAB HEMETOLOGY METHOD 05/29/2025 12:57 PM EDT [facility] Blood Venous blood specimen / Unknown Venipuncture / Unknown 05/29/2025 7:52 AM EDT 05/29/2025 11:42 AM EDT us Malka Enrique MD LAB BLOOD ORDERABLES Fin al Result [facility] [address] [place] [address], documented in this encounter Visit Diagnoses Diagnosis Fusion of spine, lumbar region documented in this encounter Care Teams Mixer Crane Operator Relationship Specialty Start Date End Date Caitlin Hernandez MD [address] [place] [address] PCP - General Internal Medicine 09/03/21 documented as of this encounter
--- OUTSIDE RECORDS SUMMARY | 2025-07-13 13:07 | XMS_ITS | Clinical Summary ---
Author Organization [facility] [address] [place] [address] [place] [address] Phone Care Team Providers Care Pasteuriser Operator Name Role Phone Caitlin Hernandez MD Primary Care Provider [phone] Allergies Active Allergy Reactions Criticality Noted Date [...] Care Team Description 06/20/2025 Telephone Adult Medicine [address] [phone] Caitlin Hernandez MD 06/20/2025 Telephone Adult [address] [phone] Caitlin Hernandez MD 06/16/2025 Telephone Adult [address] [phone] Caitlin Hernandez MD 06/09/2025 Telephone Adult [address] [phone] Caitlin Hernandez MD 06/08/2025 10:30 AM EDT Office Visit Adult [address] [phone] Catilin Hernandez MD Back pain, unspecified back location, unspecified back pain laterality, unspecified chronicity (Primary Dx); Situational depression; Pre-hypertension; Thrombocytosis; Hypothyroidism, unspecified type; Gastroesophageal reflux disease with esophagitis, unspecified whether hemorrhage 05/30/2025 Telephone Adult Medicine [address] [phone] Caitlin Hernandez MD 05/30/2025 [place] [facility] [address] [phone] Caitlin Hernandez MD 05/29/2025 Lab Requisition [facility] - Main Lab 299 [facility] [place] [address] Malka Enrique MD Fusion of spine, lumbar region 05/24/2025 Telephone Adult [address] [phone] Caitlin Hernandez MD 05/17/2025 Lab Requisition [facility] Lab [address] [place] [phone] Malka Enrique MD Hypokalemia 05/16/2025 Lab Requisition [facility] Lab [address] [place] [phone] Malka Enrique MD Hypokalemia 05/15/2025 Lab Requisition [facility] [address] [place] [phone] Malka Enrique MD Scoliosis, unspecified; Hypothyroidism, unspecified [...] Date Site/Laterality Comments OTHER SURGICAL HISTORY PROCEDURE: SC LIG/TRNSXJ FLP TUBE ABDL/VAG APPR UNI/BI COLONOSCOPY [...] Comments Hypertension Brother Hypertension Father Hypertension Mother [place], dialysis Hypertension Sister Other cancer Sister Breast [...] Office Visit Adult Medicine [facility] [address] [place], [place] [phone] Tammi Tejeda, ANNIE [address] [place], [place] 08/16/2025 10:45 AM EDT Consult Orthopedic Surgery - [place] [address] [phone] [place], JIMBO [address] [address] Health Maintenance Due Date Last Done Comments [...] LAB HEMETOLOGY METHOD 05/29/2025 12:57 PM EDT [facility] RBC 4.50 3.80 - 4.80 M/mcL LAB HEMETOLOGY METHOD 05/29/2025 12:57 PM EDT [facility] Hemoglobin 11.7 11.5 - 16.0 g/dL LAB HEMETOLOGY METHOD 05/29/2025 12:57 PM EDT [facility] Hematocrit 36.7 35.0 - 47.0 % LAB HEMETOLOGY METHOD 05/29/2025 12:57 PM EDT [facility] MCV 81.2 79.0 - 98.0 FL LAB HEMETOLOGY METHOD 05/29/2025 12:57 PM EDT [facility] MCH 25.9(L) 27.0 - 32.0 pcg LAB HEMETOLOGY METHOD 05/29/2025 12:57 PM EDT [facility] MCHC 31.9(L) 32.0 - 37.0 g/dL LAB HEMETOLOGY METHOD 05/29/2025 12:57 PM EDT [facility] RDW 15.9(H) 11.0 - 15.0 % LAB HEMETOLOGY METHOD 05/29/2025 12:57 PM EDT [facility] Platelets 659(H) 130 - 400 K/mcL LAB HEMETOLOGY METHOD 05/29/2025 12:57 PM EDT [facility] MPV 9.7 7.0 - 11.0 FL LAB HEMETOLOGY METHOD 05/29/2025 12:57 PM EDT [facility] NRBC 0.0 <1.0 % LAB HEMETOLOGY METHOD 05/29/2025 12:57 PM EDT [facility] NRBC Absolute 0.00 <0.10 K/mcL LAB HEMETOLOGY METHOD 05/29/2025 12:57 PM EDT [facility] Blood Venous blood specimen / Unknown Venipuncture / Unknown 05/29/2025 7:52 AM EDT 05/29/2025 11:42 AM EDT us Malka Enrique MD LAB BLOOD ORDERABLES Fin al Result [facility] [address] [place] [address], [place] [phone] * Basic metabolic panel (05/29/2025 7:52 AM EDT) Only the most recent of2 resultswithin the time period is included. Sodium 134 133 - 145 mmol/L LAB CHEMISTRY METHOD 05/29/2025 2:30 PM EDT [facility] Potassium 4.6 3.5 - 5.5 mmol/L LAB CHEMISTRY METHOD 05/29/2025 2:30 PM EDT [facility] Chloride 101 96 - 110 mmol/L LAB CHEMISTRY METHOD 05/29/2025 2:30 PM [facility] CO2 24 21 - 32 mmol/L LAB CHEMISTRY METHOD 05/29/2025 2:30 PM [facility] Anion Gap 9 3 - 11 LAB CHEMISTRY METHOD 05/29/2025 2:30 PM [facility] Glucose 74 70 - 100 mg/dL LAB CHEMISTRY METHOD 05/29/2025 2:30 PM [facility] BUN 9 5 - 25 mg/dL LAB CHEMISTRY METHOD 05/29/2025 2:30 PM [facility] Creatinine 0.64 0.50 - 1.10 mg/dL LAB CHEMISTRY METHOD 05/29/2025 2:30 PM [facility] LAB eGFR 92 >=60 mL/min/1. 73m2 LAB CHEMISTRY METHOD 05/29/2025 2:30 PM [facility] Comment:Calculation based on the Chronic Kidney Disease Epidemiology Collaboration (CKD-EPI) equation refit without adjustment for race. BUN/Creatinine Ratio 14.1 LAB CHEMISTRY METHOD 05/29/2025 2:30 PM [facility] Calcium 9.6 8.5 - 10.5 mg/dL LAB CHEMISTRY METHOD 05/29/2025 2:30 PM [facility] Blood Venous blood specimen / Unknown Venipuncture / Unknown 05/29/2025 7:52 AM EDT 05/29/2025 11:42 AM EDT Malka Enrique MD LAB BLOOD ORDERABLES Fin al Result Performing Organization Address [facility]/ZIP Co de Phone Number [facility] [address] [place] [address], [place] [phone] * Potassium (05/17/2025 6:11 AM EDT) Only the most recent of2 resultswithin the time period is included. Potassium 3.5 3.5 - 5.5 mmol/L LAB CHEMISTRY METHOD 05/17/2025 2:18 PM EDT [facility] Blood Venous blood specimen / Unknown Venipuncture / Unknown 05/17/2025 6:11 AM EDT 05/17/2025 11:47 AM EDT Malka Enrique MD LAB BLOOD ORDERABLES Fin al Result Performing Organization Address [facility]/ZIP Nj de Phone Number [facility] [address] [place] [address], [place] [phone] * (ABNORMAL) Lipid panel with reflex to direct LDL (03/20/2025 1:56 PM EDT) Cholesterol 244(H) 0 - 200 mg/dL LAB CHEMISTRY METHOD 03/20/2025 5:39 PM EDT [facility] Triglycerides 185(H) 0 - 150 mg/dL LAB CHEMISTRY METHOD 03/20/2025 5:39 PM EDT [facility] HDL 54 >=40 mg/dL LAB CHEMISTRY METHOD 03/20/2025 5:39 PM EDT [facility] LDL Calculated 153(H) 0 - 100 mg/dL LAB CHEMISTRY METHOD 03/20/2025 5:39 PM EDT [facility] VLDL Cholesterol Aly 37 mg/dL LAB CHEMISTRY METHOD 03/20/2025 5:39 PM EDT [facility] Non HDL Chol. (LDL+VLDL) 190(H) <145 mg/dL LAB CHEMISTRY METHOD 03/20/2025 5:39 PM EDT [facility] Chol/HDL Ratio 4.5(H) 0.0 - 4.4 LAB CHEMISTRY METHOD 03/20/2025 5:39 PM EDT [facility] Blood Venous blood specimen / Unknown Venipuncture / Unknown 03/20/2025 1:56 PM EDT 03/20/2025 1:56 PM EDT Christiano PAUL LAB BLOOD ORDERABLES Fin al Result [facility] [address] [place] [address], [place] [phone] * External Dexa Report (01/27/2025) Anatomical Region Laterality Modality Bone Densitometr y Provider [facility] IMG DXA PROCEDURES Final Result * Colonoscopy (03/15/2024) Colonoscopy no interpretation , abstracted Anatomical Region Laterality Modality Other Historical Provider HEALTH MAINTENANCE Final Result * Depression Screening (03/14/2024) Depression Screening abstracted [facility] Provider HEALTH MAINTENANCE Final Result * SCREENING [...] ult * Cervical Cancer Screening: HPV (05/19/2014) [facility] Cervical Cancer Screening: HPV normal, abstracted Historical Provider HEALTH MAINTENANCE Final Result * Hepatitis C Screening (06/28/2013) Pathologist [facility] Hepatitis C Screening abstracted Historical Provider HEALTH MAINTENANCE Final Result from Last 3 Months or Most Recently Relevant to Health Maintenance Insurance MEDICARE [facility] Care Teams Pasteuriser Operator Relationship Specialty Start Date End Date Caitlin Hernandez MD [address] [place] [address] PCP - General Internal Medicine 09/03/21
--- OUTSIDE RECORDS SUMMARY | 2025-07-13 13:07 | XMS_ITS | Patient Health Record ---
Author Organization [facility] Fidelina reema CaldeornMarquez Address [address] [place] [address] Care Team Providers Care Circle Cutting Saw Operator Name Role Phone Love Ford MD Primary Care Provider Omid Perrin Unavailable [phone] Allergies Allergen (clinical drug ingredient) Drug/Non Drug [...] Status W/U Status Risk Notes Problem Onychomycosis (260031018) Onychomycosis (110.1) Active confirmed Problem Disorder of joint of ankle and/or foot (589065222) Arthritis - Degenerative (719.97) Active confirmed Problem Pain in limb (58003404) Pain in Limb (729.5) Active confirmed Problem Plantar fasciitis (185737888) Plantar Fasciitis (728.71) Active confirmed Problem Congenital pes planus (23600275) Flat Foot, 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 Problem Tinea pedis (7149367) Tinea Pedis (110.4) Active confirmed Problem Ingrowing nail (927841573) Ingrowing Nail (703.0) Active confirmed Problem Exostosis (55873312) Exostosis (726.91) Active confirmed Plan Of Treatment Pending Test Test Name Order Date X ray : Foot, right 3V 10/06/2011 X ray : Foot, right 3V 05/15/2014 Insurance Providers Payer Name Payer Address Payer Phone Subscriber Number Group Number Insured Name Patient Relationship to Insured Coverage Start Date Coverage End Date [facility] [address] [facility] [place] [id number] [phone] [id number] Sadia Parks Self - patient is the insured Medical (General) History Medical History History ICD Code Arthritis back, hip, knee pain poor circulation measles chicken pox Thyroid disorder Surgical History Surgery Date(Month/Year) tubal ligation 03/1981
--- OUTSIDE RECORDS SUMMARY | 2025-07-13 13:07 | XMS_ITS | Encounter Summary ---
Author Organization [facility] Address [address] [place] [address] Care Team Providers Care Well Logger Name Role Phone Caitlin Hernandez MD Primary Care Provider [phone] Reason for Visit * Reason Onset Date Comments vna 06/09/2025 Encounter Details Date Type Department Care Team ([facility] st Contact Info) Description 06/09/2025 Telephone Adult Medicine [facility] [address] [place] [address] Caitlin Hernandez MD [address] [place], [place] [phone] Social History Tobacco Use Types Packs/Day Years [...] Medicine [facility] [address] [place], [place] [phone] Tammi Tejeda NP [address] [place], [place] 08/16/2025 10:45 AM EDT Consult Orthopedic Surgery - [place] [address] [phone] [place], JIMBO [address] [address] documented as of this encounter Goals Goal [...] on filedocumented in this encounter Care Teams Well Logger Relationship Specialty Start Date End Date Caitlin Hernandez MD [address] [place] [address] PCP - General Internal Medicine 09/03/21 documented as of this encounter
== END 2025-07-12 10:22 | disposition home or self-care (01) ==
LOC: HO.HOSX 10:21
PROVIDERS: Visit Provider Neurological Surgery
DX: Z48.89 Encounter for other specified surgical aftercare (principal); M41.56 Other secondary scoliosis, lumbar region; Z98.1 Arthrodesis status
CPT/HCPCS: 72110; 99212

== ENCOUNTER 2025-07-12 13:17 | Outpatient (AMB) | payer MEDICARE, SELFPAY ==
--- NOTE | 2025-07-12 13:32 | A.SPINEOV_ITS ---
Intake Visit Reasons: 2nd post op w/ xrays Intake Note: Ms. Parks is here today for her 2nd post op with xrays. Marine Tower Operator Required: No Allergies Penicillins Allergy (Intermediate, Verified 05/31/25 14:49) Unknown gabapentin Allergy (Verified 05/31/25 14:49) Headache codeine (CODEINE) Adverse Reaction (Unknown, Verified 05/31/25 14:49) NAUSEA & VOMITING oxycodone (OXYCODONE) Adverse Reaction (Unknown, Verified 05/31/25 14:49) ALLERGIC TO CODIENE - FEARFUL TO TRY OXYCODONE Assessment & Plan Assessment & Plan (1) Scoliosis of lumbar region due to degenerative disease of spine in adult: Code(s): M41.56 - Other secondary scoliosis, lumbar region Category: Medical (2) Status post lumbar and lumbosacral fusion by anterior technique: Code(s): Z98.1 - Arthrodesis status Category: Surgical Plan Dear colleague, On 07/12/2025, I saw for 2nd postoperative visit Sadia Parks. She underwent a lumbar degenerative scoliosis correction through an oblique lumbar interbody fusion L2-L5 on 05/10/2025. She has been doing well. She takes anti-inflammatory drugs for pain control. Long standing or walking produces back pain. This is a different back pain than preoperatively. Laying down relieves the symptoms. She denies radiation down her legs. On exam, the incisions are healed. There are no neurological deficits. A repeat lumbar x-ray shows a stable L2-L5 construct. In summary, the patient is recovering according to plan. I would like to have another follow-up in 3 months. I will also make an order for a CT scan that will be done approximately around the 1 year anniversary. Daniel Rosales MD, PhD Spine Fellowship Trained Neurosurgeon Director, [facility] [place] [facility] Orders: Orders XR lumbar spine 4V min Today M41.56 - Other secondary scoliosis, lumbar region CT lumbar spine wo IV con 03/09/26 M41.56 - Other secondary scoliosis, lumbar region, Z98.1 - Arthrodesis status Coding Level of Care Code Global (41831) Diagnoses Scoliosis of lumbar region due to degenerative disease of spine in adult M41.56 Status post lumbar and lumbosacral fusion by anterior technique Z98.1
--- OUTSIDE RECORDS SUMMARY | 2025-07-12 16:16 | XMS_ITS | Encounter Summary ---
Author Organization [facility] Address [address] [place] [address] Care Team Providers Care Accredited Farm Manager Name Role Phone Caitlin Hernandez MD Primary Care Provider [phone] Encounter Details Date Type Department Care Team (Late Contact Info) Description 05/29/2025 Lab Requisition [facility] - Main Lab 299 [facility] [place] [address] Malka Enrique MD [address] [address] Fusion of spine, lumbar region Social History [...] Department Care Team (Late Contact Info) Description 08/08/2025 10:00 AM EDT Office Visit Adult Medicine [facility] [address] [place], [place] [phone] Tammi Tejeda NP [address] [place], [place] 08/16/2025 10:45 AM EDT Consult Orthopedic Surgery - [place] [address] 175 [facility] [address] [place] [phone] [place], DPGurvinder 175 [facility] [address] [place] [address] documented as of this encounter Goals Goal [...] mmol/L LAB CHEMISTRY METHOD 05/29/2025 2:30 PM EDT [facility] Potassium 4.6 3.5 - 5.5 mmol/L LAB CHEMISTRY METHOD 05/29/2025 2:30 PM EDT [facility] Chloride 101 96 - 110 mmol/L LAB CHEMISTRY METHOD 05/29/2025 2:30 PM [facility] CO2 24 21 - 32 mmol/L LAB CHEMISTRY METHOD 05/29/2025 2:30 PM EDT [facility] Anion Gap 9 3 - 11 LAB CHEMISTRY METHOD 05/29/2025 2:30 PM T [facility] Glucose 74 70 - 100 mg/dL LAB CHEMISTRY METHOD 05/29/2025 2:30 PM [facility] BUN 9 5 - 25 mg/dL LAB CHEMISTRY METHOD 05/29/2025 2:30 PM [facility] Creatinine 0.64 0.50 - 1.10 mg/dL LAB CHEMISTRY METHOD 05/29/2025 2:30 PM T [facility] eGFR 92 >=60 mL/min/1. 73m2 LAB CHEMISTRY METHOD 05/29/2025 2:30 PM T [facility] Comment:Calculation based on the Chronic Kidney Disease Epidemiology Collaboration (CKD-EPI) equation refit without adjustment for race. BUN/Creatinine Ratio 14.1 LAB CHEMISTRY METHOD 05/29/2025 2:30 PM EDT [facility] Calcium 9.6 8.5 - 10.5 mg/dL LAB CHEMISTRY METHOD 05/29/2025 2:30 PM [facility] Blood Venous blood specimen / Unknown Venipuncture / Unknown 05/29/2025 7:52 AM EDT 05/29/2025 11:42 AM EDT us Malka Enrique MD LAB BLOOD ORDERABLES Fin al Result [facility] [address] [place] [address], * (ABNORMAL) Complete blood count (05/29/2025 7:52 AM EDT) [facility] WBC 9.3 4.8 - 10.8 K/mcL LAB HEMETOLOGY METHOD 05/29/2025 12:57 PM EDT [facility] RBC 4.50 3.80 - 4.80 M/mcL LAB HEMETOLOGY METHOD 05/29/2025 12:57 PM EDT [facility] Hemoglobin 11.7 11.5 - 16.0 g/dL LAB HEMETOLOGY METHOD 05/29/2025 12:57 PM EDT [facility] Hematocrit 36.7 35.0 - 47.0 % LAB HEMETOLOGY METHOD 05/29/2025 12:57 [facility] MCV 81.2 79.0 - 98.0 FL LAB HEMETOLOGY METHOD 05/29/2025 12:57 PM EDT [facility] MCH 25.9(L) 27.0 - 32.0 pcg LAB HEMETOLOGY METHOD 05/29/2025 12:57 [facility] MCHC 31.9(L) 32.0 - 37.0 g/dL LAB HEMETOLOGY METHOD 05/29/2025 12:57 [facility] RDW 15.9(H) 11.0 - 15.0 % LAB HEMETOLOGY METHOD 05/29/2025 12:57 PM EDT [facility] Platelets 659(H) 130 - 400 K/mcL LAB HEMETOLOGY METHOD 05/29/2025 12:57 PM EDT [facility] MPV 9.7 7.0 - 11.0 FL LAB HEMETOLOGY METHOD 05/29/2025 12:57 PM [facility] NRBC 0.0 <1.0 % LAB HEMETOLOGY METHOD 05/29/2025 12:57 PM EDT [facility] NRBC Absolute 0.00 <0.10 K/mcL LAB HEMETOLOGY METHOD 05/29/2025 12:57 PM EDT [facility] Blood Venous blood specimen / Unknown Venipuncture / Unknown 05/29/2025 7:52 AM EDT 05/29/2025 11:42 AM EDT us Malka Enrique MD LAB BLOOD ORDERABLES Fin al Result [facility] [address] [place] [address], documented in this encounter Visit Diagnoses Diagnosis Fusion of spine, lumbar region documented in this encounter Care Teams Accredited Farm Manager Relationship Specialty Start Date End Date Caitlin Hernandez MD [address] [place] [address] PCP - General Internal Medicine 09/03/21 documented as of this encounter
--- OUTSIDE RECORDS SUMMARY | 2025-07-12 16:17 | XMS_ITS | Patient Health Record ---
Author Organization [facility] Fidelina reema CalderonMarquez Address [address] [place] [address] Care Team Providers Care Ice Cream Scooper Name Role Phone [place] MD Primary Care Provider Omid Perrin Unavailable [phone] Allergies Allergen (clinical drug ingredient) Drug/Non Drug [...] Status W/U Status Risk Notes Problem Onychomycosis (080793075) Onychomycosis (110.1) Active confirmed Problem Disorder of joint of ankle and/or foot (968327431) Arthritis - Degenerative (719.97) Active confirmed Problem Pain in limb (79558860) Pain in Limb (729.5) Active confirmed Problem Plantar fasciitis (810057683) Plantar Fasciitis (728.71) Active confirmed Problem Congenital pes planus (59779218) Flat Foot, 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 Problem Tinea pedis (9939532) Tinea Pedis (110.4) Active confirmed Problem Ingrowing nail (557792743) Ingrowing Nail (703.0) Active confirmed Problem Exostosis (11777473) Exostosis (726.91) Active confirmed Plan Of Treatment Pending Test Test Name Order Date X ray : Foot, right 3V 10/06/2011 X ray : Foot, right 3V 05/15/2014 Insurance Providers Payer Name Payer Address Payer Phone Subscriber Number Group Number Insured Name Patient Relationship to Insured Coverage Start Date Coverage End Date [facility] [address] [facility] [place] [phone] [id number] Sadia Parks Self - patient is the insured Medical (General) History Medical History History ICD Code Arthritis back, hip, knee pain poor circulation measles chicken pox Thyroid disorder Surgical History Surgery Date(Month/Year) tubal ligation 03/1981
--- OUTSIDE RECORDS SUMMARY | 2025-07-12 16:17 | XMS_ITS | Encounter Summary ---
Author Organization [facility] Address [address] [place] [address] Care Team Providers Care French Folder Name Role Phone Caitlin Hernandez MD Primary Care Provider Encounter Details Date Type Department Care Team (Late Contact Info) Description 05/15/2025 Lab Requisition [facility] - Main Lab 299 [facility] [address] Malka Enrique MD [address] [address] Scoliosis, unspecified; Hypothyroidism, unspecified Social History Tobacco Use Types Packs/Day Years [...] 10:00 AM EDT Office Visit Adult Medicine [facility] [address] [place] [address] Tammi Tejeda NP [address] [place], [place] 08/16/2025 10:45 AM EDT Consult Orthopedic Surgery - [place] 250 175 [facility] [address] [place] [address] [place], DPM [address] [facility] [address] [place] [address] documented as of this encounter Goals Goal [...] Associated Diagnosis Comments COMPLETE BLOOD COUNT Routine 05/15/2025 7:20 AM EDT Scoliosis, unspecified Hypothyroidism, unspecified BASIC METABOLIC PANEL Routine 05/15/2025 7:20 AM EDT Scoliosis, unspecified Hypothyroidism, unspecified documented in this encounter Results * (ABNORMAL) Basic metabolic panel (05/15/2025 7:20 AM EDT) Sodium 133 133 - 145 mmol/L LAB CHEMISTRY METHOD 05/15/2025 3:04 PM [facility] Potassium 3.3(L) 3.5 - 5.5 mmol/L LAB CHEMISTRY METHOD 05/15/2025 3:04 PM [facility] Chloride 96 96 - 110 mmol/L LAB CHEMISTRY METHOD 05/15/2025 3:04 PM [facility] CO2 29 21 - 32 mmol/L LAB CHEMISTRY METHOD 05/15/2025 3:04 PM [facility] Anion Gap 8 3 - 11 LAB CHEMISTRY METHOD 05/15/2025 3:04 PM [facility] Glucose 80 70 - 100 mg/dL LAB CHEMISTRY METHOD 05/15/2025 3:04 PM [facility] BUN 15 5 - 25 mg/dL LAB CHEMISTRY METHOD 05/15/2025 3:04 PM [facility] Creatinine 0.52 0.50 - 1.10 mg/dL LAB CHEMISTRY METHOD 05/15/2025 3:04 PM [facility] eGFR 97 >=60 mL/min/1. 73m2 LAB CHEMISTRY METHOD 05/15/2025 3:04 PM [facility] Comment:Calculation based on the Chronic Kidney Disease Epidemiology Collaboration (CKD-EPI) equation refit without adjustment for race. BUN/Creatinine Ratio 28.8 LAB CHEMISTRY METHOD 05/15/2025 3:04 PM [facility] Calcium 9.7 8.5 - 10.5 mg/dL LAB CHEMISTRY METHOD 05/15/2025 3:04 PM [facility] Blood Venous blood specimen / Unknown Venipuncture / Unknown 05/15/2025 7:20 AM EDT 05/15/2025 11:06 AM EDT us Malka Enrique MD LAB BLOOD ORDERABLES Fin al Result [facility] [address] [place] [address], * (ABNORMAL) Complete blood count (05/15/2025 7:20 AM EDT) [facility] Signature WBC 11.6(H) 4.8 - 10.8 K/mcL LAB HEMETOLOGY METHOD 05/15/2025 12:43 PM EDT [facility] RBC 4.20 3.80 - 4.80 M/mcL LAB HEMETOLOGY METHOD 05/15/2025 12:43 PM EDT [facility] Hemoglobin 10.6(L) 11.5 - 16.0 g/dL LAB HEMETOLOGY METHOD 05/15/2025 12:43 [facility] Hematocrit 32.7(L) 35.0 - 47.0 % LAB HEMETOLOGY METHOD 05/15/2025 12:43 PM [facility] MCV 78.2(L) 79.0 - 98.0 FL LAB HEMETOLOGY METHOD 05/15/2025 12:43 PM [facility] MCH 25.4(L) 27.0 - 32.0 pcg LAB HEMETOLOGY METHOD 05/15/2025 12:43 PM [facility] MCHC 32.4 32.0 - 37.0 g/dL LAB HEMETOLOGY METHOD 05/15/2025 12:43 PM [facility] RDW 13.6 11.0 - 15.0 % LAB HEMETOLOGY METHOD 05/15/2025 12:43 PM [facility] Platelets 330 130 - 400 K/mcL LAB HEMETOLOGY METHOD 05/15/2025 12:43 PM [facility] MPV 10.9 7.0 - 11.0 FL LAB HEMETOLOGY METHOD 05/15/2025 12:43 PM [facility] NRBC 0.0 <1.0 % LAB HEMETOLOGY METHOD 05/15/2025 12:43 PM EDT [facility] NRBC Absolute 0.00 <0.10 K/mcL LAB HEMETOLOGY METHOD 05/15/2025 12:43 PM EDT [facility] Blood Venous blood specimen / Unknown Venipuncture / Unknown 05/15/2025 7:20 AM EDT 05/15/2025 11:06 AM EDT us Malka Enrique MD LAB BLOOD ORDERABLES Fin al Result [facility] [address] [place] [address], documented in this encounter Visit Diagnoses Diagnosis Scoliosis, unspecified Hypothyroidism, unspecified documented in this encounter Care Teams French Folder Relationship Specialty Start Date End Date Caitlin Hernandez MD [address] [place] [address] PCP - General Internal Medicine 09/03/21 documented as of this encounter
--- OUTSIDE RECORDS SUMMARY | 2025-07-12 16:17 | XMS_ITS | Encounter Summary ---
Author Organization [facility] Address [address] [place] [address] Care Team Providers Care Switchboard Troubleshooter Name Role Phone Caitlin Hernandez MD Primary Care Provider [phone] Encounter Details Date Type Department Care Team (Late Contact Info) Description 05/17/2025 Lab Requisition [facility] - Main Lab 299 [facility] [place] [address] Malka Enrique MD [address] [address] Hypokalemia Social History Tobacco Use Types Packs/Day Years [...] 10:00 AM EDT Office Visit Adult Medicine [facility] [address] [place], [place] [phone] Tammi Tejeda NP [address] [place], [place] 08/16/2025 10:45 AM EDT Consult Orthopedic Surgery - [place] 250 175 [facility] [address] [place] [phone] [place], DPM [address] [facility] [address] [place] [address] documented as of this encounter Goals Goal [...] Procedure Name Priority Date/Time Associated Diagnosis Comments POTASSIUM Routine 05/17/2025 6:11 AM EDT Hypokalemia documented in this encounter Results * Potassium (05/17/2025 6:11 AM EDT) Potassium 3.5 3.5 - 5.5 mmol/L LAB CHEMISTRY METHOD 05/17/2025 2:18 PM EDT [facility] Blood Venous blood specimen / Unknown Venipuncture / Unknown 05/17/2025 6:11 AM EDT 05/17/2025 11:47 AM EDT us Malka Enrique MD LAB BLOOD ORDERABLES Fin al Result [facility] ([facility]) [facility] [address] [place] [address], documented in this encounter Visit Diagnoses Diagnosis Hypokalemia Hypopotassemia documented in this encounter Care Teams Switchboard Troubleshooter Relationship Specialty Start Date End Date Caitlin Hernandez MD [address] [place] [address] PCP - General Internal Medicine 09/03/21 documented as of this encounter
--- OUTSIDE RECORDS SUMMARY | 2025-07-12 16:17 | XMS_ITS | Encounter Summary ---
Author Organization [facility] Address [address] [place] [address] Care Team Providers Care Material Clerk Name Role Phone Caitlin Hernandez MD Primary Care Provider [phone] Reason for Visit * Reason Onset Date Comments vna 06/09/2025 Encounter Details Date Type Department Care Team ([facility] st Contact Info) Description 06/09/2025 Telephone Adult Medicine [facility] [address] [place] [address] Caitlin Hernandez MD [address] [place], [place] [phone] Social History Tobacco Use Types Packs/Day Years [...] as of this encounter Progress Notes * Ervin Brenner LPN - 06/09/2025 10:37 AM EDT See FYI from [facility] * Kelly Tafoya 06/09/2025 9:39 AM EDT [facility] CALL Which [facility] office is calling? [facility] / Full name of caller: JUANA The caller is A Physical Therapist Is the caller at the patients home?: no Reason for call: Reporting missed visit on 06/09/25, patient is doing well and she is asking for an early discharge. [facility] may discharge her next week Does caller need an urgent call back? no Was CONTACT Telephone # obtained above?: yes Fax #: documented in this encounter Plan of Treatment Upcoming Encounters Date Type Department Care Team (Late st Contact Info) Description 08/08/2025 10:00 AM EDT Office Visit Adult Medicine [facility] [address] [place], [place] [phone] Tammi Tejeda NP [address] [place], [place] 08/16/2025 10:45 AM EDT Consult Orthopedic Surgery - [place] [address] [phone] [place], JIMBO [address] [address] documented as of this encounter Goals Goal [...] on filedocumented in this encounter Care Teams Material Clerk Relationship Specialty Start Date End Date Caitlin Hernandez MD [address] [place] [address] PCP - General Internal Medicine 09/03/21 documented as of this encounter
--- OUTSIDE RECORDS SUMMARY | 2025-07-12 16:17 | XMS_ITS | Encounter Summary ---
Author Organization [facility] Address [address] [place] [address] Care Team Providers Care Armored Cable Machine Operator Name Role Phone Caitlin Hernandez MD Primary Care Provider [phone] Encounter Details Date Type Department Care Team (Late Contact Info) Description 05/16/2025 Lab Requisition [facility] - Main Lab 299 [facility] [place] [address] Malka Enrique MD [address] [address] Hypokalemia Social History Tobacco Use Types Packs/Day [...] 10:00 AM EDT Office Visit Adult Medicine [facility] [place] [address] [place], [place] [phone] Tammi Tejeda NP [address] [place], [place] 08/16/2025 10:45 AM EDT Consult Orthopedic Surgery - [place] 250 175 [facility] [address] [place] [phone] [place], DPM [address] [facility] [address] [place] [address] documented as of this encounter Goals Goal [...] Priority Date/Time Associated Diagnosis Comments POTASSIUM Routine 05/16/2025 6:48 AM EDT Hypokalemia documented in this encounter Results * Potassium (05/16/2025 6:48 AM EDT) Potassium 3.7 3.5 - 5.5 mmol/L LAB CHEMISTRY METHOD 05/16/2025 1:01 PM EDT [facility] Blood Venous blood specimen / Unknown Venipuncture / Unknown 05/16/2025 6:48 AM EDT 05/16/2025 11:24 AM EDT us Malka Enrique MD LAB BLOOD ORDERABLES Fin al Result [facility] [address] [place] [address], documented in this encounter Visit Diagnoses Diagnosis Hypokalemia Hypopotassemia documented in this encounter Care Teams Armored Cable Machine Operator Relationship Specialty Start Date End Date Caitlin Hernandez MD [address] [place] [address] PCP - General Internal Medicine 09/03/21 documented as of this encounter
--- OUTSIDE RECORDS SUMMARY | 2025-07-12 16:17 | XMS_ITS | Clinical Summary ---
Author Organization [facility] [address] [place] [address] [place] [phone] Phone Care Team Providers Care Soft Top Installer Name Role Phone Caitlin Hernandez MD Primary Care Provider [phone] Allergies Active Allergy Reactions Criticality Noted Date [...] Active omeprazole (PriLOSEC) [address] capsule TAKE 1 CAPSULE BY MOUTH 1 TIME EACH DAY. 90 capsule 1 5 Active levothyroxine (SYNTHROID, LEVOTHROID) 88 mcg tablet TAKE 1 TABLET BY MOUTH DAILY. ON SATURDAYS AND SUNDAYS TAKE A HALF TABLET DAILY. 84 tablet 1 5 Active cyclobenzaprine (FLEXERIL) 5 mg tablet Take 1 tablet (5 mg total) by mouth 3 (three) times a day if needed for muscle spasms. Active Active Problems Problem Noted Date Diagnosed Date Other osteoporosis without current pathological fracture 02/06/2025 Overview (02/06/2025): Per outside bone density scan December 2024 Vertigo, benign paroxysmal, unspecified laterali ty 09/23/2024 Chronic right shoulder pain 09/07/2024 Hiatal hernia 12/28/2023 Overview (09/05/2024): Incidental finding on ER visit for gastroenteritis 12/26 Pre-hypertension 10/19/2019 Assessment & Plan (06/08/2025 11:07 AM EDT): Hypercholesterolemia 05/16/2019 Other chest pain 05/12/2019 Overview [...] and she is open to doing this. Assessment & Plan (06/08/2025 11:07 AM EDT): Grieving 10/13/2018 Overview (09/05/2024): Last Assessment & [...] (BMI 30-39.9) 01/25/2018 Gastroesophageal reflux disease 10/19/2017 Assessment & Plan (06/08/2025 11:07 AM EDT): Osteopenia 04/21/2017 Overview (09/05/2024): 04/18 T score [...] this. She denies SI, HI. 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 2010 MRI Scoliosis with advanced asymmetric multilevel degenerative changes, as described. Encounters Date Type Department Care Team Description 06/20/2025 Telephone Adult Medicine [address] [phone] Caitlin Hernandez MD 06/20/2025 Telephone Adult [address] [phone] Caitlin Hernandez MD 06/16/2025 Telephone Adult [address] [phone] Caitlin Hernandez MD 06/09/2025 Telephone Adult [address] [phone] Caitlin Hernandez MD 06/08/2025 10:30 AM EDT Office Visit Adult [address] [phone] Caitlin Hernandez MD Back pain, unspecified back location, unspecified back pain laterality, unspecified chronicity (Primary Dx); Situational depression; Pre-hypertension; Thrombocytosis; Hypothyroidism, unspecified type; Gastroesophageal reflux disease with esophagitis, unspecified whether hemorrhage 05/30/2025 Telephone Adult Medicine [address] [phone] Caitlin Hernandez MD 05/30/2025 [facility] [address] [phone] Caitlin Hernandez MD 05/29/2025 Lab Requisition [facility] - Main Lab [address] [facility] [email or web address] [address] Malka Enrique MD Fusion of spine, lumbar region 05/24/2025 Telephone Adult [address] [phone] Caitlin Hernandez MD 05/17/2025 Lab Requisition [facility] [address] [place] [phone] Malka Enrique MD Hypokalemia 05/16/2025 Lab Requisition [facility] [address] [place] [phone] Malka Enrique MD Hypokalemia 05/15/2025 Lab Requisition [facility] [address] [place] [phone] Malka Enrique MD Scoliosis, unspecified; Hypothyroidism, unspecified from Last 3 Months Immunizations Name Administration [...] Date Site/Laterality Comments OTHER SURGICAL HISTORY PROCEDURE: [place] LIG/TRNSXJ FLP TUBE ABDL/VAG APPR UNI/BI COLONOSCOPY [...] Comments Hypertension Brother Hypertension Father Hypertension Mother [place], dialysis Hypertension Sister Other cancer Sister Breast [...] Sexual Orientation Not on file Obstetrics History * This document contains information received from the source organization and may not represent a complete record from that organization. Para Term AB IAB SAB Ectopic Multiple Livin g Live Births 3 2 2 Date Outcome GA Total Labor Labor/2nd/3rd Weight Sex Type Anes PTL Nahomy A1 A5 Name Clin Term Term Last Filed Vital Signs Vital Sign Reading Time Taken Comments Blood Pressure 120/68 06/08/2025 10:28 AM EDT Pulse 80 06/08/2025 10:28 AM EDT Temperature 36.2 C (97.2 F) 06/08/2025 10:28 AM EDT Respiratory Rate 17 06/08/2025 10:28 AM EDT Oxygen Saturation 98% 03/20/2025 1:05 [...] 10:00 AM EDT Office Visit Adult Medicine [facility] [address] [place], [place] [phone] Tammi Tejeda, ANNIE [address] [place], [place] 08/16/2025 10:45 AM EDT Consult Orthopedic Surgery - [place] [address] [phone] Urbano [place], JIMBO [address] [address] Health Maintenance Due Date Last Done Comments DTaP,Tdap,and Td Vaccines (2 - Td or Tdap) 03/29/2019 03/29/2009 Cervical Cancer Screening: HPV 05/19/2019 05/19/2014 Falls Risk Assessment 10/11/2022 Social Influencers of Health Screening 10/11/2022 Depression Screening 11/02/2024 03/14/2024 RSV Immunization Adult Patients (1 - 1-dose 75+ series) 2025 02/16/2024 Medicare Annual Wellness Visit 03/14/2025 03/14/2024 Colorectal Cancer Screening: Stool Based Tests (FOBT/FIT) 03/15/2025 03/15/2024 COVID-19 Vaccine ( season) 2025 10/25/2021, 02/18/2021, 01/28/2021 Influenza Vaccine (#1) 2025 , 08/01/2023, 07/05/2023, Additional history exists Cholesterol Screening (Lipid Panel) 03/20/2030 03/20/2025, 07/18/2024, 07/18/2024, Additional history exists Osteoporosis Screening (Bone Density Screening) 01/27/2035 01/27/2025, 01/27/2025, 11/15/2021, Additional history exists Hepatitis C Screening Completed 06/28/2013 Breast Cancer Screening Discontinued 05/13/2021, 05/20 Zoster Vaccines Completed 10/23/2021, 0811/2020, 06/02/2021 RSV Immunization Patients Under 20 months [...] Name Priority Date/Time Associated Diagnosis Comments EXTERNAL XRAY REPORT 05/31/2025 EXTERNAL XRAY REPORT 05/31/2025 EXTERNAL XRAY REPORT 05/31/2025 EXTERNAL XRAY REPORT 05/31/2025 BASIC METABOLIC PANEL Routine 05/29/2025 7:52 AM EDT Fusion of spine, lumbar region COMPLETE BLOOD COUNT Routine 05/29/2025 7:52 AM EDT Fusion of spine, lumbar region POTASSIUM Routine 05/17/2025 6:11 AM EDT Hypokalemia POTASSIUM Routine 05/16/2025 6:48 AM EDT Hypokalemia BASIC METABOLIC PANEL Routine 05/15/2025 7:20 AM EDT Scoliosis, unspecified Hypothyroidism, unspecified COMPLETE BLOOD COUNT Routine 05/15/2025 7:20 AM EDT Scoliosis, unspecified Hypothyroidism, unspecified EXTERNAL XRAY REPORT 05/10/2025 EXTERNAL XRAY REPORT 05/10/2025 LIPID PANEL WITH REFLEX TO DIRECT LDL [...] Relevant to Health Maintenance Results * External Xray Report (05/31/2025) Only the most recent of6 resultswithin the time period is included. Anatomical Region Laterality Modality Radiographic Tia ging Provider [facility] IMG XR PROCEDURES Final Result * (ABNORMAL) Complete blood count (05/29/2025 7:52 AM EDT) Only the most recent of2 resultswithin the time period is included. WBC 9.3 4.8 - 10.8 K/mcL LAB HEMETOLOGY METHOD 05/29/2025 12:57 PM EDT [facility] RBC 4.50 3.80 - 4.80 M/mcL LAB HEMETOLOGY METHOD 05/29/2025 12:57 PM EDT [facility] Hemoglobin 11.7 11.5 - 16.0 g/dL LAB HEMETOLOGY METHOD 05/29/2025 12:57 PM EDT [facility] Hematocrit 36.7 35.0 - 47.0 % LAB HEMETOLOGY METHOD 05/29/2025 12:57 PM EDT [facility] MCV 81.2 79.0 - 98.0 FL LAB HEMETOLOGY METHOD 05/29/2025 12:57 PM EDT [facility] MCH 25.9(L) 27.0 - 32.0 pcg LAB HEMETOLOGY METHOD 05/29/2025 12:57 PM EDT [facility] MCHC 31.9(L) 32.0 - 37.0 g/dL LAB HEMETOLOGY METHOD 05/29/2025 12:57 PM EDT [facility] RDW 15.9(H) 11.0 - 15.0 % LAB HEMETOLOGY METHOD 05/29/2025 12:57 PM EDT [facility] Platelets 659(H) 130 - 400 K/mcL LAB HEMETOLOGY METHOD 05/29/2025 12:57 PM EDT [facility] MPV 9.7 7.0 - 11.0 FL LAB HEMETOLOGY METHOD 05/29/2025 12:57 PM EDT [facility] NRBC 0.0 <1.0 % LAB HEMETOLOGY METHOD 05/29/2025 12:57 PM EDT [facility] NRBC Absolute 0.00 <0.10 K/mcL LAB HEMETOLOGY METHOD 05/29/2025 12:57 PM EDT [facility] Blood Venous blood specimen / Unknown Venipuncture / Unknown 05/29/2025 7:52 AM EDT 05/29/2025 11:42 AM EDT us Malka Enrique MD LAB BLOOD ORDERABLES Fin al Result [facility] [address] [place] [address], [place] [phone] * Basic metabolic panel (05/29/2025 7:52 AM EDT) Only the most recent of2 resultswithin the time period is included. Sodium 134 133 - 145 mmol/L LAB CHEMISTRY METHOD 05/29/2025 2:30 PM EDT [facility] Potassium 4.6 3.5 - 5.5 mmol/L LAB CHEMISTRY METHOD 05/29/2025 2:30 PM EDT [facility] Chloride 101 96 - 110 mmol/L LAB CHEMISTRY METHOD 05/29/2025 2:30 PM [facility] CO2 24 21 - 32 mmol/L LAB CHEMISTRY METHOD 05/29/2025 2:30 PM [facility] Anion Gap 9 3 - 11 LAB CHEMISTRY METHOD 05/29/2025 2:30 PM [facility] Glucose 74 70 - 100 mg/dL LAB CHEMISTRY METHOD 05/29/2025 2:30 PM [facility] BUN 9 5 - 25 mg/dL LAB CHEMISTRY METHOD 05/29/2025 2:30 PM [facility] Creatinine 0.64 0.50 - 1.10 mg/dL LAB CHEMISTRY METHOD 05/29/2025 2:30 PM [facility] eGFR 92 >=60 mL/min/1. 73m2 LAB CHEMISTRY METHOD 05/29/2025 2:30 PM [facility] Comment:Calculation based on the Chronic Kidney Disease Epidemiology Collaboration (CKD-EPI) equation refit without adjustment for race. BUN/Creatinine Ratio 14.1 LAB CHEMISTRY METHOD 05/29/2025 2:30 PM [facility] Calcium 9.6 8.5 - 10.5 mg/dL LAB CHEMISTRY METHOD 05/29/2025 2:30 PM [facility] Blood Venous blood specimen / Unknown Venipuncture / Unknown 05/29/2025 7:52 AM EDT 05/29/2025 11:42 AM EDT Malka Enrique MD LAB BLOOD ORDERABLES Fin al Result Performing Organization Address [facility]/ZIP Co de Phone Number [facility] [address] [place] [address], [place] [phone] * Potassium (05/17/2025 6:11 AM EDT) Only the most recent of2 resultswithin the time period is included. Potassium 3.5 3.5 - 5.5 mmol/L LAB CHEMISTRY METHOD 05/17/2025 2:18 PM EDT [facility] Blood Venous blood specimen / Unknown Venipuncture / Unknown 05/17/2025 6:11 AM EDT 05/17/2025 11:47 AM EDT Malka Enrique MD LAB BLOOD ORDERABLES Fin al Result Performing Organization Address [facility]/ZIP Va de Phone Number [facility] [address] [place] [address], [place] [phone] * (ABNORMAL) Lipid panel with reflex to direct LDL (03/20/2025 1:56 PM EDT) Cholesterol 244(H) 0 - 200 mg/dL LAB CHEMISTRY METHOD 03/20/2025 5:39 PM EDT [facility] Triglycerides 185(H) 0 - 150 mg/dL LAB CHEMISTRY METHOD 03/20/2025 5:39 PM EDT [facility] HDL 54 >=40 mg/dL LAB CHEMISTRY METHOD 03/20/2025 5:39 PM EDT [facility] LDL Calculated 153(H) 0 - 100 mg/dL LAB CHEMISTRY METHOD 03/20/2025 5:39 PM EDT [facility] VLDL Cholesterol Aly 37 mg/dL LAB CHEMISTRY METHOD 03/20/2025 5:39 PM EDT [facility] Non HDL Chol. (LDL+VLDL) 190(H) <145 mg/dL LAB CHEMISTRY METHOD 03/20/2025 5:39 PM EDT [facility] Chol/HDL Ratio 4.5(H) 0.0 - 4.4 LAB CHEMISTRY METHOD 03/20/2025 5:39 PM EDT [facility] Blood Venous blood specimen / Unknown Venipuncture / Unknown 03/20/2025 1:56 PM EDT 03/20/2025 1:56 PM EDT Christiano PAUL LAB BLOOD ORDERABLES Fin al Result [facility] [address] [place] [address], [place] [phone] * External Dexa Report (01/27/2025) Anatomical Region Laterality Modality Bone Densitometr y Provider [facility] IMG DXA PROCEDURES Final Result * Colonoscopy (03/15/2024) Colonoscopy no interpretation , abstracted Anatomical Region Laterality Modality Other Historical Provider HEALTH MAINTENANCE Final Result * Depression Screening (03/14/2024) Depression Screening abstracted [facility] Provider HEALTH MAINTENANCE Final Result * SCREENING [...] ult * Cervical Cancer Screening: HPV (05/19/2014) [facility] Cervical Cancer Screening: HPV normal, abstracted Historical Provider HEALTH MAINTENANCE Final Result * Hepatitis C Screening (06/28/2013) Pathologist [facility] Hepatitis C Screening abstracted Historical Provider HEALTH MAINTENANCE Final Result from Last 3 Months or Most Recently Relevant to Health Maintenance Insurance MEDICARE [facility] Care Teams Soft Top Installer Relationship Specialty Start Date End Date Caitlin Hernandez MD [address] [place] [address] PCP - General Internal Medicine 09/03/21
== END 2025-07-12 13:57 | disposition home or self-care (01) ==
LOC: HO.HNS 13:18
PROVIDERS: PCP Internal Medicine; Visit Provider Neurological Surgery
DX: M51.360 Other intervertebral disc degeneration, lumbar region with discogenic back pain only (principal); M41.56 Other secondary scoliosis, lumbar region; Z98.1 Arthrodesis status
CPT/HCPCS: 99024

== ENCOUNTER → 2025-07-12 13:19 | Outpatient (BNV) | payer MEDICARE, SELFPAY | PROVIDERS: Visit Provider Radiology Diagnostic Radiology | DX: M54.50 Low back pain, unspecified (principal) | CPT/HCPCS: 72110 ==

== ENCOUNTER 2025-09-01 14:19 | Outpatient (REF) | payer MEDICARE, SELFPAY ==
--- NOTE | ~2025-09-01 | XR_ITS ---
EXAMINATION: XR LUMBOSACRAL SPINE CLINICAL INFORMATION: Z98.1 - Arthrodesis status COMPARISON: 07/12/2025 TECHNIQUE: Two views of the lumbosacral spine. FINDINGS: There are 5 nonrib-bearing lumbar segments. Posterior pedicle screws and rods are again seen in L2-L3-L4-L5. There are interbody spacers. Hardware is intact and there is no subsidence of the interbody spacers. There is unchanged grade 1 retrolisthesis at L3-4. XR/XR lumbar spine 2-3V IMPRESSION: Stable posterior interbody fusion L2-L5. Electronically signed by: Armando Nuno MD 09/01/2025 03:34 PM EDT RP
== END 2025-09-01 14:20 | disposition home or self-care (01) ==
LOC: HO.HOSX 14:19
PROVIDERS: Visit Provider Neurological Surgery
DX: Z47.89 Encounter for other orthopedic aftercare (principal); M54.50 Low back pain, unspecified; M79.605 Pain in left leg; Z98.1 Arthrodesis status
CPT/HCPCS: 72100; 99212

== ENCOUNTER 2025-09-01 14:19 | Outpatient (AMB) | payer MEDICARE, SELFPAY ==
--- NOTE | 2025-09-01 14:26 | HO.SPINEOV ---
Intake Visit Reasons: left leg pain Intake Note: Ms. Parks is here today c/o Left leg pain. Outpatient Surgery Rn Required: No Allergies Penicillins Allergy (Intermediate, Verified 09/01/25 14:30) Unknown gabapentin Allergy (Verified 09/01/25 14:30) Headache codeine (CODEINE) Adverse Reaction (Unknown, Verified 09/01/25 14:30) NAUSEA & VOMITING oxycodone (OXYCODONE) Adverse Reaction (Unknown, Verified 09/01/25 14:30) ALLERGIC TO CODIENE - FEARFUL TO TRY OXYCODONE Assessment & Plan Assessment & Plan (1) Status post lumbar and lumbosacral fusion by anterior technique: Code(s): Z98.1 - Arthrodesis status Category: Medical Plan: Dear colleague, On 09/01/2025, I saw for follow-up Sadia Parks. She underwent an L2-L5 oblique lumbar interbody fusion for correction of the lumbar degenerative scoliosis and back pain on 05/03/2025. The original back pain is no longer present. Her main complaint is a burning pain on the medial side of her left lower leg that fluctuates. This complaints started approximately 1 month ago. She went to the [employer] and walked around for several hours which resulted in severe back pain. She is afraid that she did something to her instrumentation. She also states that she does get back pain in the lumbar region after 45 minutes to an hour of walking or standing. An x-ray of the lumbar spine shows a stable L2-L5 instrumented fusion. Obviously, she is still in the healing process and time will tell what the end result will be. I would like to follow-up in 3 months to assess her left leg symptoms. Daniel Rosales MD, PhD Spine Fellowship Trained Neurosurgeon Director, [facility] Orders: Orders XR lumbar spine 2-3V Today Z98.1 - Arthrodesis status Coding Level of Care Code Global (19509) Diagnoses Status post lumbar and lumbosacral fusion by anterior technique Z98.1
--- OUTSIDE RECORDS SUMMARY | 2025-09-01 14:58 | XMS_ITS | Encounter Summary ---
Author Organization [facility] [address] Care Team Providers Care Rn Ccu Name Role Phone Caitlin Hernandez MD Primary Care Provider Encounter Details Date Type Department Care Team ([facility] st Contact Info) Description 08/08/2025 Results Follow-Up Adult Medicine [facility] [address] [place], [place] [phone] Tammi Tejeda, MOLD INSPECTOR [address] [place], [place] Social History Tobacco Use Types Packs/Day Years Used Date Smoking Tobacco: Former Cigarettes Q uit: 02/14/2009 Smokeless Tobacco: Former Alcohol Use Standard Drinks/Week Comments Yes 0 (1 standard drink = 0.6 oz pur e alcohol) 1-2 yearly Housing Instability Answer Date Recorde d Are you worried that in the next 2 months you may not have stable housing? No 08/08/2025 Food Access & Nutrition Answer Date Rec orded Do you have access to a vari ety of food including fruits and vegetables? Yes 08/08/2025 Access to Healthcare Answer Date Record ed Within the last 3 months, ho w many times did you visit the emergency department for your medical care? 0 08/08/2025 Health Literacy Answer Date Recorded How often do you need to hav e someone help you when you read instructions, pamphlets, or other written material from your doctor or pharmacy? Never 08/08/2025 Caregiver: How often do you need to have someone help you when you read instructions, pamphlets, or other written material from your doctor or pharmacy? Not on file 08/08/2025 Financial Risk Answer Date Recorded How hard is it for you to pa y for the very basics like food, housing, medical care, and air conditioning / heating? Somewhat hard 08/08/2025 Transportation Answer Date Recorded Has the lack of transportati on kept you from meetings, work, or from getting things needed for daily living? No Has the lack of transportati on kept you from medical appointments or from getting medications? No 08/08/2025 Social Isolation Answer Date Recorded How often do you feel lonely or isolated from those around you? Sometimes 08/08/2025 Food Risk Answer Date Recorded Within the past 12 months we worried whether our food would run out before we got money to buy more. Never true 08/08/2025 Within the past 12 months th e food we bought just didn't last and we didn't have money to get more. Never true 08/08/2025 Dependent Care Answer Date Recorded Do you need help finding or paying for care for your loved ones. For example, children's tutor or elderly care for an older adult? No 08/08/2025 Education Answer Date Recorded Do you think completing more education or training, like finishing a GED, going to college, or learning a trade, would be helpful for you? No 08/08/2025 Employment and Income Answer Date Recor ded During the last four weeks, have you been actively looking for work? No 08/08/2025 Living Situation Answer Date Recorded What is your living situation? Unrecognized valu e 08/08/2025 Comments No Sex and Gender Information Value Date Recorded Sex Assigned at Not on file Legal Sex Female 5:55 PM EST Gender Identity Not on file Sexual Orientation Not on file documented as of this encounter Plan of Treatment Upcoming Encounters Date Type Department Care Team (Late st Contact Info) Description 10/18/2025 10:45 AM EST Office Visit Orthopedic Surgery - [address] [address] [place] DPM [address] [place] [phone] 02/06/2026 9:30 AM EDT Office Visit Adult Medicine [facility] [address] [place] [phone] Caitlin Hernandez MD [address] [place], [place] documented as of this encounter Goals [...] Diagnoses Not on filedocumented in this encounter Additional Health Concerns Assessment Noted Time PHQ-9 Depression Total Score: 9 08/08/20 25 10:04 AM EDT A fall risk assessment has been complete d for the patient 08/08/2025 10:04 AM EDT documented as of this encounter Care Teams Rn Ccu Relationship Specialty Start Date End Date Caitlin Hernandez MD [address] [place] [address] PCP - General Internal Medicine 09/03/21 documented as of this encounter
--- OUTSIDE RECORDS SUMMARY | 2025-09-01 14:58 | XMS_ITS | Clinical Summary ---
Author Organization [facility] [address] [place] [address] [place] [phone] Phone Care Team Providers Care Surgical Aide Name Role Phone Caitlin Hernandez MD Primary Care Provider [phone] Allergies Active Allergy Reactions Criticality Noted Date Comments Codeine 07/22/2006 Penicillins Diarrhea Low 01/10/2019 Medications calcium carbonate-venkatesh min D3 500 mg-3.125 mcg (125 unit) tablet per tabelt Take 1 tablet by mouth 1 (one) time each day. OTC 0 Active MULTIVITAMIN ORAL Take 1 tablet by mouth 1 (one) time each day. OTC Active Bifidobacteriu m infantis (ALIGN ORAL) Probiotic Product (Align) Chew Tab Sig - Route: Take by mouth daily. OTC Active meclizine (ANTIVERT) 12.5 mg tablet Take 1 tablet (12.5 mg total) by mouth 3 (three) times a day if needed for dizziness. 90 tablet 4 09/14/20 25 Active levothyroxine (SYNTHROID, LEVOTHROID) 88 mcg tablet TAKE 1 TABLET BY MOUTH DAILY. ON SATURDAYS AND SUNDAYS TAKE A HALF TABLET DAILY. 84 tablet 1 5 Active sertraline (ZOLOFT) 100 mg tablet Take 1 tablet (100 mg total) by mouth 1 (one) time each day at the same time. Prescribed by [facility] 90 tablet 1 5 Active atorvastatin (LIPITOR) 10 mg tablet Take 1 tablet (10 mg total) by mouth 1 (one) time each day. Prescribed by [facility] 90 tablet 1 5 Active omeprazole (PriLOSEC) [address] capsule Take 1 capsule (20 mg total) by mouth 1 (one) time each day. 90 capsule 1 5 Active triamcinolone (KENALOG) 0.1 % ointmentIndica tions:Lichen sclerosus APPLY A THIN LAYER DAILY 30 g 1 5 Active triamcinolone (KENALOG) 0.1 % ointment APPLY A THIN LAYER DAILY 30 g 4 08/08/20 25 Discontinu ed(Reorder ) omeprazole (PriLOSEC) [address] capsule TAKE 1 CAPSULE BY MOUTH 1 TIME EACH DAY. 90 capsule 1 5 08/08/20 Discontinu ed(Reorder ) cyclobenzaprin e (FLEXERIL) 5 mg tablet Take 1 tablet (5 mg total) by mouth 3 (three) times a day if needed for muscle spasms. 5 08/08/20 Discontinu ed(Therapy completed) atorvastatin (LIPITOR) 10 mg tablet Take 1 tablet (10 mg total) by mouth 1 (one) time each day. Prescribed by [facility] 5 08/08/20 Discontinu ed(Reorder ) sertraline (ZOLOFT) 100 mg tablet Take 1 tablet (100 mg total) by mouth 1 (one) time each day at the same time. Prescribed by [facility] 5 08/08/20 Discontinu ed(Reorder ) Active Problems Problem Noted Date Diagnosed Date [...] Encounters Date Type Department Care Team Description 08/16/2025 10:45 AM EDT Consult Orthopedic Surgery - [place] [address] [place] [phone] [place], JIMBO Pain in both feet (Primary Dx); Pain in toes of both feet; Arthritis of both feet; Brachymetatarsia of left foot; Hammertoes of both feet; Dermatophytosis, nail 08/08/2025 10:00 AM EDT Office Visit Adult [address] [phone] Tammi Tejeda NP Depression, unspecified depression type (Primary Dx); Gastroesophageal reflux disease with esophagitis, unspecified whether hemorrhage; Hypothyroidism, unspecified type; Hypercholesterolemia ; Ear pain, referred, right; Colon cancer screening; Need for tetanus, diphtheria, and acellular pertussis (Tdap) vaccine 08/08/2025 Results Follow-Up [address] [phone] Tammi Tejeda NP 06/20/[address] [phone] Caitlin Hernandez MD 06/20/[address] [phone] Caitlin Hernandez MD 06/16/[address] [phone] Caitlin Hernandez MD 06/09/[address] [phone] Caitlin Hernandez MD 06/08/2025 10:30 AM EDT Office Visit [address] [phone] Caitlin Hernandez MD Back pain, unspecified back location, unspecified back pain laterality, unspecified chronicity (Primary Dx); Situational depression; Pre-hypertension; Thrombocytosis; Hypothyroidism, unspecified type; Gastroesophageal reflux disease with esophagitis, unspecified whether hemorrhage from Last 3 Months Immunizations Immunization Administration Dates Next Due Influenza trivalent, 0.5mL ( Fluad) 65yo and older 07/25/2024,07/05/2023,08/13/2022,08/08,08/23/2020,07/25/2019,07/28/2018 ,10/19/2017,08/20/2016 Influenza, Unspecified 08/01/2023,08/23/2020 Pneumococcal conjugate 13 va lent (Prevnar 13, PCV13) 2mo and older 04/13/2017 Pneumococcal conjugate 20 va lent (Prevnar 20, PCV 20) 2mo and older 10/03/2024 Pneumococcal polysaccharide 23 valent (Pneumovax 23) 2yo and older 10/03/2024 Respiratory syncytial virus (RSV), unspecified 02/16/2024 Td Tetanus diptheria, preser vative free (Tenivac) 7yo and older 08/08/2025 Tdap Tetanus diptheria acell ular pertussis (Boostrix; [...] Comments Hypertension Brother Hypertension Father Hypertension Mother CA, dialysis Hypertension Sister Other cancer Sister Breast [...] care for your loved ones. For example, child psychologist or elderly care for an older adult? [...] Sign Reading Time Taken Comments Blood Pressure 116/63 08/08/2025 9:52 AM EDT Pulse 62 08/08/2025 9:52 AM EDT Temperature 36.2 C (97.2 F) 08/08/2025 9:52 AM EDT Respiratory Rate 17 06/08/2025 10:28 AM EDT Oxygen Saturation 97% 08/08/2025 9:52 AM EDT Inhaled Oxygen Concentration - - Weight 55.3 kg (122 lb) 08/08/2025 9:52 AM EDT Height 144.8 cm (4' 9 ) 08/08/2025 9:52 AM EDT Body Mass Index 26.4 08/08/2025 9:52 AM EDT Plan of Treatment Upcoming Encounters Date Type Department Care Team (Late st Contact Info) Description 10/18/2025 10:45 AM EST Office Visit Orthopedic Surgery - [place] [address] [place] [phone] [place] DPM [address] [place] [phone] 02/06/2026 9:30 AM EDT Office Visit Adult Medicine [facility] [place] [address] [place] [phone] Caitlin Hernandez MD [address] [place] [address] Health Maintenance Due Date Last Done Comments Medicare Annual Wellness Visit 03/14/2025 03/14/2024 Colorectal Cancer Screening: Stool Based Tests (FOBT/FIT) 03/15/2025 03/15/2024 Falls Risk Assessment 08/08/2026 08/08/2025, 025 Social Influencers of Health Screening 08/08/2026 08/08/2025 Cholesterol Screening (Lipid Panel) 08/08/2030 08/08/2025, 03/20/2025, 07/18/2024, Additional history exists Osteoporosis Screening (Bone Density Screening) 01/27/2035 01/27/2025, 01/27/2025, 11/15/2021, Additional history exists DTaP,Tdap,and Td Vaccines (3 - Td or Tdap) 08/08/2035 08/08/2025, 03/29/2009 Hepatitis C Screening Completed 06/28/2013 Cervical Cancer Screening: HPV Discontinued 05/19/2014 Breast Cancer Screening Discontinued 05/13/2021, 05/20 Zoster Vaccines Completed 10/23/2021, 08/0 11/2020, 06/02/2021 COVID-19 Vaccine Discontinued 10/25/2021, , 01/28/2021 RSV Immunization Adult Patients Discontinued 02/16/2024 RSV Immunization Patients Under 20 months Aged Out 02/16/2024 No longer eligible based on patient's age to complete this topic Colorectal Cancer Screening: Colonoscopy Discontinued 03/15/2024 Pneumococcal Vaccine: 50+ Years Completed 10/03/2024, 10/03/2024, 04/13/2017 Influenza Vaccine Completed 07/17/2025, , 08/01/2023, Additional history exists Depression Screening Completed 08/08/2025, 03/14/20 24 HIB Vaccines Aged Out No longer eligi [...] Procedure Name Priority Date/Time Associated Diagnosis Comments TRIIODOTHYRONINE FREE Routine 08/08/2025 11:20 AM EDT Hypothyroidism, unspecified type FREE THYROXINE WITH REFLEX TO FREE TRIIODOTHYRONINE Routine 08/08/2025 11:20 AM EDT Hypothyroidism, unspecified type CBC WITH AUTO DIFFERENTIAL Routine 08/08/2025 11:20 AM EDT Thrombocytosis THYROID STIMULATING HORMONE WITH REFLEX TO FREE T4 AND FREE T3 Routine 08/08/2025 11:20 AM EDT Hypothyroidism, unspecified type COMPREHENSIVE METABOLIC PANEL Routine 08/08/2025 11:20 AM EDT Depression, unspecified depression type Hypercholesterolem ia LIPID PANEL WITH REFLEX TO DIRECT LDL Routine 08/08/2025 11:20 AM EDT Hypercholesterolem ia CBC AND DIFFERENTIAL Routine 08/08/2025 11:20 AM EDT Thrombocytosis EXTERNAL DEXA REPORT 01/27/2025 COLONOSCOPY Routine 03/15/2024 DEPRESSION SCREENING Routine 03/14/2024 SCREENING MAMMOGRAPHY BI 2-VIEW BREAST INC CAD Routine 05/13/2021 9:02 AM EDT Encounter for screening mammogram for malignant neoplasm of breast HPV Routine 05/19/2014 HEPATITIS C SCREENING Routine 06/28/2013 from Last 3 Months or Most Recently Relevant to Health Maintenance Results * (ABNORMAL) Thyroid stimulating hormone with reflex to free t4 and free t3 (08/08/2025 11:20 AM EDT) TSH 4.13(H) 0.40 - 4.00 mcIU/mL LAB CHEMISTRY METHOD 08/08/2025 3:50 PM EDT [facility] Blood Venous blood specimen / Unknown Venipuncture / Unknown 08/08/2025 11:20 AM EDT 08/08/2025 11:20 AM EDT us Caitlin Hernandez MD LAB BLOOD ORDERABLES Final Resul t Performing Organization Address [facility]/ZIP Co de Phone Number [facility] [address] [place] [address], [place] [phone] * Free thyroxine with reflex to free triiodothyronine (08/08/2025 11:20 AM EDT) Free T4 1.25 0.70 - 1.80 ng/dL LAB CHEMISTRY METHOD 08/08/2025 4:36 PM EDT [facility] Blood Venous blood specimen / Unknown Venipuncture / Unknown 08/08/2025 11:20 AM EDT 08/08/2025 11:20 AM EDT us Caitlin Hernandez MD LAB BLOOD ORDERABLES Final Resul t Performing Organization Address City/[facility]/ZIP Co de Phone Number [facility] [address] [place] [address], [place] [phone] * (ABNORMAL) Lipid panel with reflex to direct LDL (08/08/2025 11:20 AM EDT) Cholesterol 196 0 - 200 mg/dL LAB CHEMISTRY METHOD 08/08/2025 2:35 PM EDT [facility] Triglycerides 133 0 - 150 mg/dL LAB CHEMISTRY METHOD 08/08/2025 2:35 PM EDT [facility] HDL 65 >=40 mg/dL LAB CHEMISTRY METHOD 08/08/2025 2:35 PM EDT [facility] LDL Calculated 104(H) 0 - 100 mg/dL LAB CHEMISTRY METHOD 08/08/2025 2:35 PM EDT [facility] Comment:Estimated LDL Calcul ated using equation: Total cholesterol - HDL cholesterol - (Triglycerides/5) VLDL Cholesterol Aly 26.6 mg/dL LAB CHEMISTRY METHOD 08/08/2025 2:35 PM EDT [facility] Non HDL Chol. (LDL+VLDL) 131 <145 mg/dL LAB CHEMISTRY METHOD 08/08/2025 2:35 PM EDT [facility] Chol/HDL Ratio 3.0 0.0 - 4.4 LAB CHEMISTRY METHOD 08/08/2025 2:35 PM EDT [facility] Blood Venous blood specimen / Unknown Venipuncture / Unknown 08/08/2025 11:20 AM EDT 08/08/2025 11:20 AM EDT us Caitlin Hernandez MD LAB BLOOD ORDERABLES Final Resul t [facility] [address] [place] [address], * (ABNORMAL) CBC auto differential (08/08/2025 11:20 AM EDT) WBC 8.7 4.8 - 10.8 K/mcL LAB HEMETOLOGY METHOD 08/08/2025 1:56 PM EDT [facility] RBC 4.90(H) 3.80 - 4.80 M/mcL LAB HEMETOLOGY METHOD 08/08/2025 1:56 PM EDT [facility] Hemoglobin 12.1 11.5 - 16.0 g/dL LAB HEMETOLOGY METHOD 08/08/2025 1:56 PM EDT [facility] Hematocrit 39.0 35.0 - 47.0 % LAB HEMETOLOGY METHOD 08/08/2025 1:56 PM [facility] MCV 79.9 79.0 - 98.0 FL LAB HEMETOLOGY METHOD 08/08/2025 1:56 PM [facility] MCH 24.8(L) 27.0 - 32.0 pcg LAB HEMETOLOGY METHOD 08/08/2025 1:56 PM [facility] MCHC 31.0(L) 32.0 - 37.0 g/dL LAB HEMETOLOGY METHOD 08/08/2025 1:56 PM [facility] RDW 14.2 11.0 - 15.0 % LAB HEMETOLOGY METHOD 08/08/2025 1:56 PM [facility] Platelets 310 130 - 400 K/mcL LAB HEMETOLOGY METHOD 08/08/2025 1:56 PM [facility] MPV 11.8(H) 7.0 - 11.0 FL LAB HEMETOLOGY METHOD 08/08/2025 1:56 PM [facility] NRBC 0.0 <1.0 % LAB HEMETOLOGY METHOD 08/08/2025 1:56 PM [facility] NRBC Absolute 0.00 <0.10 K/mcL LAB HEMETOLOGY METHOD 08/08/2025 1:56 PM [facility] Neutrophils Relative 66.2 % LAB HEMETOLOGY METHOD 08/08/2025 1:56 PM [facility] Lymphocytes Relative 22.1 % LAB HEMETOLOGY METHOD 08/08/2025 1:56 PM [facility] Monocytes Relative 9.1 % LAB HEMETOLOGY METHOD 08/08/2025 1:56 PM [facility] Eosinophils Relative 1.7 % LAB HEMETOLOGY METHOD 08/08/2025 1:56 PM [facility] Basophils Relative 0.6 % LAB HEMETOLOGY METHOD 08/08/2025 1:56 PM EDT [facility] Immature Granulocytes Relative 0.3 % LAB HEMETOLOGY METHOD 08/08/2025 1:56 PM EDT [facility] Neutrophils Absolute 5.74 1.50 - 7.00 K/mcL LAB HEMETOLOGY METHOD 08/08/2025 1:56 PM EDT [facility] Lymphocytes Absolute 1.92 1.00 - 5.00 K/mcL LAB HEMETOLOGY METHOD 08/08/2025 1:56 PM EDT [facility] Monocytes Absolute 0.79 0.20 - 1.00 K/mcL LAB HEMETOLOGY METHOD 08/08/2025 1:56 PM EDT [facility] Eosinophils Absolute 0.15 0.00 - 0.50 K/mcL LAB HEMETOLOGY METHOD 08/08/2025 1:56 PM EDT [facility] Basophils Absolute 0.05 0.00 - 0.20 K/mcL LAB HEMETOLOGY METHOD 08/08/2025 1:56 PM EDT [facility] Immature Granulocytes Absolute 0.03 0.00 - 0.03 K/mcL LAB HEMETOLOGY METHOD 08/08/2025 1:56 PM EDT [facility] Blood Venous blood specimen / Unknown Venipuncture / Unknown 08/08/2025 11:20 AM EDT 08/08/2025 11:20 AM EDT us Caitlin Hernandez MD LAB BLOOD ORDERABLES Final Resul t [facility] [address] [place] [address], * Triiodothyronine free (08/08/2025 11:20 AM EDT) T3, Free 252 230 - 420 pcg/dL LAB CHEMISTRY METHOD 08/08/2025 5:34 PM EDT [facility] Blood Venous blood specimen / Unknown Venipuncture / Unknown 08/08/2025 11:20 AM EDT 08/08/2025 11:20 AM EDT us Caitlin Hernandez MD LAB BLOOD ORDERABLES Final Resul t [facility] [address] [place] [address], * Comprehensive metabolic panel (08/08/2025 11:20 AM EDT) Sodium 138 133 - 145 mmol/L LAB CHEMISTRY METHOD 08/08/2025 2:35 PM [facility] Potassium 4.0 3.5 - 5.5 mmol/L LAB CHEMISTRY METHOD 08/08/2025 2:35 PM [facility] Chloride 107 96 - 110 mmol/L LAB CHEMISTRY METHOD 08/08/2025 2:35 PM [facility] CO2 23 21 - 32 mmol/L LAB CHEMISTRY METHOD 08/08/2025 2:35 PM [facility] Anion Gap 8 3 - 11 LAB CHEMISTRY METHOD 08/08/2025 2:35 PM [facility] Glucose 83 70 - 100 mg/dL LAB CHEMISTRY METHOD 08/08/2025 2:35 PM [facility] BUN 21 5 - 25 mg/dL LAB CHEMISTRY METHOD 08/08/2025 2:35 PM [facility] Creatinine 0.76 0.50 - 1.10 mg/dL LAB CHEMISTRY METHOD 08/08/2025 2:35 PM [facility] eGFR 82 >=60 mL/min/1. 73m2 LAB CHEMISTRY METHOD 08/08/2025 2:35 PM [facility] Comment:Calculation based on the Chronic Kidney Disease Epidemiology Collaboration (CKD-EPI) equation refit without adjustment for race. BUN/Creatinine Ratio 27.6 LAB CHEMISTRY METHOD 08/08/2025 2:35 PM EDT [facility] Calcium 9.8 8.5 - 10.5 mg/dL LAB CHEMISTRY METHOD 08/08/2025 2:35 PM T [facility] AST (SGOT) 22 10 - 42 unit/L LAB CHEMISTRY METHOD 08/08/2025 2:35 PM [facility] ALT (SGPT) 18 10 - 60 unit/L LAB CHEMISTRY METHOD 08/08/2025 2:35 PM [facility] Alkaline Phosphatase 98 42 - 121 unit/L LAB CHEMISTRY METHOD 08/08/2025 2:35 PM [facility] Total Protein 7.2 6.0 - 8.0 g/dL LAB CHEMISTRY METHOD 08/08/2025 2:35 PM [facility] Albumin 4.3 3.2 - 5.0 g/dL LAB CHEMISTRY METHOD 08/08/2025 2:35 PM [facility] Total Bilirubin 0.3 0.0 - 1.4 mg/dL LAB CHEMISTRY METHOD 08/08/2025 2:35 PM [facility] Blood Venous blood specimen / Unknown Venipuncture / Unknown 08/08/2025 11:20 AM EDT 08/08/2025 11:20 AM EDT Caitlin Hernandez MD LAB BLOOD ORDERABLES Final Resul t [facility] [address] [place] [address], [place] [phone] * External Dexa Report (01/27/2025) Anatomical Region Laterality Modality Bone Densitometr y us Provider [facility] DXA PROCEDURES Final Result * Colonoscopy (03/15/2024) Colonoscopy no interpretation , abstracted Anatomical Region Laterality Modality Other Historical Provider HEALTH MAINTENANCE Final Result * Depression Screening (03/14/2024) Depression Screening abstracted Result [facility] Historical Provider [facility] Final Result * SCREENING MAMMOGRAPHY BI 2-VIEW [...] ult * Cervical Cancer Screening: HPV (05/19/2014) Cervical Cancer Screening: HPV normal, abstracted Historical Provider HEALTH MAINTENANCE Final Result * Hepatitis C Screening (06/28/2013) Hepatitis C Screening abstracted Historical Provider HEALTH MAINTENANCE Final Result from Last 3 Months or Most Recently Relevant to Health Maintenance Insurance MEDICARE [facility] Care Teams Surgical Aide Relationship Specialty Start Date End Date Caitlin Hernandez MD [address] [place] [address] PCP - General Internal Medicine 09/03/21
--- OUTSIDE RECORDS SUMMARY | 2025-09-01 14:58 | XMS_ITS | Encounter Summary ---
Author Organization [facility] Address [address] [place] [address] Care Team Providers Care Decorating Instructor Name Role Phone Caitlin Hernandez MD Primary Care Provider [phone] Encounter Details Date Type Department Care Team (Late st Contact Info) Description 05/29/2025 Lab Requisition [facility] - Main Lab [address] [facility] [place] [address] Malka Enrique MD [address] [facility] 1 [place] [address] Fusion of spine, lumbar region Social History [...] AM EST Office Visit Orthopedic Surgery - [place] [address] [facility] [address] [place] [address] [place] D[facility] [address] [place] [phone] 02/06/2026 9:30 AM EDT Office Visit Adult Medicine [facility] [place] [address] [place], [place] [phone] Caitlin Hernandez MD [address] [place], [place] documented as of this encounter Goals [...] 05/29/2025 2:30 PM [facility] Potassium 4.6 3.5 - 5.5 mmol/L LAB CHEMISTRY METHOD 05/29/2025 2:30 PM [facility] Chloride 101 96 - [...] MD LAB BLOOD ORDERABLES Fin al Result [facility] [address] [place] [address], [place] [phone] * (ABNORMAL) Complete blood count (05/29/2025 7:52 AM EDT) [facility] WBC 9.3 4.8 - 10.8 K/mcL LAB HEMETOLOGY METHOD 05/29/2025 12:57 [facility] RBC 4.50 3.80 - 4.80 M/mcL LAB HEMETOLOGY METHOD 05/29/2025 12:57 PM [facility] Hemoglobin 11.7 11.5 - 16.0 g/dL LAB HEMETOLOGY METHOD 05/29/2025 12:57 PM [facility] Hematocrit 36.7 35.0 - 47.0 % LAB HEMETOLOGY METHOD 05/29/2025 12:57 PM [facility] MCV 81.2 79.0 - 98.0 FL LAB HEMETOLOGY METHOD 05/29/2025 12:57 PM [facility] MCH 25.9(L) 27.0 - 32.0 pcg LAB HEMETOLOGY METHOD 05/29/2025 12:57 PM [facility] MCHC 31.9(L) 32.0 - 37.0 g/dL LAB HEMETOLOGY METHOD 05/29/2025 12:57 PM [facility] RDW 15.9(H) 11.0 - 15.0 % LAB HEMETOLOGY METHOD 05/29/2025 12:57 PM [facility] Platelets 659(H) 130 - 400 K/mcL LAB HEMETOLOGY METHOD 05/29/2025 12:57 PM [facility] MPV 9.7 7.0 - 11.0 FL LAB HEMETOLOGY METHOD 05/29/2025 12:57 PM [facility] NRBC 0.0 <1.0 % LAB HEMETOLOGY METHOD 05/29/2025 12:57 PM EDT [facility] NRBC Absolute 0.00 <0.10 K/mcL LAB HEMETOLOGY METHOD 05/29/2025 12:57 PM EDT [facility] Blood Venous blood specimen / Unknown Venipuncture / Unknown 05/29/2025 7:52 AM EDT 05/29/2025 11:42 AM EDT us Malka Enrique MD LAB BLOOD ORDERABLES Fin al Result [facility] [address] [place] [address], documented in this encounter Visit Diagnoses Diagnosis Fusion of spine, lumbar region documented in this encounter Care Teams Decorating Instructor Relationship Specialty Start Date End Date Caitlin Hernandez MD [address] [place] [address] PCP - General Internal Medicine 09/03/21 documented as of this encounter
--- OUTSIDE RECORDS SUMMARY | 2025-09-01 14:59 | XMS_ITS | Encounter Summary ---
Author Organization [facility] Address [address] [place] [address] Care Team Providers Care International Recruiter Name Role Phone Caitlin Hernandez MD Primary Care Provider [phone] Encounter Details Date Type Department Care Team (Late Contact Info) Description 05/16/2025 Lab Requisition [facility] - Main Lab [address] [facility] [place] [address] Malka Enrique MD [address] [facility] 1 [place] [address] Hypokalemia Social History Tobacco Use Types Packs/Day [...] Department Care Team (Late Contact Info) Description 10/18/2025 10:45 AM EST Office Visit Orthopedic Surgery - [place] [address] [facility] [address] [place] [address] [place] D[facility] [address] [place] [phone] 02/06/2026 9:30 AM EDT Office Visit Adult Medicine [facility] [address] [place] [address] Caitlin Hernandez MD [address] [place], [place] documented as of this encounter Goals [...] LAB CHEMISTRY METHOD 05/16/2025 1:01 PM EDT [facility]) [facility] Blood Venous blood specimen / Unknown Venipuncture / Unknown 05/16/2025 6:48 AM EDT 05/16/2025 11:24 AM EDT us Malka Enrique MD LAB BLOOD ORDERABLES Fin al Result [facility] ([facility]) [facility] [address] [place] [address], documented in this encounter Visit Diagnoses Diagnosis Hypokalemia Hypopotassemia documented in this encounter Care Teams International Recruiter Relationship Specialty Start Date End Date Caitlin Hernandez MD [address] [place] [address] PCP - General Internal Medicine 09/03/21 documented as of this encounter
--- OUTSIDE RECORDS SUMMARY | 2025-09-01 14:59 | XMS_ITS | Patient Health Record ---
Author Organization [facility] Fidelina reema Zayas Address [address] [place] [address] Care Team Providers Care Warehouse Operations Manager Name Role Phone Love Ford MD Primary Care Provider Omid Ruiz Unavailable [phone] Allergies Allergen (clinical drug ingredient) Drug/Non Drug [...] 25 MG TAKE 1 TABLET BY MO UTH EVERY DAY Oral; Duration: 30 Active Social [...] Status W/U Status Risk Notes Problem Onychomycosis (090275036) Onychomycosis (110.1) Active confirmed Problem Disorder of joint of ankle and/or foot (795907542) Arthritis - Degenerative (719.97) Active confirmed Problem Pain in limb (51179603) Pain in Limb (729.5) Active confirmed Problem Plantar fasciitis (441074685) Plantar Fasciitis (728.71) Active confirmed Problem 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, 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 Problem Tinea pedis (6218178) Tinea Pedis (110.4) Active confirmed Problem Ingrowing nail (897653437) Ingrowing Nail (703.0) Active confirmed Problem Exostosis (28044587) Exostosis (726.91) Active confirmed Plan Of Treatment Pending Test Test Name Order Date X ray : Foot, right 3V 10/06/2011 X ray : Foot, right 3V 05/15/2014 Insurance Providers Payer Name Payer Address Payer Phone Subscriber Number Group Number Insured Name Patient Relationship to Insured Coverage Start Date Coverage End Date [facility] [address] [facility] [place] [id number] Sadia Parks Self - patient is the insured Medical (General) History Medical History History ICD Code Arthritis back, hip, knee pain poor circulation measles chicken pox Thyroid disorder Surgical History Surgery Date(Month/Year) tubal ligation 03/1981
--- OUTSIDE RECORDS SUMMARY | 2025-09-01 14:59 | XMS_ITS | Encounter Summary ---
Author Organization [facility] Address [address] [place] [address] Care Team Providers Care Banquet Food Server Name Role Phone Caitlin Hernandez MD Primary Care Provider [phone] Encounter Details Date Type Department Care Team (Late Contact Info) Description 05/17/2025 Lab Requisition [facility] - Main Lab [address] [facility] [place] [address] Malka Enrique MD [address] [facility] [address] [place] [address] Hypokalemia Social History Tobacco Use Types Packs/Day [...] AM EST Office Visit Orthopedic Surgery - [place] [address] [facility] [address] [place] [address] [place] [place] [facility] [address] [place] [phone] 02/06/2026 9:30 AM EDT Office Visit Adult Medicine [facility] [address] [place] [address] Caitlin Hernandez MD [address] [place], [place] documented as of this encounter Goals [...] LAB CHEMISTRY METHOD 05/17/2025 2:18 PM EDT [facility] ([facility] Blood Venous blood specimen / Unknown Venipuncture / Unknown 05/17/2025 6:11 AM EDT 05/17/2025 11:47 AM EDT us Malka Enrique MD LAB BLOOD ORDERABLES Fin al Result [facility] ([facility]) [facility] [address] [place] [address], documented in this encounter Visit Diagnoses Diagnosis Hypokalemia Hypopotassemia documented in this encounter Care Teams Banquet Food Server Relationship Specialty Start Date End Date Caitlin Hernandez MD [address] [place] [address] PCP - General Internal Medicine 09/03/21 documented as of this encounter
--- OUTSIDE RECORDS SUMMARY | 2025-09-01 14:59 | XMS_ITS | Encounter Summary ---
Author Organization [facility] Address [address] [place] [address] Care Team Providers Care Pharmaceutical Operator Name Role Phone Caitlin Hernandez MD Primary Care Provider [phone] Encounter Details Date Type Department Care Team (Late Contact Info) Description 05/15/[address] [facility] - Main Lab [address] [facility] [place] [address] Malka Enrique MD [address] [facility] [address] [place] [address] Scoliosis, unspecified; Hypothyroidism, unspecified Social History Tobacco [...] AM EST Office Visit Orthopedic Surgery - [place] [address] [facility] [address] [place] [address] [place] [facility] [address] [place] [phone] 02/06/2026 9:30 AM EDT Office Visit Adult Medicine [facility] [address] [place], [place] [phone] Caitlin Hernandez MD [address] [place], [place] documented as of this encounter Goals [...] mmol/L LAB CHEMISTRY METHOD 05/15/2025 3:04 PM [facility] Potassium 3.3(L) 3.5 - 5.5 mmol/L LAB CHEMISTRY METHOD 05/15/2025 3:04 PM [facility] Chloride 96 96 - 110 mmol/L LAB CHEMISTRY METHOD 05/15/2025 3:04 PM [facility] CO2 29 21 - 32 mmol/L LAB CHEMISTRY METHOD 05/15/2025 3:04 PM [facility] Anion Gap 8 3 - 11 LAB CHEMISTRY METHOD 05/15/2025 3:04 PM [facility] Glucose 80 70 - 100 mg/dL LAB CHEMISTRY METHOD 05/15/2025 3:04 PM [facility] BUN 15 5 - 25 mg/dL LAB CHEMISTRY METHOD 05/15/2025 3:04 PM [facility] Creatinine 0.52 0.50 - 1.10 mg/dL LAB CHEMISTRY METHOD 05/15/2025 3:04 PM [facility] eGFR 97 >=60 mL/min/1. 73m2 LAB CHEMISTRY METHOD 05/15/2025 3:04 PM [facility] Comment:Calculation based on the Chronic Kidney Disease Epidemiology Collaboration (CKD-EPI) equation refit without adjustment for race. BUN/Creatinine Ratio 28.8 LAB CHEMISTRY METHOD 05/15/2025 3:04 PM [facility] Calcium 9.7 8.5 - 10.5 mg/dL LAB CHEMISTRY METHOD 05/15/2025 3:04 PM [facility] Blood Venous blood specimen / Unknown Venipuncture / Unknown 05/15/2025 7:20 AM EDT 05/15/2025 11:06 AM EDT us Malka Enrique MD LAB BLOOD ORDERABLES Fin al Result [facility] [address] [place] [address], * (ABNORMAL) Complete blood count (05/15/2025 7:20 AM EDT) [facility] WBC 11.6(H) 4.8 - 10.8 K/mcL LAB [facility]EMETOLOG[facility] RBC 4.20 3.80 - 4.80 M/mcL LAB HEMETOLOGY METHOD [facility] Hemoglobin 10.6(L) 11.5 - 16.0 g/dL LAB HEMETOLOGY METHOD 05/15/2025 12:43 PM [facility] Hematocrit 32.7(L) 35.0 - 47.0 % LAB HEMETOLOGY METHOD 05/15/2025 12:43 PM [facility] MCV 78.2(L) 79.0 - 98.0 FL LAB HEMETOLOGY METHOD 05/15/2025 12:43 PM [facility] MCH 25.4(L) 27.0 - 32.0 pcg LAB HEMETOLOGY METHOD 05/15/2025 12:43 PM [facility] MCHC 32.4 32.0 - 37.0 g/dL LAB HEMETOLOGY METHOD 05/15/2025 12:43 PM [facility] RDW 13.6 11.0 - 15.0 % LAB HEMETOLOGY METHOD 05/15/2025 12:43 PM [facility] Platelets 330 130 - 400 K/mcL LAB HEMETOLOGY METHOD 05/15/2025 12:43 PM [facility] MPV 10.9 7.0 - 11.0 FL LAB HEMETOLOGY METHOD 05/15/2025 12:43 PM [facility] NRBC 0.0 <1.0 % LAB HEMETOLOGY METHOD 05/15/2025 12:43 PM EDT [facility] NRBC Absolute 0.00 <0.10 K/mcL LAB HEMETOLOGY METHOD 05/15/2025 12:43 PM EDT [facility] Blood Venous blood specimen / Unknown Venipuncture / Unknown 05/15/2025 7:20 AM EDT 05/15/2025 11:06 AM EDT us Malka Enrique MD LAB BLOOD ORDERABLES Fin al Result [facility] [address] [place] [address], documented in this encounter Visit Diagnoses Diagnosis Scoliosis, unspecified Hypothyroidism, unspecified documented in this encounter Care Teams Pharmaceutical Operator Relationship Specialty Start Date End Date Caitlin Hernandez MD [address] [place] [address] PCP - General Internal Medicine 09/03/21 documented as of this encounter
== END 2025-09-01 15:39 | disposition home or self-care (01) ==
LOC: HO.HNS 14:19
PROVIDERS: Visit Provider Neurological Surgery
DX: Z98.1 Arthrodesis status (principal); M79.605 Pain in left leg
CPT/HCPCS: 99213

== ENCOUNTER → 2025-09-01 15:07 | Outpatient (BNV) | payer MEDICARE, SELFPAY | PROVIDERS: Visit Provider Radiology Diagnostic Radiology | DX: Z98.1 Arthrodesis status (principal) | CPT/HCPCS: 72100 ==